=== PATIENT | male | born 1960 | race Caucasian/White ===

== ENCOUNTER 2016-11-14 18:02 | Emergency (ER) | payer OTHER ==
[~2016-11-14] VITALS: Ht 167.6 cm; Wt 82.5 kg
[~2016-11-14 18:02] MED LIST: ASPCH81X PO; ATV/1 PO; CALCTAB7 PO; ESOM20CA PO; MULT-513 PO; VITACAP37 PO; VITATAB19 PO
[2016-11-14 18:10] VITALS: TEMP 36.7; Ht 167.6 cm; Wt 82.5 kg
[2016-11-14] MEDS ORDERED: ESOM20CA PO (18:34)
[2016-11-14] MEDS ORDERED: CHOL2000 PO (18:39)
[2016-11-14] MEDS ORDERED: ATOR10TA88 PO (18:39)
[2016-11-14] MEDS ORDERED: ASPI81TA28 PO (18:39)
[2016-11-14] MEDS ORDERED: OMEG10007 PO (18:39)
--- NOTE | 2016-11-14 18:53 | EMERGENCY ROOM VISIT NOTE ---
History Report prepared by Rigo: Ian Simms Under the Supervision of: Dr. Papito Lauren M.D. First contact with patient: 18:33 Chief Complaint: EYE ASSESSMENT Stated Complaint: FLOATING DARK SPOT IN L EYE, POSS DETACHED RETINA History of Present Illness The patient is a 56 year old male who presents to the Emergency Room with complaints of constant blurred vision to his right eye beginning a few days ago. The patient states that there is a black spot in his right eye that starts in the middle and floats to the right side when he closes his eye. He reports that he can not focus well, and it is sensitive to light. The patient complains of a headache. He denies nausea, vomiting, weakness, rashes, and neck pain. The patient notes that two weeks ago he fell and hit the back of his head. He states that his ears rang, but he did not loss consciousness. Source of History: patient Onset: few days ago Position: eye (right) Quality: other (blurred) Timing: constant Modifying Factors (Worsening): other (light) Associated Symptoms: + headache, No LOC, No neck pain, No nausea, No vomiting, No weakness, No rash Review of Systems See HPI for pertinent positives & negatives. A total of 10 systems reviewed and were otherwise negative. Past Medical & Surgical Medical Problems: (1) CHEST PAIN NOS (2) Chronic low back pain (3) ESOPHAGEAL REFLUX (4) FAMILY HISTORY OF OTHER CARDIOVASCULAR DISEASES (5) HYPERTENSION NOS (6) PURE HYPERCHOLESTEROLEM Family History Diabetes mellitus Heart disease Hypertension Social History Smoking Status: Current Some Day Smoker Alcohol Use: none Marital Status: Housing Status: lives with family Occupation Status: employed Current/Historical Medications Scheduled Aspirin (Aspirin Ec), 81 MG PO DAILY Atorvastatin (Lipitor), 10 MG PO DAILY Cholecalciferol (Vitamin D3), 2,000 INTER.UNIT PO DAILY Esomeprazole Magnesium (Nexium), 20 MG PO DAILY Fish Oil ([place]-3), 1 CAP PO DAILY Multivitamins/Minerals (Mvi With Minerals), 1 TAB PO DAILY Scheduled PRN Lorazepam (Ativan), 1 MG PO DAILY PRN for Anxiety Allergies Coded Allergies: Fentanyl (Verified Allergy, Severe, NEURO CHANGES, 11/14/16) WAS HOSPITILIZED FROM IT Tuberculin (Verified Allergy, Severe, SWELLING/HIVES, 11/14/16) Rosuvastatin (Verified Allergy, Intermediate, Chest and muscle pain, ) Sertraline (Verified Allergy, Intermediate, Psych complications, 11/14/16) Physical Exam Vital Signs Date Time Temp Pulse Resp B/P (MAP) Pulse Ox O2 Delivery O2 Flow Rate FiO2 11/14/16 20:05 86 16 123/74 96 Room Air 11/14/16 18:10 36.7 109 18 124/93 95 Room Air Right Eye Acuity: 20/70 Left Eye Acuity: 20/20 Physical Exam GENERAL: Patient is well and anxious appearing and in mild distress. HEENT: No acute trauma, normocephalic atraumatic, mucous membranes dry, no nasal congestion. EYE: Right pupil is larger than left - chronic, both reactive to light. Pain to palpation of the right eye. Refer to slip lamp procedure. Visual acuity: right eye 20/70, left eye 20/20. Pressure of both left (20, 19, 21, 21) and right eye (21, 21, 19, 20) averaged 20.3. NECK: No stridor, no adenopathy, no meningismus, trachea is midline. LUNGS: No dyspnea. Clear to auscultation and equal bilaterally. No wheeze, no rhonchi. HEART: Regular rate and rhythm. No murmurs, rubs, gallops appreciated. EXTREMITIES: Normal motion all extremities, no cyanosis, no edema. NEUROLOGIC: Alert and oriented, no acute motor or sensory deficits, no focal weakness, cranial nerves grossly intact. SKIN: No rash, no jaundice, no diaphoresis. Medical Decision & Procedures ER Provider Diagnostic Interpretation: CT results as stated below per interpretation by me and the radiologist: CT OF THE HEAD WITHOUT CONTRAST CLINICAL HISTORY: Posterior head injury, visual changes. COMPARISON STUDY: Head CT August 15, 2014. CT DOSE: 537.48 mGy.cm TECHNIQUE: Helical axial images of the head were obtained without IV contrast. Automated exposure control was utilized for the study. FINDINGS: No acute intracranial hemorrhage, midline shift or mass effect is present. Ventricular system is normal. Basilar cisterns are patent. There are no extra-axial collections. Calzada-white differentiation is maintained. There are no findings to suggest acute dural sinus thrombosis or acute territorial infarct. There is no calvarial fracture. Visualized portions of the sinuses and the mastoid air cells are clear. IMPRESSION: 1. No acute intracranial findings. 2. No calvarial fracture. Electronically signed by: Luis Fernando Aguila M.D. 11/14/2016 7:01 PM Dictated Date/Time: 11/14/2016 6:58 PM Medications Administered Medications (Trade) Dose Ordered Sig/Roberto Route Start Time Stop Time Status Last Admin Dose Admin Oxycodone HCl (Roxicodone Immediate Rel Tab) 5 mg NOW STAT PO 11/14/16 19:23 11/14/16 19:24 DC 11/14/16 19:33 5 MG Oxycodone HCl (Roxicodone Immediate Rel 5MG Home Pack) 1 homepack UD ONCE PO 11/14/16 20:15 11/14/16 20:16 DC 11/14/16 20:15 1 HOMEPACK Procedure Slit Lamp Examination Indication: visual disturbance The right eye was prepped with topical proparacaine. Slit lamp examination was performed in the standard fashion. Cornea appeared normal. Anterior chamber cloudy. Scleral injection not present. without discharge present. Fluorescein examination performed and revealed no up-take. No foreign bodies noted. Negative Chun sign. The patient tolerated the procedure well without complication. ED Course 1836: The patient was evaluated in room B11B. A complete history and physical exam was performed. 1906: Ordered Oxycodone HCl 5 mg PO, Proparacaine HCl 2 drops OP 1939: I discussed the patient's case with Dr. Phelps, Ophthalmology. He will evaluate the patient tomorrow as an outpatient. 2009: Reevaluated the patient. He is feeling much better and will se Dr. Phelps , Ophthalmology, tomorrow. Discussed results and discharge instructions: he verbalized understanding and agreement. The patient is ready for discharge. 2014: Ordered Oxycodone HCl 1 homepack PO Medical Decision 56 yr old male arrives for worsening right eye vision over last few days. Acutely worsening since yesterday with dark spot over center vision and radiation laterally. Associated with ocular headache. Hit head 2 weeks ago posterior thus went ahead with CT head which was negative. Visual acuity is acutely lower in right eye. Pressures are good. Slit lamp with mildly cloudy anterior chamber without corneal issue on fluorescein. Concern retinal/ vitreous detachment, optic neuritis. Discussed with Optho who will see him first thing in clinic in am. NPO after midnight. Oxy IR for pain. Reviewed symptoms requiring RTED. Stable and breathing comfortably. No neuro deficits. Consults Time Called: 1926 Consulting Physician: Dr. Phelps, Ophthalmology Returned Call: 1939 I discussed the patient's case with Dr. Phelps, Ophthalmology. He will evaluate the patient tomorrow as an outpatient. Impression Primary Impression: Low vision of right eye with normal vision in contralateral eye Additional Impression: Acute right eye pain Scribe Attestation The scribe's documentation has been prepared under my direction and personally reviewed by me in its entirety. I confirm that the note above accurately reflects all work, treatment, procedures, and medical decision making performed by me. Departure Information Dispostion Home / Self-Care Referrals Olga Medrano M.D. (PCP) Flex Phelps D.O. Patient Instructions My [facility] Additional Instructions Follow up with Dr Phelps tomorrow morning at his [facility] Office at 8:30am They should be expecting you. If worsening or other concerns, return to ED immediately for further evaluation. You have received a narcotic pain medication. These medications may cause drowsiness and should not be used with other sedative medications. Do not drive , drink alcohol, perform dangerous activities, nor make important decisions after taking these medications. fine hairer use or inappropriate use may lead to addiction. Problem Qualifiers
--- NOTE | 2016-11-14 19:02 | DIAGNOSTIC IMAGING REPORT ---
CT OF THE HEAD WITHOUT CONTRAST CLINICAL HISTORY: Posterior head injury, visual changes. COMPARISON STUDY: Head CT August 15, 2014. CT DOSE: 537.48 mGy.cm TECHNIQUE: Helical axial images of the head were obtained without IV contrast. Automated exposure control was utilized for the study. FINDINGS: No acute intracranial hemorrhage, midline shift or mass effect is present. Ventricular system is normal. Basilar cisterns are patent. There are no extra-axial collections. Calzada-white differentiation is maintained. There are no findings to suggest acute dural sinus thrombosis or acute territorial infarct. There is no calvarial fracture. Visualized portions of the sinuses and the mastoid air cells are clear. IMPRESSION: 1. No acute intracranial findings. 2. No calvarial fracture. Electronically signed by: Luis Fernando Aguila M.D. 11/14/2016 7:01 PM Dictated Date/Time: 11/14/2016 6:58 PM
[2016-11-14] MEDS ORDERED: PROPARACAINE HCL 0.5% OP SOLN 15 ML BTL OP STA (19:07)
[2016-11-14] MEDS ORDERED: OXYCODONE HCL IR 5 MG TAB (IMMEDIATE RELEASE) PO STA (19:23)
[2016-11-14 20:05] VITALS: BP 123/74; PULSE 86; O2SAT 96
[2016-11-14] MEDS ORDERED: OXYCODONE IR HOME PACK PO ONE (20:15)
[2017-01-28] MEDS ORDERED: PRED10TA PO (17:08)
[2017-01-28] MEDS ORDERED: ARTIOIN OPR (17:08)
[2017-01-28] MEDS ORDERED: LPR25 PO (17:08)
== END 2016-11-14 20:28 | disposition home or self-care (01) ==
LOC: C.EDB 18:03
DX: H54.51 Low vision, right eye, normal vision left eye (principal); H57.11 Ocular pain, right eye; I10 Essential (primary) hypertension; K21.9 Gastro-esophageal reflux disease without esophagitis; E78.00 Pure hypercholesterolemia, unspecified; G89.29 Other chronic pain; F17.200 Nicotine dependence, unspecified, uncomplicated; Z79.82 Long term (current) use of aspirin; Z79.899 Other long term (current) drug therapy; Z88.8 Allergy status to other drugs, medicaments and biological substances; Z83.3 Family history of diabetes mellitus; Z82.49 Family history of ischemic heart disease and other diseases of the circulatory system

== ENCOUNTER 2016-11-15 03:54 | Emergency (ER) | payer OTHER ==
[~2016-11-15] VITALS: Ht 170.2 cm; Wt 83.2 kg
[~2016-11-15 03:54] MED LIST changes: -ASPCH81X PO; +ASPI81TA28 PO; +ATOR10TA88 PO; -CALCTAB7 PO; +CHOL2000 PO; +OMEG10007 PO; -VITACAP37 PO; -VITATAB19 PO
[2016-11-15 03:58] VITALS: TEMP 36.3; Ht 170.2 cm; Wt 83.2 kg
[2016-11-15] MEDS ORDERED: ALUMINUM/MAGNESIUM SUSP 30 ML UDC PO STA (04:13)
[2016-11-15] MEDS ORDERED: LIDOCAINE HCL 2% VISC SOLN 20 ML UDC PO STA (04:13)
[2016-11-15] MEDS ORDERED: ALUMINUM/MAGNESIUM SUSP 30 ML UDC ONE (04:14)
[2016-11-15] MEDS ORDERED: LIDOCAINE HCL 2% VISC SOLN 20 ML UDC ONE (04:15)
[2016-11-15 04:19] LABS: BASO % 0.2 %; BASO ABS # 0.01 K/uL (0-0.2); COMPLETE YES; EOS % 1.8 %; HEMATOCRIT 44.3 % (42-52); IG% 0.5 %; LYMPH % 37.9 %; LYMPH ABS # 2.47 K/uL (1.2-3.4); MEAN CELL VOLUME 92.1 fL (80-100); MEAN CORPUSCULAR HEMOGLOBIN 31.6 pg (25-34); MEAN CORPUSCULAR HGB CONC 34.3 g/dl (32-36); MEAN PLATELET VOLUME 9.2 fL (7.4-10.4); MONO % 8.6 %; PLATELET COUNT 154 K/uL (130-400); RED BLOOD COUNT 4.81 M/uL (4.7-6.1); WHITE BLOOD COUNT 6.51 K/uL (4.8-10.8)
[2016-11-15] MEDS ORDERED: LORAZEPAM 2 MG/ML 1 ML VIAL IV STA (04:19)
[2016-11-15 04:38] LABS: ALT/SGPT 41 U/L (12-78); AST/SGOT 19 U/L (15-37); BLOOD UREA NITROGEN 17 mg/dl (7-18); BUN/CREATININE RATIO 13.8 (10-20); CALCIUM 8.8 mg/dl (8.5-10.1); CARBON DIOXIDE 28 mmol/L (21-32); CHLORIDE 103 mmol/L (98-107); GLUCOSE 127 mg/dl (70-99); POTASSIUM 3.7 mmol/L (3.5-5.1); SODIUM 141 mmol/L (136-145)
[2016-11-15 04:43] LABS: ALKALINE PHOSPHATASE 54 U/L (45-117)
[2016-11-15] MEDS ORDERED: OXYCODONE HCL IR 5 MG TAB (IMMEDIATE RELEASE) PO STA (06:05)
--- NOTE | 2016-11-15 06:28 | EMERGENCY ROOM VISIT NOTE ---
History First contact with patient: 04:04 Chief Complaint: CHEST PAIN Stated Complaint: SEVERE CHEST PAIN,STOMACH PAIN,DRY MOUTH Nursing Triage Summary: pt reports mid chest pain that woke him from sleep at 0030 with nausea. hx heart cath with blockage in the past and HTN. pt took zantac, gas x and baking soda water at home with no relief. History of Present Illness The patient is a 56 year old male who presents to the Emergency Room with complaints of midsternal chest pain that woke him out of his out of sleep at 12: 30 AM described as discomfort, 5 out of 10. Nothing makes it better or worse. He had a cardiac cath 2 and half years ago that showed 50% blockage. Nothing more recent. Patient does occasionally smoke has high blood pressure and cholesterol with a family history of heart disease. Patient was seen here yesterday for visual complaints and has appointment this morning at 8:30 with ophthalmology for further workup. This is unchanged. Patient tried an antacid with no relief of symptoms. Patient denies dyspnea, abdominal pain, back pain, leg pain or swelling, recent travel, history of blood clots. Review of Systems See HPI for pertinent positives & negatives. A total of 10 systems reviewed and were otherwise negative. Past Medical/Surgical History Medical Problems: (1) CHEST PAIN NOS (2) Chronic low back pain (3) ESOPHAGEAL REFLUX (4) FAMILY HISTORY OF OTHER CARDIOVASCULAR DISEASES (5) HYPERTENSION NOS (6) PURE HYPERCHOLESTEROLEM Family History Diabetes mellitus Heart disease Hypertension Social History Smoking Status: Current Some Day Smoker Alcohol Use: none Marital Status: Housing Status: lives with family Occupation Status: employed Current/Historical Medications Scheduled Aspirin (Aspirin Ec), 81 MG PO DAILY Atorvastatin (Lipitor), 10 MG PO DAILY Cholecalciferol (Vitamin D3), 2,000 INTER.UNIT PO DAILY Esomeprazole Magnesium (Nexium), 20 MG PO DAILY Fish Oil ([place]-3), 1 CAP PO DAILY Multivitamins/Minerals (Mvi With Minerals), 1 TAB PO DAILY Scheduled PRN Lorazepam (Ativan), 1 MG PO DAILY PRN for Anxiety Allergies Coded Allergies: Fentanyl (Verified Allergy, Severe, NEURO CHANGES, 11/15/16) WAS HOSPITILIZED FROM IT Tuberculin (Verified Allergy, Severe, SWELLING/HIVES, 11/15/16) Rosuvastatin (Verified Allergy, Intermediate, Chest and muscle pain, ) Sertraline (Verified Allergy, Intermediate, Psych complications, 11/15/16) Physical Exam Vital Signs Date Time Temp Pulse Resp B/P (MAP) Pulse Ox O2 Delivery O2 Flow Rate FiO2 11/15/16 06:11 75 18 127/78 93 Room Air 11/15/16 04:16 Room Air 11/15/16 04:16 Room Air 11/15/16 04:12 86 11/15/16 04:01 99 Room Air 11/15/16 03:58 36.3 82 20 156/108 99 Room Air Physical Exam VITALS: Vitals are noted on the nurse's note and reviewed by myself. Vital signs hypertensive GENERAL: Pleasant male, in no acute distress, nondiaphoretic, well-developed well-nourished. SKIN: The skin was without rashes, erythema, edema, or bruising. There is no tenting of the skin. Capillary reflex less than 2 seconds. HEAD: Normocephalic atraumatic. EARS: External auditory canals clear, tympanic membranes pearly lovelace without erythema or effusion bilaterally. EYES: Pupils equal round and reactive to light and accommodation. Conjunctivae without injection, sclerae without icterus. Extraocular movements intact. NOSE: Patent, turbinates without inflammation or discharge. MOUTH: Mucous membranes moist. Pharynx without erythema or exudate. Uvula midline. Airway patent. Tongue does not deviate. NECK: Supple without nuchal rigidity. No lymphadenopathy. No thyromegaly. Cervical spine is nontender. No JVD. HEART: Regular rate and rhythm without murmurs gallops or rubs. Chest nontender to palpation LUNGS: Clear to auscultation bilaterally without wheezes, rales or rhonchi. No dullness to percussion. No retractions or accessory muscle use. ABDOMEN: Positive bowel sounds x 4. Normal tympanic percussion. Soft, nontender, without masses or organomegaly. El sign negative. No guarding or rebound tenderness. MUSCULOSKELETAL: No muscle atrophy, erythema, or edema noted. NEURO: Patient was alert and oriented to person place and time. Normal sensation to light and sharp touch. No focal neurological deficits. Medical Decision & Procedures Laboratory Results 11/15/16 04:10 Red Blood Count 4.81, Mean Corpuscular Volume 92.1, Mean Corpuscular Hemoglobin 31.6, Mean Corpuscular Hemoglobin Concent 34.3, Mean Platelet Volume 9.2, Neutrophils (%) (Auto) 51.0, Lymphocytes (%) (Auto) 37.9, Monocytes (%) (Auto) 8.6, Eosinophils (%) (Auto) 1.8, Basophils (%) (Auto) 0.2, Neutrophils # (Auto) 3.32, Lymphocytes # (Auto) 2.47, Monocytes # (Auto) 0.56, Eosinophils # (Auto) 0.12, Basophils # (Auto) 0.01 11/15/16 04:10 Test 11/15/16 04:10 11/15/16 06:12 White Blood Count 6.51 K/uL (4.8-10.8) Red Blood Count 4.81 M/uL (4.7-6.1) Hemoglobin 15.2 g/dL (14.0-18.0) Hematocrit 44.3 % (42-52) Mean Corpuscular Volume 92.1 fL (80-100) Mean Corpuscular Hemoglobin 31.6 pg (25-34) Mean Corpuscular Hemoglobin Concent 34.3 g/dl (32-36) Platelet Count 154 K/uL (130-400) Mean Platelet Volume 9.2 fL (7.4-10.4) Neutrophils (%) (Auto) 51.0 % Lymphocytes (%) (Auto) 37.9 % Monocytes (%) (Auto) 8.6 % Eosinophils (%) (Auto) 1.8 % Basophils (%) (Auto) 0.2 % Neutrophils # (Auto) 3.32 K/uL (1.4-6.5) Lymphocytes # (Auto) 2.47 K/uL (1.2-3.4) Monocytes # (Auto) 0.56 K/uL (0.11-0.59) Eosinophils # (Auto) 0.12 K/uL (0-0.5) Basophils # (Auto) 0.01 K/uL (0-0.2) RDW Standard Deviation 41.5 fL (36.4-46.3) RDW Coefficient of Variation 12.3 % (11.5-14.5) Immature Granulocyte % (Auto) 0.5 % Immature Granulocyte # (Auto) 0.03 K/uL (0.00-0.02) D-Dimer 190 ug/L FEU (0-500) Anion Gap 10.0 mmol/L (3-11) Est Creatinine Clear Calc Drug Dose 70.1 ml/min Estimated GFR () 77.3 Estimated GFR (Non- 66.7 BUN/Creatinine Ratio 13.8 (10-20) Calcium Level 8.8 mg/dl (8.5-10.1) Total Bilirubin 0.7 mg/dl (0.2-1) Direct Bilirubin 0.1 mg/dl (0-0.2) Aspartate Amino Transf (AST/SGOT) 19 U/L (15-37) Alanine Aminotransferase (ALT/SGPT) 41 U/L (12-78) Alkaline Phosphatase 54 U/L (45-117) Troponin I < 0.015 ng/ml (0-0.045) Total Protein 7.4 gm/dl (6.4-8.2) Albumin 3.7 gm/dl (3.4-5.0) Lipase 140 U/L (73-393) Bedside Troponin I < 0.030 ng/ml (0-0.045) Medications Administered Medications (Trade) Dose Ordered Sig/Roberto Route Start Time Stop Time Status Last Admin Dose Admin Al Hydroxide/Mg Hydroxide (Maalox Susp) 30 ml STK-MED ONCE .ROUTE 11/15/16 04:14 11/15/16 04:15 DC 11/15/16 04:18 30 ML Lidocaine HCl (Viscous Lidocaine 2% Soln) 20 ml STK-MED ONCE .ROUTE 11/15/16 04:15 11/15/16 04:16 DC 11/15/16 04:17 10 ML Lorazepam (Ativan Inj) 1 mg NOW STAT IV 11/15/16 04:19 11/15/16 04:21 DC 11/15/16 04:24 1 MG Oxycodone HCl (Roxicodone Immediate Rel Tab) 5 mg NOW STAT PO 11/15/16 06:05 11/15/16 06:06 DC 11/15/16 06:15 5 MG ED Course Prior records/ancillary studies reviewed. Triage Nursing notes reviewed. Additional history obtained from family. The patient's history was concerning for chest pain. Differential diagnosis: Etiologies such as cardiac ischemia, aortic dissection, pulmonary embolism, pneumonia, pneumothorax, musculoskeletal, infections, pericarditis, myocarditis , esophageal rupture, gastrointestinal, as well as others were entertained. Physical examination: As above. ER treatment provided: GI cocktail, Ativan On reassessment the patient felt better. Diagnostic interpretation by me: The electrocardiogram was negative for pathologic change. Normal sinus, normal intervals, T wave inversions in lead 3, normal axis, rate of 86. Impression normal sinus rhythm interpreted by myself. Repeat EKG is unchanged The labs revealed d-dimer Negative troponin 2 2.5 hours apart Imaging studies: Chest x-ray with no acute consolidation, pneumothorax or free air per my interpretation Exam and history seem consistent with chest pain with risk factors for heart disease. Patient was offered admission and Ativan he refused. He understands the risks involved such as having a heart attack. He states he'll follow up today with his family care doctor for further workup for cardiac workup. He states he will go to his appointment at 8:30 with the seismic survey assistant for his eye issue that he was seen here yesterday for. This is unchanged per patient. He states is not gotten worse or any better. Patient to troponins that were negative that were 2 hours apart. Patient had 2 normal EKGs that were greater than 2 hours apart. Negative d-dimer. His risk factors of heart disease for high blood pressure, cholesterol, family history and he smokes. No recent stress test or echo or cardiac cath. He was asked several times to stay and adamantly denied. He was advised to return to the ER immediately for chest pain , difficulty breathing, worsening signs or symptoms or as needed. He stated he did feel better after the GI cocktail and Ativan. By the evaluation outlined above emergent etiologies such as aortic dissection, pulmonary embolism, pneumonia, pneumothorax, infections, pericarditis, myocarditis, gastrointestinal, as well as others were deemed relatively unlikely. The pt informed about the findings as listed above. All questions were answered and pleased with the treatment. Return instructions were outlined and the patient was discharged in stable condition. Referral: The patient was referred back to primary care physician for follow-up in today and go to your appointment as scheduled with ophthalmology this morning from yesterday's visit for a recheck of the current condition. Case reviewed with my attending. Medical Decision as above Impression Primary Impression: Substernal precordial chest pain Departure Information Dispostion Home / Self-Care Condition FAIR Referrals Olga Medrano M.D. (PCP) Patient Instructions My [facility] Additional Instructions Go to Dr. Ayala's office at 8:30 this morning for your eye problems. You have multiple risk factors for heart disease. I strongly recommend that you see your family care doctor today or tomorrow for further workup for this for outpatient stress test and/or echo. Recommend no strenuous activity until cleared by your family care doctor. Recommend that you quit smoking. Return to ER sooner for further cardiac workup, chest pain, difficulty breathing , worsening signs or symptoms or as needed.
[2016-11-15 06:37] VITALS: BP 130/87; PULSE 83; O2SAT 97
--- NOTE | 2016-11-15 06:40 | DIAGNOSTIC IMAGING REPORT ---
CHEST ONE VIEW PORTABLE HISTORY:56 yearsMaleCHEST PAIN COMPARISON: 04/26/2016 TECHNIQUE: Portable upright AP view of the chest FINDINGS: Cardiac mediastinal and hilar silhouettes are within normal limits. No pneumothorax, pleural effusion, focal airspace consolidation or overt pulmonary edema. There is a healed remote mid left ventricular fracture. Degenerative changes involve the AC joints bilaterally. IMPRESSION: 1. No acute cardiopulmonary process. 2. Remote healed mid left clavicular fracture. The above report was generated using voice recognition software. It may contain grammatical, syntax or spelling errors. Electronically signed by: Philip Ernst M.D. 11/15/2016 6:39 AM Dictated Date/Time: 11/15/2016 6:37 AM
[2017-01-28] MEDS ORDERED: PRED10TA PO (17:08)
[2017-01-28] MEDS ORDERED: LPR25 PO (17:08)
[2017-01-28] MEDS ORDERED: ARTIOIN OPR (17:08)
== END 2016-11-15 06:38 | disposition home or self-care (01) ==
LOC: C.EDB 03:56
DX: R07.2 Precordial pain (principal); F17.210 Nicotine dependence, cigarettes, uncomplicated; M54.5 Low back pain; G89.29 Other chronic pain; K21.9 Gastro-esophageal reflux disease without esophagitis; Z82.49 Family history of ischemic heart disease and other diseases of the circulatory system; I10 Essential (primary) hypertension; E78.00 Pure hypercholesterolemia, unspecified; Z83.3 Family history of diabetes mellitus; Z79.82 Long term (current) use of aspirin; Z79.899 Other long term (current) drug therapy

== ENCOUNTER 2017-01-27 14:14 | Observation (INO) | payer OTHER ==
[~2017-01-27] VITALS: Ht 170.2 cm; Wt 81.1 kg
--- NOTE | 2017-01-27 14:33 | EMERGENCY ROOM VISIT NOTE ---
History Report prepared by Isabelaibalex: Yuko Sequeira Under the Supervision of: Mell MccartneyO. First contact with patient: 14:23 Chief Complaint: STROKE SYMPTOMS Stated Complaint: NUMB R SIDE [id number] EYE-R SIDE OF FACE-SO History of Present Illness The patient is a 56 year old male who presents to the Emergency Room with complaints of possible stroke symptoms that started yesterday. He complains of numbness in the right side of his face and pain in his right eye. He reports yesterday, he started to experience numbness in the right side of his tongue as he was eating and food started to fall out of his mouth. He denies any weakness in his arms or legs. He does have some neck pain and a headache. He also notes he has felt "run down" for the past 1 month. The patient admits to a history of hypertension, anxiety and panic attacks. He has no prior history of CVA's or TIA 's. He denies any recent known tick bites. He does admit to intermittent joint pain and spending a lot of time outdoors. 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 Source of History: patient Onset: yesterday Position: head (right side of face) Timing: other (persistent) Associated Symptoms: + headache, + neck pain, + numbness (right side of face ), No weakness (in the arms or legs) Review of Systems See HPI for pertinent positives & negatives. A total of 10 systems reviewed and were otherwise negative. Past Medical & Surgical Medical Problems: (1) Yanes's palsy (2) CHEST PAIN NOS (3) Chronic low back pain (4) ESOPHAGEAL REFLUX (5) FAMILY HISTORY OF OTHER CARDIOVASCULAR DISEASES (6) HYPERTENSION NOS (7) Mouth droop due to facial weakness (8) PURE HYPERCHOLESTEROLEM (9) Severe anxiety Family History Diabetes mellitus Heart disease Hypertension Social History Smoking Status: Former Smoker Alcohol Use: none Drug Use: none Marital Status: Housing Status: lives with family Occupation Status: employed Current/Historical Medications Scheduled Aspirin (Aspirin Ec), 81 MG PO DAILY Cholecalciferol (Vitamin D3), 2,000 INTER.UNIT PO DAILY Esomeprazole Magnesium (Nexium), 20 MG PO DAILY Fish Oil ([place]-3), 1 CAP PO DAILY Multivitamins/Minerals (Mvi With Minerals), 1 TAB PO DAILY Scheduled PRN Lorazepam (Ativan), 1 MG PO DAILY PRN for Anxiety Allergies Coded Allergies: Fentanyl (Verified Allergy, Severe, NEURO CHANGES, 11/15/16) WAS HOSPITILIZED FROM IT Tuberculin (Verified Allergy, Severe, SWELLING/HIVES, 11/15/16) Rosuvastatin (Verified Allergy, Intermediate, Chest and muscle pain, ) Sertraline (Verified Allergy, Intermediate, Psych complications, 11/15/16) Physical Exam Vital Signs Date Time Temp Pulse Resp B/P (MAP) Pulse Ox O2 Delivery O2 Flow Rate FiO2 01/27/17 17:50 76 13 140/87 96 Room Air 01/27/17 17:40 96 Room Air 01/27/17 16:58 69 18 130/89 96 Room Air 01/27/17 15:29 73 16 131/89 96 Room Air 01/27/17 15:12 75 01/27/17 14:41 97 Room Air 01/27/17 14:41 97 Room Air 01/27/17 14:20 37.0 83 18 153/90 98 Room Air Physical Exam GENERAL: Patient is awake, alert, in no acute distress, patient is resting comfortably and showing no signs of anxiety EYES: The conjunctivae are clear. The pupils are round and reactive. EARS, NOSE, MOUTH AND THROAT: The nose is without any evidence of any deformity. Mucous membranes are moist tongue is midline NECK: The neck is nontender and supple. RESPIRATORY: Normal respiratory effort is noted there is no evidence of wheezing rhonchi or rales CARDIOVASCULAR: Regular rate and rhythm noted there no murmurs rubs or gallops normal S1 normal S2 GASTROINTESTINAL: The abdomen is soft. Bowel sounds are present in all quadrants. Abdomen is nontender MUSCULOSKELETAL/EXTREMITIES: There is no evidence of gross deformity full range of motion is noted in the hips and shoulders SKIN: There is no obvious evidence of any rash. There are no petechiae, pallor or cyanosis noted. NEUROLOGIC: Slight facial asymmetry involving right corner of mouth, patient is able to raise eyebrows and wrinkle the forehead symmetrically. Medical Decision & Procedures ER Provider Diagnostic Interpretation: Radiology results as stated below per my review and radiologist interpretation: NECK CTA HISTORY: Headache. Right-sided facial numbness. TECHNIQUE: Multiaxial CT images of the neck were performed following the intravenous administration of contrast to evaluate the major cervical vessels. Maximum intensity projection images were also obtained. All measurements were calculated based on NASCET criteria. A dose lowering technique was utilized adhering to the principles of ALARA. COMPARISON STUDY: None. FINDINGS: Moderate calcified plaque within the right carotid bifurcation and mild calcified plaque within the left carotid bifurcation. Bilateral common carotid arteries are widely patent. There is approximately 30% stenosis at the right carotid bulb. The remaining right internal carotid artery is widely patent. The left internal carotid artery is hypoplastic and is approximately 50% smaller in caliber and comparison to the normal right side. However, there are no areas of occlusion identified. Bilateral cervical vertebral arteries are widely patent. Opacified internal jugular veins are patent. Subcutaneous cyst within the posterior aspect of the neck. IMPRESSION: 1. Diffusely hypoplastic left internal carotid artery which is approximately 50% smaller in caliber in comparison to the normal right side. 2. Approximately 30% stenosis at the right carotid bulb due to the atherosclerotic plaque. 3. The visualized cervical vertebral arteries are patent. Electronically signed by: Pop Mora M.D. 01/27/2017 5:06 PM HEAD CTA HISTORY: CROOKS, RT SIDE FACIAL WEAKNESS, HWO CONTRAST ALREADY DONE TECHNIQUE: Multiaxial CT images of the head were performed after the intravenous administration of contrast to evaluate the major cerebral vessels. Maximum intensity projection images were also obtained. A dose lowering technique was utilized adhering to the principles of ALARA. COMPARISON: None. FINDINGS: There is no mass, hematoma, midline shift, or acute infarct. Moderate calcified plaque within the right carotid siphon resulting in multifocal areas of mild stenosis. Hypoplastic distal right vertebral artery. Mild focal stenosis within the distal left vertebral artery. The basilar artery is patent. No significant stenosis within the bilateral proof technician helper are MCAs. No aneurysm identified. The visualized left internal carotid artery is diffusely small in caliber. Focal area of high-grade stenosis within the petrous segment of the left internal carotid artery on image 20. The left carotid siphon is diffusely small in caliber but patent. No severe stenosis within the bilateral MCAs or ACAs. The left A1 segment is hypoplastic. IMPRESSION: 1. The visualized left internal carotid artery is diffusely small in caliber/narrowed with a focal area of high-grade stenosis at the petrous segment. 2. Multifocal mild stenosis within the right carotid siphon. 3. Focal area of mild stenosis within the left distal vertebral artery. 4. No areas of vascular occlusion or aneurysms identified. Electronically signed by: Pop Mora M.D. 01/27/2017 5:02 PM CHEST ONE VIEW PORTABLE HISTORY: EVALUATE ALTERED MENTAL STATUS/WEAKNESS COMPARISON: Chest 11/15/2016. FINDINGS: The lungs are clear. Cardiac silhouette is normal in size. No pleural effusions. No pneumothorax. Old, healed left clavicle fracture. IMPRESSION: No acute process. Electronically signed by: Pop Mora M.D. 01/27/2017 2:[address] CT DOSE: 537.48 mGy.cm HISTORY: EVALUATE ALTERED MENTAL STATUS/WEAKNESS TECHNIQUE: Multiaxial CT images of the head were performed without the use of intravenous contrast. Automated exposure control was utilized for this study. A dose lowering technique was utilized adhering to the principles of ALARA. Comparison: Head CT 11/14/2016. Findings: The paranasal sinuses and mastoid air cells are clear. The calvarium and skull base are intact. The ventricles and sulci are within normal limits. There is no mass, hematoma, midline shift, or acute infarct. Impression: No acute intracranial abnormality. Electronically signed by: Pop Mora M.D. 01/27/2017 3:16 PM Laboratory Results Test 01/27/17 14:29 01/27/17 14:30 Bedside Glucose 137 mg/dl (70-99) Erythrocyte Sedimentation Rate 19 mm/hr (0-14) Prothrombin Time 10.1 SECONDS (9.0-12.0) Prothromb Time International Ratio 0.9 (0.9-1.1) Activated Partial Thromboplast Time 25.3 SECONDS (21.0-31.0) Partial Thromboplastin Ratio 1.0 Magnesium Level 2.2 mg/dl (1.8-2.4) Total Bilirubin 0.4 mg/dl (0.2-1) Direct Bilirubin < 0.1 mg/dl (0-0.2) Aspartate Amino Transf (AST/SGOT) 15 U/L (15-37) Alanine Aminotransferase (ALT/SGPT) 37 U/L (12-78) Alkaline Phosphatase 54 U/L (45-117) Total Creatine Kinase 80 U/L (39-308) Creatine Kinase MB < 0.5 ng/ml (0.5-3.6) Creatine Kinase MB Ratio (0-3.0) Troponin I < 0.015 ng/ml (0-0.045) C-Reactive Protein 0.80 mg/dl (0-0.29) Total Protein 7.6 gm/dl (6.4-8.2) Albumin 3.6 gm/dl (3.4-5.0) Thyroid Stimulating Hormone (TSH) 1.100 uIu/ml (0.300-4.500) Lyme Disease IgG Antibody NEG (NEG) Lyme Disease IgM Antibody NEG (NEG) Hepatitis C Antibody Screen NEG (NEG) Laboratory results per my review. Medications Administered Medications (Trade) Dose Ordered Sig/Roberto Route Start Time Stop Time Status Last Admin Dose Admin Acetaminophen (Tylenol Tab) 1,000 mg NOW STAT PO 01/27/17 15:33 01/27/17 15:34 DC 01/27/17 15:36 1,000 MG Morphine Sulfate (MoRPHine SULFATE INJ) 4 mg Q15M PRN IV 01/27/17 16:00 01/27/17 19:03 DC 01/27/17 16:58 4 MG Ondansetron HCl (Zofran Inj) 4 mg NOW STAT IV 01/27/17 15:52 01/27/17 15:53 DC 01/27/17 16:13 4 MG Aspirin (Aspirin Chew) 324 mg NOW STAT PO 01/27/17 17:28 01/27/17 17:29 DC 01/27/17 17:52 324 MG Acetaminophen 100 ml @ 400 mls/hr Q8H PRN IV 01/27/17 18:45 02/26/17 18:44 01/27/17 20:47 400 MLS/HR ED Course 1424: The patient was evaluated in room B9. A complete history and physical examination were performed. 1533: Acetaminophen 1000 mg PO. 1550: I reevaluated the patient. He still has a headache. 1552: Zofran 4 mg IV. 1600: Morphine Sulfate 4 mg IV. 1727: I discussed the patients case with Dr. Perkins, [facility] Hospitalist. The patient will be further evaluated. 1728: Aspirin 324 mg PO. 1735: I reevaluated the patient. He is resting comfortably. I discussed my recommendation he remain in the hospital for further evaluation and management and he verbalized complete understanding and agreement. Medical Decision Prior records/ancillary studies reviewed and summarized above. Nursing notes reviewed. The patient's history was concerning for weakness. Differential diagnosis: Etiologies such as metabolic, infection, hypo/hyperglycemia, electrolyte abnormalities, cardiac sources, intracerebral event, toxicologic, neurologic, as well as others were entertained. The patient is a 56-year-old male who presented to the emergency department for an evaluation of a facial droop. The facial droop began recently but he was not inside the window for a stroke alert given that he describes symptoms which began a day or 2 ago. On physical exam patient had a mild right facial droop and his forehead strength remained. The patient had no other focal neurologic deficit. I discussed the patient's laboratory radiographic studies with him which included angiography of the head and neck. This revealed significant carotid stenosis on the left which could be responsible for the patient's right- sided symptoms. For this reason I discussed his case with the on-call [facility] hospitalist group. They've agreed to evaluate the patient in emergency department for further management and disposition. Medication Reconcilliation Current Medication List: was personally reviewed by me Blood Pressure Screening Patient's blood pressure: Normal blood pressure Blood pressure disposition: Did not require urgent referral Consults Time Called: 1725 Consulting Physician: Felicitas Mcmahon Returned Call: 1727 I discussed the patients case with Felicitas Mcmahon. The patient will be further evaluated. Impression Primary Impression: Facial droop Additional Impressions: Internal carotid artery stenosis CVA (cerebral vascular accident) Scribe Attestation The scribe's documentation has been prepared under my direction and personally reviewed by me in its entirety. I confirm that the note above accurately reflects all work, treatment, procedures, and medical decision making performed by me. Departure Information Dispostion Being Evaluated By Hospitalist Referrals Olga Medrano M.D. (PCP) Patient Instructions My [facility] Problem Qualifiers Additional Impressions: Internal carotid artery stenosis Laterality: left Qualified Codes: I65.22 - Occlusion and stenosis of left carotid artery CVA (cerebral vascular accident) CVA mechanism: unspecified Qualified Codes: I63.9 - Cerebral infarction, unspecified
[2017-01-27 14:42] LABS: BASO % 0.2 %; BASO ABS # 0.01 K/uL (0-0.2); COMPLETE YES; EOS % 3.2 %; HEMATOCRIT 42.3 % (42-52); IG% 0.3 %; LYMPH % 30.4 %; LYMPH ABS # 1.92 K/uL (1.2-3.4); MEAN CELL VOLUME 94.2 fL (80-100); MEAN CORPUSCULAR HEMOGLOBIN 33.6 pg (25-34); MEAN CORPUSCULAR HGB CONC 35.7 g/dl (32-36); MEAN PLATELET VOLUME 9.7 fL (7.4-10.4); MONO % 11.9 %; PLATELET COUNT 151 K/uL (130-400); RED BLOOD COUNT 4.49 M/uL (4.7-6.1); WHITE BLOOD COUNT 6.31 K/uL (4.8-10.8)
--- NOTE | 2017-01-27 14:51 | DIAGNOSTIC IMAGING REPORT ---
CHEST ONE VIEW PORTABLE HISTORY: EVALUATE ALTERED MENTAL STATUS/WEAKNESS COMPARISON: Chest 11/15/2016. FINDINGS: The lungs are clear. Cardiac silhouette is normal in size. No pleural effusions. No pneumothorax. Old, healed left clavicle fracture. IMPRESSION: No acute process. Electronically signed by: Pop Mora M.D. 01/27/2017 2:50 PM Dictated Date/Time: 01/27/2017 2:49 PM
[2017-01-27 14:58] LABS: ALT/SGPT 37 U/L (12-78); BLOOD UREA NITROGEN 15 mg/dl (7-18); BUN/CREATININE RATIO 11.4 (10-20); CALCIUM 8.8 mg/dl (8.5-10.1); CARBON DIOXIDE 23 mmol/L (21-32); CHLORIDE 107 mmol/L (98-107); GLUCOSE 146 mg/dl (70-99); MAGNESIUM 2.2 mg/dl (1.8-2.4); POTASSIUM 4.4 mmol/L (3.5-5.1); SODIUM 140 mmol/L (136-145)
[2017-01-27 14:59] LABS: INR 0.9 (0.9-1.1); PROTHROMBIN TIME (PATIENT) 10.1 SECONDS (9.0-12.0)
[2017-01-27 15:09] LABS: ALKALINE PHOSPHATASE 54 U/L (45-117); AST/SGOT 15 U/L (15-37)
--- NOTE | 2017-01-27 15:17 | DIAGNOSTIC IMAGING REPORT ---
HEAD CT NONCONTRAST CT DOSE: 537.48 mGy.cm HISTORY: EVALUATE ALTERED MENTAL STATUS/WEAKNESS TECHNIQUE: Multiaxial CT images of the head were performed without the use of intravenous contrast. Automated exposure control was utilized for this study. A dose lowering technique was utilized adhering to the principles of ALARA. Comparison: Head CT 11/14/2016. Findings: The paranasal sinuses and mastoid air cells are clear. The calvarium and skull base are intact. The ventricles and sulci are within normal limits. There is no mass, hematoma, midline shift, or acute infarct. Impression: No acute intracranial abnormality. Electronically signed by: Pop Mora M.D. 01/27/2017 3:16 PM Dictated Date/Time: 01/27/2017 3:12 PM
[2017-01-27] MEDS ORDERED: ACETAMINOPHEN 500 MG TAB PO STA (15:33)
[2017-01-27 15:45] LABS: LYME DISEASE AB IGG NEG (NEG); LYME DISEASE AB IGM NEG (NEG)
[2017-01-27] MEDS ORDERED: ONDANSETRON INJ 2 MG/ML 2 ML VIAL IV STA (15:52)
[2017-01-27] MEDS ORDERED: OPTIRAY 320 IV PRN (16:00)
[2017-01-27] MEDS: MoRPHine SULFATE 4 MG/ML 1 ML CARP\\VIAL IV PRN ×2 (16:13→16:58)
--- NOTE | 2017-01-27 17:03 | DIAGNOSTIC IMAGING REPORT ---
HEAD CTA HISTORY: CROOKS, RT SIDE FACIAL WEAKNESS, HWO CONTRAST ALREADY DONE TECHNIQUE: Multiaxial CT images of the head were performed after the intravenous administration of contrast to evaluate the major cerebral vessels. Maximum intensity projection images were also obtained. A dose lowering technique was utilized adhering to the principles of ALARA. COMPARISON: None. FINDINGS: There is no mass, hematoma, midline shift, or acute infarct. Moderate calcified plaque within the right carotid siphon resulting in multifocal areas of mild stenosis. Hypoplastic distal right vertebral artery. Mild focal stenosis within the distal left vertebral artery. The basilar artery is patent. No significant stenosis within the bilateral environmental officer are MCAs. No aneurysm identified. The visualized left internal carotid artery is diffusely small in caliber. Focal area of high-grade stenosis within the petrous segment of the left internal carotid artery on image 20. The left carotid siphon is diffusely small in caliber but patent. No severe stenosis within the bilateral MCAs or ACAs. The left A1 segment is hypoplastic. IMPRESSION: 1. The visualized left internal carotid artery is diffusely small in caliber/narrowed with a focal area of high-grade stenosis at the petrous segment. 2. Multifocal mild stenosis within the right carotid siphon. 3. Focal area of mild stenosis within the left distal vertebral artery. 4. No areas of vascular occlusion or aneurysms identified. Electronically signed by: Pop Mora M.D. 01/27/2017 5:02 PM Dictated Date/Time: 01/27/2017 4:57 PM
--- NOTE | 2017-01-27 17:07 | DIAGNOSTIC IMAGING REPORT ---
NECK CTA HISTORY: Headache. Right-sided facial numbness. TECHNIQUE: Multiaxial CT images of the neck were performed following the intravenous administration of contrast to evaluate the major cervical vessels. Maximum intensity projection images were also obtained. All measurements were calculated based on NASCET criteria. A dose lowering technique was utilized adhering to the principles of ALARA. COMPARISON STUDY: None. FINDINGS: Moderate calcified plaque within the right carotid bifurcation and mild calcified plaque within the left carotid bifurcation. Bilateral common carotid arteries are widely patent. There is approximately 30% stenosis at the right carotid bulb. The remaining right internal carotid artery is widely patent. The left internal carotid artery is hypoplastic and is approximately 50% smaller in caliber and comparison to the normal right side. However, there are no areas of occlusion identified. Bilateral cervical vertebral arteries are widely patent. Opacified internal jugular veins are patent. Subcutaneous cyst within the posterior aspect of the neck. IMPRESSION: 1. Diffusely hypoplastic left internal carotid artery which is approximately 50% smaller in caliber in comparison to the normal right side. 2. Approximately 30% stenosis at the right carotid bulb due to the atherosclerotic plaque. 3. The visualized cervical vertebral arteries are patent. Electronically signed by: Pop Mora M.D. 01/27/2017 5:06 PM Dictated Date/Time: 01/27/2017 5:02 PM
[2017-01-27] MEDS ORDERED: ASPIRIN 81 MG CHEW PO STA (17:28)
[2017-01-27 17:40] VITALS: O2SAT 96; Ht 170.2 cm; Wt 81.1 kg
[2017-01-27] MEDS ORDERED: ACETAMINOPHEN IV 100 ML IV PRN (18:45)
[2017-01-27 19:04] VITALS: BP 132/84; PULSE 69; TEMP 36.9; O2SAT 96
[2017-01-27] MEDS ORDERED: MoRPHine SULFATE 2 MG/ML CARP IV PRN (20:00)
[2017-01-27] MEDS ORDERED: PHARMACIST DISCHARGE MED REC CONSULT PRN (20:00)
[2017-01-27] MEDS ORDERED: BUTALBITAL/ACETAMIN/CAFFEINE TAB PO PRN (20:00)
[2017-01-27] MEDS ORDERED: LORAZEPAM 1 MG TAB PO PRN (20:00)
[2017-01-27] MEDS ORDERED: ONDANSETRON INJ 2 MG/ML 2 ML VIAL IV PRN (20:00)
[2017-01-27] MEDS ORDERED: POLYETHYLENE (MIRALAX) 17 GM PACK PO PRN (20:00)
[2017-01-27 20:08] VITALS: O2SAT 96
[2017-01-27] MEDS ORDERED: IV FLUIDS COMPLETED PRN (20:15)
[2017-01-27] MEDS ORDERED: BUTALBITAL/ACETAMIN/CAFFEINE TAB PO ONE (20:45)
--- NOTE | 2017-01-27 21:19 | History and Physical ---
History & Physical Date & Time of Service: Jan 27, 2017 at 20:01 Chief Complaint: Mouth Droop Due To Facial Weakness Primary Care Physician: Olga Medrano M.D. 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 He describes a metallic taste and some numbness around his gums yesterday and thought he had just brushed his teeth too hard. However, when he woke up today, it was still there and when he went to eat soup some of the liquid spilled out of his mouth. He states he feels like he got a novocaine shot from the dentist's office. The forehead is not involved and he can close his R eye. He denies any h/o stroke, is a nonsmoker but latest lipid panel reveals elevated LDL at 195 and TC of 268. He has an intolerance to statins. He denies any cold sores or ear pain but does report some nasal stuffiness that is present x 5 days. He doesn' t know what caused his BP in the past, but was treated with a steroid taper with resolution of the palsy within about one week. CTA in the ER this evening revealed a focal area of high-grade stenosis at the petrous segment of the LICA , multifocal mild stenosis within the right carotid siphon, focal area of mild stenosis within the left distal vertebral artery, no areas of vascular occlusion or aneurysms identified. He has a prior MRI on file which shows some occlusive change in the LICA in the past and evidence of chronic small vessel disease. ROS reveal a severe frontal headache that has been constant all day today. He had some relief with morphine but this wore off. Tylenol resolved it later. He also admits that his balance has been off when hebends forward to crab picker something x 2 days, but denies any issues with his gait. He admits to some nausea without vomiting and has had no diarrhea. Denies swallowing issues , slurred speech, denies difficulty with word finding, difficulty moving arms or legs or other symptoms. Past Medical/Surgical History Medical Problems: (1) Yanes's palsy Status: Chronic (2) Chronic low back pain Status: Chronic (3) ESOPHAGEAL REFLUX Status: Chronic (4) FAMILY HISTORY OF OTHER CARDIOVASCULAR DISEASES Status: Chronic (5) HYPERTENSION NOS Status: Chronic (6) PURE HYPERCHOLESTEROLEM Status: Chronic (7) Severe anxiety Status: Chronic Family History Diabetes mellitus Heart disease Hypertension Social History Smoking Status: Current Some Day Smoker Smokeless Tobacco Use: No Alcohol Use: socially Drug Use: none Marital Status: Housing status: lives with significant other Occupational Status: employed Multi-Drug Resistant Organisms History of MDRO: No Allergies Coded Allergies: Fentanyl (Verified Allergy, Severe, NEURO CHANGES, 11/15/16) WAS HOSPITILIZED FROM IT Tuberculin (Verified Allergy, Severe, SWELLING/HIVES, 11/15/16) Rosuvastatin (Verified Allergy, Intermediate, Chest and muscle pain, ) Sertraline (Verified Allergy, Intermediate, Psych complications, 11/15/16) Home Medications Scheduled Aspirin (Aspirin Ec), 81 MG PO DAILY Cholecalciferol (Vitamin D3), 2,000 INTER.UNIT PO DAILY Esomeprazole Magnesium (Nexium), 20 MG PO DAILY Fish Oil ([place]-3), 1 CAP PO DAILY Multivitamins/Minerals (Mvi With Minerals), 1 TAB PO DAILY Scheduled PRN Lorazepam (Ativan), 1 MG PO DAILY PRN for Anxiety Review of Systems At least ten systems were reviewed and negative except as indicated in HPI. Physical Exam Vital Signs Date Time Temp Pulse Resp B/P (MAP) Pulse Ox O2 Delivery O2 Flow Rate FiO2 01/27/17 19:04 36.9 69 17 132/84 (100) 96 Room Air 01/27/17 17:50 76 13 140/87 96 Room Air 01/27/17 17:40 96 Room Air 01/27/17 16:58 69 18 130/89 96 Room Air 01/27/17 15:29 73 16 131/89 96 Room Air 01/27/17 15:12 75 01/27/17 14:41 97 Room Air 01/27/17 14:41 97 Room Air 01/27/17 14:20 37.0 83 18 153/90 98 Room Air General Appearance: WD/WN, no apparent distress Head: normocephalic, atraumatic Eyes: normal inspection, EOMI, sclerae normal, + pertinent finding (R pupil is slightly larger than L-both reactive to light) ENT: normal ENT inspection, hearing grossly normal, TMs normal, pharynx normal Neck: supple, no adenopathy, trachea midline Respiratory/Chest: lungs clear, normal breath sounds, no respiratory distress, no accessory muscle use Cardiovascular: regular rate, rhythm, no edema, no gallop, no murmur Abdomen/GI: normal bowel sounds, non tender, soft Back: normal inspection Extremities/Musculoskelatal: normal inspection Neurologic/Psych: no motor/sensory deficits, alert, normal mood/affect, normal reflexes, oriented x 3, + pertinent finding (7th nerve palsy on R face, ?5th nerve involvement with numbness, no reported sensation deficit to touch. Romberg-neg, finger to nose-neg, gait normal ) Skin: normal color Diagnostics Laboratory Results 01/27/17 14:30 Red Blood Count 4.49, Mean Corpuscular Volume 94.2, Mean Corpuscular Hemoglobin 33.6, Mean Corpuscular Hemoglobin Concent 35.7, Mean Platelet Volume 9.7, Neutrophils (%) (Auto) 54.0, Lymphocytes (%) (Auto) 30.4, Monocytes (%) (Auto) 11.9, Eosinophils (%) (Auto) 3.2, Basophils (%) (Auto) 0.2, Neutrophils # (Auto ) 3.41, Lymphocytes # (Auto) 1.92, Monocytes # (Auto) 0.75, Eosinophils # (Auto ) 0.20, Basophils # (Auto) 0.01 01/27/17 14:30 Test 01/27/17 14:29 01/27/17 14:30 Bedside Glucose 137 mg/dl (70-99) White Blood Count 6.31 K/uL (4.8-10.8) Red Blood Count 4.49 M/uL (4.7-6.1) Hemoglobin 15.1 g/dL (14.0-18.0) Hematocrit 42.3 % (42-52) Mean Corpuscular Volume 94.2 fL (80-100) Mean Corpuscular Hemoglobin 33.6 pg (25-34) Mean Corpuscular Hemoglobin Concent 35.7 g/dl (32-36) Platelet Count 151 K/uL (130-400) Mean Platelet Volume 9.7 fL (7.4-10.4) Neutrophils (%) (Auto) 54.0 % Lymphocytes (%) (Auto) 30.4 % Monocytes (%) (Auto) 11.9 % Eosinophils (%) (Auto) 3.2 % Basophils (%) (Auto) 0.2 % Neutrophils # (Auto) 3.41 K/uL (1.4-6.5) Lymphocytes # (Auto) 1.92 K/uL (1.2-3.4) Monocytes # (Auto) 0.75 K/uL (0.11-0.59) Eosinophils # (Auto) 0.20 K/uL (0-0.5) Basophils # (Auto) 0.01 K/uL (0-0.2) RDW Standard Deviation 42.7 fL (36.4-46.3) RDW Coefficient of Variation 12.4 % (11.5-14.5) Immature Granulocyte % (Auto) 0.3 % Immature Granulocyte # (Auto) 0.02 K/uL (0.00-0.02) Erythrocyte Sedimentation Rate 19 mm/hr (0-14) Prothrombin Time 10.1 SECONDS (9.0-12.0) Prothromb Time International Ratio 0.9 (0.9-1.1) Activated Partial Thromboplast Time 25.3 SECONDS (21.0-31.0) Partial Thromboplastin Ratio 1.0 Anion Gap 10.0 mmol/L (3-11) Est Creatinine Clear Calc Drug Dose 64.9 ml/min Estimated GFR () 70.2 Estimated GFR (Non- 60.6 BUN/Creatinine Ratio 11.4 (10-20) Calcium Level 8.8 mg/dl (8.5-10.1) Magnesium Level 2.2 mg/dl (1.8-2.4) Total Bilirubin 0.4 mg/dl (0.2-1) Direct Bilirubin < 0.1 mg/dl (0-0.2) Aspartate Amino Transf (AST/SGOT) 15 U/L (15-37) Alanine Aminotransferase (ALT/SGPT) 37 U/L (12-78) Alkaline Phosphatase 54 U/L (45-117) Total Creatine Kinase 80 U/L (39-308) Creatine Kinase MB < 0.5 ng/ml (0.5-3.6) Creatine Kinase MB Ratio (0-3.0) Troponin I < 0.015 ng/ml (0-0.045) C-Reactive Protein 0.80 mg/dl (0-0.29) Total Protein 7.6 gm/dl (6.4-8.2) Albumin 3.6 gm/dl (3.4-5.0) Thyroid Stimulating Hormone (TSH) 1.100 uIu/ml (0.300-4.500) Lyme Disease IgG Antibody NEG (NEG) Lyme Disease IgM Antibody NEG (NEG) Hepatitis C Antibody Screen NEG (NEG) Results Past 24 Hours Test 01/27/17 14:29 01/27/17 14:30 Range/Units Bedside Glucose 137 70-99 mg/dl White Blood Count 6.31 4.8-10.8 K/uL Red Blood Count 4.49 4.7-6.1 M/uL Hemoglobin 15.1 14.0-18.0 g/dL Hematocrit 42.3 42-52 % Mean Corpuscular Volume 94.2 80-100 fL Mean Corpuscular Hemoglobin 33.6 25-34 pg Mean Corpuscular Hemoglobin Concent 35.7 32-36 g/dl Platelet Count 151 130-400 K/uL Mean Platelet Volume 9.7 7.4-10.4 fL Neutrophils (%) (Auto) 54.0 % Lymphocytes (%) (Auto) 30.4 % Monocytes (%) (Auto) 11.9 % Eosinophils (%) (Auto) 3.2 % Basophils (%) (Auto) 0.2 % Neutrophils # (Auto) 3.41 1.4-6.5 K/uL Lymphocytes # (Auto) 1.92 1.2-3.4 K/uL Monocytes # (Auto) 0.75 0.11-0.59 K/uL Eosinophils # (Auto) 0.20 0-0.5 K/uL Basophils # (Auto) 0.01 0-0.2 K/uL RDW Standard Deviation 42.7 36.4-46.3 fL RDW Coefficient of Variation 12.4 11.5-14.5 % Immature Granulocyte % (Auto) 0.3 % Immature Granulocyte # (Auto) 0.02 0.00-0.02 K/uL Erythrocyte Sedimentation Rate 19 0-14 mm/hr Prothrombin Time 10.1 9.0-12.0 SECONDS Prothromb Time International Ratio 0.9 0.9-1.1 Activated Partial Thromboplast Time 25.3 21.0-31.0 SECONDS Partial Thromboplastin Ratio 1.0 Sodium Level 140 136-145 mmol/L Potassium Level 4.4 3.5-5.1 mmol/L Chloride Level 107 98-107 mmol/L Carbon Dioxide Level 23 21-32 mmol/L Anion Gap 10.0 3-11 mmol/L Blood Urea Nitrogen 15 7-18 mg/dl Creatinine 1.30 0.60-1.40 mg/dl Est Creatinine Clear Calc Drug Dose 64.9 ml/min Estimated GFR () 70.2 Estimated GFR (Non- 60.6 BUN/Creatinine Ratio 11.4 10-20 Random Glucose 146 70-99 mg/dl Calcium Level 8.8 8.5-10.1 mg/dl Magnesium Level 2.2 1.8-2.4 mg/dl Total Bilirubin 0.4 0.2-1 mg/dl Direct Bilirubin < 0.1 0-0.2 mg/dl Aspartate Amino Transf (AST/SGOT) 15 15-37 U/L Alanine Aminotransferase (ALT/SGPT) 37 12-78 U/L Alkaline Phosphatase 54 45-117 U/L Total Creatine Kinase 80 39-308 U/L Creatine Kinase MB < 0.5 0.5-3.6 ng/ml Creatine Kinase MB Ratio 0-3.0 Troponin I < 0.015 0-0.045 ng/ml C-Reactive Protein 0.80 0-0.29 mg/dl Total Protein 7.6 6.4-8.2 gm/dl Albumin 3.6 3.4-5.0 gm/dl Thyroid Stimulating Hormone (TSH) 1.100 0.300-4.500 uIu/ml Lyme Disease IgG Antibody NEG NEG Lyme Disease IgM Antibody NEG NEG Hepatitis C Antibody Screen NEG NEG Diagnostic Radiology HEAD CTA HISTORY: CROOKS, RT SIDE FACIAL WEAKNESS, HWO CONTRAST ALREADY DONE TECHNIQUE: Multiaxial CT images of the head were performed after the intravenous administration of contrast to evaluate the major cerebral vessels. Maximum intensity projection images were also obtained. A dose lowering technique was utilized adhering to the principles of ALARA. COMPARISON: None. FINDINGS: There is no mass, hematoma, midline shift, or acute infarct. Moderate calcified plaque within the right carotid siphon resulting in multifocal areas of mild stenosis. Hypoplastic distal right vertebral artery. Mild focal stenosis within the distal left vertebral artery. The basilar artery is patent. No significant stenosis within the bilateral dietetics director are MCAs. No aneurysm identified. The visualized left internal carotid artery is diffusely small in caliber. Focal area of high-grade stenosis within the petrous segment of the left internal carotid artery on image 20. The left carotid siphon is diffusely small in caliber but patent. No severe stenosis within the bilateral MCAs or ACAs. The left A1 segment is hypoplastic. IMPRESSION: 1. The visualized left internal carotid artery is diffusely small in caliber/narrowed with a focal area of high-grade stenosis at the petrous segment. 2. Multifocal mild stenosis within the right carotid siphon. 3. Focal area of mild stenosis within the left distal vertebral artery. 4. No areas of vascular occlusion or aneurysms identified. --------- CHEST ONE VIEW PORTABLE HISTORY: EVALUATE ALTERED MENTAL STATUS/WEAKNESS COMPARISON: Chest 11/15/2016. FINDINGS: The lungs are clear. Cardiac silhouette is normal in size. No pleural effusions. No pneumothorax. Old, healed left clavicle fracture. IMPRESSION: No acute process. -------- HEAD CT NONCONTRAST CT DOSE: 537.48 mGy.cm HISTORY: EVALUATE ALTERED MENTAL STATUS/WEAKNESS TECHNIQUE: Multiaxial CT images of the head were performed without the use of intravenous contrast. Automated exposure control was utilized for this study. A dose lowering technique was utilized adhering to the principles of ALARA. Comparison: Head CT 11/14/2016. Findings: The paranasal sinuses and mastoid air cells are clear. The calvarium and skull base are intact. The ventricles and sulci are within normal limits. There is no mass, hematoma, midline shift, or acute infarct. Impression: No acute intracranial abnormality. Normal EKG Impression Assessment and Plan 56 yo M with new onset R facial droop and facial numbness 1. Seventh nerve palsy with decreased sensation-clinical picture is consistent with Yanes's Palsy which he had on the contralateral side two years prior. Uncertain of cause but he does have some nasal congestion present. TM were clear and no evidence of Mariely Pino. Lyme negative. Differential includes stroke and ASA was given. CTA of the head revealed some stenosis of the LICA which was a possible finding on prior MRI a couple years ago. Uncertain if MRI is warranted in this situation, and patient cannot have additional MRI contrast for at least 24 hours. Defer to Neuro, but will start him on prednisone in am. 2. Anxiety-Ativan PRN 3. GERD-Nexium DVT proph: Lovenox 40 Full Code Dispo-likely to home in am, but needs Neuro eval first. Samia Perkins DO [facility] Level of Care Telemetry Advanced Directives Existing Living Will: No Existing Power of Mule Operator: No Resuscitation Status FULL RESUSCITATION VTE Prophylaxis VTE Risk Assessment Done? Y/N: Yes Risk Level: Moderate Given or contraindicated: Enoxaparin (Lovenox)SQ
[2017-01-27 23:49] VITALS: BP 127/91; PULSE 71; TEMP 36.5; O2SAT 97
[2017-01-28] VITALS (8 sets, daily range): BP systolic 95–148; BP diastolic 57–107; PULSE 68–94; TEMP 36.5–37.1; O2SAT 93–96
[2017-01-28] MEDS ORDERED: ZOLPIDEM TARTRATE 5 MG TAB PO PRN (00:30)
[2017-01-28 06:19] LABS: BASO % 0.2 %; BASO ABS # 0.01 K/uL (0-0.2); COMPLETE YES; EOS % 3.2 %; IG% 0.4 %; LYMPH % 38.7 %; LYMPH ABS # 2.21 K/uL (1.2-3.4); MEAN CELL VOLUME 94.7 fL (80-100); MEAN CORPUSCULAR HEMOGLOBIN 31.7 pg (25-34); MEAN CORPUSCULAR HGB CONC 33.5 g/dl (32-36); MEAN PLATELET VOLUME 9.7 fL (7.4-10.4); MONO % 11.4 %; NEUT % 46.1 %; PLATELET COUNT 150 K/uL (130-400); RED BLOOD COUNT 4.54 M/uL (4.7-6.1); WHITE BLOOD COUNT 5.71 K/uL (4.8-10.8)
[2017-01-28 06:55] LABS: BUN/CREATININE RATIO 12.2 (10-20); CALCIUM 8.6 mg/dl (8.5-10.1); CREATININE 1.2 mg/dl (0.60-1.40); POTASSIUM 4.1 mmol/L (3.5-5.1)
[2017-01-28 06:58] LABS: CHOLESTEROL/HDL RATIO 8.6
[2017-01-28] MEDS ORDERED: PERFLUTREN LIPID MICROSPHERE (DEFINITY) IV ONE (07:26)
[2017-01-28] MEDS ORDERED: CEROVITE ADV FORMULA TAB PO SCH (09:00)
[2017-01-28] MEDS ORDERED: OMEGA-3 (PURIFIED FISH OIL) 1 GM CAP PO SCH (09:00)
[2017-01-28] MEDS ORDERED: ASPIRIN 81 MG ECTAB PO SCH (09:00)
[2017-01-28] MEDS ORDERED: CHOLECALCIFEROL 1000 INTER.UNIT TAB PO SCH (09:00)
[2017-01-28] MEDS ORDERED: PANTOprazole SOD 40 MG TAB PO SCH (09:00)
[2017-01-28] MEDS ORDERED: LORAZEPAM 1 MG TAB PO PRN (10:30)
[2017-01-28] MEDS ORDERED: LORAZEPAM 1 MG TAB ONE (10:49)
--- NOTE | 2017-01-28 12:51 | ECHOCARDIOGRAM REPORT ---
*NOTICE TO RECEIVING [employer]ENCY This information is strictly Confidential and protected under [place] law. [place] law prohibits you from making any further disclosure of this information unless further disclosure is expressly permitted by the written consent of the person to whom it pertains or is authorized by law. A general authorization for the release of medical or other information is not sufficient for this purpose. Hospital accepts no responsibility if the information is made available to any other person, INCLUDING THE PATIENT. Interpretation Summary * Name: KAREN SOLORZANO Study Date: 01/28/2017 06:57 AM BP: 95/57 mmHg * Patient Location: C.2E\S\E209\S\1 HR: 68 * : 1960 (M/d/yyyy) Gender: Male Height: 67 in * Age: 56 yrs Ethnicity: CA Weight: 184 lb * Ordering Physician: Samia Perkins * Referring Physician: Self, Referred * Performed By: Zunilda Forde RDCS * * Reason For Study: Stroke * BSA: 2.0 m2 * The study was technically adequate. * -- Conclusions -- * Ejection Fraction = 60-65%. * The left ventricular wall motion is normal. * Pulse wave TDI of the anterior and posterior mitral annulas demonstrates normal LV relaxation * No significant valvular disease. * Injection of contrast documented no interatrial shunt. Procedure Details * A complete two-dimensional transthoracic echocardiogram was performed (2D, M-mode, Doppler and color flow Doppler). * A saline contrast injection was performed to assess for cardiac shunting. * The injection was performed through an intravenous line in the right arm. * The attending nurse who injected the saline contrast was Melissa Douglas RN. * A total of 20 cc of agitated saline was given. * A contrast injection of Definity was performed to improve assessment of LV function. * Contrast was injected into an intravenous site in the right arm. * One vial of Definity ultrasound contrast was diluted in normal saline to a total volume of 10 ml. A total of '2' ml of solution was administered during imaging. * Lot # [id number] of Definity utilized for procedure. * Expiration date feb 21. * The attending nurse who injected the contrast agent was Melissa Misael, RN. Left Ventricle * The left ventricle is normal in size. * There is normal left ventricular wall thickness. * Ejection Fraction = 60-65%. * Left ventricular systolic function is normal. * The left ventricular wall motion is normal. Right Ventricle * The right ventricle is normal size. * The right ventricular systolic function is normal as assessed by tricuspid annular plane systolic excursion (TAPSE) (normal >1.5 cm). Atria * The left atrial size is normal. * Right atrial size is normal. * Injection of contrast documented no interatrial shunt. Mitral Valve * The mitral valve is normal. * There is no mitral valve stenosis. * Significant mitral regurgitation is absent. Tricuspid Valve * The tricuspid valve is normal. * There is no tricuspid stenosis. * Significant tricuspid regurgitation is absent. Aortic Valve * The aortic valve is trileaflet. * Aortic stenosis is absent. * There is no significant aortic regurgitation. Pulmonic Valve * The pulmonary valve is not well seen, but the Doppler examination is normal without significant regurgitation or stenosis. Great Vessels * The aortic root and proximal ascending aorta are normal sized. Pericardium/Pleural * There is no pericardial effusion. Great Vessels * Normal inferior vena cava diameter and respiratory variation suggests normal central venous pressure. Left Ventricular Diastolic Function * Pulse wave TDI of the anterior and posterior mitral annulas demonstrates normal LV relaxation MMode 2D Measurements and Calculations IVSd 0.88 cm LVIDd 3.7 cm LVIDs 2.3 cm LVPWd 1.1 cm IVS/LVPW 0.79 FS 38.0 % EDV(Teich) 57.4 ml ESV(Teich) 17.8 ml EF(Teich) 69.0 % EDV(cubed) 49.8 ml ESV(cubed) 11.9 ml EF(cubed) 76.1 % LV mass(C)d 112.2 grams LV mass(C)dI 57.5 grams/m\S\2 CO(Teich) 2.5 l/min CI(Teich) 1.3 l/min/m\S\2 SV(Teich) 39.6 ml SI(Teich) 20.3 ml/m\S\2 CO(cubed) 2.4 l/min CI(cubed) 1.2 l/min/m\S\2 SV(cubed) 37.9 ml SI(cubed) 19.4 ml/m\S\2 Ao root diam 3.5 cm Ao root area 9.9 cm\S\2 ACS 2.1 cm LA dimension 3.3 cm asc Aorta Diam 3.2 cm LA/Ao 0.93 LVOT diam 1.9 cm LVOT area 2.8 cm\S\2 LVAd ap4 29.4 cm\S\2 LVLd ap4 7.5 cm EDV(MOD-sp4) 95.1 ml LVAs ap4 13.9 cm\S\2 LVLs ap4 5.6 cm ESV(MOD-sp4) 28.4 ml EF(MOD-sp4) 70.1 % LVAd ap2 29.5 cm\S\2 LVLd ap2 7.9 cm EDV(MOD-sp2) 90.6 ml LVAs ap2 14.6 cm\S\2 LVLs ap2 5.7 cm ESV(MOD-sp2) 30.3 ml EF(MOD-sp2) 66.6 % CO(MOD-sp4) 4.2 l/min CI(MOD-sp4) 2.2 l/min/m\S\2 SV(MOD-sp4) 66.7 ml SI(MOD-sp4) 34.2 ml/m\S\2 CO(MOD-sp2) 3.8 l/min CI(MOD-sp2) 1.9 l/min/m\S\2 SV(MOD-sp2) 60.3 ml SI(MOD-sp2) 30.9 ml/m\S\2 Doppler Measurements and Calculations MV E max lowell 79.1 cm/sec MV A max lowell 64.5 cm/sec MV E/A 1.2 MV dec time 0.18 sec Ao V2 max 99.3 cm/sec Ao max PG 3.9 mmHg Ao max PG (full) 1.6 mmHg NANCY(V,A) 2.2 cm\S\2 NANCY(V,D) 2.2 cm\S\2 LV V1 max PG 2.4 mmHg LV V1 max 77.1 cm/sec PA V2 max 61.3 cm/sec PA max PG 1.5 mmHg PA acc slope 430.0 cm/sec\S\2 PA acc time 0.12 sec PI max lowell 128.0 cm/sec PI max PG 6.6 mmHg PI dec slope 129.7 cm/sec\S\2 PI P1/2t 289.0 msec TR max lowell 192.4 cm/sec PA pr(Accel) 26.7 mmHg
[2017-01-28] MEDS ORDERED: METOPROLOL TARTRATE 25 MG TAB PO ONE (14:54)
[2017-01-28] MEDS ORDERED: MoRPHine SULFATE 4 MG/ML 1 ML CARP\\VIAL ONE (15:12)
[2017-01-28] MEDS ORDERED: MoRPHine SULFATE 4 MG/ML 1 ML CARP\\VIAL IV PRN (15:15)
--- NOTE | 2017-01-28 15:47 | DIAGNOSTIC IMAGING REPORT ---
BRAIN WITHOUT CONTRAST HISTORY: Mental status change r/o CVA TECHNIQUE: Multiplanar multisequence MRI of the brain was performed without the use of contrast. COMPARISON STUDY: 02/03/2014 FINDINGS: Diffusion-weighted images are negative for an acute ischemic process. Mild chronic small vessel change of the cerebral hemispheres bilaterally unchanged from the prior study. Ventricular system is midline. Chronically occluded or severely narrowed left internal carotid artery which has been described previously. IMPRESSION: No acute intracranial abnormality. Mild chronic changes as noted The above report was generated using voice recognition software. It may contain grammatical, syntax or spelling errors. Electronically signed by: Chinmay Maurer M.D. 01/28/2017 3:46 PM Dictated Date/Time: 01/28/2017 3:43 PM
--- NOTE | 2017-01-28 16:47 | CONSULTATION REPORT ---
DATE OF CONSULTATION: 01/28/[address] Noguera. Eli is 56 years old, is a patient of Dr. Jeff Dai and is a former patient of Olga Medrano M.D. of the [place] system. He is yet to pick another [place] provider. He was admitted to the hospital last night because of a history of 24 hours of right facial drooping, a metallic numb like sensation in the interior of his mouth with loss of taste, and pain in the retroauricular region and upper neck. He was found to have facial weakness but because of his complaints of numbness, the possibility of a stroke was entertained. 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 Because of the exposure to CT dye however, an MRI now is being delayed until about 5:00, at which point an MRI of the brain with and without contrast is apparently going to be done. He had evidence for some occlusive changes in his left internal carotid arteries in the past, has also some chronic small vessel disease and these are other factors that precipitated the admission for evaluation of possible stroke. 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 He did not have a headache of any significance at that time, was treated with steroids and apparently improved significantly within a few weeks. Today, he feels that the deficits on the right are more significant than with his prior contralateral bells palsy as he then did not have hyperacusis and loss of taste. He has had trouble manipulating food in the right side of his mouth. When asked about the numbness and tingling, he states that it actually is more of a weak sensation lenard to what one feels like after having Novocain and facial movements are impaired. Other medical problems include chronic low back pain, esophageal reflux, hypertension and hypercholesterolemia. FAMILY HISTORY: Positive for diabetes, heart disease, hypertension in his father ____ bilateral facial palsies over time. SOCIAL HISTORY: Reveals him to be a smoker. He does not use illicit drugs. He drinks alcohol sparingly. He is and is employed. He has no history of drug resistant organisms. ALLERGIES: HE HAS ALLERGIES TO FENTANYL, TUBERCULIN, ROSUVASTATIN AND SERTRALINE. MEDICATIONS AT HOME: Include aspirin, cholecalciferol, Nexium, fish oil, multivitamins. REVIEW OF SYSTEMS: Reveals no recent illnesses. He has been cleaning out a shed in the backyard, has had some spiders and other insects but he has not had any bites. No tick exposure, no skin rash, no joint pain. He has had no issues referable to head, eyes, ears, nose and throat other than the current problem. There are no cardiovascular, pulmonary, gastrointestinal, genitourinary, or musculoskeletal issues. PHYSICAL EXAMINATION: VITAL SIGNS: His blood pressure was 132/84, pulse was 69, respirations were 17. He was afebrile. GENERAL: He was a well-nourished, well-developed male who appeared his stated age. He did not appear to be in any apparent distress. HEENT: There were no cranial deformities. He had the right-sided facial weakness. NECK: Supple. No carotid bruits were heard. HEART: Had a regular rhythm. No murmurs were appreciated. LUNGS: Clear. ABDOMEN: Soft and nontender, there was no organomegaly. EXTREMITIES: Free of edema and had good pulses. NEUROLOGIC: Today neurologically he is awake, alert, oriented in 3 spheres. There is no dysarthria of speech. Eye movements are normal. Pupils are equal, round and reactive to light. Visual pride are full. Facial sensation is normal. Auditory function is normal, although there is some increased appreciation of the tuning fork volume on the right compared to the left. Air conduction is greater than bone conduction bilaterally. He has a clear lower motor neuron facial paresis involving the orbicularis anastasiia, the platysma, to a lesser degree the orbicularis oculi and the frontalis. There is minimal if any left-sided synkinesis reflective of the prior Yanes palsy. Tongue protrudes in the midline. I did not test taste. There is no drift or pronation sign, tremor, tics, choreiform activity. Reflexes are 1+. Toes are downgoing. No Inna signs are seen. Strength testing is normal. Sensation is intact to all modalities including vibration, light touch and temperature. IMAGING STUDIES: Were reviewed. LABORATORY STUDIES: Were reviewed. Lyme titer is negative. Basic hemoglobin, hematocrit, electrolytes, etc. are unremarkable. The head CTA ____ show a diffusely small left internal carotid with a focal area of high grade stenosis at the petrous segment. There is multifocal mild stenosis in the right carotid siphon. There are no areas of vascular occlusion or aneurysm. As noted above, MRI of the brain is pending with and without contrast. At this point clinically, this is a Yanes palsy. I agree with the plan to treat him with only oral prednisone. This worked the last time, I think it will this time. I do not think we need to add Valtrex as I do not see any skin lesions in the auditory canal that would suggest a Romney Pnio syndrome. His Lyme titer is negative, making me not want to empirically treat him with doxycycline. 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 It is not uncommon for individuals with peripheral 7th nerve palsy to talk about numbness and on occasion they do have at least in theory, some concurrent evidence for trigeminal nerve involvement but in this case, I suspect this is a pure peripheral seventh. My suggestion to be therefore to make sure the MRI does not show an incidental stroke in addition to the Yanes palsy and, if no new vascular event is present, then he could be discharged to follow up with his primary care physician and neurology can take a look at him in several weeks' time, probably ideally about a month, which would allow enough time for this [place] palsy to either begin to improve or remain static. He is going to need some Lacri-Lube and possibly should see an residential living assistant just to be sure his eye closure remains stable enough and that he does not get a corneal ulcer. JUNIE
--- NOTE | 2017-01-28 17:02 | Progress Note ---
Medicine Progress Note Date & Time of Visit: Jan 28, 2017 at 16:55. Subjective patient seen resting in bed, comfortable states his right facial numbness is about the same also, right buccal mucosa and tongue feels "different", (+) metallic taste no other focal neuro symptoms denies other symptoms states he is ready and would like to be discharged today Objective Last 8 Hrs Date Time Temp Pulse Resp B/P (MAP) Pulse Ox O2 Delivery O2 Flow Rate FiO2 01/28/17 16:23 94 Room Air 01/28/17 15:45 36.8 94 22 148/107 (121) 94 Room Air 01/28/17 12:00 94 Room Air 01/28/17 11:08 37.0 79 18 131/83 (99) 94 Room Air Physical Exam: General- oriented x 3, not in distress, speaks in sentences with no effort Head- atraumatic Eyes- PERRL, EOMI, anicteric ENT- oropharynx clear Neck- supple, no JVD, no adenopathy, no thyromegaly Lungs- clear breath sounds bilaterally Heart- normal rate, regular rhythm; no murmurs Abdomen- normal bowel sounds, soft, nontender Extremities- no pretibial edema, no calf tenderness; peripheral pulses intact Neuro- alert, oriented x 3; PERRL, EOMI; (+) mild right facial droop; no dysarthria; motor 5/5 bilaterally; sensation 100% bilaterally Skin- warm & dry Laboratory Results: Last 24 Hours Test 01/28/17 06:06 White Blood Count 5.71 K/uL Red Blood Count 4.54 M/uL Hemoglobin 14.4 g/dL Hematocrit 43.0 % Mean Corpuscular Volume 94.7 fL Mean Corpuscular Hemoglobin 31.7 pg Mean Corpuscular Hemoglobin Concent 33.5 g/dl Platelet Count 150 K/uL Mean Platelet Volume 9.7 fL Neutrophils (%) (Auto) 46.1 % Lymphocytes (%) (Auto) 38.7 % Monocytes (%) (Auto) 11.4 % Eosinophils (%) (Auto) 3.2 % Basophils (%) (Auto) 0.2 % Neutrophils # (Auto) 2.64 K/uL Lymphocytes # (Auto) 2.21 K/uL Monocytes # (Auto) 0.65 K/uL Eosinophils # (Auto) 0.18 K/uL Basophils # (Auto) 0.01 K/uL RDW Standard Deviation 42.8 fL RDW Coefficient of Variation 12.6 % Immature Granulocyte % (Auto) 0.4 % Immature Granulocyte # (Auto) 0.02 K/uL Sodium Level 138 mmol/L Potassium Level 4.1 mmol/L Chloride Level 105 mmol/L Carbon Dioxide Level 27 mmol/L Anion Gap 6.0 mmol/L Blood Urea Nitrogen 15 mg/dl Creatinine 1.20 mg/dl Est Creatinine Clear Calc Drug Dose 69.3 ml/min Estimated GFR () 77.3 Estimated GFR (Non- 66.7 BUN/Creatinine Ratio 12.2 Random Glucose 98 mg/dl Calcium Level 8.6 mg/dl Triglycerides Level 298 mg/dl Cholesterol Level 283 mg/dl HDL Cholesterol 33 mg/dl LDL Cholesterol, Calculated 190 mg/dl VLDL Cholesterol, Calculated 60 mg/dl Cholesterol/HDL Ratio 8.6 Assessment & Plan RIGHT SIDED FACIAL DROOP AND NUMBNESS, 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 Diffusely hypoplastic left internal carotid artery which is approximately 50% smaller in caliber in comparison to the normal right side. 2. Approximately 30% stenosis at the right carotid bulb due to the atherosclerotic plaque. 3. The visualized cervical vertebral arteries are patent. Echo: * -- Conclusions -- * Ejection Fraction = 60-65%. * The left ventricular wall motion is normal. * Pulse wave TDI of the anterior and posterior mitral annulas demonstrates normal LV relaxation * No significant valvular disease. * Injection of contrast documented no interatrial shunt. - evaluated by Dr. Lopez, symptoms felt to be from Bright's palsy - recommendations: Prednisone taper to start at 60mg po daily Lacrilube daily, referral to [facility] continue ASA 81mg po daily ff up with PCP in 1 week ff up with Dr. Lopez in 2 weeks yearly surveillance of L ICA and R Carotid bulb stenosis and plaque ANXIETY - stable GERD - on PPI d/c home ff up with PCP in 1 week ff up with Dr. Lopez in 2 weeks Refer to Ophthalmology Current Inpatient Medications: Current Inpatient Medications Medications (Trade) Dose Ordered Sig/Roberto Route Start Time Stop Time Status Last Admin Dose Admin Ioversol (Optiray 320) 100 ml UD PRN IV 01/27/17 16:00 01/31/17 15:59 Acetaminophen 100 ml @ 400 mls/hr Q8H PRN IV 01/27/17 18:45 02/26/17 18:44 01/27/17 20:47 400 MLS/HR Acetaminophen/ Butalbital/ Caffeine (Fioricet Tab) 1 tab Q4H PRN PO 01/27/17 20:00 02/26/17 19:59 Aspirin (Ecotrin Tab) 81 mg QAM PO 01/28/17 09:00 02/27/17 08:59 01/28/17 07:37 81 MG Miscellaneous Information (Pharmacist Discharge Med Rec Consult) 1 ea UD PRN N/A 01/27/17 20:00 02/26/17 19:59 Ondansetron HCl (Zofran Inj) 4 mg Q6H PRN IV 01/27/17 20:00 02/26/17 19:59 Morphine Sulfate (MoRPHine SULFATE INJ) 2 mg Q30M PRN IV 01/27/17 20:00 02/10/17 19:59 Polyethylene (Miralax Powder Packet) 17 gm DAILY PRN PO 01/27/17 20:00 02/26/17 19:59 Fish Oil ([place]-3 (Purified Fish Oil) Cap) 1 gm DAILY PO 01/28/17 09:00 02/27/17 08:59 01/28/17 07:37 1 GM Multivitamins/ Minerals (Multivitamin W/ Minerals Tab) 1 tab DAILY PO 01/28/17 09:00 02/27/17 08:59 01/28/17 07:37 1 TAB Cholecalciferol (Vitamin D Tab) 2,000 inter.unit QAM PO 01/28/17 09:00 02/27/17 08:59 01/28/17 07:38 2,000 INTER.UNIT Pantoprazole Sodium (Protonix Tab) 40 mg QAM PO 01/28/17 09:00 02/27/17 08:59 01/28/17 07:38 40 MG Miscellaneous (Iv Fluids Completed) 1 ea PRN PRN N/A 01/27/17 20:15 01/27/18 20:14 Prednisone (PredniSONE TAB) 60 mg QAM PO 01/28/17 09:00 02/27/17 08:59 01/28/17 07:37 60 MG Zolpidem Tartrate (Ambien Tab) 5 mg HS PRN PO 01/28/17 00:30 02/27/17 00:29 Lorazepam (Ativan Tab) 1 mg BID PRN PO 01/28/17 10:30 02/26/17 19:59 Metoprolol Tartrate (Lopressor Tab) 12.5 mg BID PO 01/28/17 21:00 02/27/17 20:59
[2017-01-28] MEDS ORDERED: LPR25 PO (17:08)
[2017-01-28] MEDS ORDERED: PRED10TA PO (17:08)
[2017-01-28] MEDS ORDERED: ARTIOIN OPR (17:08)
--- NOTE | 2017-01-28 17:12 | Discharge Instructions ---
Discharge Instructions Date of Service Jan 28, 2017. Admission Reason for Admission: Mouth Droop Due To Facial Weakness Discharge Discharge Diagnosis / Problem: BRIGHT'S PALSY Discharge Goals Goal(s): Diagnostic testing, Therapeutic intervention Activity Recommendations Activity Limitations: resume your previous activity Driving or Machine Use: RESUME AFTER FOLLOW UP WITH PRIMARY CARE PHYSICIAN . Instructions / Follow-Up Instructions / Follow-Up PLEASE REVIEW YOUR NEW MEDICATION LIST AND FOLLOW INSTRUCTIONS CAREFULLY. CALL PRIMARY CARE PHYSICIAN OR RETURN TO ER IMMEDIATELY IF WITH WORSENING OF SYMPTOMS, CHANGES WITH VISION, INCREASED DRYNESS OF THE EYE. FOLLOW UP WITH PRIMARY CARE PHYSICIAN IN 3-5 DAYS (CLINIC WILL CALL YOU FOR THE APPOINTMENT). Current Hospital Diet Patient's current hospital diet: Regular Diet, AHA Diet (Heart Healthy) Discharge Diet Recommended Diet: AHA Diet (Heart Healthy), Low Fat Diet Procedures Procedures Performed: BRAIN MRI, CT SCAN OF THE HEAD, CT ANGIOGRAM OF THE HEAD, 2 D ECHOCARDIOGRAM Pending Studies Studies pending at discharge: no Laboratory Results Hemoglobin A1c Test 01/28/17 06:06 Range/Units Lipid Panel Test 01/28/17 06:06 Range/Units Triglycerides Level 298 H 0-150 mg/dl Cholesterol Level 283 H 0-200 mg/dl HDL Cholesterol 33 mg/dl Cholesterol/HDL Ratio 8.6 LDL Cholesterol, Calculated 190 mg/dl Medical Emergencies . Who to Call and When: Medical Emergencies: If at any time you feel your situation is an emergency, please call 911 immediately. . Non-Emergent Contact Non-Emergency issues call your: Primary Care Provider Call Non-Emergent contact if: you have a fever, you have any medication questions . . "Provider Documentation" section prepared by Damon Noguera. . VTE Core Measure Inpt VTE Proph given/why not?: Enoxaparin (Lovenox)SQ
--- NOTE | 2017-01-28 17:21 | Discharge Summary ---
Discharge Summary Date of Service Jan 28, 2017. 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 Procedures: BRAIN WITHOUT CONTRAST HISTORY: Mental status change r/o CVA TECHNIQUE: Multiplanar multisequence MRI of the brain was performed without the use of contrast. COMPARISON STUDY: 02/03/2014 FINDINGS: Diffusion-weighted images are negative for an acute ischemic process. Mild chronic small vessel change of the cerebral hemispheres bilaterally unchanged from the prior study. Ventricular system is midline. Chronically occluded or severely narrowed left internal carotid artery which has been described previously. IMPRESSION: No acute intracranial abnormality. Mild chronic changes as noted HEAD CTA HISTORY: CROKOS, RT SIDE FACIAL WEAKNESS, HWO CONTRAST ALREADY DONE TECHNIQUE: Multiaxial CT images of the head were performed after the intravenous administration of contrast to evaluate the major cerebral vessels. Maximum intensity projection images were also obtained. A dose lowering technique was utilized adhering to the principles of ALARA. COMPARISON: None. FINDINGS: There is no mass, hematoma, midline shift, or acute infarct. Moderate calcified plaque within the right carotid siphon resulting in multifocal areas of mild stenosis. Hypoplastic distal right vertebral artery. Mild focal stenosis within the distal left vertebral artery. The basilar artery is patent. No significant stenosis within the bilateral steel pourer helper are MCAs. No aneurysm identified. The visualized left internal carotid artery is diffusely small in caliber. Focal area of high-grade stenosis within the petrous segment of the left internal carotid artery on image 20. The left carotid siphon is diffusely small in caliber but patent. No severe stenosis within the bilateral MCAs or ACAs. The left A1 segment is hypoplastic. IMPRESSION: 1. The visualized left internal carotid artery is diffusely small in caliber/narrowed with a focal area of high-grade stenosis at the petrous segment. 2. Multifocal mild stenosis within the right carotid siphon. 3. Focal area of mild stenosis within the left distal vertebral artery. 4. No areas of vascular occlusion or aneurysms identified. NECK CTA HISTORY: Headache. Right-sided facial numbness. TECHNIQUE: Multiaxial CT images of the neck were performed following the intravenous administration of contrast to evaluate the major cervical vessels. Maximum intensity projection images were also obtained. All measurements were calculated based on NASCET criteria. A dose lowering technique was utilized adhering to the principles of ALARA. COMPARISON STUDY: None. FINDINGS: Moderate calcified plaque within the right carotid bifurcation and mild calcified plaque within the left carotid bifurcation. Bilateral common carotid arteries are widely patent. There is approximately 30% stenosis at the right carotid bulb. The remaining right internal carotid artery is widely patent. The left internal carotid artery is hypoplastic and is approximately 50% smaller in caliber and comparison to the normal right side. However, there are no areas of occlusion identified. Bilateral cervical vertebral arteries are widely patent. Opacified internal jugular veins are patent. Subcutaneous cyst within the posterior aspect of the neck. IMPRESSION: 1. Diffusely hypoplastic left internal carotid artery which is approximately 50% smaller in caliber in comparison to the normal right side. 2. Approximately 30% stenosis at the right carotid bulb due to the atherosclerotic plaque. 3. The visualized cervical vertebral arteries are patent. 2D ECHO: * -- Conclusions -- * Ejection Fraction = 60-65%. * The left ventricular wall motion is normal. * Pulse wave TDI of the anterior and posterior mitral annulas demonstrates normal LV relaxation * No significant valvular disease. * Injection of contrast documented no interatrial shunt. Consultations: Neurologist Dr. Lopez Pending Studies/Follow-Up: Please refer to hospital course below. Medication Reconciliation New Medications: Artificial Tears Oph Oint (Lacri-Lube Sop Oph Oint) Oint 0.25-0.5 INCH OPR QID for 14 Days, #1 TUBE 2 Refills TO THE AFFECTED EYE UP TO QID PRN Prednisone Tab (Prednisone) 10 Mg Tab 10 MG PO UD, #27 TAB take 6 tabs po daily x 2 days, then take 4 tabs po daily x 2 days, then take 2 tabs po daily x 2 days, then take 1 tab po daily x 2 days, then take 1/2 tab po daily x 2 days, then STOP Metoprolol Tartrate (Lopressor) 25 Mg Tab 12.5 MG PO BID for 30 Days, #30 TAB Continued Medications: Aspirin (Aspirin Ec) 81 Mg Tab 81 MG PO DAILY Cholecalciferol (Vitamin D3) 2,000 Unit Cap 2000 INTER.UNIT PO DAILY, CAP Esomeprazole Magnesium (Nexium) 20 Mg Cap 20 MG PO DAILY Fish Oil ([place]-3) 1 Ea Cap 1 CAP PO DAILY, CAP Lorazepam (Ativan) 1 Mg Tab 1 MG PO DAILY PRN for Anxiety, TAB Multivitamins/Minerals (Mvi With Minerals) Tab 1 TAB PO DAILY, TAB Admission Information HPI (per Admitting provider): 56 yo M with 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 He describes a metallic taste and some numbness around his gums yesterday and thought he had just brushed his teeth too hard. However, when he woke up today, it was still there and when he went to eat soup some of the liquid spilled out of his mouth. He states he feels like he got a novocaine shot from the dentist's office. The forehead is not involved and he can close his R eye. He denies any h/o stroke, is a nonsmoker but latest lipid panel reveals elevated LDL at 195 and TC of 268. He has an intolerance to statins. He denies any cold sores or ear pain but does report some nasal stuffiness that is present x 5 days. He doesn' t know what caused his BP in the past, but was treated with a steroid taper with resolution of the palsy within about one week. CTA in the ER this evening revealed a focal area of high-grade stenosis at the petrous segment of the LICA , multifocal mild stenosis within the right carotid siphon, focal area of mild stenosis within the left distal vertebral artery, no areas of vascular occlusion or aneurysms identified. He has a prior MRI on file which shows some occlusive change in the LICA in the past and evidence of chronic small vessel disease. ROS reveal a severe frontal headache that has been constant all day today. He had some relief with morphine but this wore off. Tylenol resolved it later. He also admits that his balance has been off when hebends forward to case picker something x 2 days, but denies any issues with his gait. He admits to some nausea without vomiting and has had no diarrhea. Denies swallowing issues , slurred speech, denies difficulty with word finding, difficulty moving arms or legs or other symptoms. Physical Exam (per Admitting): General Appearance: WD/WN, no apparent distress Head: normocephalic, atraumatic Eyes: normal inspection, EOMI, sclerae normal, + pertinent finding (R pupil is slightly larger than L-both reactive to light) ENT: normal ENT inspection, hearing grossly normal, TMs normal, pharynx normal Neck: supple, no adenopathy, trachea midline Respiratory/Chest: lungs clear, normal breath sounds, no respiratory distress, no accessory muscle use Cardiovascular: regular rate, rhythm, no edema, no gallop, no murmur Abdomen/GI: normal bowel sounds, non tender, soft Back: normal inspection Extremities/Musculoskelatal: normal inspection Neurologic/Psych: no motor/sensory deficits, alert, normal mood/affect, normal reflexes, oriented x 3, + pertinent finding (7th nerve palsy on R face, ? 5th nerve involvement with numbness, no reported sensation deficit to touch. 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 Diffusely hypoplastic left internal carotid artery which is approximately 50% smaller in caliber in comparison to the normal right side. 2. Approximately 30% stenosis at the right carotid bulb due to the atherosclerotic plaque. 3. The visualized cervical vertebral arteries are patent. Echo: * -- Conclusions -- * Ejection Fraction = 60-65%. * The left ventricular wall motion is normal. * Pulse wave TDI of the anterior and posterior mitral annulas demonstrates normal LV relaxation * No significant valvular disease. * Injection of contrast documented no interatrial shunt. - evaluated by Dr. Lopez, symptoms felt to be from Yanes's palsy - recommendations: Prednisone taper to start at 60mg po daily Lacrilube daily, referral to Integration Consultant continue ASA 81mg po daily ff up with PCP in 1 week ff up with Dr. Lopez in 2 weeks yearly surveillance of L ICA and R Carotid bulb stenosis and plaque DYSLIPIDEMIA - TG 298 CHOL 283 LDL 190 HDL 33 - on fish oil - monitor as outpatient ANXIETY - stable GERD - on PPI d/c home ff up with PCP in 1 week ff up with Dr. Lopez in 2 weeks Refer to Ophthalmology Total time spent on discharge = 35 minutes This includes examination of the patient, discharge planning, medication reconciliation, and communication with other providers. Discharge Instructions Discharge Instructions Date of Service Jan 28, 2017. Admission Reason for Admission: Mouth Droop Due To Facial Weakness Discharge Discharge Diagnosis / Problem: YANES'S PALSY Discharge Goals Goal(s): Diagnostic testing, Therapeutic intervention Activity Recommendations Activity Limitations: resume your previous activity Driving or Machine Use: RESUME AFTER FOLLOW UP WITH PRIMARY CARE PHYSICIAN . Instructions / Follow-Up Instructions / Follow-Up PLEASE REVIEW YOUR NEW MEDICATION LIST AND FOLLOW INSTRUCTIONS CAREFULLY. CALL PRIMARY CARE PHYSICIAN OR RETURN TO ER IMMEDIATELY IF WITH WORSENING OF SYMPTOMS, CHANGES WITH VISION, INCREASED DRYNESS OF THE EYE. FOLLOW UP WITH PRIMARY CARE PHYSICIAN IN 3-5 DAYS (CLINIC WILL CALL YOU FOR THE APPOINTMENT). Current Hospital Diet Patient's current hospital diet: Regular Diet, AHA Diet (Heart Healthy) Discharge Diet Recommended Diet: AHA Diet (Heart Healthy), Low Fat Diet Procedures Procedures Performed: BRAIN MRI, CT SCAN OF THE HEAD, CT ANGIOGRAM OF THE HEAD, 2 D ECHOCARDIOGRAM Pending Studies Studies pending at discharge: no Laboratory Results Hemoglobin A1c Test 01/28/17 06:06 Range/Units Lipid Panel Test 01/28/17 06:06 Range/Units Triglycerides Level 298 H 0-150 mg/dl Cholesterol Level 283 H 0-200 mg/dl HDL Cholesterol 33 mg/dl Cholesterol/HDL Ratio 8.6 LDL Cholesterol, Calculated 190 mg/dl Medical Emergencies . Who to Call and When: Medical Emergencies: If at any time you feel your situation is an emergency, please call 911 immediately. . Non-Emergent Contact Non-Emergency issues call your: Primary Care Provider Call Non-Emergent contact if: you have a fever, you have any medication questions . . "Provider Documentation" section prepared by Damon Noguera. . VTE Core Measure Inpt VTE Proph given/why not?: Enoxaparin (Lovenox)SQ
[2017-01-28] MEDS ORDERED: METOPROLOL TARTRATE 25 MG TAB PO SCH (21:00)
[2017-01-29 07:06] LABS: ESTIMATED AVERAGE GLUCOSE 120 mg/dl; HA1C FLAG Normal (Normal)
== END 2017-01-28 18:13 | disposition home or self-care (01) ==
LOC: C.EDB 14:16 → ENRESERV 17:40 → C.2E 18:45
PROVIDERS: ADMIT Hospitalist; ATTEND Internal Medicine
DX: R29.810 Facial weakness (principal); R20.0 Anesthesia of skin; I65.23 Occlusion and stenosis of bilateral carotid arteries; I10 Essential (primary) hypertension; E78.5 Hyperlipidemia, unspecified; K21.9 Gastro-esophageal reflux disease without esophagitis; G89.29 Other chronic pain; M54.5 Low back pain; F41.9 Anxiety disorder, unspecified; Z82.49 Family history of ischemic heart disease and other diseases of the circulatory system; Z83.3 Family history of diabetes mellitus; Z87.891 Personal history of nicotine dependence; Z79.82 Long term (current) use of aspirin; Z79.899 Other long term (current) drug therapy

== ENCOUNTER 2017-02-09 16:20 | Emergency (ER) | payer OTHER ==
[~2017-02-09] VITALS: Ht 170.2 cm; Wt 83.6 kg
[~2017-02-09 16:20] MED LIST changes: +ARTIOIN OPR; -ATOR10TA88 PO; +LPR25 PO; +PRED10TA PO
[2017-02-09 16:21] VITALS: TEMP 36.9; Ht 170.2 cm; Wt 83.6 kg
[2017-02-09] MEDS ORDERED: GABA1CAP4 PO (16:43)
[2017-02-09] MEDS ORDERED: PRED20TA PO (16:55)
[2017-02-09 17:00] VITALS: BP 130/89; PULSE 68; O2SAT 96
--- NOTE | 2017-02-09 18:37 | EMERGENCY ROOM VISIT NOTE ---
History Report prepared by Rigo: Poonam Romo Under the Supervision of: Dr. Wilber Ferrari M.D. First contact with patient: 16:26 Chief Complaint: BELLS PALSY SYMPTOMS Stated Complaint: BELLS PALSY,SEVERE RT EAR PAIN History of Present Illness The patient is a 56 year old male who presents to the Emergency Room with complaints of persistent Yanes's palsy symptoms starting 2 weeks ago. The patient was seen in the ED 2 weeks ago for the same symptoms. He had a course of Valtrex and steroids which he has finished. He was negative for Lyme disease. He also had no symptoms consistent with Lyme disease such as fever, body aches, rash or tick bite. He came back to the ED because his symptoms have not improved. He had been having pain in the right side of his face, right ear, and down his right neck. The pain worsened yesterday. He describes the ear pain as the feeling of a pencil being pushed into his ear. He had difficulty sleeping because of the pain. He denies any difficulty walking except when he gets up or turns around too fast. He denies any numbness or weakness to his extremities, vomiting, body aches, rash, or fever. He had some diarrhea while he was on Valtrex. The diarrhea stopped after he finished the Valtrex. She has an appointment with neurology in 3 days. He is on gabapentin 300 mg 3 times a day. Source of History: patient Onset: 2 weeks ago Position: other (global) Quality: other (Yanes's palsy symptoms) Timing: other (persistent) Associated Symptoms: + neck pain, + diarrhea (resolved), No fevers, No vomiting, No weakness, No numbness, No rash Note: Pt reports right facial droop, right facial pain, right ear pain. Pt denies body aches. Review of Systems See HPI for pertinent positives & negatives. A total of 10 systems reviewed and were otherwise negative. Past Medical & Surgical Medical Problems: (1) Yanes's palsy (2) CHEST PAIN NOS (3) Chronic low back pain (4) ESOPHAGEAL REFLUX (5) FAMILY HISTORY OF OTHER CARDIOVASCULAR DISEASES (6) HYPERTENSION NOS (7) Mouth droop due to facial weakness (8) PURE HYPERCHOLESTEROLEM (9) Severe anxiety Family History Diabetes mellitus Heart disease Hypertension Social History Smoking Status: Current Every Day Smoker Alcohol Use: none Drug Use: none Marital Status: Housing Status: lives with family Occupation Status: employed Current/Historical Medications Scheduled Artificial Tears Oph Oint (Lacri-Lube Sop Oph Oint), 0.25-0.5 INCH OPR QID Aspirin (Aspirin Ec), 81 MG PO DAILY Cholecalciferol (Vitamin D3), 2,000 INTER.UNIT PO DAILY Esomeprazole Magnesium (Nexium), 20 MG PO DAILY Fish Oil ([place]-3), 1 CAP PO DAILY Gabapentin (Gabapentin), 300 MG PO TID Metoprolol Tartrate (Lopressor), 12.5 MG PO BID Multivitamins/Minerals (Mvi With Minerals), 1 TAB PO DAILY Prednisone (Prednisone), 3 TAB PO DAILY Scheduled PRN Lorazepam (Ativan), 1 MG PO DAILY PRN for Anxiety Allergies Coded Allergies: Fentanyl (Verified Allergy, Severe, NEURO CHANGES, 02/09/17) WAS HOSPITILIZED FROM IT Tuberculin (Verified Allergy, Severe, SWELLING/HIVES, 02/09/17) Rosuvastatin (Verified Allergy, Intermediate, Chest and muscle pain, ) Sertraline (Verified Allergy, Intermediate, Psych complications, 02/09/17) Statins (Unverified Adverse Reaction, Severe, BODY ACHES, 02/09/17) Physical Exam Vital Signs Date Time Temp Pulse Resp B/P (MAP) Pulse Ox O2 Delivery O2 Flow Rate FiO2 02/09/17 17:00 68 20 130/89 96 Room Air 02/09/17 16:21 36.9 80 20 143/99 97 Room Air Physical Exam Constitutional: Vital signs reviewed. Eyes: Pupils are equal round reactive to light. Conjunctiva are noninjected. ENT: Pharynx is clear without erythema or exudate. Mucous membranes are moist. Neck supple without meningeal signs. Right TM is clear. No signs of infection in the external auditory canal. Respiratory: Clear to auscultation bilaterally. Breath sounds are equal bilaterally. Cardiovascular: Regular rate and rhythm. No rubs or gallops. GI: Soft, nondistended and nontender. Bowel sounds are present. Musculoskeletal: No peripheral edema. No lower extremity tenderness. Integumentary: No cyanosis. Neurological: The patient is awake and alert. Cranial nerves II-XII are intact , except for right facial droop including the forehead. Motor is 5 out of 5 all extremities. Sensation is intact to light touch all extremities. Normal speech. No pronator drift. No limb ataxia. Psychiatric: Normal affect. Medical Decision & Procedures ED Course 1628: The patient was evaluated in room B2. A complete history and physical exam was performed. 1643: I discussed the patient's case with Dr. Lopez, [facility] neurology. He recommends increasing the gabapentin over the weekend to 600 TID. He is OK with a short course of narcotics if necessary. He also would like the patient to be started on 60 mg prednisone daily. 1649: I reevaluated the patient. I discussed the plan with him. He does not want to increase the gabapentin because it makes him sleepy, especially with his lorazepam. He will just do 600 in the evenings. He verbalized agreement of the plan. He was discharged home. Medical Decision This is a 56-year-old male who presents with Yanes's palsy and facial pain. Differential diagnosis includes neuralgia, migraine, otitis media, otitis externa. I did perform a limited focused review of portions of the patient's old chart on the electronic medical record. The patient was admitted January 27 for right facial droop and numbness. He had a brain MRI which was normal. He had some stenotic lesions to the left ventral carotid on CTA. He was seen by Dr. Lopez who felt the symptoms were from Yanes's palsy and placed the patient on prednisone. I did evaluate the patient as noted above. The patient is presenting with persistent Yanes's palsy with weakness to the right side of his face as well as pain to the right side of his face for 2 weeks. He is here today because he has worsening pain to his face and ear. On examination he has no signs of otitis media or externa. His symptoms seem most likely consistent with a neuralgia. I did not feel any additional imaging was indicated given that his symptoms are stable and persistent. I did speak to Dr. Lopez of neurology who recommended increasing his Neurontin up to 600 3 times a day and providing him with prednisone. He does have follow up in approximately 3 days. I did discuss the plan with the patient. He did not wish to increase his Neurontin too much because it ends to make him sleepy. He is on lorazepam already. He will therefore take 300 twice a day and then 600 at night. He was not given any narcotics because of concern of interaction with Neurontin and lorazepam and over drowsiness. He was discharged with a prescription for prednisone. [place] Drug Monitoring Program Search Results: patient reviewed within database Drug Monitoring Findings: The patient receives lorazepam regularly and received tramadol in November. Medication Reconcilliation Current Medication List: was personally reviewed by me Blood Pressure Screening Patient's blood pressure: Elevated blood pressure Blood pressure disposition: Referred to PCP Consults Time Called: 1637 Consulting Physician: Felicitas Singh neurology Returned Call: 1644 I discussed the patient's case with him. He recommends increasing the gabapentin over the weekend to 600 TID. He is OK with a short course of narcotics if necessary. He also would like the patient to be started on 60 mg prednisone daily. Impression Primary Impression: Facial pain Additional Impression: Yanes's palsy Scribe Attestation The scribe's documentation has been prepared under my direct and personally reviewed by me in its entirety. I confirm that the note above accurately reflects all work, treatment, procedures, and medical decision making performed by me. Departure Information Dispostion Home / Self-Care Prescriptions Prednisone (Prednisone) 20 Mg Tab 3 TAB PO DAILY, #12 TAB FOR 4 DAYS Prov: Wilber Ferrari M.D. 02/09/17 Referrals Olga Medrano M.D. (PCP) Forms HOME CARE DOCUMENTATION FORM, IMPORTANT VISIT INFORMATION Patient Instructions My [facility] Additional Instructions You have been examined and treated today on an emergency basis only. This is not a substitute for, or an effort to provide, complete comprehensive medical care. It is impossible to recognize and treat all injuries or illnesses in a single emergency department visit. It is therefore important that you follow up closely with your neurologist per your appointment in 3 days. Return for worsening symptoms or if you develop fever, numbness or weakness on one side of your body, difficulties with your speech or walking, or any other concerning symptoms. Problem Qualifiers
== END 2017-02-09 17:12 | disposition home or self-care (01) ==
LOC: C.EDB 16:20
DX: R51 Headache (principal); G51.0 Bell's palsy; K21.9 Gastro-esophageal reflux disease without esophagitis; I10 Essential (primary) hypertension; E78.00 Pure hypercholesterolemia, unspecified; Z83.3 Family history of diabetes mellitus; Z82.49 Family history of ischemic heart disease and other diseases of the circulatory system; F17.200 Nicotine dependence, unspecified, uncomplicated; Z79.82 Long term (current) use of aspirin

== ENCOUNTER 2017-05-19 20:56 | Emergency (ER) | payer OTHER ==
[~2017-05-19] VITALS: Ht 170.2 cm; Wt 85.0 kg
[~2017-05-19 20:56] MED LIST changes: +GABA1CAP4 PO; -PRED10TA PO; +PRED20TA PO
[2017-05-19 21:02] VITALS: TEMP 36.4; Ht 170.2 cm; Wt 85.0 kg
[2017-05-19 21:09] VITALS: O2SAT 98
[2017-05-19] MEDS ORDERED: ALUMINUM/MAGNESIUM SUSP 30 ML UDC PO STA (21:41)
[2017-05-19] MEDS ORDERED: ASPIRIN 81 MG CHEW PO STA (21:41)
--- NOTE | 2017-05-19 21:45 | EMERGENCY ROOM VISIT NOTE ---
History Report prepared by Rigo: Yuko Sequeira Under the Supervision of: Dr. Raghav Martinez D.O. First contact with patient: 21:34 Chief Complaint: CHEST PAIN Stated Complaint: CHEST PAIN,ABD PAIN Nursing Triage Summary: Pt c/o mid chest pain since 1529 this afternoon when pt was snowblowing his driveway. pt reports the pain did not let up, has intensified. rates 9/10. hx of cath, high cholesterol History of Present Illness The patient is a 56 year old male who presents to the Emergency Room with complaints of persistent chest pain since 1529 this afternoon. He reports when he first woke up this morning, he experienced a "sharp pain across my chest". Within an hour, the pain "eased up" and after 2 hours, it resolved. This afternoon around 1529, the patient ran a snowblower over his driveway and when he was done, the pain had returned. He rates his discomfort as a 9/10 in severity. An antacid has provided no relief. He admits to a history of hyperlipidemia, heart blockage and underwent a cardiac catheterization in 2012. He believes he underwent a stress test within the past 2 years. Source of History: patient Onset: 1529 today Position: chest Symptom Intensity: 9/10 Timing: other (persistent) Modifying Factors (Relieving): other (antacid) Review of Systems See HPI for pertinent positives & negatives. A total of 10 systems reviewed and were otherwise negative. Past Medical & Surgical Medical Problems: (1) Yanes's palsy (2) CHEST PAIN NOS (3) Chronic low back pain (4) ESOPHAGEAL REFLUX (5) FAMILY HISTORY OF OTHER CARDIOVASCULAR DISEASES (6) HYPERTENSION NOS (7) Mouth droop due to facial weakness (8) PURE HYPERCHOLESTEROLEM (9) Severe anxiety Family History Diabetes mellitus Heart disease Hypertension Social History Smoking Status: Former Smoker Alcohol Use: none Drug Use: none Marital Status: Housing Status: lives with family Occupation Status: employed Current/Historical Medications Scheduled Artificial Tears Oph Oint (Lacri-Lube Sop Oph Oint), 0.25-0.5 INCH OPR QID Aspirin (Aspirin Ec), 81 MG PO DAILY Cholecalciferol (Vitamin D3), 2,000 INTER.UNIT PO DAILY Colestipol Hcl (Colestipol Hcl), 1 GM PO DAILY Cyclosporine (Ophth) (Restasis), 1 DROP OP BID Esomeprazole Magnesium (Nexium), 20 MG PO WEEKLY Fish Oil ([place]-3), 2 CAP PO BID Gabapentin (Gabapentin), 300 MG PO TID Metoprolol Tartrate (Lopressor) (Lopressor), 12.5 MG PO BID Multivitamins/Minerals (Mvi With Minerals), 1 TAB PO DAILY Rosuvastatin Calcium (Crestor), 5 MG PO WK Scheduled PRN Lorazepam (Ativan), 1 MG PO DAILY PRN for Anxiety Allergies Coded Allergies: Fentanyl (Verified Allergy, Severe, NEURO CHANGES, 02/09/17) WAS HOSPITILIZED FROM IT Tuberculin (Verified Allergy, Severe, SWELLING/HIVES, 02/09/17) Rosuvastatin (Verified Allergy, Intermediate, Chest and muscle pain, ) Sertraline (Verified Allergy, Intermediate, Psych complications, 02/09/17) Statins (Unverified Adverse Reaction, Severe, BODY ACHES, 02/09/17) Physical Exam Vital Signs Date Time Temp Pulse Resp B/P (MAP) Pulse Ox O2 Delivery O2 Flow Rate FiO2 05/19/17 23:24 89 18 118/77 95 Room Air 05/19/17 23:02 98 18 131/73 95 Room Air 05/19/17 22:30 107 20 105/70 92 Room Air 05/19/17 22:17 97 18 116/78 94 Room Air 05/19/17 22:02 94 20 132/87 94 Room Air 05/19/17 21:47 94 16 152/95 96 Room Air 05/19/17 21:19 91 05/19/17 21:09 97 Room Air 05/19/17 21:09 98 Room Air 05/19/17 21:02 36.4 92 18 165/99 99 Room Air Physical Exam GENERAL: Patient is awake, alert, and very uncomfortable appearing. Patient appears to be very anxious. EYES: The conjunctivae are clear. The pupils are round and reactive. EARS, NOSE, MOUTH AND THROAT: The nose is without any evidence of any deformity. Mucous membranes are moist tongue is midline NECK: The neck is nontender and supple. RESPIRATORY: Normal respiratory effort is noted there is no evidence of wheezing rhonchi or rales CARDIOVASCULAR: Regular rate and rhythm noted there no murmurs rubs or gallops normal S1 normal S2 GASTROINTESTINAL: The abdomen is soft. Bowel sounds are present in all quadrants. Abdomen is nontender PELVIS: The Pelvis is stable. No tenderness to palpation is noted. BACK: No midline tenderness or or step-off noted range of motion in flexion extension as well as rotation no signs of muscle spasm noted MUSCULOSKELETAL/EXTREMITIES: There is no evidence of gross deformity full range of motion is noted in the hips and shoulders SKIN: There is no obvious evidence of any rash. There are no petechiae, pallor or cyanosis noted. NEUROLOGIC: Patient is awake alert and oriented x3 Medical Decision & Procedures ER Provider Diagnostic Interpretation: Radiology results as stated below per my review and radiologist interpretation: CHEST ONE VIEW PORTABLE CLINICAL HISTORY: ABDOMINAL PAIN/GI pain COMPARISON STUDY: 01/27/2017 FINDINGS: The bones soft tissues and hemidiaphragms are normal. The cardiomediastinal silhouette is normal. The lungs are clear. The pulmonary vasculature is normal. IMPRESSION: Negative chest. The above report was generated using voice recognition software. It may contain grammatical, syntax or spelling errors. Electronically signed by: Chinmay Maurer M.D. 05/19/2017 10:22 PM Laboratory Results 05/19/17 21:23 Red Blood Count 4.64, Mean Corpuscular Volume 95.5, Mean Corpuscular Hemoglobin 34.9, Mean Corpuscular Hemoglobin Concent 36.6, Mean Platelet Volume 10.2, Neutrophils (%) (Auto) 68.7, Lymphocytes (%) (Auto) 19.8, Monocytes (%) (Auto) 10.0, Eosinophils (%) (Auto) 1.1, Basophils (%) (Auto) 0.2, Neutrophils # (Auto ) 5.59, Lymphocytes # (Auto) 1.61, Monocytes # (Auto) 0.81, Eosinophils # (Auto ) 0.09, Basophils # (Auto) 0.02 05/19/17 22:41 Test 05/19/17 21:23 05/19/17 22:15 05/19/17 22:41 White Blood Count 8.14 K/uL (4.8-10.8) Red Blood Count 4.64 M/uL (4.7-6.1) Hemoglobin 16.2 g/dL (14.0-18.0) Hematocrit 44.3 % (42-52) Mean Corpuscular Volume 95.5 fL (80-100) Mean Corpuscular Hemoglobin 34.9 pg (25-34) Mean Corpuscular Hemoglobin Concent 36.6 g/dl (32-36) Platelet Count 153 K/uL (130-400) Mean Platelet Volume 10.2 fL (7.4-10.4) Neutrophils (%) (Auto) 68.7 % Lymphocytes (%) (Auto) 19.8 % Monocytes (%) (Auto) 10.0 % Eosinophils (%) (Auto) 1.1 % Basophils (%) (Auto) 0.2 % Neutrophils # (Auto) 5.59 K/uL (1.4-6.5) Lymphocytes # (Auto) 1.61 K/uL (1.2-3.4) Monocytes # (Auto) 0.81 K/uL (0.11-0.59) Eosinophils # (Auto) 0.09 K/uL (0-0.5) Basophils # (Auto) 0.02 K/uL (0-0.2) RDW Standard Deviation 42.6 fL (36.4-46.3) RDW Coefficient of Variation 12.3 % (11.5-14.5) Immature Granulocyte % (Auto) 0.2 % Immature Granulocyte # (Auto) 0.02 K/uL (0.00-0.02) Urine Color YELLOW Urine Appearance CLOUDY (CLEAR) Urine pH 8.0 (4.5-7.5) Urine Specific [place] 1.013 (1.000-1.030) Urine Protein NEG (NEG) Urine Glucose (UA) NEG (NEG) Urine Ketones 1+ (NEG) Urine Occult Blood NEG (NEG) Urine Nitrite NEG (NEG) Urine Bilirubin NEG (NEG) Urine Urobilinogen NEG (NEG) Urine Leukocyte Esterase NEG (NEG) Urine WBC (Auto) 0 /hpf (0-5) Urine RBC (Auto) 0-4 /hpf (0-4) Urine Hyaline Casts (Auto) 1-5 /lpf (0-5) Urine Epithelial Cells (Auto) 0-5 /lpf (0-5) Urine Bacteria (Auto) NEG (NEG) Prothrombin Time 10.2 SECONDS (9.0-12.0) Prothromb Time International Ratio 1.0 (0.9-1.1) Activated Partial Thromboplast Time 24.5 SECONDS (21.0-31.0) Partial Thromboplastin Ratio 0.9 Anion Gap 9.0 mmol/L (3-11) Est Creatinine Clear Calc Drug Dose 73.8 ml/min Estimated GFR () 81.4 Estimated GFR (Non- 70.3 BUN/Creatinine Ratio 17.2 (10-20) Calcium Level 8.8 mg/dl (8.5-10.1) Total Bilirubin 0.4 mg/dl (0.2-1) Direct Bilirubin 0.1 mg/dl (0-0.2) Aspartate Amino Transf (AST/SGOT) 18 U/L (15-37) Alanine Aminotransferase (ALT/SGPT) 42 U/L (12-78) Alkaline Phosphatase 43 U/L (45-117) Total Creatine Kinase 96 U/L (39-308) Creatine Kinase MB < 0.5 ng/ml (0.5-3.6) Creatine Kinase MB Ratio (0-3.0) Troponin I < 0.015 ng/ml (0-0.045) Total Protein 7.2 gm/dl (6.4-8.2) Albumin 3.6 gm/dl (3.4-5.0) Lipase 169 U/L (73-393) Laboratory results per my review. Medications Administered Medications (Trade) Dose Ordered Sig/Roberto Route Start Time Stop Time Status Last Admin Dose Admin Al Hydroxide/Mg Hydroxide (Maalox Susp) 30 ml NOW STAT PO 05/19/17 21:41 05/19/17 21:42 DC 05/19/17 21:46 30 ML Aspirin (Aspirin Chew) 324 mg NOW STAT PO 05/19/17 21:41 05/19/17 21:42 DC 05/19/17 21:46 324 MG Nitroglycerin (Nitrostat Tab) 0.4 mg Q5M PRN SL 05/19/17 21:45 05/19/17 23:51 DC 05/19/17 22:20 0.4 MG ECG Indication: chest pain Rate (beats per minute): 94 Rhythm: normal sinus Findings: T-wave inversion (Inferior), no ectopy Change: no significant change (No change from 11/15/16) Change: 2nd EKG on 05/19/2017: Normal sinus rhythm, rate of 93, no ectopy, no acute ST segments, no change form earlier tracing. ED Course 2136: The patient was evaluated in room C2B. A complete history and physical examination were performed. 2140: Aspirin 324 mg PO, Maalox Suspension 30 ml PO. 2144: Nitroglycerin 0.4 mg SL. 2249: The patient is pain free after Aspirin and Nitroglycerin. 0: I reevaluated the patient. I discussed my recommendation he remain in the hospital for further evaluation and management, but he declined. I discussed his discharge instructions and he verbalized complete understanding and agreement. Medical Decision Prior records/ancillary studies reviewed. Triage Nursing notes reviewed. The patient's history was concerning for chest pain. Differential diagnosis: Etiologies such as cardiac ischemia, aortic dissection, pulmonary embolism, pneumonia, pneumothorax, musculoskeletal, infections, pericarditis, myocarditis , esophageal rupture, gastrointestinal, as well as others were entertained. The patient is a 56-year-old male who presented to the emergency department for an evaluation of chest pain. The patient describes a discomfort which was located in the epigastric region. He has a history of coronary artery disease but states that this is different than his usual discomfort. The patient had an EKG which did not show any significant change from previous. The patient's cardiac biomarkers were negative despite having ongoing pain since earlier in the evening. I discussed the patient's laboratory and radiographic studies with him. I also discussed the limitations of the emergency department workup for chest pain with him. Given the patient's history I recommended that he be evaluated by the hospitalist for further inpatient management. He was treated with aspirin Maalox and nitroglycerin. On subsequent reevaluation he was pain- free. The patient did not wish to stay for inpatient management. Even though I recommended against this he still wished to be discharged home. He was encouraged to rest and avoid any strings activity. I also encouraged him to continue all medications as prescribed including his nitroglycerin. He was also encouraged to return to the emergency apartment immediately if symptoms change worsen or the need arises. Otherwise I recommended that he follow-up with his primary care physician and his primary account services manager as soon as possible. Medication Reconcilliation Current Medication List: was personally reviewed by me Blood Pressure Screening Patient's blood pressure: Normal blood pressure Blood pressure disposition: Did not require urgent referral Impression Primary Impression: Chest pain Additional Impression: Acute angina Scribe Attestation The scribe's documentation has been prepared under my direction and personally reviewed by me in its entirety. I confirm that the note above accurately reflects all work, treatment, procedures, and medical decision making performed by me. Departure Information Dispostion Home / Self-Care Referrals Jeff Dai M.D.([facility]) (PCP) Patient Instructions Angina, My [facility] Additional Instructions Call your family to schedule a follow-up appointment. Rest and avoid any strenuous activity. Return to the emergency department immediately if symptoms change worsen or the need arises. Continue all medications as prescribed. Problem Qualifiers Primary Impression: Chest pain Chest pain type: unspecified Qualified Codes: R07.9 - Chest pain, unspecified
[2017-05-19] MEDS: NITROGLYCERIN 0.4 MG SL PER TAB CHARGE SL PRN ×3 (21:46→22:20)
[2017-05-19 21:57] LABS: BASO % 0.2 %; BASO ABS # 0.02 K/uL (0-0.2); EOS % 1.1 %; EOS ABS # 0.09 K/uL (0-0.5); HEMATOCRIT 44.3 % (42-52); HEMOGLOBIN 16.2 g/dL (14.0-18.0); IG# 0.02 K/uL (0.00-0.02); LYMPH % 19.8 %; LYMPH ABS # 1.61 K/uL (1.2-3.4); MEAN CELL VOLUME 95.5 fL (80-100); MEAN CORPUSCULAR HEMOGLOBIN 34.9 pg (25-34); MEAN CORPUSCULAR HGB CONC 36.6 g/dl (32-36); MEAN PLATELET VOLUME 10.2 fL (7.4-10.4); MONO ABS # 0.81 K/uL (0.11-0.59); NEUT % 68.7 %; NEUT ABS # 5.59 K/uL (1.4-6.5); PLATELET COUNT 153 K/uL (130-400); RED CELL DISTRIBUTION WIDTH CV 12.3 % (11.5-14.5); RED CELL DISTRIBUTION WIDTH SD 42.6 fL (36.4-46.3); WHITE BLOOD COUNT 8.14 K/uL (4.8-10.8)
[2017-05-19] MEDS ORDERED: METO25TA56 PO (22:06)
[2017-05-19] MEDS ORDERED: CRS/10 PO (22:08)
[2017-05-19] MEDS ORDERED: COLE1TAB5 PO (22:16)
[2017-05-19] MEDS ORDERED: CYCL0.052 OP (22:18)
--- NOTE | 2017-05-19 22:24 | DIAGNOSTIC IMAGING REPORT ---
CHEST ONE VIEW PORTABLE CLINICAL HISTORY: ABDOMINAL PAIN/GI pain COMPARISON STUDY: 01/27/2017 FINDINGS: The bones soft tissues and hemidiaphragms are normal. The cardiomediastinal silhouette is normal. The lungs are clear. The pulmonary vasculature is normal. IMPRESSION: Negative chest. The above report was generated using voice recognition software. It may contain grammatical, syntax or spelling errors. Electronically signed by: Chinmay Maurer M.D. 05/19/2017 10:22 PM Dictated Date/Time: 05/19/2017 10:22 PM
[2017-05-19 23:03] LABS: PTT PATIENT 24.5 SECONDS (21.0-31.0)
[2017-05-19 23:08] LABS: ALBUMIN 3.6 gm/dl (3.4-5.0); ALT/SGPT 42 U/L (12-78); BLOOD UREA NITROGEN 20 mg/dl (7-18); CALCIUM 8.8 mg/dl (8.5-10.1); CARBON DIOXIDE 25 mmol/L (21-32); CREATININE 1.15 mg/dl (0.60-1.40); GLUCOSE 123 mg/dl (70-99); LIPASE 169 U/L (73-393); POTASSIUM 3.5 mmol/L (3.5-5.1); SODIUM 138 mmol/L (136-145)
[2017-05-19 23:14] LABS: ALKALINE PHOSPHATASE 43 U/L (45-117); AST/SGOT 18 U/L (15-37); CKMB < 0.5 ng/ml (0.5-3.6); TOTAL PROTEIN 7.2 gm/dl (6.4-8.2)
[2017-05-19 23:24] VITALS: BP 118/77; PULSE 89; O2SAT 95
== END 2017-05-19 23:35 | disposition home or self-care (01) ==
LOC: C.EDB 20:57 → C.EDC 23:35
DX: I20.9 Angina pectoris, unspecified (principal); R07.9 Chest pain, unspecified; R10.13 Epigastric pain; Z87.891 Personal history of nicotine dependence; Z79.899 Other long term (current) drug therapy

== ENCOUNTER 2017-12-07 10:49 | Inpatient (IN) | payer OTHER ==
[~2017-12-07] VITALS: Ht 170.2 cm; Wt 79.7 kg
[~2017-12-07 10:49] MED LIST changes: +COLE1TAB5 PO; +CRS/10 PO; +CYCL0.052 OP; +GABA-1219 PO; -GABA1CAP4 PO; -LPR25 PO; +METO25TA56 PO; -PRED20TA PO
[2017-12-07] MEDS ORDERED: SODIUM CHLORIDE 0.9% 1000ML 1,000 ML IV SCH (11:05)
--- NOTE | 2017-12-07 11:18 | DIAGNOSTIC IMAGING REPORT ---
CT HEAD WITHOUT CONTRAST (CT) CLINICAL HISTORY: Change in neurological status. Suspected acute stroke. COMPARISON STUDY: 01/27/2017 TECHNIQUE: Axial CT of the brain is performed from the vertex to the skull base. IV contrast was not administered for this examination. A dose lowering technique was utilized adhering to the principles of ALARA. CT DOSE: 751.85 mGycm FINDINGS: No intra or extra-axial mass lesions are visualized. There is no CT evidence of acute cortical infarction. There is no evidence of midline shift. There is no acute hemorrhage. No calvarial fractures are visualized. There is no evidence of pathologic ventricular dilatation. There is no evidence of acute sinusitis IMPRESSION: No acute intracranial findings. Electronically signed by: Celestino David M.D. 12/07/2017 11:16 AM Dictated Date/Time: 12/07/2017 11:15 AM
[2017-12-07 11:23] LABS: BASO % 0.4 %; BASO ABS # 0.02 K/uL (0-0.2); EOS % 2.7 %; EOS ABS # 0.15 K/uL (0-0.5); HEMOGLOBIN 16.4 g/dL (14.0-18.0); IG# 0.01 K/uL (0.00-0.02); LYMPH % 38.6 %; LYMPH ABS # 2.14 K/uL (1.2-3.4); MEAN CELL VOLUME 95.4 fL (80-100); MEAN CORPUSCULAR HGB CONC 35.7 g/dl (32-36); MEAN PLATELET VOLUME 9.9 fL (7.4-10.4); MONO % 11.9 %; MONO ABS # 0.66 K/uL (0.11-0.59); NEUT % 46.2 %; NEUT ABS # 2.57 K/uL (1.4-6.5); PLATELET COUNT 145 K/uL (130-400); RED CELL DISTRIBUTION WIDTH CV 12.6 % (11.5-14.5); RED CELL DISTRIBUTION WIDTH SD 43.4 fL (36.4-46.3); WHITE BLOOD COUNT 5.55 K/uL (4.8-10.8)
[2017-12-07 11:27] LABS: ISTAT CREATININE 1.1 mg/dl (0.6-1.3); ISTAT IONIZED CALCIUM 1.14 mmol/l (1.12-1.32); ISTAT POTASSIUM 3.9 mEq/L (3.3-5.0)
[2017-12-07 11:33] LABS: PTT PATIENT 24.7 SECONDS (21.0-31.0)
[2017-12-07] MEDS ORDERED: METOPROLOL TARTRATE 25 MG TAB PO STA (11:35)
--- NOTE | 2017-12-07 11:36 | DIAGNOSTIC IMAGING REPORT ---
CHEST ONE VIEW PORTABLE HISTORY: 57 years-old Male Stroke acute strokelike symptoms COMPARISON: Chest radiograph 05/19/2017 TECHNIQUE: Portable AP view of the chest FINDINGS: Cardiomediastinal and hilar silhouettes are within normal limits. Mild right hemidiaphragmatic elevation. No pneumothorax, pleural effusion, focal airspace consolidation or overt pulmonary edema. Bones of the chest appear grossly intact. IMPRESSION: No acute process. The above report was generated using voice recognition software. It may contain grammatical, syntax or spelling errors. Electronically signed by: Philip Ernst M.D. 12/07/2017 11:34 AM Dictated Date/Time: 12/07/2017 11:33 AM
[2017-12-07] MEDS ORDERED: EVOL1INJ SC (11:41)
[2017-12-07 11:44] LABS: BLOOD UREA NITROGEN 12 mg/dl (7-18); CALCIUM 8.9 mg/dl (8.5-10.1); CARBON DIOXIDE 28 mmol/L (21-32); CKMB < 1.0 ng/ml (0.5-3.6); CREATININE 1.21 mg/dl (0.60-1.40); GLUCOSE 127 mg/dl (70-99); POTASSIUM 3.8 mmol/L (3.5-5.1); SODIUM 137 mmol/L (136-145)
[2017-12-07] MEDS ORDERED: DICL1GEL12 TOP (12:16)
[2017-12-07] MEDS ORDERED: CARV12.5 PO (12:16)
[2017-12-07] MEDS ORDERED: IBUP-1050 PO (12:18)
[2017-12-07 12:25] VITALS: O2SAT 98; Ht 170.2 cm; Wt 79.7 kg
[2017-12-07 12:53] VITALS: O2SAT 98
[2017-12-07] MEDS ORDERED: ONDANSETRON INJ 2 MG/ML 2 ML VIAL IV PRN (13:30)
[2017-12-07] MEDS ORDERED: ACETAMINOPHEN 325 MG TAB PO PRN (13:30)
[2017-12-07] MEDS ORDERED: OPTIRAY 320 IV PRN (13:45)
[2017-12-07] MEDS ORDERED: MoRPHine SULFATE 4 MG/ML 1 ML CARP\\VIAL IV SCH (13:45)
[2017-12-07] MEDS ORDERED: PHARMACIST DISCHARGE MED REC CONSULT PRN (13:45)
[2017-12-07 13:54] VITALS: BP 133/89; PULSE 68; TEMP 36.7; O2SAT 97
[2017-12-07] MEDS ORDERED: MoRPHine SULFATE 10 MG/ML CARP/VIAL IV SCH (13:59)
[2017-12-07] MEDS: ENOXAPARIN 40 MG/0.4 ML SYR SC SCH (14:11)
[2017-12-07] MEDS ORDERED: TRAZ50TA35 PO (14:12)
[2017-12-07] MEDS ORDERED: METO50TA17 PO (14:12)
[2017-12-07 14:47] LABS: HEMOGLOBIN A1C 5.8 % (4.5-5.6)
--- NOTE | 2017-12-07 14:57 | Neurology Consultation ---
Neurology Consultation Date of Consultation: Dec 07, 2017. Attending Physician: Ryland Costa MD Primary Care Physician: Lore Mcfarlane D.O. 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 He was having right leg weakness which began after getting out of bed this am. He was attributing it to his spinal stenosis but when he sat down at his computer his vision started getting squiggly lines. He told his and thought she should take him to the ED. On the way in he started having right arm weakness. By the time they arrived at the ED all the symptoms had resolved. He then started having a headache. He had Yanes's palsy and reports residual right-sided facial numbness last year he had it on the left several years ago. There is a strong family history of cardiac disease and DM. He has never had a heart attack but had a heart cath because he has had CP numerous times with anxiety attacks. He is a mild smoker about a pack per week, EtOH several beers nightly per week no other drugs. denies current CP, SOB, abdominal pain, slurred speech, one sided numbness tingling weakness, vision changes, swallow issues, confusion, + headache. Past Medical/Surgical History Medical Problems: (1) Acute angina Status: Acute (2) Acute right eye pain Status: Acute (3) Chest pain Status: Acute (4) Coronary artery disease Status: Acute (5) CVA (cerebral vascular accident) Status: Acute (6) Facial droop Status: Acute (7) Hyperlipidemia Status: Acute (8) Internal carotid artery stenosis Status: Acute (9) Low vision of right eye with normal vision in contralateral eye Status: Acute (10) Substernal precordial chest pain Status: Acute Social History Smoking Status: Current some day smoker Smokeless Tobacco Use: No Alcohol Use: occasionally Drug Use: none Marital Status: Housing Status: lives with family Occupation Status: employed, retired Allergies Coded Allergies: Fentanyl (Verified Allergy, Severe, NEURO CHANGES, 12/07/17) WAS HOSPITILIZED FROM IT Tuberculin (Verified Allergy, Severe, SWELLING/HIVES, 12/07/17) Rosuvastatin (Verified Allergy, Intermediate, Chest and muscle pain, ) Sertraline (Verified Allergy, Intermediate, Psych complications, 12/07/17) Statins (Unverified Adverse Reaction, Severe, BODY ACHES, 12/07/17) Current Inpatient Medications Current Inpatient Medications Medications (Trade) Dose Ordered Sig/Roberto Route Start Time Stop Time Status Last Admin Dose Admin Enoxaparin Sodium (Lovenox Inj) 40 mg Q24H SC 12/07/17 14:00 01/06/18 13:59 12/07/17 14:11 40 MG Acetaminophen (Tylenol Tab) 650 mg Q4H PRN PO 12/07/17 13:30 01/06/18 13:29 Ondansetron HCl (Zofran Inj) 4 mg Q6H PRN IV 12/07/17 13:30 01/06/18 13:29 Miscellaneous Information (Pharmacist Discharge Med Rec Consult) 1 ea UD PRN N/A 12/07/17 13:45 01/06/18 13:44 Ioversol (Optiray 320) 125 ml UD PRN IV 12/07/17 13:45 12/11/17 13:44 Morphine Sulfate (MoRPHine SULFATE INJ) 5 mg TODAY@1345 IV 12/07/17 13:59 12/07/17 18:00 12/07/17 14:11 5 MG Aspirin (Ecotrin Tab) 81 mg DAILY PO 12/08/17 09:00 01/07/18 08:59 Fish Oil ([place]-3 (Purified Fish Oil) Cap) 3 gm DAILY PO 12/08/17 09:00 01/07/18 08:59 Gabapentin (Neurontin Cap) 300 mg TID PO 12/07/17 21:00 01/06/18 20:59 Lorazepam (Ativan Tab) 1 mg BID PO 12/07/17 21:00 01/06/18 20:59 Multivitamins/ Minerals (Multivitamin W/ Minerals Tab) 1 tab DAILY PO 12/08/17 09:00 01/07/18 08:59 Cholecalciferol (Vitamin D Tab) 2,000 inter.unit DAILY PO 12/08/17 09:00 01/07/18 08:59 Physical Exam Vital Signs (Past 24 Hrs): Date Time Temp Pulse Resp B/P (MAP) Pulse Ox O2 Delivery O2 Flow Rate FiO2 12/07/17 13:54 36.7 68 18 133/89 (104) 97 Room Air 12/07/17 12:53 76 16 136/98 98 Room Air 12/07/17 12:25 98 Room Air 12/07/17 12:14 77 16 146/98 94 Room Air 12/07/17 12:05 79 12/07/17 11:35 82 16 145/104 98 Room Air 12/07/17 11:30 98 Room Air 12/07/17 11:22 80 16 170/107 95 Room Air 12/07/17 10:51 36.7 95 17 182/112 98 Room Air Physical Exam: Constitutional: appearance nourished, healthy and normal Ears, Nose, Mouth and Throat: mucous membranes moist, no injection and skin normal, eyes normal Cardiovascular: normal S-1 and S-2 and regular rate and rhythm Respiratory: clear to auscultation (CTA) and no rales, rhonchi or wheeze Musculoskeletal: no peripheral edema and good distal pulses Skin: no stigmata of neurocutaneous disease noted and normal and intact Eyes: extraocular muscles intact (EOMI) and pupils equal, round and reactive to light (PERRL), bilateral eye lid droop right >left, right sided flattening nasolabial fold NEUROLOGIC EXAMINATION: Mental status: Alert and interactive Oriented to full date and location Oriented to person Speech slight slurring of speech (chronic from Randall palsy) Cranial Nerves right eye brow less lift, smile slightly asymmetric Reflexes: Deep tendon reflexes were symmetrical and graded 2/5. Plantar responses were flexor. Sensory: vibration, cool touch Coordination: finger to nose and heel to benitez no bipass or dysmetric, + romberg with eye closed Gait/Stance: Posture normal. stands without assistance Motor: Negative for pronator drift of out stretched arms with eyes closed. Strength: biceps triceps hand web site admin intrinsic, deltoids 5/5 bilaterally hip flex, patellar/ plantar flex ext bilaterally 5/5 Laboratory Results Past 24 Hours: 12/07/17 11:00 Red Blood Count 4.82, Mean Corpuscular Volume 95.4, Mean Corpuscular Hemoglobin 34.0, Mean Corpuscular Hemoglobin Concent 35.7, Mean Platelet Volume 9.9, Neutrophils (%) (Auto) 46.2, Lymphocytes (%) (Auto) 38.6, Monocytes (%) (Auto) 11.9, Eosinophils (%) (Auto) 2.7, Basophils (%) (Auto) 0.4, Neutrophils # (Auto ) 2.57, Lymphocytes # (Auto) 2.14, Monocytes # (Auto) 0.66, Eosinophils # (Auto ) 0.15, Basophils # (Auto) 0.02 12/07/17 11:00 Test 12/07/17 11:00 12/07/17 11:12 12/07/17 11:17 White Blood Count 5.55 K/uL (4.8-10.8) Red Blood Count 4.82 M/uL (4.7-6.1) Hemoglobin 16.4 g/dL (14.0-18.0) Hematocrit 46.0 % (42-52) Mean Corpuscular Volume 95.4 fL (80-100) Mean Corpuscular Hemoglobin 34.0 pg (25-34) Mean Corpuscular Hemoglobin Concent 35.7 g/dl (32-36) Platelet Count 145 K/uL (130-400) Mean Platelet Volume 9.9 fL (7.4-10.4) Neutrophils (%) (Auto) 46.2 % Lymphocytes (%) (Auto) 38.6 % Monocytes (%) (Auto) 11.9 % Eosinophils (%) (Auto) 2.7 % Basophils (%) (Auto) 0.4 % Neutrophils # (Auto) 2.57 K/uL (1.4-6.5) Lymphocytes # (Auto) 2.14 K/uL (1.2-3.4) Monocytes # (Auto) 0.66 K/uL (0.11-0.59) Eosinophils # (Auto) 0.15 K/uL (0-0.5) Basophils # (Auto) 0.02 K/uL (0-0.2) RDW Standard Deviation 43.4 fL (36.4-46.3) RDW Coefficient of Variation 12.6 % (11.5-14.5) Immature Granulocyte % (Auto) 0.2 % Immature Granulocyte # (Auto) 0.01 K/uL (0.00-0.02) Prothrombin Time 10.0 SECONDS (9.0-12.0) Prothromb Time International Ratio 1.0 (0.9-1.1) Activated Partial Thromboplast Time 24.7 SECONDS (21.0-31.0) Partial Thromboplastin Ratio 1.0 Est Creatinine Clear Calc Drug Dose 68.0 ml/min Estimated GFR () 76.0 Estimated GFR (Non- 65.6 BUN/Creatinine Ratio 10.2 (10-20) Calcium Level 8.9 mg/dl (8.5-10.1) Magnesium Level 2.3 mg/dl (1.8-2.4) Total Creatine Kinase 137 U/L (39-308) Creatine Kinase MB < 1.0 ng/ml (0.5-3.6) Creatine Kinase MB Ratio (0-3.0) Troponin I < 0.015 ng/ml (0-0.045) Bedside Glucose 128 mg/dl (70-99) Bedside Hemoglobin 15.0 g/dl (14.0-18.0) Bedside Hematocrit 44 % (42-52) Bedside Sodium 140 mEq/L (135-144) Bedside Potassium 3.9 mEq/L (3.3-5.0) Bedside Chloride 99 mEq/L (101-112) Bedside Total CO2 27 mEq/l (24-31) Anion Gap 20.0 mmol/L (16-25) Bedside Blood Urea Nitrogen 13 mg/dl (7-18) Bedside Creatinine 1.1 mg/dl (0.6-1.3) Bedside Glucose (other) 126 mg/dl (70-99) Bedside Ionized Calcium (Dean) 1.14 mmol/l (1.12-1.32) Imaging CT head- No acute intracranial findings. Impression 57 year old male with history of Randall palsy R/L, presented with right side weakness, and change in vision Plan 1. Aspirin 81 mg daily added plavix 75 mg 2. liberal blood pressure 3. once past 48 hours optimize DL, HTN, LDL<[address] head no acute findings 5. MRI with and without -evaluate for stroke or malformation 6. CTA head and neck pending 7. TTE- pending read 8. PT/OT speech for any discharge needs 9. further recommendations to follow I have seen and discussed above patient with Dr Dede Garcia, neurology hx reviewed. Hx of remote common migraine as a child, no subsequent [place] or prior visual phen. This am RLE gave out, bl bright vis phenomenon, R arm weak, sx lasted 20 min, 1 1/2 hour after onset of sx moderate frontal headache. Sx have resolved MRI brain nml. EXam decreased LT R face and R leg. Imp TIA v complicated migraine. P dual antiplt tx, risk mod, vascular imaging tele, echo. KENNETH Garcia MD
--- NOTE | 2017-12-07 15:06 | History and Physical ---
History & Physical Date & Time of Service: Dec 07, 2017 ~ 1300 Chief Complaint: Strokelike symptoms Primary Care Physician: Lore Mcfarlane D.O. History of Present Illness 49-year-old male who presents the ED with concerns of strokelike symptoms. Patient reports he woke up this morning feeling in his usual state of health. He reports he made some coffee in the kitchen and went back to his bedroom when he had sudden onset of right leg weakness and numbness. He was unable to bear weight and stand on his leg. He then laid down in bed. He reports symptoms resolve after about 1 minute. He then went to his computer whenever he noticed that his vision was not focusing. He describes squiggly lines throughout his vision. The visual problems lasted for about 1 minute as well. He took 6 baby aspirin at home. He called his PCP who advised ER for further evaluation. On his way to the ER, patient reports some mild right arm weakness which has resolved as well. Patient reports an associated frontal headache that is located in the middle of his forehead. 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 He denies slurred speech and difficulty swallowing. He had some associated lightheadedness but denies any syncopal event. He reports he felt anxious. No chest pain or shortness of breath. He had some mild nausea but denies any vomiting, abdominal pain, diarrhea. No other recent illnesses, fevers, chills. In the ED , head CT is negative for acute findings. BP on presentation was 182/112. Patient was given metoprolol tartrate 12.5 mg and blood pressure has since improved. Past Medical/Surgical History Medical Problems: (1) Yanes's palsy Status: Chronic (2) CAD (coronary artery disease) Permanent Comment: Cardiac cath 2013-50% mid circumflex, 99% ostial OM1 and OM2 , 70% RCA Status: Chronic (3) Dyslipidemia Status: Chronic (4) GERD (gastroesophageal reflux disease) Status: Chronic (5) Hypertension Status: Chronic (6) Spinal stenosis Status: Chronic Family History Diabetes mellitus FATHER FH: CAD (coronary artery disease) FATHER ([place] at age 55) Social History Smoking Status: Current Some Day Smoker Alcohol Use: none Immunizations History of Influenza Vaccine: Yes Influenza Vaccine Date: May 22, 2011 History of Tetanus Vaccine?: Yes Tetanus Immunization Date: Jan 05, 2009 Allergies Coded Allergies: Fentanyl (Verified Allergy, Severe, NEURO CHANGES, 12/07/17) WAS HOSPITILIZED FROM IT Tuberculin (Verified Allergy, Severe, SWELLING/HIVES, 12/07/17) Rosuvastatin (Verified Allergy, Intermediate, Chest and muscle pain, ) Sertraline (Verified Allergy, Intermediate, Psych complications, 12/07/17) Statins (Unverified Adverse Reaction, Severe, BODY ACHES, 12/07/17) Home Medications Scheduled Aspirin (Aspirin Ec), 81 MG PO DAILY Cholecalciferol (Vitamin D3), 2,000 INTER.UNIT PO DAILY Cyclosporine (Ophth) (Restasis), 1 DROP OP BID Esomeprazole Magnesium (Nexium), 20 MG PO 2-3x/week Evolocumab (Repatha Sureclick), 1 DOSE SC [id number] Fish Oil ([place]-3), 3 CAP PO DAILY Gabapentin (Gabapentin), 300 MG PO TID Lorazepam (Ativan), 1 MG PO AMPM Metoprolol Tartrate (Metoprolol Tartrate), 12.5 MG PO DAILY Multivitamins/Minerals (Mvi With Minerals), 1 TAB PO DAILY Scheduled PRN Ibuprofen (Advil), 400 MG PO BID PRN for Pain Trazodone Hcl (Trazodone), 50 MG PO HS PRN for Insomnia Review of Systems ROS per HPI, all other systems reviewed and negative Physical Exam Vital Signs Date Time Temp Pulse Resp B/P (MAP) Pulse Ox O2 Delivery O2 Flow Rate FiO2 12/07/17 13:54 36.7 68 18 133/89 (104) 97 Room Air 12/07/17 12:53 76 16 136/98 98 Room Air 12/07/17 12:25 98 Room Air 12/07/17 12:14 77 16 146/98 94 Room Air 12/07/17 12:05 79 12/07/17 11:35 82 16 145/104 98 Room Air 12/07/17 11:30 98 Room Air 12/07/17 11:22 80 16 170/107 95 Room Air 12/07/17 10:51 36.7 95 17 182/112 98 Room Air General Appearance: WD/WN, no apparent distress Head: normocephalic, atraumatic Eyes: normal inspection, PERRL, EOMI, sclerae normal ENT: hearing grossly normal, + pertinent finding (Mucous membranes moist) Neck: supple, no JVD, trachea midline Respiratory/Chest: lungs clear, normal breath sounds, no respiratory distress Cardiovascular: regular rate, rhythm, no edema, no murmur, normal peripheral pulses Abdomen/GI: normal bowel sounds, non tender, soft, no organomegaly Extremities/Musculoskelatal: normal inspection, no calf tenderness, normal capillary refill Neurologic/Psych: alert, normal mood/affect, oriented x 3, + pertinent finding (Chronic right facial numbness from prior diagnosis of Yanes's palsy otherwise no motor or sensory deficits noted) Skin: normal color, warm/dry Diagnostics Laboratory Results Results Past 24 Hours Test 12/07/17 11:00 12/07/17 11:12 12/07/17 11:17 Range/Units White Blood Count 5.55 4.8-10.8 K/uL Red Blood Count 4.82 4.7-6.1 M/uL Hemoglobin 16.4 14.0-18.0 g/dL Hematocrit 46.0 42-52 % Mean Corpuscular Volume 95.4 80-100 fL Mean Corpuscular Hemoglobin 34.0 25-34 pg Mean Corpuscular Hemoglobin Concent 35.7 32-36 g/dl Platelet Count 145 130-400 K/uL Mean Platelet Volume 9.9 7.4-10.4 fL Neutrophils (%) (Auto) 46.2 % Lymphocytes (%) (Auto) 38.6 % Monocytes (%) (Auto) 11.9 % Eosinophils (%) (Auto) 2.7 % Basophils (%) (Auto) 0.4 % Neutrophils # (Auto) 2.57 1.4-6.5 K/uL Lymphocytes # (Auto) 2.14 1.2-3.4 K/uL Monocytes # (Auto) 0.66 0.11-0.59 K/uL Eosinophils # (Auto) 0.15 0-0.5 K/uL Basophils # (Auto) 0.02 0-0.2 K/uL RDW Standard Deviation 43.4 36.4-46.3 fL RDW Coefficient of Variation 12.6 11.5-14.5 % Immature Granulocyte % (Auto) 0.2 % Immature Granulocyte # (Auto) 0.01 0.00-0.02 K/uL Prothrombin Time 10.0 9.0-12.0 SECONDS Prothromb Time International Ratio 1.0 0.9-1.1 Activated Partial Thromboplast Time 24.7 21.0-31.0 SECONDS Partial Thromboplastin Ratio 1.0 Sodium Level 137 136-145 mmol/L Potassium Level 3.8 3.5-5.1 mmol/L Chloride Level 103 98-107 mmol/L Carbon Dioxide Level 28 21-32 mmol/L Anion Gap 6.0 20.0 16-25 mmol/L Blood Urea Nitrogen 12 7-18 mg/dl Creatinine 1.21 0.60-1.40 mg/dl Est Creatinine Clear Calc Drug Dose 68.0 ml/min Estimated GFR () 76.0 Estimated GFR (Non- 65.6 BUN/Creatinine Ratio 10.2 10-20 Random Glucose 127 70-99 mg/dl Calcium Level 8.9 8.5-10.1 mg/dl Magnesium Level 2.3 1.8-2.4 mg/dl Total Creatine Kinase 137 39-308 U/L Creatine Kinase MB < 1.0 0.5-3.6 ng/ml Creatine Kinase MB Ratio 0-3.0 Troponin I < 0.015 0-0.045 ng/ml Bedside Glucose 128 70-99 mg/dl Bedside Hemoglobin 15.0 14.0-18.0 g/dl Bedside Hematocrit 44 42-52 % Bedside Sodium 140 135-144 mEq/L Bedside Potassium 3.9 3.3-5.0 mEq/L Bedside Chloride 99 101-112 mEq/L Bedside Total CO2 27 24-31 mEq/l Bedside Blood Urea Nitrogen 13 7-18 mg/dl Bedside Creatinine 1.1 0.6-1.3 mg/dl Bedside Glucose (other) 126 70-99 mg/dl Bedside Ionized Calcium (Dean) 1.14 1.12-1.32 mmol/l Diagnostic Radiology HEAD CT IMPRESSION: No acute intracranial findings. CXR IMPRESSION: No acute process Impression Assessment and Plan RIGHT-SIDED WEAKNESS,R/O TIA VS CVA -Admit to telemetry -Patient presenting from home with reports of right leg and right arm weakness and visual changes as described in HPI -Patient took 6 baby aspirin at home, will continue with 81 mg daily for now -Patient was diagnosed with Yanes's palsy in 01/2017-CTA at that time showed a very small caliber left carotid artery with a high-grade stenosis in the petrous segment -Obtain brain MRI, CTA head and neck, echocardiogram -Patient is intolerant to all statins, currently receiving Repatha injections every 2 weeks -Allow for permissive hypertension -Other differentials considered -complex migraine, hypertensive urgency -Neurology consult, case discussed with Dede Lawson PA-C HYPERTENSION -Was hypertensive on arrival at 182/112 -question if this attributed to patient' s symptoms -Received home dose metoprolol 12.5 mg orally in the ED with improvement in BP -Patient does not take his metoprolol routinely at home -While ruling out acute CVA, allow for permissive hypertension CAD -Stable, no reports chest pain -Continue aspirin; beta-richard on hold as above DVT PROPHYLAXIS -SQ Lovenox DISPOSITION -In my clinical judgment this beneficiary meets acute admission criteria, established by [facility], that includes being hospitalized through two midnights. Agree with above H and P. Briefly 57M with hx of HTN, CAD, [place] plasy presents with right sided weakness that happened around 10am today and lasted for about a minute.Then later he noticed some blurry vision and tinglings in right hand when he decided to come to ER. By the time he came to ER all his symptoms resolved. He has chronic right face some numbness from his bells palsy. Denies any chest pain or sob or cough or fevers. He has hx of anxiety and requests for morphine before MRI. Initial imaging in ER was ok. 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
--- NOTE | 2017-12-07 15:25 | EMERGENCY ROOM VISIT NOTE ---
History Report prepared by Rigo: Bradley Villasenor Under the Supervision of: Dr. Wilber Ferrari M.D. First contact with patient: 10:56 Chief Complaint: NEURO SYMPTOMS Stated Complaint: R LEG AND ARM WEAKNESS, BLURRED VISION, History of Present Illness The patient is a 57 year old male who presents to the Emergency Room with complaints of resolved right-sided arm and leg weakness beginning one hour ago at 10:00 AM. The patient denies any symptoms prior to that time or when waking up. He notes at the time that he had "squiggly lines" in his vision and had trouble focusing on a screen, but denies blurred or double vision. He states that he was swallowing and speaking normally. Family denies confusion or falling. The patient states that he is currently not experiencing his symptoms , but notes that he feels mildly dizzy. He also states that he currently feels mildly nauseous and has been experiencing diarrhea for the past few days. He denies chest pain, shortness of breath, or abdominal pain. The patient reports that last year he had Yanes's palsy and reports residual right-sided facial numbness, and states that there was no stroke. He denies being on blood thinners other than aspirin. Source of History: patient, family Onset: one hour ago at 10:00 AM Position: arm (right), leg (right) Quality: other (numbess and weakness) Timing: resolved Associated Symptoms: + nausea, + diarrhea, No chest pain, No SOB, No abdominal pain Review of Systems See HPI for pertinent positives & negatives. A total of 10 systems reviewed and were otherwise negative. Past Medical & Surgical Medical Problems: (1) Yanes's palsy (2) CAD (coronary artery disease) (3) Dyslipidemia (4) GERD (gastroesophageal reflux disease) (5) Hypertension (6) Spinal stenosis Family History Diabetes mellitus Heart disease Hypertension Social History Smoking Status: Current Some Day Smoker Alcohol Use: none Drug Use: none Marital Status: Housing Status: lives with family Occupation Status: employed Current/Historical Medications Scheduled Aspirin (Aspirin Ec), 81 MG PO DAILY Cholecalciferol (Vitamin D3), 2,000 INTER.UNIT PO DAILY Cyclosporine (Ophth) (Restasis), 1 DROP OP BID Esomeprazole Magnesium (Nexium), 20 MG PO 2-3x/week Evolocumab (Repatha Sureclick), 1 DOSE SC [id number] Fish Oil ([place]-3), 3 CAP PO DAILY Gabapentin (Gabapentin), 300 MG PO TID Lorazepam (Ativan), 1 MG PO AMPM Metoprolol Tartrate (Metoprolol Tartrate), 12.5 MG PO DAILY Multivitamins/Minerals (Mvi With Minerals), 1 TAB PO DAILY Scheduled PRN Ibuprofen (Advil), 400 MG PO BID PRN for Pain Trazodone Hcl (Trazodone), 50 MG PO HS PRN for Insomnia Allergies Coded Allergies: Fentanyl (Verified Allergy, Severe, NEURO CHANGES, 12/07/17) WAS HOSPITILIZED FROM IT Tuberculin (Verified Allergy, Severe, SWELLING/HIVES, 12/07/17) Rosuvastatin (Verified Allergy, Intermediate, Chest and muscle pain, ) Sertraline (Verified Allergy, Intermediate, Psych complications, 12/07/17) Statins (Unverified Adverse Reaction, Severe, BODY ACHES, 12/07/17) Physical Exam Vital Signs Date Time Temp Pulse Resp B/P (MAP) Pulse Ox O2 Delivery O2 Flow Rate FiO2 12/07/17 12:14 77 16 146/98 94 Room Air 12/07/17 12:05 79 12/07/17 11:35 82 16 145/104 98 Room Air 12/07/17 11:30 98 Room Air 12/07/17 11:22 80 16 170/107 95 Room Air 12/07/17 10:51 36.7 95 17 182/112 98 Room Air Physical Exam Constitutional: Vital signs reviewed. Eyes: Pupils are equal round reactive to light. Conjunctiva are noninjected. ENT: Pharynx is clear without erythema or exudate. Mucous membranes are moist. Neck supple without meningeal signs. Respiratory: Clear to auscultation bilaterally. Breath sounds are equal bilaterally. Cardiovascular: Regular rate and rhythm. No rubs or gallops. GI: Soft, nondistended and nontender. Bowel sounds are present. Musculoskeletal: No peripheral edema. No lower extremity tenderness. Integumentary: No cyanosis. Neurological: The patient is awake and alert. Cranial nerves II-XII are intact , except for numbness to the right side of the face. Motor is 5 out of 5 all extremities. Sensation is intact to light touch all extremities. Normal speech. No pronator drift. Psychiatric: Very anxious. Medical Decision & Procedures ER Provider Diagnostic Interpretation: Radiology results as stated below per my review and the radiologist's interpretation: CHEST ONE VIEW PORTABLE HISTORY: 57 years-old Male Stroke acute strokelike symptoms COMPARISON: Chest radiograph 05/19/2017 TECHNIQUE: Portable AP view of the chest FINDINGS: Cardiomediastinal and hilar silhouettes are within normal limits. Mild right hemidiaphragmatic elevation. No pneumothorax, pleural effusion, focal airspace consolidation or overt pulmonary edema. Bones of the chest appear grossly intact. IMPRESSION: No acute process. The above report was generated using voice recognition software. It may contain grammatical, syntax or spelling errors. Electronically signed by: Philip Ernst M.D. 12/07/2017 11:34 AM Dictated Date/Time: 12/07/2017 11:[address] HEAD WITHOUT CONTRAST (CT) CLINICAL HISTORY: Change in neurological status. Suspected acute stroke. COMPARISON STUDY: 01/27/2017 TECHNIQUE: Axial CT of the brain is performed from the vertex to the skull base. IV contrast was not administered for this examination. A dose lowering technique was utilized adhering to the principles of ALARA. CT DOSE: 751.85 mGycm FINDINGS: No intra or extra-axial mass lesions are visualized. There is no CT evidence of acute cortical infarction. There is no evidence of midline shift. There is no acute hemorrhage. No calvarial fractures are visualized. There is no evidence of pathologic ventricular dilatation. There is no evidence of acute sinusitis IMPRESSION: No acute intracranial findings. Electronically signed by: Celestino David M.D. 12/07/2017 11:16 AM Dictated Date/Time: 12/07/2017 11:15 AM Laboratory Results 12/07/17 11:00 Red Blood Count 4.82, Mean Corpuscular Volume 95.4, Mean Corpuscular Hemoglobin 34.0, Mean Corpuscular Hemoglobin Concent 35.7, Mean Platelet Volume 9.9, Neutrophils (%) (Auto) 46.2, Lymphocytes (%) (Auto) 38.6, Monocytes (%) (Auto) 11.9, Eosinophils (%) (Auto) 2.7, Basophils (%) (Auto) 0.4, Neutrophils # (Auto ) 2.57, Lymphocytes # (Auto) 2.14, Monocytes # (Auto) 0.66, Eosinophils # (Auto ) 0.15, Basophils # (Auto) 0.02 12/07/17 11:00 Test 12/07/17 11:00 12/07/17 11:12 12/07/17 11:17 White Blood Count 5.55 K/uL (4.8-10.8) Red Blood Count 4.82 M/uL (4.7-6.1) Hemoglobin 16.4 g/dL (14.0-18.0) Hematocrit 46.0 % (42-52) Mean Corpuscular Volume 95.4 fL (80-100) Mean Corpuscular Hemoglobin 34.0 pg (25-34) Mean Corpuscular Hemoglobin Concent 35.7 g/dl (32-36) Platelet Count 145 K/uL (130-400) Mean Platelet Volume 9.9 fL (7.4-10.4) Neutrophils (%) (Auto) 46.2 % Lymphocytes (%) (Auto) 38.6 % Monocytes (%) (Auto) 11.9 % Eosinophils (%) (Auto) 2.7 % Basophils (%) (Auto) 0.4 % Neutrophils # (Auto) 2.57 K/uL (1.4-6.5) Lymphocytes # (Auto) 2.14 K/uL (1.2-3.4) Monocytes # (Auto) 0.66 K/uL (0.11-0.59) Eosinophils # (Auto) 0.15 K/uL (0-0.5) Basophils # (Auto) 0.02 K/uL (0-0.2) RDW Standard Deviation 43.4 fL (36.4-46.3) RDW Coefficient of Variation 12.6 % (11.5-14.5) Immature Granulocyte % (Auto) 0.2 % Immature Granulocyte # (Auto) 0.01 K/uL (0.00-0.02) Prothrombin Time 10.0 SECONDS (9.0-12.0) Prothromb Time International Ratio 1.0 (0.9-1.1) Activated Partial Thromboplast Time 24.7 SECONDS (21.0-31.0) Partial Thromboplastin Ratio 1.0 Est Creatinine Clear Calc Drug Dose 68.0 ml/min Estimated GFR () 76.0 Estimated GFR (Non- 65.6 BUN/Creatinine Ratio 10.2 (10-20) Estimated Average Glucose 120 mg/dl Hemoglobin A1c 5.8 % (4.5-5.6) Calcium Level 8.9 mg/dl (8.5-10.1) Magnesium Level 2.3 mg/dl (1.8-2.4) Total Creatine Kinase 137 U/L (39-308) Creatine Kinase MB < 1.0 ng/ml (0.5-3.6) Creatine Kinase MB Ratio (0-3.0) Troponin I < 0.015 ng/ml (0-0.045) Bedside Glucose 128 mg/dl (70-99) Bedside Hemoglobin 15.0 g/dl (14.0-18.0) Bedside Hematocrit 44 % (42-52) Bedside Sodium 140 mEq/L (135-144) Bedside Potassium 3.9 mEq/L (3.3-5.0) Bedside Chloride 99 mEq/L (101-112) Bedside Total CO2 27 mEq/l (24-31) Anion Gap 20.0 mmol/L (16-25) Bedside Blood Urea Nitrogen 13 mg/dl (7-18) Bedside Creatinine 1.1 mg/dl (0.6-1.3) Bedside Glucose (other) 126 mg/dl (70-99) Bedside Ionized Calcium (Dean) 1.14 mmol/l (1.12-1.32) Laboratory results as reviewed by me. Medications Administered Medications (Trade) Dose Ordered Sig/Roberto Route Start Time Stop Time Status Last Admin Dose Admin Metoprolol Tartrate (Lopressor Tab) 12.5 mg ONE STAT PO 12/07/17 11:35 12/07/17 11:36 DC 12/07/17 11:54 12.5 MG ECG Per My Interpretation Indication: other (stroke symptoms) Rate (beats per minute): 86 Rhythm: normal sinus Findings: other (No ST elevation or PVCs) ED Course 1058: The patient was evaluated in room C3. A complete history and physical exam was performed. 1105: Ordered Sodium Chloride 1000 ml @ 50 mls/hr IV 1128: I rechecked the patient, who has no current symptoms other than Yanes's palsy. I spoke with Dr. Derick Mortensen. He agrees with the plan for admission and MRI. 1134: I discussed the plan with the patient. He states that he needs general anesthesia for his MRI. He also notes that he did not take his blood pressure medication this morning. 1135: Ordered Lopressor 12.5 mg PO 1200: I spoke with GOOD Patricio. She will reevaluate the patient for hospitalization. Medical Decision This is a 57-year-old male who presents with right-sided weakness and numbness. Differential diagnosis includes TIA, CVA, intracranial mass, intracranial hemorrhage, metabolic derangement. I did perform a limited focused review of portions of the patient's old chart on the electronic medical record. The patient was admitted to the hospital January of last year for right facial droop and numbness. MRI of the brain was negative. The left carotid artery showed significant stenosis. I did evaluate the patient as noted above. The patient is presenting with right -sided weakness and numbness. He has known stenosis of the left carotid artery. A stroke alert was called. He is not an IV TPA candidate given the near complete resolution of his symptoms. He does have right facial numbness which is chronic for him since his Yanes's palsy. IV access was established. The patient was placed on a continuous cafeteria monitor. I did order and personally review the patient's 12-lead EKG and chest x-ray as described above. I did order and review the patient's blood work as noted in the electronic medical record. I did order a CT of the head. I did review the images myself as well as the radiology report as described above. There is no evidence of acute CVA on CT scanning. I did reassess the patient several times. He continues to be asymptomatic. He will be hospitalized for further evaluation and MRI. I did discuss the case with the hospitalist and pillowcase cleaner. Medication Reconcilliation Current Medication List: was personally reviewed by me Blood Pressure Screening Patient's blood pressure: Elevated blood pressure Blood pressure disposition: Referred to PCP Consults Time Called: 1150 Consulting Physician: GOOD Patricio Returned Call: 1200 I spoke with GOOD Patricio. She will reevaluate the patient for hospitalization. Impression Primary Impression: Right sided numbness Additional Impression: Right sided weakness Scribe Attestation The scribe's documentation has been prepared under my direct and personally reviewed by me in its entirety. I confirm that the note above accurately reflects all work, treatment, procedures, and medical decision making performed by me. Departure Information Dispostion Being Evaluated By Hospitalist Referrals Jeff Dai M.D.(STEVEN) (PCP) Patient Instructions My [facility] Problem Qualifiers
[2017-12-07] MEDS ORDERED: MoRPHine SULFATE 2 MG/ML CARP IV SCH (15:45)
--- NOTE | 2017-12-07 16:05 | DIAGNOSTIC IMAGING REPORT ---
BRAIN COMBO CLINICAL HISTORY: Stroke COMPARISON STUDY: 01/28/2017 TECHNIQUE: Utilizing a 1.5 Evelia magnet and dedicated coil, multiplanar, multiecho imaging of the brain was performed pre and postcontrast administration. IV administration of 8 mL of Gadavist contrast was uneventful. FINDINGS: Normal study. No evidence for an acute ischemic event. Signal characteristics are unremarkable. IMPRESSION: Normal study. The above report was generated using voice recognition software. It may contain grammatical, syntax or spelling errors. Electronically signed by: Chinmay Maurer M.D. 12/07/2017 4:04 PM Dictated Date/Time: 12/07/2017 4:00 PM
--- NOTE | 2017-12-07 17:18 | DIAGNOSTIC IMAGING REPORT ---
HEAD ANGIO WITH CONTRAST CLINICAL HISTORY: Mental status change TECHNIQUE: Transaxial acquisition with multi axial reformatted images COMPARISON STUDY: 01/27/2017 FINDINGS: 1. 70% stenosis distal left vertebral vessel. The vertebral basilar system otherwise is unremarkable. High-grade stenosis left internal carotid artery at the cavernous sinus. This study progressive compared to the prior study. Mild stenosis right carotid siphon. IMPRESSION: 1. 70% stenosis distal left vertebral vessel. 2. High-grade stenosis left internal carotid artery at the carotid siphon/cavernous sinus. 3. Moderate stenosis right carotid siphon. The above report was generated using voice recognition software. It may contain grammatical, syntax or spelling errors. Electronically signed by: Chinmay Maurer M.D. 12/07/2017 5:16 PM Dictated Date/Time: 12/07/2017 5:08 PM
--- NOTE | 2017-12-07 17:24 | DIAGNOSTIC IMAGING REPORT ---
NECK ANGIO WITH CONTRAST HISTORY: Mental status change stroke TECHNIQUE: Multiaxial CT images of the neck were performed following the intravenous administration of contrast to evaluate the major cervical vessels. Maximum intensity projection images were also obtained. All measurements were calculated based on NASCET criteria. A dose lowering technique was utilized adhering to the principles of ALARA. COMPARISON STUDY: 01/27/2017 FINDINGS: The aortic arch and proximal great vessels are widely patent. Hypoplastic change with a small caliber of the left internal carotid artery. Superimposed significant stenosis at the cavernous sinus on the left. Mild plaque formation right carotid bifurcation with no major stenotic process. The vertebral basilar system shows a focal stenotic process distal left vertebral vessel. IMPRESSION: 1. 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 2. Mild plaque formation right carotid bifurcation with no major stenosis. 3. Focal moderate stenosis distal left vertebral vessel. The above report was generated using voice recognition software. It may contain grammatical, syntax or spelling errors. Electronically signed by: Chinmay Maurer M.D. 12/07/2017 5:23 PM Dictated Date/Time: 12/07/2017 5:19 PM
[2017-12-07 20:00] VITALS: BP 133/83; PULSE 65; TEMP 36.9; O2SAT 96
[2017-12-07] MEDS: LORAZEPAM 1 MG TAB PO SCH (21:08)
[2017-12-07] MEDS: GABAPENTIN 300 MG CAP PO SCH (21:08)
[2017-12-07 23:33] VITALS: BP 105/69; PULSE 66; TEMP 36.8; O2SAT 97
[2017-12-08 03:01] VITALS: BP 121/78; PULSE 67; TEMP 36.5; O2SAT 95
[2017-12-08 06:43] LABS: BASO % 0.2 %; BASO ABS # 0.01 K/uL (0-0.2); EOS % 2.1 %; EOS ABS # 0.13 K/uL (0-0.5); HEMATOCRIT 44.4 % (42-52); HEMOGLOBIN 15.8 g/dL (14.0-18.0); IG# 0.02 K/uL (0.00-0.02); LYMPH % 33.9 %; LYMPH ABS # 2.07 K/uL (1.2-3.4); MEAN CELL VOLUME 95.1 fL (80-100); MEAN CORPUSCULAR HEMOGLOBIN 33.8 pg (25-34); MEAN CORPUSCULAR HGB CONC 35.6 g/dl (32-36); MEAN PLATELET VOLUME 9.8 fL (7.4-10.4); MONO % 12.1 %; MONO ABS # 0.74 K/uL (0.11-0.59); NEUT % 51.4 %; NEUT ABS # 3.13 K/uL (1.4-6.5); PLATELET COUNT 137 K/uL (130-400); RED CELL DISTRIBUTION WIDTH CV 12.7 % (11.5-14.5); RED CELL DISTRIBUTION WIDTH SD 43.5 fL (36.4-46.3)
[2017-12-08 07:19] LABS: CALCIUM 8.7 mg/dl (8.5-10.1); CREATININE 1.16 mg/dl (0.60-1.40); POTASSIUM 4.1 mmol/L (3.5-5.1)
[2017-12-08 07:27] VITALS: BP 159/104; PULSE 68; TEMP 36.6; O2SAT 96
[2017-12-08] MEDS: GABAPENTIN 300 MG CAP PO SCH ×2 (07:53→13:27)
[2017-12-08] MEDS: LORAZEPAM 1 MG TAB PO SCH (07:56)
[2017-12-08] MEDS ORDERED: CHOLECALCIFEROL 1000 INTER.UNIT TAB PO SCH (09:00)
[2017-12-08] MEDS ORDERED: OMEGA-3 (PURIFIED FISH OIL) 1 GM CAP PO SCH (09:00)
[2017-12-08] MEDS ORDERED: CEROVITE ADV FORMULA TAB PO SCH (09:00)
[2017-12-08] MEDS ORDERED: ASPIRIN 81 MG ECTAB PO SCH (09:00)
--- NOTE | 2017-12-08 11:25 | PROGRESS NOTE ---
DATE: 12/08/2017 SUBJECTIVE: I am seeing Mr. Elias in followup of either a transient ischemic attack or a migrainous accompaniment. He has not had any recurrent events. His CTA of the head shows a 70% stenosis of the distal left vert_ and high-grade stenosis of the left internal carotid at the carotid siphon and cavernous sinus. Moderate stenosis at the right cavernous sinus. His echo is not yet on the chart. His monitor strip shows him to be in a sinus rhythm. PHYSICAL EXAMINATION: VITAL SIGNS: 36.6, 68, 18, 159/104, 96%. NEUROLOGIC: The patient is awake and alert. There is normal speech and language. His affect is appropriate. There are normal visual pride, facial sensation, and facial symmetry. There is symmetric strength and normal light touch. [id number] and [id number]-[id number] is normal. IMPRESSION: Given that this patient has modestly high-grade stenosis of the left carotid siphon, this event affecting the left hemisphere is likely a transient ischemic attack. PLAN: Dual antiplatelet therapy, risk factor modification, gradual reduction of normotension. The patient prior to discharge, the official echo should be read. He should see us in 2-3 weeks post-discharge. We will arrange zio monitor. The carotid siphon is not something that is usually interventionally accessible. Provided the patient has no recurrent events, I do not think we need to pursue an appointment with a vascular interventionalist. I discussed this with him at length. If he has any recurrent events, he should return, otherwise see us in our office. JUNIE
[2017-12-08 11:37] VITALS: BP 128/80; PULSE 75; TEMP 36.8; O2SAT 94
[2017-12-08] MEDS ORDERED: IBUPROFEN 200 MG TAB PO STA (12:30)
--- NOTE | 2017-12-08 12:58 | Progress Note ---
Internal Med Progress Note Date of Service: Dec 08, 2017. Provider Documentation: SUBJECTIVE: Seen and examined at bedside Doing well today weakness, numbness, headache resolved reports chronic back pain Denies chest pain, SOB, dizziness No other complaints OBJECTIVE: Vital Signs-as noted below Physical Exam: General Appearance:Moderately built and nourished, no apparent distress Head: normocephalic, Atraumatic Eyes: normal inspection, EOMI, PERRL Neck: supple, Trachea midline Respiratory/Chest: Normal breath sounds, CTA Cardiovascular: S1, S2, No murmur Abdomen/GI:Soft, Non tender, Bowel sounds present Extremities/Musculoskelatal:normal inspection, no edema Neurologic/Psych:AAOX3, grossly no focal neurological deficits Skin: normal color, warm Lab data as noted below. ASSESSMENT & PLAN: TIA DD:Complicated Migraine Symptoms resolved MRI Brain:Normal study. Head CTA: 70% stenosis distal left vertebral vessel. . High-grade stenosis left internal carotid artery at the carotid siphon/cavernous sinus. Moderate stenosis right carotid siphon. 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 Mild plaque formation right carotid bifurcation with no major stenosis. Focal moderate stenosis distal left vertebral vessel. ECHO showed no intraatrial shunt as below Patient is intolerant to all statins, currently receiving Repatha injections every 2 weeks Continue Aspirin, Plavix Appreciate Neurology Input If symptoms reoccur, Patient would require being evaluated by vascular interventionalist HTN: Patient admits to being non compliant with HTN medications Resume Metoprolol as able Allow Permissive HTN in setting of TIA CAD Stable Continue aspirin Resume beta-richard as able DVT Px: SQ Lovenox Disposition: Plan to discharge home PROCEDURES: ECHO: Ejection Fraction = 60-65%. * There is trace mitral regurgitation. * There is mild concentric left ventricular hypertrophy. * Pulse wave TDI of the anterior and posterior mitral annulas demonstrates abnormal LV relaxation * Injection of contrast documented no interatrial shunt. Vital Signs: Date Time Temp Pulse Resp B/P (MAP) Pulse Ox O2 Delivery O2 Flow Rate FiO2 12/08/17 15:35 Room Air 12/08/17 14:55 36.7 81 20 137/91 (106) 94 12/08/17 11:37 36.8 75 18 128/80 (96) 94 12/08/17 08:00 Room Air 12/08/17 07:27 36.6 68 18 159/104 (122) 96 12/08/17 03:01 36.5 67 18 121/78 (92) 95 Room Air 12/08/17 00:00 Room Air 12/07/17 23:33 36.8 66 20 105/69 (81) 97 Room Air 12/07/17 20:00 36.9 65 20 133/83 (100) 96 Room Air Lab Results: Results Past 24 Hours Test 12/08/17 06:33 Range/Units White Blood Count 6.10 4.8-10.8 K/uL Red Blood Count 4.67 4.7-6.1 M/uL Hemoglobin 15.8 14.0-18.0 g/dL Hematocrit 44.4 42-52 % Mean Corpuscular Volume 95.1 80-100 fL Mean Corpuscular Hemoglobin 33.8 25-34 pg Mean Corpuscular Hemoglobin Concent 35.6 32-36 g/dl Platelet Count 137 130-400 K/uL Mean Platelet Volume 9.8 7.4-10.4 fL Neutrophils (%) (Auto) 51.4 % Lymphocytes (%) (Auto) 33.9 % Monocytes (%) (Auto) 12.1 % Eosinophils (%) (Auto) 2.1 % Basophils (%) (Auto) 0.2 % Neutrophils # (Auto) 3.13 1.4-6.5 K/uL Lymphocytes # (Auto) 2.07 1.2-3.4 K/uL Monocytes # (Auto) 0.74 0.11-0.59 K/uL Eosinophils # (Auto) 0.13 0-0.5 K/uL Basophils # (Auto) 0.01 0-0.2 K/uL RDW Standard Deviation 43.5 36.4-46.3 fL RDW Coefficient of Variation 12.7 11.5-14.5 % Immature Granulocyte % (Auto) 0.3 % Immature Granulocyte # (Auto) 0.02 0.00-0.02 K/uL Sodium Level 137 136-145 mmol/L Potassium Level 4.1 3.5-5.1 mmol/L Chloride Level 105 98-107 mmol/L Carbon Dioxide Level 25 21-32 mmol/L Anion Gap 7.0 3-11 mmol/L Blood Urea Nitrogen 16 7-18 mg/dl Creatinine 1.16 0.60-1.40 mg/dl Est Creatinine Clear Calc Drug Dose 70.2 ml/min Estimated GFR () 80.0 Estimated GFR (Non- 69.0 BUN/Creatinine Ratio 13.9 10-20 Random Glucose 96 70-99 mg/dl Calcium Level 8.7 8.5-10.1 mg/dl Triglycerides Level 240 0-150 mg/dl Cholesterol Level 141 0-200 mg/dl HDL Cholesterol 41 mg/dl LDL Cholesterol, Calculated 52 mg/dl VLDL Cholesterol, Calculated 48 mg/dl Cholesterol/HDL Ratio 3.4
[2017-12-08] MEDS ORDERED: CLOPIDOGREL BISULFATE 75 MG TAB PO ONE (13:00)
[2017-12-08] MEDS: ENOXAPARIN 40 MG/0.4 ML SYR SC SCH (13:27)
[2017-12-08 14:55] VITALS: BP 137/91; PULSE 81; TEMP 36.7; O2SAT 94
[2017-12-08] MEDS ORDERED: PLV75 PO (16:01)
--- NOTE | 2017-12-08 16:05 | Discharge Instructions ---
Discharge Instructions Date of Service Dec 08, 2017. Admission Reason for Admission: TIA Discharge Discharge Diagnosis / Problem: TIA Discharge Goals Goal(s): Decrease discomfort, Improve function Activity Recommendations Activity Limitations: resume your previous activity Exercise/Sports Limitations: as tolerated . Instructions / Follow-Up Instructions / Follow-Up Follow up with your PCP on 12/12/17 at 9:45 Am Follow up with your Neurologist in 2-3 weeks as advised Seek immediate medical attention if your symptoms reoccur or worsen Risk Factors for Stroke: You can reduce your chances of stroke by working with your medical provider to adopt a healthy lifestyle. Some specific ways to lower your chance of stroke are: * If you are a smoker, now is the time to stop smoking cigarettes * If you are diabetic, improve the control of your blood sugars * Avoid excessive amounts of alcohol * Control high blood pressure * Lose weight if you are overweight * Be sure to lead an active lifestyle * Eat a healthy diet low in salt, cholesterol and fat You should know about other risk factors for stroke that you are unable to control. These include: * Age 55 years or older * Male gender * Certain racial groups: , or / * Family History of Stroke, Mini stroke or Heart Attack * Sickle Cell Disease Follow Up: It is important for you to keep your follow up appointments with your medical provider. Current Hospital Diet Patient's current hospital diet: AHA Diet (Heart Healthy) Discharge Diet Recommended Diet: AHA Diet (Heart Healthy) Pending Studies Studies pending at discharge: no Laboratory Results Hemoglobin A1c Test 12/07/17 11:00 Range/Units Estimated Average Glucose 120 mg/dl Hemoglobin A1c 5.8 H 4.5-5.6 % Lipid Panel Test 12/08/17 06:33 Range/Units Triglycerides Level 240 H 0-150 mg/dl Cholesterol Level 141 0-200 mg/dl HDL Cholesterol 41 mg/dl Cholesterol/HDL Ratio 3.4 LDL Cholesterol, Calculated 52 mg/dl Medical Emergencies . Who to Call and When: Medical Emergencies: Call 911 immediately if you experience any of the following warning signs and symptoms of Stroke: * Sudden numbness or weakness of the face, arm or leg, especially on one side of the body * Sudden confusion, trouble speaking or understanding * Sudden trouble seeing in one or both eyes * Sudden trouble walking, dizziness, loss of balance or coordination * Sudden severe headache with no cause Do not delay calling 911 if you experience any warning signs or symptoms of a stroke. Delay in seeking medical attention may affect what treatments can be given to you. . Non-Emergent Contact Non-Emergency issues call your: Primary Care Provider, Neurologist Call Non-Emergent contact if: you have a fever, your pain is not controlled, your pain is worsening, your pain is unusual for you, your pain is concerning you, you have any medication questions Seek immediate medical attention if your symptoms reoccur or worsen . . "Provider Documentation" section prepared by Ryland Costa. . Stroke Core Measures Reason no t-PA for Stroke: Treatment not indicated Reason no antithrom by day 2: Treatment provided - N/A Reason no antithrom at D/C: Treatment provided - N/A Reason no statin at D/C: Drug intolerance Reason no anticoag w/a fib: Drug intolerance
--- NOTE | 2017-12-08 16:11 | ECHOCARDIOGRAM REPORT ---
*NOTICE TO RECEIVING [employer] This information is strictly Confidential and protected under [place] law. [place] law prohibits you from making any further disclosure of this information unless further disclosure is expressly permitted by the written consent of the person to whom it pertains or is authorized by law. A general authorization for the release of medical or other information is not sufficient for this purpose. Hospital accepts no responsibility if the information is made available to any other person, INCLUDING THE PATIENT. Interpretation Summary * Name: KAREN SOLORZANO Study Date: 12/08/2017 06:48 AM BP: 159/104 mmHg * Patient Location: [facility]\S\[id number]\S\1 HR: 66 * : 1960 (M/d/yyyy) Gender: Male Height: 67 in * Age: 57 yrs Ethnicity: [place] Weight: 179 lb * Ordering Physician: Mary Selby * Referring Physician: Jeff Dai) * Performed By: Myriam Zambrano RDCS * * Reason For Study: CVA * BSA: 1.9 m2 * The study was technically adequate. * Compared to prior study, changes are noted. * -- Conclusions -- * Ejection Fraction = 60-65%. * There is trace mitral regurgitation. * There is mild concentric left ventricular hypertrophy. * Pulse wave TDI of the anterior and posterior mitral annulas demonstrates abnormal LV relaxation * Injection of contrast documented no interatrial shunt. Procedure Details * A saline contrast injection was performed to assess for cardiac shunting. * The injection was performed through an intravenous line in the left arm. * The attending nurse who injected the saline contrast was AYAH MORENO. * A total of 20 cc of agitated saline was given. * A complete two-dimensional transthoracic echocardiogram was performed (2D, M-mode, Doppler and color flow Doppler). Left Ventricle * The left ventricle is normal in size. * There is mild concentric left ventricular hypertrophy. * Ejection Fraction = 60-65%. * Left ventricular systolic function is normal. * The left ventricular wall motion is normal. Right Ventricle * The right ventricle is normal size. * The right ventricular systolic function is normal as assessed by tricuspid annular plane systolic excursion (TAPSE) (normal >1.5 cm). Atria * The left atrial size is normal. * Right atrial size is normal. * Injection of contrast documented no interatrial shunt. Mitral Valve * The mitral valve is normal. * There is no mitral valve stenosis. * There is trace mitral regurgitation. Tricuspid Valve * The tricuspid valve is normal. * There is no tricuspid stenosis. * Significant tricuspid regurgitation is absent. Aortic Valve * The aortic valve is trileaflet. * Aortic stenosis is absent. * There is no significant aortic regurgitation. Pulmonic Valve * The pulmonary valve is not well seen, but the Doppler examination is normal without significant regurgitation or stenosis. Great Vessels * The aortic root and proximal ascending aorta are normal sized. Pericardium/Pleural * There is no pericardial effusion. Great Vessels * Normal inferior vena cava diameter and respiratory variation suggests normal central venous pressure. Left Ventricular Diastolic Function * Pulse wave TDI of the anterior and posterior mitral annulas demonstrates abnormal LV relaxation MMode 2D Measurements and Calculations IVSd 1.3 cm IVSs 1.9 cm LVIDd 4.0 cm LVIDs 2.3 cm LVPWd 1.3 cm LVPWs 1.7 cm IVS/LVPW 0.95 FS 41.7 % EDV(Teich) 68.2 ml ESV(Teich) 18.3 ml EF(Teich) 73.2 % EDV(cubed) 61.9 ml ESV(cubed) 12.3 ml EF(cubed) 80.2 % % IVS thick 53.6 % % LVPW thick 32.3 % LV mass(C)d 181.2 grams LV mass(C)dI 94.0 grams/m\S\2 LV mass(C)s 168.9 grams LV mass(C)sI 87.6 grams/m\S\2 SV(Teich) 49.9 ml SI(Teich) 25.9 ml/m\S\2 SV(cubed) 49.6 ml SI(cubed) 25.7 ml/m\S\2 LA dimension 3.9 cm LVAd ap4 24.9 cm\S\2 LVLd ap4 8.8 cm EDV(MOD-sp4) 58.5 ml EDV(sp4-el) 59.4 ml LVAs ap4 14.3 cm\S\2 LVLs ap4 7.9 cm ESV(MOD-sp4) 22.8 ml ESV(sp4-el) 21.9 ml EF(MOD-sp4) 61.0 % EF(sp4-el) 63.2 % LVAd ap2 22.2 cm\S\2 LVLd ap2 8.7 cm EDV(MOD-sp2) 47.7 ml EDV(sp2-el) 48.2 ml LVAs ap2 12.8 cm\S\2 LVLs ap2 7.6 cm ESV(MOD-sp2) 17.6 ml ESV(sp2-el) 18.2 ml EF(MOD-sp2) 63.1 % EF(sp2-el) 62.3 % LVLd %diff -1.66 % EDV(MOD-bp) 53.1 ml LVLs %diff -3.69 % ESV(MOD-bp) 19.9 ml EF(MOD-bp) 62.6 % SV(MOD-sp4) 35.7 ml SI(MOD-sp4) 18.5 ml/m\S\2 SV(MOD-sp2) 30.1 ml SI(MOD-sp2) 15.6 ml/m\S\2 SV(MOD-bp) 33.3 ml SI(MOD-bp) 17.2 ml/m\S\2 SV(sp4-el) 37.5 ml SI(sp4-el) 19.4 ml/m\S\2 SV(sp2-el) 30.1 ml SI(sp2-el) 15.6 ml/m\S\2 Doppler Measurements and Calculations MV E max lowell 68.3 cm/sec MV A max lwoell 58.2 cm/sec MV E/A 1.2 MV dec time 0.30 sec Ao V2 max 81.5 cm/sec Ao max PG 2.7 mmHg Ao max PG (full) -0.18 mmHg LV V1 max PG 2.8 mmHg LV V1 max 84.2 cm/sec
--- NOTE | 2017-12-08 16:38 | Discharge Summary ---
Discharge Summary Date of Service Dec 08, 2017. Discharge Summary Admission Date: Dec 07, 2017 at 12:17 Discharge Date: Dec 08, 2017 Discharge Disposition: Home Principal Diagnosis: TIA Procedures: ECHO: Ejection Fraction = 60-65%. * There is trace mitral regurgitation. * There is mild concentric left ventricular hypertrophy. * Pulse wave TDI of the anterior and posterior mitral annulas demonstrates abnormal LV relaxation * Injection of contrast documented no interatrial shunt. MRI Brain: Normal study. Head CTA: 70% stenosis distal left vertebral vessel. . High-grade stenosis left internal carotid artery at the carotid siphon/cavernous sinus. Moderate stenosis right carotid siphon. 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 Mild plaque formation right carotid bifurcation with no major stenosis. Focal moderate stenosis distal left vertebral vessel. Consultations: Neurology Pending Studies/Follow-Up: Follow up with your PCP on 12/12/17 at 9:45 Am Follow up with your Neurologist in 2-3 weeks as advised Seek immediate medical attention if your symptoms reoccur or worsen Medication Reconciliation New Medications: Clopidogrel Bisulfate (Clopidogrel) 75 Mg Tab 75 MG PO QAM for 30 Days, #30 TAB 1 Refill Continued Medications: Aspirin (Aspirin Ec) 81 Mg Tab 81 MG PO DAILY Cholecalciferol (Vitamin D3) 2,000 Unit Cap 2000 INTER.UNIT PO DAILY, CAP Cyclosporine (Ophth) (Restasis) 0.05 % Emu 1 DROP OP BID, BTL Esomeprazole Magnesium (Nexium) 20 Mg Cap 20 MG PO 2-3x/week Evolocumab (Repatha Surekrupaick) 140 Mg/Ml Inj 1 DOSE SC [id number] Fish Oil ([place]-3) 1 Ea Cap 3 CAP PO DAILY, CAP Gabapentin (Gabapentin) 300 Mg Cap 300 MG PO TID Ibuprofen (Advil) 200 Mg Tab 400 MG PO BID PRN for Pain Lorazepam (Ativan) 1 Mg Tab 1 MG PO AMPM Metoprolol Tartrate (Metoprolol Tartrate) 50 Mg Tab 12.5 MG PO DAILY patient does not take routinely Multivitamins/Minerals (Mvi With Minerals) Tab 1 TAB PO DAILY, TAB Trazodone Hcl (Trazodone) 50 Mg Tab 50 MG PO HS PRN for Insomnia, TAB Admission Information HPI (per Admitting provider): 49-year-old male who presents the ED with concerns of strokelike symptoms. Patient reports he woke up this morning feeling in his usual state of health. He reports he made some coffee in the kitchen and went back to his bedroom when he had sudden onset of right leg weakness and numbness. He was unable to bear weight and stand on his leg. He then laid down in bed. He reports symptoms resolve after about 1 minute. He then went to his computer whenever he noticed that his vision was not focusing. He describes squiggly lines throughout his vision. The visual problems lasted for about 1 minute as well. He took 6 baby aspirin at home. He called his PCP who advised ER for further evaluation. On his way to the ER, patient reports some mild right arm weakness which has resolved as well. Patient reports an associated frontal headache that is located in the middle of his forehead. 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 He denies slurred speech and difficulty swallowing. He had some associated lightheadedness but denies any syncopal event. He reports he felt anxious. No chest pain or shortness of breath. He had some mild nausea but denies any vomiting, abdominal pain, diarrhea. No other recent illnesses, fevers, chills. In the ED , head CT is negative for acute findings. BP on presentation was 182/112. Patient was given metoprolol tartrate 12.5 mg and blood pressure has since improved. Physical Exam (per Admitting): General Appearance: WD/WN, no apparent distress Head: normocephalic, atraumatic Eyes: normal inspection, PERRL, EOMI, sclerae normal ENT: hearing grossly normal, + pertinent finding (Mucous membranes moist) Neck: supple, no JVD, trachea midline Respiratory/Chest: lungs clear, normal breath sounds, no respiratory distress Cardiovascular: regular rate, rhythm, no edema, no murmur, normal peripheral pulses Abdomen/GI: normal bowel sounds, non tender, soft, no organomegaly Extremities/Musculoskelatal: normal inspection, no calf tenderness, normal capillary refill Neurologic/Psych: alert, normal mood/affect, oriented x 3, + pertinent finding (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 Head CTA: 70% stenosis distal left vertebral vessel. . High-grade stenosis left internal carotid artery at the carotid siphon/cavernous sinus. Moderate stenosis right carotid siphon. 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 Mild plaque formation right carotid bifurcation with no major stenosis. Focal moderate stenosis distal left vertebral vessel. ECHO showed no intraatrial shunt as below Patient is intolerant to all statins, currently receiving Repatha injections every 2 weeks Continue Aspirin, Plavix Appreciate Neurology Input If symptoms reoccur, Patient would require being evaluated by vascular interventionalist HTN: Patient admits to being non compliant with HTN medications Resume Metoprolol as able Allow Permissive HTN in setting of TIA CAD Stable Continue aspirin Resume beta-richard as able DVT Px: SQ Lovenox Disposition: Plan to discharge home PROCEDURES: ECHO: Ejection Fraction = 60-65%. * There is trace mitral regurgitation. * There is mild concentric left ventricular hypertrophy. * Pulse wave TDI of the anterior and posterior mitral annulas demonstrates abnormal LV relaxation * Injection of contrast documented no interatrial shunt. Total time spent on discharge = 34 minutes This includes examination of the patient, discharge planning, medication reconciliation, and communication with other providers. Discharge Instructions Discharge Instructions Date of Service Dec 08, 2017. Admission Reason for Admission: TIA Discharge Discharge Diagnosis / Problem: TIA Discharge Goals Goal(s): Decrease discomfort, Improve function Activity Recommendations Activity Limitations: resume your previous activity Exercise/Sports Limitations: as tolerated . Instructions / Follow-Up Instructions / Follow-Up Follow up with your PCP on 12/12/17 at 9:45 Am Follow up with your Neurologist in 2-3 weeks as advised Seek immediate medical attention if your symptoms reoccur or worsen Risk Factors for Stroke: You can reduce your chances of stroke by working with your medical provider to adopt a healthy lifestyle. Some specific ways to lower your chance of stroke are: * If you are a smoker, now is the time to stop smoking cigarettes * If you are diabetic, improve the control of your blood sugars * Avoid excessive amounts of alcohol * Control high blood pressure * Lose weight if you are overweight * Be sure to lead an active lifestyle * Eat a healthy diet low in salt, cholesterol and fat You should know about other risk factors for stroke that you are unable to control. These include: * Age 55 years or older * Male gender * Certain racial groups: , or / * Family History of Stroke, Mini stroke or Heart Attack * Sickle Cell Disease Follow Up: It is important for you to keep your follow up appointments with your medical provider. Current Hospital Diet Patient's current hospital diet: AHA Diet (Heart Healthy) Discharge Diet Recommended Diet: AHA Diet (Heart Healthy) Pending Studies Studies pending at discharge: no Laboratory Results Hemoglobin A1c Test 12/07/17 11:00 Range/Units Estimated Average Glucose 120 mg/dl Hemoglobin A1c 5.8 H 4.5-5.6 % Lipid Panel Test 12/08/17 06:33 Range/Units Triglycerides Level 240 H 0-150 mg/dl Cholesterol Level 141 0-200 mg/dl HDL Cholesterol 41 mg/dl Cholesterol/HDL Ratio 3.4 LDL Cholesterol, Calculated 52 mg/dl Medical Emergencies . Who to Call and When: Medical Emergencies: Call 911 immediately if you experience any of the following warning signs and symptoms of Stroke: * Sudden numbness or weakness of the face, arm or leg, especially on one side of the body * Sudden confusion, trouble speaking or understanding * Sudden trouble seeing in one or both eyes * Sudden trouble walking, dizziness, loss of balance or coordination * Sudden severe headache with no cause Do not delay calling 911 if you experience any warning signs or symptoms of a stroke. Delay in seeking medical attention may affect what treatments can be given to you. . Non-Emergent Contact Non-Emergency issues call your: Primary Care Provider, Neurologist Call Non-Emergent contact if: you have a fever, your pain is not controlled, your pain is worsening, your pain is unusual for you, your pain is concerning you, you have any medication questions Seek immediate medical attention if your symptoms reoccur or worsen . . "Provider Documentation" section prepared by Ryland Costa. . Stroke Core Measures Reason no t-PA for Stroke: Treatment not indicated Reason no antithrom by day 2: Treatment provided - N/A Reason no antithrom at D/C: Treatment provided - N/A Reason no statin at D/C: Drug intolerance Reason no anticoag w/a fib: Drug intolerance
[2017-12-08 17:01] VITALS: BP 137/91; PULSE 81; TEMP 36.7; O2SAT 94
[2017-12-09] MEDS ORDERED: CLOPIDOGREL BISULFATE 75 MG TAB PO SCH (09:00)
--- NOTE | 2017-12-13 13:28 | EDITING REQUIRED CODING QUERY ---
CODING QUERY To promote full compliance with coding requirements relating to patient care, provider participation is requested in all cases of chief radiology uncertainty. Please assist us with the question(s) below: Coding Question(s): There is documentation in the record of TIA and documentation of Carotid Artery Stenosis. Neurology documents, "Given that this patient has modestly high-grade stenosis of the left carotid siphon, this event affecting the left hemisphere is likely a transient ischemic attack.". Please clarify below, in your clinical opinion. (x ) TIA was likely due to the Carotid Artery Stenosis ( ) TIA was not likely due to the Carotid Artery Stenosis Physician's Response(s): Thank you Jelly Mcmahon Principal Diagnosis: "_that condition established after study, to be chiefly responsible for occasioning the admission of the patient to the hospital for care." Co-Existing Principal Diagnosis: "_when two or more diagnoses equally meet the criteria for principal diagnosis as determined by the circumstances of admission, diagnostic work up, and/or therapy provided, and the Alphabetic Index, Tabular List, or another coding guideline does not provide sequencing direction, any one of the diagnoses may be sequenced first." "When the physician has documented what appears to be a current diagnosis in the body of the record, but has not included the diagnosis in the final diagnostic statement, the physician should be asked whether the diagnosis should be added." (Source Coding [facility] 2 QTR90. p3-4)
== END 2017-12-08 17:23 | disposition home or self-care (01) | DRG 68 ==
LOC: C.EDB 10:50 → C.MED 12:17 → ENRESERV 13:07 → C.MED 13:58
PROVIDERS: ADMIT Internal Medicine; ATTEND Internal Medicine
DX: I65.23 Occlusion and stenosis of bilateral carotid arteries (principal); G81.91 Hemiplegia, unspecified affecting right dominant side; G43.909 Migraine, unspecified, not intractable, without status migrainosus; R29.701 NIHSS score 1; I25.10 Atherosclerotic heart disease of native coronary artery without angina pectoris; I11.9 Hypertensive heart disease without heart failure; E78.5 Hyperlipidemia, unspecified; K21.9 Gastro-esophageal reflux disease without esophagitis; M48.00 Spinal stenosis, site unspecified; F17.200 Nicotine dependence, unspecified, uncomplicated; Z51.81 Encounter for therapeutic drug level monitoring; Z79.899 Other long term (current) drug therapy; Z79.82 Long term (current) use of aspirin; Z91.14 Patient's other noncompliance with medication regimen; Z86.69 Personal history of other diseases of the nervous system and sense organs; Z88.8 Allergy status to other drugs, medicaments and biological substances; Z88.5 Allergy status to narcotic agent; Z82.49 Family history of ischemic heart disease and other diseases of the circulatory system; Z83.3 Family history of diabetes mellitus

== ENCOUNTER 2019-05-04 06:43 | Observation (INO) ==
[2019-05-04] MEDS ORDERED: MoRPHine SULFATE 4 MG/ML 1 ML CARP\\VIAL IV STA ×2 (07:04→09:23)
[2019-05-04] MEDS ORDERED: ACETAMINOPHEN 500 MG TAB PO STA (07:04)
[2019-05-04] MEDS ORDERED: ONDANSETRON INJ 2 MG/ML 2 ML VIAL IV STA (07:04)
[2019-05-04 07:26] LABS: Appearance Urine Cloudy (Clear); Bacteria Urine Automated Negative (Negative); Bilirubin Urine Negative (Negative); Blood Urine Negative (Negative); Cast Urine Automated 0 /lpf (0-5); Color Urine Yellow; Epithelial Cell Urine Auto 0-5 /lpf (0-5); Glucose Urine UA Negative (Negative); Ketones Urine Negative (Negative); Leukocyte Esterase Urine Negative (Negative); Nitrite Urine Negative (Negative); Protein Urine Negative (Negative); RBC Urine Automated 0-4 /hpf (0-4); Specific Gravity Urine 1.024 (1.000-1.030); Urobilinogen Urine Negative (Negative); WBC Urine Automated 0 /hpf (0-5); pH Urine 8.5 (4.5-7.5)
[2019-05-04] MEDS: SODIUM CHLORIDE 0.9% 1000ML 1,000 ML IV SCH ×4 (07:34→23:13)
[2019-05-04 07:45] LABS: Eosinophils # (auto) 0.06 K/uL (0-0.5); Eosinophils % (auto) 0.9 %; Hemoglobin 15.2 g/dL (14.0-18.0); Immature Granulocytes # (auto) 0.02 K/uL (0.00-0.02); Immature Granulocytes % (auto) 0.3 %; Lymphocytes # (auto) 0.82 K/uL (1.2-3.4); Lymphocytes % (auto) 12.7 %; Mean Corpuscular Hgb Conc 35.3 g/dL (32-36); Mean Corpuscular Volume 96.2 fL (80-100); Monocytes % (auto) 10.9 %; Neutrophils # (auto) 4.84 K/uL (1.4-6.5); Neutrophils % (auto) 75.2 %; Platelet Count 124 K/uL (130-400); RDW Coefficient of Variation 12.7 % (11.5-14.5); RDW Standard Deviation 43.9 fL (36.4-46.3); Red Blood Count 4.47 M/uL (4.7-6.1); White Blood Count 6.44 K/uL (4.8-10.8)
[2019-05-04 07:56] LABS: Alanine Aminotransferase 34 U/L (12-78); Albumin Level 3.4 gm/dl (3.4-5.0); Aspartate Aminotransferase 20 U/L (15-37); BUN Creatinine Ratio 15.7 (10-20); Blood Urea Nitrogen 20 mg/dl (7-18); Calcium 8.3 mg/dl (8.5-10.1); Carbon Dioxide 25 mmol/L (21-32); Chloride 105 mmol/L (98-107); Est GFR (African American) 71.2; Est GFR (Non-African American) 61.4; Glucose 129 mg/dl (70-99); Lipase 134 U/L (73-393); Potassium 3.9 mmol/L (3.5-5.1); Sodium 138 mmol/L (136-145)
--- NOTE | 2019-05-04 08:00 | XRay Report ---
XR chest 1V portable HISTORY: 58 years-old Male fever acute fever COMPARISON: Chest radiograph 10/22/2018 TECHNIQUE: Portable AP view the chest FINDINGS: Cardiomediastinal and hilar silhouettes are within normal limits. There is no pneumothorax, pleural e ffusion, focal airspace consolidation or overt pulmonary edema. Mild right hemidiaphragmatic elevatio n. Healed remote left clavicular fracture. Degenerative changes of the shoulders and spine. IMPRESSION: No acute process. ACT 112: Negative or not required by law. The above report was generated using voice recognition software. It may contain grammatical, syntax o r spelling errors. Electronically signed by: Philip Ernst M.D. 05/04/2019 7:58 AM
[2019-05-04 08:01] LABS: Albumin Globulin Ratio 0.9 (0.9-2); Alkaline Phosphatase 49 U/L (45-117); Bilirubin,Total 0.6 mg/dl (0.2-1); Globulin 3.8 gm/dl (2.5-4.0); Total Protein 7.2 gm/dl (6.4-8.2); Troponin I < 0.015 ng/ml (0-0.045)
[2019-05-04] MEDS ORDERED: IOVERSOL 100ml IV PRN (08:31)
--- NOTE | 2019-05-04 08:55 | CT Scan Report ---
ABDOMEN AND PELVIS CT WITH IV CONTRAST CT DOSE: 587.66 mGy.cm HISTORY: Acute left lower quadrant abdominal pain llq abd pain TECHNIQUE: Multiaxial CT images of the abdomen and pelvis were performed following the IV administrat ion of 94 cc of Optiray 320, A dose lowering technique was utilized adhering to the principles of AL SHAHEED. COMPARISON STUDY: CT abdomen and pelvis 09/04/2018 FINDINGS: Minimal dependent subsegmental bibasilar atelectasis. There is no pneumatosis or pneumoperitoneum. Im aged inferior cardiac chambers are unremarkable. Spleen is mildly enlarged, 13.0 cm. Pancreas, and ad renal glands are unremarkable. Suggestion of hepatic steatosis. No evidence of cirrhosis. Increased a ttenuation within the region of the gallbladder neck may reflect gallbladder sludge or cholelithiasis . No CT evidence of acute cholecystitis or biliary ductal dilation. Patency of the hepatic and portal veins. Kidneys and ureters are unremarkable. Moderate circumferential thickening of the urinary bladder wall with mild perivesicular stranding. Mild prostamegaly. Mixed plaque of the abdominal aorta without an eurysm. No adenopathy. Mild nonspecific distal esophageal wall thickening. No small bowel obstruction . There are a few scattered small bowel air-fluid levels noted within the lower abdomen. Moderate fec al retention. Mild colonic diverticulosis without acute diverticulitis. Fluid-filled cecum. Noninflam ed appendix. No ascites or mesenteric inflammation. Degenerative changes of the spine, pelvis and hip s. 1.3 cm anterolisthesis L5 on S1 with remote bilateral L5 pars defects. IMPRESSION: 1. No bowel obstruction or bowel wall thickening. 2. Normal appendix. 3. Moderate fecal retention. 4. Multiple air and fluid-filled nondilated loops of large bowel, likely physiologic. A mild enteriti s or ileus could appear similarly. 5. Prostamegaly with urinary bladder wall thickening and partial distention. Correlate with urinalysi s. 6. Additional findings as above. ACT 112: Negative or not required by law. The above report was generated using voice recognition software. It may contain grammatical, syntax o r spelling errors. Electronically signed by: Philip Ernst M.D. 05/04/2019 8:54 AM
[2019-05-04] MEDS ORDERED: PIPERACILL/TAZOBAC CONSULT ACTIVE PRN (09:05)
[2019-05-04] MEDS ORDERED: PIPERACILLIN/TAZOBACTAM 4.5 GM/120 ML BAG IV ONE (09:05)
[2019-05-04 12:14] LABS: Influenza A virus by PCR Neg for Influ A (Neg); Influenza B virus by PCR Neg for Influ B (Neg)
[2019-05-04] MEDS ORDERED: ACETAMINOPHEN 325 MG TAB PO PRN (12:16)
[2019-05-04] MEDS ORDERED: ONDANSETRON INJ 2 MG/ML 2 ML VIAL IV PRN (12:16)
[2019-05-04] MEDS ORDERED: BACLOFEN 10 MG TAB PO PRN (12:16)
--- NOTE | 2019-05-04 12:26 | XRay Report ---
XR ankle RT min 3V routine HISTORY: 58 years-old Male pain, fall acute right ankle pain status post fall COMPARISON: None available TECHNIQUE: 3 views of the right ankle FINDINGS: Mild osteoarthritis of the ankle. Moderate spurring of the calcaneus. No acute fracture, dislocation or avascular necrosis. Trace joint effusion is suggested with mild medial soft tissue prominence. IMPRESSION: No acute fracture or dislocation. ACT 112: Negative or not required by law. The above report was generated using voice recognition software. It may contain grammatical, syntax o r spelling errors. Electronically signed by: Philip Ernst M.D. 05/04/2019 12:25 PM
[2019-05-04] MEDS ORDERED: MoRPHine SULFATE 2 MG/ML CARP IV PRN (13:20)
--- NOTE | 2019-05-04 13:35 | Emergency Department Note ---
Entered by Ellie Antonio acting as a scribe for Sixto Valerio DO History of Present Illness General Chief complaint: Abdominal Pain Stated complaint: CHILLS,ABD PAIN,DIZZY Source: patient History of Present Illness Onset (ago): hour(s) (last night) Location: chest Radiation: other (chest) Severity: similar to prior episodes Pain Consistency: + other (worsening) Maximum Pain Intensity: 9 Associated symptoms: + fever/chills (positive chills; negative fever) and + other (positive diarrhea; negative urinary symptoms); no nausea/vomiting The patient is a 58 year old male who presents to the Emergency Room with complaints of worsening left lower quadrant abdominal pain that began last night. The patient states that during this time he has had chills. He reports that his pain began radiating up as a pressure in his chest at approximately 0400 this morning, 3 hours prior to arrival. The patient states that he has recently been constipated and straining to have a bowel movement, but states that he had an episode of diarrhea at around 0400 this morning. The patient denies urinary symptoms, nausea, and vomiting. He states that his symptoms feel similar to a prior episode of diverticulitis. The patient states that he is on Plavix. Home Medications Home Medications Medication Instructions Recorded Confirmed Type aspirin [Aspir-Low] 81 mg PO QPM 03/17/18 05/04/19 History clopidogrel [Plavix] 75 mg PO QPM 03/17/18 05/04/19 History evolocumab [Repatha SureClick] 1 dose SUBCUT UD 03/17/18 05/04/19 History gabapentin [Neurontin] 600 mg PO BID 03/17/18 05/04/19 History multivitamin 1 tab PO QPM 03/17/18 05/04/19 History omega 5-ewz-bjn-fish oil [Fish Oil] 1 tab PO BID 03/17/18 05/04/19 History ranitidine HCl 150 mg PO BID 03/17/18 05/04/19 History carvedilol 6.25 mg PO BID 10/22/18 05/04/19 History diclofenac sodium 1 % TOPICAL TID 10/22/18 05/04/19 History baclofen 10 mg PO TID PRN 05/04/19 05/04/19 History cholecalciferol (vitamin D3) 2,000 unit PO BID 05/04/19 05/04/19 History [Vitamin D3] lorazepam 1 mg PO BID 05/04/19 05/04/19 History omeprazole 40 mg PO BID 05/04/19 05/04/19 History tizanidine 4 mg PO BID PRN 05/04/19 05/04/19 History Allergies Allergy/AdvReac Type Severity Reaction Status Date / Time fentanyl Allergy Severe NEURO Verified 05/04/19 07:19 CHANGES tuberculin, purified protein Allergy Severe SWELLING/HI Verified 05/04/19 07:19 deriva VES rosuvastatin Allergy Intermediate Chest and Verified 05/04/19 07:19 muscle pain sertraline Allergy Intermediate Psych Verified 05/04/19 07:19 complications Sjjpsgs-Vmw-Lut Reductase AdvReac Severe BODY ACHES Unverified 05/04/19 07:19 Inhibitor Past Med/Surg History Medical History Yanes's palsy (Chronic) Bolus impaction of digestive tract (Acute) CAD (coronary artery disease) (Chronic) "Cardiac cath 2013-50% mid circumflex, 99% ostial OM1 and OM2, 70% RCA" Dyslipidemia (Chronic) GERD (gastroesophageal reflux disease) (Chronic) Hypertension (Chronic) Spinal stenosis (Chronic) Surgical History No pertinent past surgical history Family History Other Cancer Diabetes Heart disease Hypertension Social History Preferred Language: Latvian Demand Generation Manager Required: No Beliefs That Will Affect Care: None marital status: Current Living Situation: Spouse current occupational status: retired Other Information That Helps Us Care for You: No Feels Safe at Home: Yes Safety Concerns: Feels Safe At This Time Smoking Status: Never smoker Do You Dip or Chew Tobacco: No ; Second Hand Exposure: No ; Tobacco Cessation Education Requested by Patient: No Hx Alcohol Use: Yes Alcohol type: beer Hx Substance Use: No Review of Systems See HPI for pertinent positives & negatives. and A total of 10 systems reviewed and were otherwise negative Physical Exam Vital Signs Vital Signs - 24 hr 05/04/19 06:52 05/04/19 07:15 05/04/19 07:38 Temperature 38 C H Temperature Source Oral Oral Pulse Rate 18 L 91 H Pulse Rate from SpO2 Sensor Respiratory Rate 18 16 Respiratory Effort / Characteristics Non-Labored Spontaneous Respiratory Depth Normal Blood Pressure 133/89 151/98 H Blood Pressure Mean 103 113 Blood Pressure Position Sitting Pulse Oximetry 96 Oxygen Delivery Method Room Air Sepsis Recent Fever Within 48 Hours Yes Sepsis New/Unexplained Change in Mental Status No Sepsis Action Taken by Nursing No Action Required 05/04/19 07:44 05/04/19 08:00 05/04/19 08:01 Temperature Temperature Source Pulse Rate 91 H 92 H 93 H Pulse Rate from SpO2 Sensor Respiratory Rate 17 17 Respiratory Effort / Characteristics Respiratory Depth Blood Pressure 123/81 Blood Pressure Mean 93 Blood Pressure Position Pulse Oximetry Oxygen Delivery Method Sepsis Recent Fever Within 48 Hours Sepsis New/Unexplained Change in Mental Status Sepsis Action Taken by Nursing 05/04/19 08:39 05/04/19 09:00 05/04/19 09:01 Temperature Temperature Source Pulse Rate 88 87 86 Pulse Rate from SpO2 Sensor 88 87 86 Respiratory Rate 15 16 14 Respiratory Effort / Characteristics Respiratory Depth Blood Pressure 117/78 Blood Pressure Mean 94 Blood Pressure Position Pulse Oximetry 94 93 93 Oxygen Delivery Method Sepsis Recent Fever Within 48 Hours Sepsis New/Unexplained Change in Mental Status Sepsis Action Taken by Nursing GENERAL: Sitting up in bed, holding left lower quadrant, in moderate distress. EYE EXAM: normal conjunctiva OROPHARYNX: no exudate, no erythema, lips, buccal mucosa, and tongue normal and mucous membranes are moist NECK: supple, no nuchal rigidity, no adenopathy, non-tender LUNGS: Clear to auscultation. Normal chest wall mechanics HEART: no murmurs, S1 normal and S2 normal ABDOMEN: Tenderness to palpation of the left lower quadrant, abdomen soft, normo-active bowel sounds, no masses, no rebound or guarding. BACK: Back is symmetrical on inspection and there is no deformity, no midline tenderness, no CVA tenderness. SKIN: no rashes and no bruising UPPER EXTREMITIES: upper extremities are grossly normal. LOWER EXTREMITIES: No pitting edema. NEURO EXAM: Normal sensorium, cranial nerves II-XII grossly intact, normal speech, no gross weakness of arms, no gross weakness of legs. Course Course ED COURSE: Vital signs were reviewed and showed febrile. The patients medical record was reviewed The above diagnostic studies were performed and reviewed. ED treatments and interventions as stated above. 0700: The patient was evaluated in room B2. A complete history and physical examination was performed. 0908: Upon reevaluation, the patient is resting comfortably. I discussed my findings with the patient and he understands and agrees with the treatment plan. Based on the patients age, coexisting illnesses, exam and lab findings the decision to treat as an inpatient was made. The patient remained stable while under my care. 0912: The patient will be evaluated for further management. I discussed the case with Mary FUNK who accepts the patient for further evaluation under Dr. Pulido Hospitalist service. Administered Medications Sodium Chloride (Nss 1000ml) 1,000 mls @ 100 mls/hr IV .Q10H HERLINDA Stop: 06/03/19 12:15 Last Admin: 05/04/19 12:38 Dose: 100 mls/hr Documented by: [id number] Morphine Sulfate (Morphine Sulfate) 2 mg IV Q4 PRN PRN Reason: Pain Stop: 05/18/19 13:19 Last Admin: 05/04/19 13:32 Dose: 2 mg Documented by: [id number] Discontinued Medications Acetaminophen (Tylenol) 1,000 mg PO NOW STA Stop: 05/04/19 07:05 Last Admin: 05/04/19 07:34 Dose: 1,000 mg Documented by: [id number] Sodium Chloride (Nss 1000ml) 1,000 mls @ 999 mls/hr IV .Q1H1M HERLINDA Stop: 05/04/19 09:00 Last Infusion: 05/04/19 11:00 Dose: 0 mls/hr Documented by: [id number] Admin: 05/04/19 09:27 Dose: 999 mls/hr Documented by: [id number] Infusion: 05/04/19 08:45 Dose: 0 mls/hr Documented by: [id number] Admin: 05/04/19 07:34 Dose: 999 mls/hr Documented by: [id number] Piperacillin Sod/Tazobactam Sod (Zosyn) 4.5 gm in 120 mls @ 240 mls/hr IV NOW ONE Stop: 05/04/19 09:34 Last Infusion: 05/04/19 10:00 Dose: 0 mls/hr Documented by: [id number] Admin: 05/04/19 09:28 Dose: 240 mls/hr Documented by: [id number] Ioversol (Optiray 320 100ml) 94 ml IV ONCE PRN PRN Reason: Interaction Checking Stop: 05/08/19 08:30 Last Admin: 05/04/19 08:31 Dose: 94 ml Documented by: [id number] Morphine Sulfate (Morphine Sulfate) 4 mg IV NOW STA Stop: 05/04/19 07:05 Last Admin: 05/04/19 07:35 Dose: 4 mg Documented by: [id number] Morphine Sulfate (Morphine Sulfate) 4 mg IV NOW STA Stop: 05/04/19 09:24 Last Admin: 05/04/19 09:27 Dose: 4 mg Documented by: [id number] Ondansetron HCl (Zofran) 4 mg IV NOW STA Stop: 05/04/19 07:05 Last Admin: 05/04/19 07:34 Dose: 4 mg Documented by: [id number] Medical Decision Making Differential Diagnosis Differential diagnoses includes but is not limited to gastritis, peptic ulcer disease, GERD, gallbladder disease, pancreatitis, small bowel obstruction, acute coronary syndrome, pericarditis, ischemic bowel, irritable bowel disease, irritable bowel syndrome, appendicitis, diverticulitis, malignancy, hernia, urinary tract infection, torsion, perforation, trauma, infectious. Medical Records Attestation: I reviewed the patient's medical records. Home Medications Current Medication List: was personally reviewed by me Laboratory Data Attestation: I reviewed the patient's lab results. Result diagrams: 05/04/19 07:30 05/04/19 07:30 Lab Results 05/04/19 05/04/19 05/04/19 Range/Units 07:10 07:30 07:30 WBC 6.44 (4.8-10.8) K/uL RBC 4.47 L (4.7-6.1) M/uL Hgb 15.2 (14.0-18.0) g/dL Hct 43.0 (42-52) % MCV 96.2 (80-100) fL MCH 34.0 (25-34) pg MCHC 35.3 (32-36) g/dL RDW Std Deviation 43.9 (36.4-46.3) fL RDW Coeff of Nessa 12.7 (11.5-14.5) % Plt Count 124 L (130-400) K/uL MPV 10.0 (7.4-10.4) fL Immature Gran % (Auto) 0.3 % Neut % (Auto) 75.2 % Lymph % (Auto) 12.7 % [place] % (Auto) 10.9 % Eos % (Auto) 0.9 % Baso % (Auto) 0.0 % Immature Gran # (Auto) 0.02 (0.00-0.02) K/uL Neut # (Auto) 4.84 (1.4-6.5) K/uL Lymph # (Auto) 0.82 L (1.2-3.4) K/uL [place] # (Auto) 0.70 H (0.11-0.59) K/uL Eos # (Auto) 0.06 (0-0.5) K/uL Baso # (Auto) 0.00 (0-0.2) K/uL Sodium 138 (136-145) mmol/L Potassium 3.9 (3.5-5.1) mmol/L Chloride 105 (98-107) mmol/L Carbon Dioxide 25 (21-32) mmol/L Anion Gap 8.0 (3-11) BUN 20 H (7-18) mg/dl Creatinine 1.27 (0.6-1.4) mg/dl Est Cr Clr Drug Dosing 64.0 ml/min Est GFR ( Amer) 71.2 Est GFR (Non-Af Amer) 61.4 BUN/Creatinine Ratio 15.7 (10-20) Glucose 129 H (70-99) mg/dl Lactate (0.4-2.0) mmol/L Calcium 8.3 L (8.5-10.1) mg/dl Total Bilirubin 0.6 (0.2-1) mg/dl AST 20 (15-37) U/L ALT 34 (12-78) U/L Alkaline Phosphatase 49 (45-117) U/L Troponin I < 0.015 (0-0.045) ng/ml Total Protein 7.2 (6.4-8.2) gm/dl Albumin 3.4 (3.4-5.0) gm/dl Globulin 3.8 (2.5-4.0) gm/dl Albumin/Globulin Ratio 0.9 (0.9-2) Lipase 134 (73-393) U/L Urine Color Yellow Urine Appearance Cloudy A (Clear) Urine pH 8.5 H (4.5-7.5) Ur Specific [place] 1.024 (1.000-1.030) Urine Protein Negative (Negative) Urine Glucose (UA) Negative (Negative) Urine Ketones Negative (Negative) Urine Blood Negative (Negative) Urine Nitrite Negative (Negative) Urine Bilirubin Negative (Negative) Urine Urobilinogen Negative (Negative) Ur Leukocyte Esterase Negative (Negative) Urine WBC (Auto) 0 (0-5) /hpf Urine RBC (Auto) 0-4 (0-4) /hpf U Hyaline Cast (Auto) 0 (0-5) /lpf U Epithel Cells (Auto) 0-5 (0-5) /lpf Urine Bacteria (Auto) Negative (Negative) Influenza Type A Ag (Neg) Influenza Type A (PCR) (Neg) Influenza Type B Ag (Neg) Influenza Type B (PCR) (Neg) 05/04/19 05/04/19 05/04/19 Range/Units 07:30 09:30 09:30 WBC (4.8-10.8) K/uL RBC (4.7-6.1) M/uL Hgb (14.0-18.0) g/dL Hct (42-52) % MCV (80-100) fL MCH (25-34) pg MCHC (32-36) g/dL RDW Std Deviation (36.4-46.3) fL RDW Coeff of Nessa (11.5-14.5) % Plt Count (130-400) K/uL MPV (7.4-10.4) fL Immature Gran % (Auto) % Neut % (Auto) % Lymph % (Auto) % [place] % (Auto) % Eos % (Auto) % Baso % (Auto) % Immature Gran # (Auto) (0.00-0.02) K/uL Neut # (Auto) (1.4-6.5) K/uL Lymph # (Auto) (1.2-3.4) K/uL [place] # (Auto) (0.11-0.59) K/uL Eos # (Auto) (0-0.5) K/uL Baso # (Auto) (0-0.2) K/uL Sodium (136-145) mmol/L Potassium (3.5-5.1) mmol/L Chloride (98-107) mmol/L Carbon Dioxide (21-32) mmol/L Anion Gap (3-11) BUN (7-18) mg/dl Creatinine (0.6-1.4) mg/dl Est Cr Clr Drug Dosing ml/min Est GFR ( Amer) Est GFR (Non-Af Amer) BUN/Creatinine Ratio (10-20) Glucose (70-99) mg/dl Lactate 2.3 H* (0.4-2.0) mmol/L Calcium (8.5-10.1) mg/dl Total Bilirubin (0.2-1) mg/dl AST (15-37) U/L ALT (12-78) U/L Alkaline Phosphatase (45-117) U/L Troponin I (0-0.045) ng/ml Total Protein (6.4-8.2) gm/dl Albumin (3.4-5.0) gm/dl Globulin (2.5-4.0) gm/dl Albumin/Globulin Ratio (0.9-2) Lipase (73-393) U/L Urine Color Urine Appearance (Clear) Urine pH (4.5-7.5) Ur Specific [place] (1.000-1.030) Urine Protein (Negative) Urine Glucose (UA) (Negative) Urine Ketones (Negative) Urine Blood (Negative) Urine Nitrite (Negative) Urine Bilirubin (Negative) Urine Urobilinogen (Negative) Ur Leukocyte Esterase (Negative) Urine WBC (Auto) (0-5) /hpf Urine RBC (Auto) (0-4) /hpf U Hyaline Cast (Auto) (0-5) /lpf U Epithel Cells (Auto) (0-5) /lpf Urine Bacteria (Auto) (Negative) Influenza Type A Ag Neg for Influ A (Neg) Influenza Type A (PCR) Neg for Influ A (Neg) Influenza Type B Ag Neg for Influ B (Neg) Influenza Type B (PCR) Neg for Influ B (Neg) 05/04/19 Range/Units 09:40 WBC (4.8-10.8) K/uL RBC (4.7-6.1) M/uL Hgb (14.0-18.0) g/dL Hct (42-52) % MCV (80-100) fL MCH (25-34) pg MCHC (32-36) g/dL RDW Std Deviation (36.4-46.3) fL RDW Coeff of Nessa (11.5-14.5) % Plt Count (130-400) K/uL MPV (7.4-10.4) fL Immature Gran % (Auto) % Neut % (Auto) % Lymph % (Auto) % [place] % (Auto) % Eos % (Auto) % Baso % (Auto) % Immature Gran # (Auto) (0.00-0.02) K/uL Neut # (Auto) (1.4-6.5) K/uL Lymph # (Auto) (1.2-3.4) K/uL [place] # (Auto) (0.11-0.59) K/uL Eos # (Auto) (0-0.5) K/uL Baso # (Auto) (0-0.2) K/uL Sodium (136-145) mmol/L Potassium (3.5-5.1) mmol/L Chloride (98-107) mmol/L Carbon Dioxide (21-32) mmol/L Anion Gap (3-11) BUN (7-18) mg/dl Creatinine (0.6-1.4) mg/dl Est Cr Clr Drug Dosing ml/min Est GFR ( Amer) Est GFR (Non-Af Amer) BUN/Creatinine Ratio (10-20) Glucose (70-99) mg/dl Lactate 1.6 (0.4-2.0) mmol/L Calcium (8.5-10.1) mg/dl Total Bilirubin (0.2-1) mg/dl AST (15-37) U/L ALT (12-78) U/L Alkaline Phosphatase (45-117) U/L Troponin I (0-0.045) ng/ml Total Protein (6.4-8.2) gm/dl Albumin (3.4-5.0) gm/dl Globulin (2.5-4.0) gm/dl Albumin/Globulin Ratio (0.9-2) Lipase (73-393) U/L Urine Color Urine Appearance (Clear) Urine pH (4.5-7.5) Ur Specific [place] (1.000-1.030) Urine Protein (Negative) Urine Glucose (UA) (Negative) Urine Ketones (Negative) Urine Blood (Negative) Urine Nitrite (Negative) Urine Bilirubin (Negative) Urine Urobilinogen (Negative) Ur Leukocyte Esterase (Negative) Urine WBC (Auto) (0-5) /hpf Urine RBC (Auto) (0-4) /hpf U Hyaline Cast (Auto) (0-5) /lpf U Epithel Cells (Auto) (0-5) /lpf Urine Bacteria (Auto) (Negative) Influenza Type A Ag (Neg) Influenza Type A (PCR) (Neg) Influenza Type B Ag (Neg) Influenza Type B (PCR) (Neg) Imaging Data Radiologist's Impression: Radiology results as stated below per my review and the radiologist's interpretation: XR chest 1V portable HISTORY: 58 years-old Male fever acute fever COMPARISON: Chest radiograph 10/22/2018 TECHNIQUE: Portable AP view the chest FINDINGS: Cardiomediastinal and hilar silhouettes are within normal limits. There is no pneumothorax, pleural effusion, focal airspace consolidation or overt pulmonary edema. Mild right hemidiaphragmatic elevation. Healed remote left clavicular fracture. Degenerative changes of the shoulders and spine. IMPRESSION: No acute process. ACT 112: Negative or not required by law. The above report was generated using voice recognition software. It may contain grammatical, syntax or spelling errors. Electronically signed by: Philip Ernst M.D. 05/04/2019 7:58 AM ABDOMEN AND PELVIS CT WITH IV CONTRAST CT DOSE: 587.66 mGy.cm HISTORY: Acute left lower quadrant abdominal pain llq abd pain TECHNIQUE: Multiaxial CT images of the abdomen and pelvis were performed followi ng the IV administration of 94 cc of Optiray 320, A dose lowering technique was utilized adhering to the principles of ALARA. COMPARISON STUDY: CT abdomen and pelvis 09/04/2018 FINDINGS: Minimal dependent subsegmental bibasilar atelectasis. There is no pneumatosis or pneumoperitoneum. Imaged inferior cardiac chambers are unremarkable. Spleen is mildly enlarged, 13.0 cm. Pancreas, and adrenal glands are unremarkable. Suggestion of hepatic steatosis. No evidence of cirrhosis. Increased attenuation within the region of the gallbladder neck may reflect gallbladder sludge or cholelithiasis. No CT evidence of acute cholecystitis or biliary ductal dilation. Patency of the hepatic and portal veins. Kidneys and ureters are unremarkable. Moderate circumferential thickening of the urinary bladder wall with mild perivesicular stranding. Mild prostamegaly. Mixed plaque of the abdominal aorta without aneurysm. No adenopathy. Mild nonspecific distal esophageal wall thickening. No small bowel obstruction. There are a few scattered small bowel air-fluid levels noted within the lower abdomen. Moderate fecal retention. Mild colonic diverticulosis without acute diverticulitis. Fluid-filled cecum. Noninflamed appendix. No ascites or mesenteric inflammation. Degenerative changes of the spine, pelvis and hips. 1.3 cm anterolisthesis L5 on S1 with remote bilateral L5 pars defects. IMPRESSION: 1. No bowel obstruction or bowel wall thickening. 2. Normal appendix. 3. Moderate fecal retention. 4. Multiple air and fluid-filled nondilated loops of large bowel, likely physiologic. A mild enteritis or ileus could appear similarly. 5. Prostamegaly with urinary bladder wall thickening and partial distention. Correlate with urinalysis. 6. Additional findings as above. ACT 112: Negative or not required by law. The above report was generated using voice recognition software. It may contain grammatical, syntax or spelling errors. Electronically signed by: Philip Ernst M.D. 05/04/2019 8:54 AM ECG Data Attestation: I personally reviewed and interpreted this ECG as follows: Indication: + abdominal pain and + chest pain Rate (beats per minute): 100 Rhythm: + sinus tachycardia ECG Intervals/blocks: + Normal QT-c ECG [place]: + Normal ECG Findings: no PVCs Blood Pressure Blood Pressure Findings: Normal blood pressure MDM Narrative Patient is a 58-year-old male who presents the ER for left lower quadrant abdominal pain which started in the past 24 hours radiating up into the chest. IV was established blood work was obtained. Labs show no significant leukocytosis or anemia. BMP along with LFTs bilirubin troponin and lipase is unremarkable. UA was negative. Influenza was negative. Patient was given IV fluids. Lactic acid was elevated at 2.3. He was febrile. CT abdomen pelvis shows a little bit of an enteritis. Patient was given IV fluids, IV morphine. Patient was given IV Zosyn as well. He was updated bedside. Chest x-ray showed no focal infiltrate. EKG was nondiagnostic. I do favor that the chest pain is radiating from the abdomen. Do not feel consistent with ACS. Due to the elevated lactate, fever and rigors at home discussed with the hospitalist for observation. Impression & Plan Abdominal pain, Enteritis, Lactic acidosis, Fever Discharge Plan Visit Data *Final* Discharge Date/Time: 05/04/19 10:50 Chief Complaint: Abdominal Pain Stated Complaint: CHILLS,ABD PAIN,DIZZY ED Provider: Sixto Valeroi Discharge Problem: Abdominal pain, Enteritis, Lactic acidosis, Fever Patient Disposition: Admitted As Inpatient Discharge Instructions Interventions: ED Discharge Assessment Last Done: 05/04/19 10:50 Discharge Problem: Abdominal pain Qualifiers: Abdominal location: left lower quadrant Qualified Code(s): R10.32 - Left lower quadrant pain Fever Qualifiers: Fever type: unspecified Qualified Code(s): R50.9 - Fever, unspecified The scribe's documentation has been prepared under my direction and personally reviewed by me in its entirety. I confirm that the note above accurately reflects all work, treatment, procedures, and medical decision making performed by me.
[2019-05-04] MEDS: FAMOTIDINE 20 MG TAB PO SCH ×2 (14:24→20:16)
--- NOTE | 2019-05-04 14:42 | History & Physical Report ---
Date of Service May 04, 2019 Assessment & Plan (1) Viral gastroenteritis: (2) Lactic acidosis: -Admit to [facility] -Patient presenting from home with reports of abdominal pain, nausea, diarrhea, chills/rigors -In the ED, CT ABD/pelvis showing a mild enteritis -Had low-grade fever of 38.0; no leukocytosis, vital signs stable -Initial lactic acid 2.3 with repeat being 1.6; likely secondary to mild dehydration from diarrhea -Received IV Zosyn in the ED, no indication to continue antibiotics at this time -Continue supportive care with IVF, pain and nausea control -Clear liquid diet, advancing as tolerated (3) Right ankle injury: -No edema or ecchymosis noted -Right ankle x-ray negative for acute findings (4) CAD (coronary artery disease): -Appears stable, no reports of chest pain -Continue beta-richard, Plavix, aspirin, Repatha injections for cholesterol control (5) GERD (gastroesophageal reflux disease): -Continue PPI and H2 richard (6) DVT prophylaxis: -SCDs, ambulate History of Present Illness Chief Complaint: Abdominal Pain, Nausea, Diarrhea Primary Care Provider: Jeff Dai MD 58-year-old male who presents the ED for evaluation of abdominal pain, nausea, diarrhea. Patient reports his symptoms began last evening. He reports pain is located in left lower quadrant. He describes the pain is sharp and severe. He reports associated nausea however no vomiting. This morning, he had a few episodes of diarrhea. He denies bright red bleeding per rectum or dark tarry stools. Throughout the night, he reports chills and rigors however he did not take his temperature at home. He denies chest pain or shortness of breath. He had some lightheadedness and dizziness however denies any syncopal event. He denies any urinary symptoms. He reports having a right ankle injury yesterday, however no edema or views bruising. Patient is requesting x-ray. In the ED, patient is found to have low-grade temp of 38.0. He is otherwise hem odynamically stable. Labs show a mild lactic acid doses with lactate 2.3 and repeat being 1.6. Other labs unremarkable. CT ABD/pelvis is showing about enteritis. He was given IVF, IV Zosyn, IV Zofran, IV morphine. Allergies Allergy/AdvReac Type Severity Reaction Status Date / Time fentanyl Allergy Severe NEURO Verified 05/04/19 07:19 CHANGES tuberculin, purified protein Allergy Severe SWELLING/HI Verified 05/04/19 07:19 deriva VES rosuvastatin Allergy Intermediate Chest and Verified 05/04/19 07:19 muscle pain sertraline Allergy Intermediate Psych Verified 05/04/19 07:19 complications Ubaxfwd-Bxy-Spv Reductase AdvReac Severe BODY ACHES Unverified 05/04/19 07:19 Inhibitor Home Medications Home Medications Medication Instructions Recorded Confirmed Type aspirin [Aspir-Low] 81 mg PO QPM 03/17/18 05/04/19 History clopidogrel [Plavix] 75 mg PO QPM 03/17/18 05/04/19 History evolocumab [Repatha SureClick] 1 dose SUBCUT UD 03/17/18 05/04/19 History gabapentin [Neurontin] 600 mg PO BID 03/17/18 05/04/19 History multivitamin 1 tab PO QPM 03/17/18 05/04/19 History omega 3-zue-zgb-fish oil [Fish Oil] 1 tab PO BID 03/17/18 05/04/19 History ranitidine HCl 150 mg PO BID 03/17/18 05/04/19 History carvedilol 6.25 mg PO BID 10/22/18 05/04/19 History diclofenac sodium 1 % TOPICAL TID 10/22/18 05/04/19 History baclofen 10 mg PO TID PRN 05/04/19 05/04/19 History cholecalciferol (vitamin D3) 2,000 unit PO BID 05/04/19 05/04/19 History [Vitamin D3] lorazepam 1 mg PO BID 05/04/19 05/04/19 History omeprazole 40 mg PO BID 05/04/19 05/04/19 History tizanidine 4 mg PO BID PRN 05/04/19 05/04/19 History Past Med/Surg History Medical History Yanes's palsy (Chronic) CAD (coronary artery disease) (Chronic) "Cardiac cath 2013-50% mid circumflex, 99% ostial OM1 and OM2, 70% RCA" Dyslipidemia (Chronic) GERD (gastroesophageal reflux disease) (Chronic) Hypertension (Chronic) Spinal stenosis (Chronic) Surgical History No pertinent past surgical history Family History Father Diabetes Grandfather Diabetes Grandmother Diabetes Brother Heart disease Social History (Updated 05/04/19 @ 14:31 by GOOD Patricio) Preferred Language: Kyrgyz Re Dye Hand Required: No Beliefs That Will Affect Care: None marital status: Current Living Situation: Spouse current occupational status: retired Other Information That Helps Us Care for You: No Feels Safe at Home: Yes Safety Concerns: Feels Safe At This Time Smoking Status: Never smoker Do You Dip or Chew Tobacco: No ; Second Hand Exposure: No ; Tobacco Cessation Education Requested by Patient: No Hx Alcohol Use: Yes Alcohol type: beer Alcohol Intake Frequency: Weekly Alcohol Intake Frequency Comment: 2-3 beers on the weekends Hx Substance Use: No Review of Systems Review of Systems: ROS per HPI, all other systems reviewed and negative Physical Exam Constitutional: WD/WN, vitals as above Eyes: PERRL, conjunctivae normal, anicteric sclerae ENMT: external ear and nose normal, oropharynx normal Respiratory: normal respiratory effort, lungs clear to auscultation Cardiovascular: Rate/Rhythm: regular rate and regular rhythm Vessels: normal peripheral pulses Extremities: no edema Gastrointestinal (Abdomen): Inspection/Auscultation: normal bowel sounds Percussion/Palpation: + abdomen tender (Generalized) and abdomen soft; no hepatosplenomegaly Musculoskeletal: no cyanosis or clubbing, extremities motor strength 5/5 Skin: no rashes, warm and dry Neurologic: PERRL, EOMI, accommodation nl, no face palsy, no dysarthria Results & Data Vital Signs (Past 12 Hours) Vital Signs Temp Pulse Pulse Resp BP BP Pulse Ox 05/04/19 13:00 37.1 C 75 20 119/75 94 05/04/19 12:03 37.1 C 75 18 119/75 94 05/04/19 10:50 37.0 C 74 18 99/46 L 100 05/04/19 09:01 86 14 93 05/04/19 09:00 87 16 117/78 93 05/04/19 08:39 88 15 94 05/04/19 08:01 93 H 17 05/04/19 08:00 92 H 17 123/81 05/04/19 07:44 91 H 05/04/19 07:38 91 H 16 151/98 H 05/04/19 06:52 38 C H 18 L 18 133/89 96 Laboratory Results Short CBC 05/04/19 05/04/19 05/04/19 Range/Units 07:30 07:30 09:40 WBC 6.44 (4.8-10.8) K/uL Hgb 15.2 (14.0-18.0) g/dL Hct 43.0 (42-52) % Plt Count 124 L (130-400) K/uL Lactate 2.3 H* 1.6 (0.4-2.0) mmol/L BMP 05/04/19 07:30 Sodium 138 Potassium 3.9 Chloride 105 Carbon Dioxide 25 BUN 20 H Creatinine 1.27 Glucose 129 H Calcium 8.3 L Cardiac Enzymes 05/04/19 Range/Units 07:30 Troponin I < 0.015 (0-0.045) ng/ml Liver Function 05/04/19 Range/Units 07:30 Total Bilirubin 0.6 (0.2-1) mg/dl AST 20 (15-37) U/L ALT 34 (12-78) U/L Alkaline Phosphatase 49 (45-117) U/L Albumin 3.4 (3.4-5.0) gm/dl Urine 05/04/19 Range/Units 07:10 Urine Color Yellow Urine Appearance Cloudy A (Clear) Urine pH 8.5 H (4.5-7.5) Ur Specific [place] 1.024 (1.000-1.030) Urine Protein Negative (Negative) Urine Glucose (UA) Negative (Negative) Diagnostic Findings RIGHT ANKLE X-RAY IMPRESSION: No acute fracture or dislocation. CXR IMPRESSION: No acute process. CT ABD/PELVIS IMPRESSION: 1. No bowel obstruction or bowel wall thickening. 2. Normal appendix. 3. Moderate fecal retention. 4. Multiple air and fluid-filled nondilated loops of large bowel, likely physiologic. A mild enteritis or ileus could appear similarly. 5. Prostamegaly with urinary bladder wall thickening and partial distention. Correlate with urinalysis. 6. Additional findings as above. Code Status & VTE Plan Code Status Patient is a full code as per my discussion with him. VTE Prophylaxis Plan VTE Prophylaxis will be ordered: Yes Supervising Physician Co-Signing Physician Notes Attending Addendum: Patient seen and examined, care coordinated with Mary FUNK This is a 58-year-old male who came to the ER with 1 day history of abdominal pain nausea diarrhea, CT abdomen pelvis shows no active sign of inflammation infection White count was normal normal renal function, had mild elevation of lactic acid possibly secondary to dehydration, normalized after IV fluid Patient will be observed in medical surgical floor, IV fluids supportive care clear liquid diet for now will be advanced if GI symptom resolves Physical exam: General: No sign of distress HEENT: Sclera nonicteric, pupils bilateral equal reactive to light Lungs: Clear to auscultate no wheeze or rales Heart: Regular S1-S2 no murmur gallop Abdomen: Soft nontender active bowel sound Extremity: No rash or deformity Neuro: No focal neurological deficit Awake and alert and oriented x3 Assessment plan: Abdominal pain/nausea/diarrhea Secondary to viral gastroenteritis, Patient did not had any other episode of diarrhea since admission, has been tolerating clears, Abdomen pain has resolved Continue with IV fluids, advance diet as tolerated in a.m. Lactic acidosis: Secondary to dehydration, normalized with IV fluids Continue normal saline IV fluids overnight, repeat labs in a.m. Disposition: Possible discharge home tomorrow if remains medically stable Please refer to further documentation by Mary FUNK for discussion of other chronic issues Courtney Paredes MD
[2019-05-04] MEDS: GABAPENTIN 300 MG CAP PO SCH (18:22)
[2019-05-04] MEDS ORDERED: LORazepam 1 MG TAB ONE (18:27)
[2019-05-04] MEDS: LORazepam 1 MG TAB PO SCH (18:28)
[2019-05-04] MEDS: CHOLECALCIFEROL 1,000 UNITS TAB PO SCH (20:15)
[2019-05-04] MEDS: PANTOprazole 40 MG TAB PO SCH (20:16)
[2019-05-04] MEDS: OMEGA-3 (PURIFIED FISH OIL) 1 GM CAP PO SCH (20:16)
[2019-05-04] MEDS: carvediloL 6.25 MG TAB PO SCH (20:57)
[2019-05-04] MEDS ORDERED: CLOPIDOGREL BISULFATE 75 MG TAB PO SCH (21:00)
[2019-05-04] MEDS ORDERED: ASPIRIN 81 MG ECTAB PO SCH (21:00)
[2019-05-04] MEDS ORDERED: MULTIVITAMIN TAB PO SCH (21:00)
[2019-05-05] MEDS: LORazepam 1 MG TAB PO SCH (08:47)
[2019-05-05] MEDS: GABAPENTIN 300 MG CAP PO SCH (08:47)
[2019-05-05] MEDS: carvediloL 6.25 MG TAB PO SCH (08:47)
[2019-05-05] MEDS: FAMOTIDINE 20 MG TAB PO SCH (08:48)
[2019-05-05] MEDS: CHOLECALCIFEROL 1,000 UNITS TAB PO SCH (08:48)
[2019-05-05] MEDS: PANTOprazole 40 MG TAB PO SCH (08:48)
[2019-05-05] MEDS: OMEGA-3 (PURIFIED FISH OIL) 1 GM CAP PO SCH (08:48)
--- NOTE | 2019-05-05 14:28 | Discharge Summary ---
Date of Service May 05, 2019 Admission HPI Per Admitting Provider 58-year-old male who presents the ED for evaluation of abdominal pain, nausea, diarrhea. Patient reports his symptoms began last evening. He reports pain is located in left lower quadrant. He describes the pain is sharp and severe. He reports associated nausea however no vomiting. This morning, he had a few episodes of diarrhea. He denies bright red bleeding per rectum or dark tarry stools. Throughout the night, he reports chills and rigors however he did not take his temperature at home. He denies chest pain or shortness of breath. He had some lightheadedness and dizziness however denies any syncopal event. He denies any urinary symptoms. He reports having a right ankle injury yesterday, however no edema or views bruising. Patient is requesting x-ray. In the ED, patient is found to have low-grade temp of 38.0. He is otherwise hemodynamically stable. Labs show a mild lactic acid doses with lactate 2.3 and repeat being 1.6. Other labs unremarkable. CT ABD/pelvis is showing about enteritis. He was given IVF, IV Zosyn, IV Zofran, IV morphine. Principal Diagnosis Viral gastroenteritis Discharge Exam Constitutional WD/WN, vitals as above Eyes PERRL, conjunctivae normal, anicteric sclerae ENMT external ear and nose normal, oropharynx normal Respiratory normal respiratory effort, lungs clear to auscultation Cardiovascular Rate/Rhythm: regular rate and regular rhythm Vessels: normal peripheral pulses Extremities: no edema Gastrointestinal (Abdomen) Inspection/Auscultation: normal bowel sounds Percussion/Palpation: + abdomen tender (Generalized) and abdomen soft; no hepatosplenomegaly Musculoskeletal no cyanosis or clubbing, extremities motor strength 5/5 Skin no rashes, warm and dry Neurologic PERRL, EOMI, accommodation nl, no face palsy, no dysarthria Discharge Data Allergies Allergy/AdvReac Type Severity Reaction Status Date / Time fentanyl Allergy Severe NEURO Verified 05/04/19 07:19 CHANGES tuberculin, purified protein Allergy Severe SWELLING/HI Verified 05/04/19 07:19 deriva VES rosuvastatin Allergy Intermediate Chest and Verified 05/04/19 07:19 muscle pain sertraline Allergy Intermediate Psych Verified 05/04/19 07:19 complications Dwhqceh-Foi-Snn Reductase AdvReac Severe BODY ACHES Unverified 05/04/19 07:19 Inhibitor Consultations 05/04/19 09:14 ED Decision to Admit Stat Ordered Studies 05/04/19 07:04 CT abd pelvis IV con only Stat Hospital Course (1) Viral gastroenteritis: (2) Lactic acidosis: GI symptom has resolved completely diet advanced to solid tolerating well no further episode of nausea or abdominal pain -Patient presented g from home with reports of abdominal pain, nausea, diarrhea, chills/rigors -In the ED, CT ABD/pelvis showing a mild enteritis -Had low-grade fever of 38.0; no leukocytosis, vital signs stable -Initial lactic acid 2.3 with repeat being 1.6; likely secondary to mild dehy dration from diarrhea - Has been afebrile, normal vitals, Stable to be discharged home today (3) Right ankle injury: -No edema or ecchymosis noted -Right ankle x-ray negative for acute findings (4) CAD (coronary artery disease): -Appears stable, no reports of chest pain -Continue beta-richard, Plavix, aspirin, Repatha injections for cholesterol control (5) GERD (gastroesophageal reflux disease): -Continue PPI and H2 richard (6) DVT prophylaxis: -SCDs, ambulate Total Time Total Time Spent Total Time Spent (In Minutes): Approximately 35 minutes Total Time Includes: Discharge Planning and Medication Reconciliation Discharge Plan Discharge Items Patient Disposition: Home - Self-Care Reason For Visit: VIRAL GASTROENTERITIS Discharge Diagnosis: Viral gastroenteritis Activity: Resume your previous activity Non-emergency contact: Primary Care Provider Call non-emergency contact if: you have any medication questions Follow-up/Referrals: Jeff Dai MD [Primary Care Provider] - 05/08/19 12:55 pm Diet: Regular and Low Fiber Diet Comment: Low fiber diet for next 3-4 days Addtl Attending Provider Instructions: Hospital follow-up with family physician scheduled already, Low fiber diet - for the next 3 to 4 days, to prevent recurrence of abdominal pain nausea bloating or diarrhea Pending Studies at Discharge: No Stand-Alone Forms: Call Back Authorization, My [facility] Angel Alerts, Smoking Cessation Medications and DC Order Prescriptions: Continued baclofen 10 mg tablet 10 mg PO TID PRN (Reason: Pain) RF: 0 lorazepam 1 mg tablet 1 mg PO BID RF: 0 cholecalciferol (vitamin D3) [Vitamin D3] 25 mcg (1,000 unit) Tablet 2,000 unit PO BID RF: 0 tizanidine 4 mg tablet 4 mg PO BID PRN (Reason: Muscle Spasm) RF: 0 omeprazole 40 mg capsule,delayed release(DR/EC) 40 mg PO BID RF: 0 multivitamin Tablet 1 tab PO QPM RF: 0 clopidogrel [Plavix] 75 mg tablet 75 mg PO QPM RF: 0 aspirin [Aspir-Low] 81 mg tablet,delayed release (DR/EC) 81 mg PO QPM RF: 0 ranitidine HCl 150 mg tablet 150 mg PO BID RF: 0 gabapentin [Neurontin] 300 mg capsule 600 mg PO BID RF: 0 omega 9-uup-svy-fish oil [Fish Oil] 1,000 mg (120 mg-180 mg) Capsule 1 tab PO BID RF: 0 Repatha SureClick 140 mg/mL pen injector 1 dose subcut UD RF: 0 carvedilol 12.5 mg tablet 6.25 mg PO BID RF: 0 diclofenac sodium 1 % gel 1 % topical TID RF: 0 Discharge Orders: Discharge Order (Routine); Ordered 05/05/19 Ordered By: Courtney Gaspar/Other Patient Handouts: Diet Low Residue, Gastroenteritis Viral Ch Admission Data Admit Date/Time: 05/04/19 10:15 Attending Provider: Courtney Paredes Admit Provider: Courtney Paredes Primary Care Provider: Jeff Dai Other Providers: Courtney Paredes Other Interventions: Discharge Summary Assessment (RN) Last Done: 05/05/19 12:12 DC Date/Time DO NOT enter until pt leaves facility: 05/05/19 13:30
== END 2019-05-05 13:30 | disposition home or self-care (01) ==
LOC: ED 06:43 → 3N 06:43

== ENCOUNTER 2020-10-24 07:18 | Inpatient (IN) ==
[2020-10-24] MEDS ORDERED: SODIUM CHLORIDE 0.9% 1000ML 1,000 ML IV ONE (07:32)
[2020-10-24] MEDS ORDERED: LORazepam 0.5 MG/1 ML VIAL IV STA (07:32)
[2020-10-24] MEDS ORDERED: ASPIRIN CHEW 324 MG PO STA (07:32)
[2020-10-24] MEDS ORDERED: SODIUM CHLORIDE 0.9% 1000ML 1,000 ML IV STA (07:32)
[2020-10-24] MEDS: NITROGLYCERIN SL 0.4 MG/TAB TAB SL PRN ×2 (07:57→08:30)
[2020-10-24 08:06] LABS: Basophils # (auto) 0.01 K/uL (0-0.2); Basophils % (auto) 0.1 %; Eosinophils # (auto) 0.06 K/uL (0-0.5); Eosinophils % (auto) 0.6 %; Hematocrit (blood only) 45.2 % (42-52); Hemoglobin 15.6 g/dL (14.0-18.0); Immature Granulocytes # (auto) 0.02 K/uL (0.00-0.02); Immature Granulocytes % (auto) 0.2 %; Lymphocytes # (auto) 2.25 K/uL (1.2-3.4); Lymphocytes % (auto) 23.2 %; Mean Corpuscular Hemoglobin 33.9 pg (25-34); Mean Corpuscular Hgb Conc 34.5 g/dL (32-36); Mean Corpuscular Volume 98.3 fL (80-100); Mean Platelet Volume 9.4 fL (7.4-10.4); Monocytes # (auto) 0.68 K/uL (0.11-0.59); Neutrophils # (auto) 6.66 K/uL (1.4-6.5); Neutrophils % (auto) 68.9 %; Platelet Count 150 K/uL (130-400); RDW Coefficient of Variation 13.4 % (11.5-14.5); RDW Standard Deviation 47.8 fL (36.4-46.3); White Blood Count 9.68 K/uL (4.8-10.8)
[2020-10-24 08:37] LABS: Appearance Urine Clear (Clear); Bilirubin Urine Negative (Negative); Blood Urine Negative (Negative); Color Urine Dark Yellow; Glucose Urine UA Negative (Negative); Ketones Urine Negative (Negative); Leukocyte Esterase Urine Negative (Negative); Nitrite Urine Negative (Negative); Protein Urine Negative (Negative); Specific Gravity Urine 1.025 (1.000-1.030); Urobilinogen Urine Negative (Negative)
[2020-10-24] MEDS ORDERED: MoRPHine SULFATE 4 MG/ML 1 ML CARP\\VIAL IV STA ×2 (08:39→09:38)
[2020-10-24 08:46] LABS: Alanine Aminotransferase 28 U/L (12-78); Albumin Globulin Ratio 0.9 (0.9-2); Albumin Level 3.6 gm/dl (3.4-5.0); Alkaline Phosphatase 43 U/L (45-117); BUN Creatinine Ratio 15.7 (10-20); Bilirubin,Total 0.6 mg/dl (0.2-1); Blood Urea Nitrogen 19 mg/dl (7-18); Calcium 9.1 mg/dl (8.5-10.1); Carbon Dioxide 29 mmol/L (21-32); Chloride 106 mmol/L (98-107); Creatinine Clr Calc Pharmacy 60.8 ml/min; Est GFR (African American) 76.7 ml/min; Est GFR (Non-African American) 66.2 ml/min; Glucose 99 mg/dl (70-99); Lipase 153 U/L (73-393); Phosphorus 3.7 mg/dl (2.5-4.9); Sodium 139 mmol/L (136-145); Total Protein 7.6 gm/dl (6.4-8.2); Troponin I < 0.015 ng/ml (0-0.045)
--- NOTE | 2020-10-24 08:47 | Emergency Department Note ---
History of Present Illness General Chief complaint: Chest Pain Stated complaint: CHEST PAIN, SHAKING Time Seen by Provider: 10/24/20 07:24 History of Present Illness Maximum Pain Intensity: 9 60-year-old male who presents to the emergency department with complaint of left-sided chest pain that started around 6 AM this morning. The patient reports that he was just awakening when he developed the pain. The patient reports that he also feels cold, has had mild shortness of breath and shaking. He attributes the shaking to having his oxycodone prescription changed from a smaller to bigger pill. He reports that his first medicine was a 5 mg pill, and then was switched to a 5/325 pill that is not helping with the pain. The patient is currently taking oxycodone for shingles of the right face. He reports a sharp stabbing pain from his middle ear into the neck. Patient is also had some mild lower abdominal discomfort as well. He denies any chest pain radiating into the back. He denies nausea, vomiting, diaphoresis or chills. He denies any urinary symptoms or diarrhea. The patient rates his discomfort a 9 out of 10. The patient has had prior history of coronary artery disease with MD. He also has suffered a stroke with resulting left hemiparesis. Patient also recently had a right carotid endarterectomy without complication. Home Medications Medication Instructions Recorded Confirmed Type aspirin 81 mg PO HS 10/14/19 10/24/20 History omega-3 fatty acids 1,000 mg 1,000 mg PO BID 08/27/20 10/24/20 History capsule gabapentin 300 mg capsule 600 mg PO BID cap 09/21/20 10/24/20 History docusate sodium 100 mg capsule 100 mg PO BID cap 10/07/20 10/24/20 History mirtazapine 45 mg tablet 45 mg PO HS tab 10/07/20 10/24/20 History nitroglycerin 0.4 mg sublingual 0.4 mg SUBLINGUAL UD PRN 10/07/20 10/24/20 History tablet polyethylene glycol 3350 17 17 g PO QAM 10/07/20 10/24/20 History gram/dose oral powder vitamin B complex 1 tab PO QAM 10/07/20 10/24/20 History oxycodone 5 mg PO Q6H PRN #15 tab 10/09/20 10/24/20 Rx oxycodone-acetaminophen 5 mg-325 1 tab PO Q6H PRN #20 tab 10/13/20 10/24/20 Rx mg tablet carvedilol [Coreg] 6.25 mg PO BID 10/24/20 10/24/20 History naloxone [Narcan] 1 spray INTRANASAL UD 10/24/20 10/24/20 History Allergies Allergy/AdvReac Type Severity Reaction Status Date / Time fentanyl Allergy Severe NEURO Verified 10/24/20 08:29 CHANGES tuberculin, purified protein Allergy Severe SWELLING/HI Verified 10/24/20 08:29 deriva VES rosuvastatin Allergy Intermediate Chest and Verified 10/24/20 08:29 muscle pain sertraline Allergy Intermediate Psych Verified 10/24/20 08:29 complications Tnhhyba-Yen-Yfk Reductase AdvReac Severe BODY ACHES Verified 10/24/20 08:29 Inhibitor Past Med/Surg History Medical History Yanes's palsy CAD (coronary artery disease) "Cardiac cath 2013-50% mid circumflex, 99% ostial OM1 and OM2, 70% RCA" Depression as late effect of cerebrovascular accident (CVA) Dyslipidemia ESA (generalized anxiety disorder) GERD (gastroesophageal reflux disease) Hypertension Rotator cuff dysfunction Spinal stenosis Stroke with left hemiparesis HEMORRHAGIC; 10/2019; [place] [facility] [place] s/p craniotomy Wrist drop Surgical History History of right-sided carotid endarterectomy (~02/2020) [facility] [place] post cr[place]ctomy (~10/[place]) Family History Father Diabetes Myocardial infarction Grandfather , paternal GF Diabetes Grandmother , Paternal GM Diabetes Uncle Myocardial infarction Mother Hypertension Hiatal hernia Denies family history of Ovarian cancer Prostate cancer Breast cancer Lung cancer Colorectal cancer Stroke Social History Smoking Status: Former smoker Tobacco Type: Cigarettes Age Started Using Tobacco: 18; Age Quit Using Tobacco: 58; Cigarettes Per Day: 1-2/day many years; Second Hand Exposure: No; Hx Alcohol Use: Yes Alcohol type: beer Alcohol Intake Frequency: Monthly or Less Hx Substance Use: No Preferred Language: Thai Communication Ability: Effective Visual Impairment: Limited Hearing Ability: Use of Hearing Aid 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 Required: No Beliefs That Will Affect Care: None marital status: Current Living Situation: Spouse current occupational status: retired 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 How many Children do You have: 2 Other Information That Helps Us Care for You: No other: [place] [facility] Feels Safe at Home: Yes Safety Concerns: Feels Safe At This Time Childhood Exposure to Second-Hand Smoke: No caffeine: Yes (very seldom ) Dental Care, Regularly: Yes Physical Activity Frequency: Daily Physical Activity Frequency Comment: walks daily Seatbelt Use: always Sunscreen Use: Yes Assistive Devices: Cane Review of Systems 10 system review was performed and was negative except for pertinent positives and negatives as indicated in history of present illness Physical Exam Vital Signs Vital Signs - 24 hr 10/24/20 07:22 10/24/20 07:27 10/24/20 07:30 Temperature 38.3 C H Temperature Source Oral Pulse Rate 120 H 118 H 121 H Pulse Rate from SpO2 Sensor 119 H 121 H Respiratory Rate 27 H 15 23 Blood Pressure 134/100 134/100 Blood Pressure Mean 111 111 Pulse Oximetry 98 98 98 Oxygen Delivery Method Room Air Sepsis Recent Fever Within 48 Hours Yes Sepsis New/Unexplained Change in Mental Status No Sepsis Action Taken by Nursing Physician Notified 10/24/20 08:00 10/24/20 08:08 10/24/20 08:30 Temperature Temperature Source Pulse Rate 115 H 115 H 121 H Pulse Rate from SpO2 Sensor 118 H 116 H 122 H Respiratory Rate 18 18 20 Blood Pressure 114/75 Blood Pressure Mean 88 Pulse Oximetry 95 94 96 Oxygen Delivery Method Room Air Sepsis Recent Fever Within 48 Hours Sepsis New/Unexplained Change in Mental Status Sepsis Action Taken by Nursing 10/24/20 08:57 10/24/20 09:00 10/24/20 09:01 Temperature Temperature Source Pulse Rate 117 H 116 H 118 H Pulse Rate from SpO2 Sensor 116 H 116 H 118 H Respiratory Rate 18 20 17 Blood Pressure 116/79 132/83 Blood Pressure Mean 91 99 Pulse Oximetry 95 94 94 Oxygen Delivery Method Sepsis Recent Fever Within 48 Hours Sepsis New/Unexplained Change in Mental Status Sepsis Action Taken by Nursing 10/24/20 09:04 10/24/20 09:30 10/24/20 09:31 Temperature Temperature Source Pulse Rate 115 H 109 H 109 H Pulse Rate from SpO2 Sensor 110 H Respiratory Rate 20 22 18 Blood Pressure 132/83 105/73 105/73 Blood Pressure Mean 99 83 83 Pulse Oximetry 93 92 94 Oxygen Delivery Method Room Air Room Air Sepsis Recent Fever Within 48 Hours Sepsis New/Unexplained Change in Mental Status Sepsis Action Taken by Nursing 10/24/20 10:00 10/24/20 10:01 10/24/20 10:26 Temperature Temperature Source Pulse Rate 112 H 112 H 108 H Pulse Rate from SpO2 Sensor 112 H 112 H 108 H Respiratory Rate 19 19 14 Blood Pressure 112/72 102/63 Blood Pressure Mean 85 76 Pulse Oximetry 92 92 90 Oxygen Delivery Method Sepsis Recent Fever Within 48 Hours Sepsis New/Unexplained Change in Mental Status Sepsis Action Taken by Nursing 10/24/20 10:27 10/24/20 10:30 10/24/20 10:31 Temperature Temperature Source Pulse Rate 109 H 109 H 110 H Pulse Rate from SpO2 Sensor 128 H 110 H Respiratory Rate 20 16 16 Blood Pressure 102/63 91/61 L Blood Pressure Mean 76 71 Pulse Oximetry 94 90 92 Oxygen Delivery Method Room Air Sepsis Recent Fever Within 48 Hours Sepsis New/Unexplained Change in Mental Status Sepsis Action Taken by Nursing 10/24/20 11:00 10/24/20 11:01 10/24/20 11:30 Temperature Temperature Source Pulse Rate 105 H 105 H 101 H Pulse Rate from SpO2 Sensor 105 H 105 H 101 H Respiratory Rate 16 15 16 Blood Pressure 106/69 109/73 Blood Pressure Mean 81 85 Pulse Oximetry 90 90 91 Oxygen Delivery Method Sepsis Recent Fever Within 48 Hours Sepsis New/Unexplained Change in Mental Status Sepsis Action Taken by Nursing CONSTITUTIONAL: Healthy and well nourished. Alert and oriented X 3. Patient appears in moderate discomfort, and with tremors. HEENT: Normocephalic, atraumatic. Pupils equal, round and reactive. Ears and nares are clear. No scleral icterus or conjunctival injection. Examination of the right ear does not show any middle ear effusion, cerumen impaction or external auditory canal erythema. Patient does have well-healed scabbing in the front of his ear, consistent with herpes zoster. NECK: Full active range of motion without discomfort. No JVD or carotid bruits appreciated. No nuchal rigidity. LYMPHATICS: No cervical chain adenopathy. RESPIRATORY: Clear to auscultation bilaterally with no wheezing, crackles, rhonchi or stridor. CARDIOVASCULAR: Regular rate and rhythm with no murmurs, rubs or gallops. GASTROINTESTINAL: Bowel sounds present in all quadrants. Abdomen is soft and nontender to palpation. MUSCULOSKELETAL: Patient has a left hemiparesis. Patient has no other focal tenderness to palpation through the upper back. INTEGUMENTARY: No rash or other significant dermatologic conditions noted. HEMATOLOGIC: No ecchymosis or petechiae. PSYCHIATRIC: Positive affect. NEUROLOGIC: Cranial nerves II-XII grossly intact. No focal neurologic deficits noted. Course Course Patient history and physical exam were performed. Nurses notes were reviewed. Vital signs were reviewed, showing a fever of 38.3 C, and mild tachycardia of 116 bpm. The patient is otherwise normotensive. O2 saturation is 94% on room air. IV access was established, and labs were drawn, including blood cultures x2. The patient was administered approximately 2.5 L of normal saline while in the emergency department. An ECG was performed and was normal. The patient was placed on bus monitor while in the emergency department. The patient was also administered aspirin 324 mg chew. The patient was administered nitroglycerin sublingual per protocol, and did not have any significant relief of pain, reporting a minimal decrease in pain from a 9 to an 8 out of 10. After having no decrease in his pain, the patient was administered IV morphine. The patient was administered some IV Ativan for his tremors with improvement. A portable chest x-ray shows a questionable small focal density within the right midlung section. No pneumothorax or significant cardiac prominence was noted. Review of labs showed a normal white count. CMP was also grossly normal. I nitial lactate level was elevated at 2.9. Subsequent reflex lactate level was rechecked at approximately 2 hours, and was normal. Procalcitonin was also normal. ECG and troponin was rechecked at 3 hours and was normal. Urinalysis and COVID-19 PCR test were normal. D-dimer level was elevated, prompting chest CT angiography, showing no evidence for pulmonary emboli. A right upper lobe groundglass opacity consistent with pneumonia was also noted. Findings were discussed with Dr. Castillo, ED attending physician, who also evaluated the patient. Dr. Castillo has recommended hospitalist consultation, as well as IV Rocephin. This was ordered and administered. It is noted that the patient did have O2 saturation around 90%, as well as hypotension of 91/61, possibly secondary to IV analgesics. It is noted that the patient had to be administered 2 doses of IV morphine and a dose of IV Dilaudid for pain control. Consultation was then placed with Dr. Royal, [facility] hospitalist. Please see his dictation for further treatment and final disposition. Administered Medications Gabapentin (Gabapentin 300 Mg Cap) 300 mg PO QAM HERLINDA Stop: 11/23/20 15:59 Last Admin: 10/24/20 16:13 Dose: 300 mg Documented by: [id number] Potassium Chloride/Sodium Chloride (Normal Saline W/20 Meq Kcl) 20 meq in 1,000 mls @ 100 mls/hr IV .Q10H HERLINDA Stop: 10/25/20 09:34 Last Admin: 10/24/20 16:06 Dose: 100 mls/hr Documented by: [id number] Ceftriaxone Sodium 1,000 mg/ (Dextrose) 50 mls @ 100 mls/hr IV Q24H HERLINDA; Protocol Stop: 10/31/20 15:16 Last Admin: 10/24/20 16:07 Dose: 100 mls/hr Documented by: [id number] Lidocaine HCl (Lidocaine 2% Jelly 5 Ml Tube) 5 ml EXT Q6H HERLINDA Stop: 11/23/20 15:59 Last Admin: 10/24/20 15:55 Dose: 5 ml Documented by: [id number] Oxycodone HCl (Oxycodone Hcl Ir 5 Mg Tab (Immediate Release)) 7.5 mg PO Q4H PRN PRN Reason: pain Stop: 11/07/20 15:16 Last Admin: 10/24/20 15:54 Dose: 7.5 mg Documented by: [id number] Discontinued Medications Aspirin (Aspirin Chew 324 Mg) 324 mg PO NOW STA Stop: 10/24/20 07:33 Last Admin: 10/24/20 07:57 Dose: 324 mg Documented by: [id number] Hydromorphone HCl (Hydromorphone Inj 0.5 Mg/0.5 Ml Syr) 0.5 mg IV NOW STA Stop: 10/24/20 10:01 Last Admin: 10/24/20 10:05 Dose: 0.5 mg Documented by: [id number] Sodium Chloride (Nss 1000ml) 1,000 mls @ 999 mls/hr IV .Q1H1M STA Stop: 10/24/20 08:32 Last Infusion: 10/24/20 09:00 Dose: 0 mls/hr Documented by: [id number] Admin: 10/24/20 07:47 Dose: 999 mls/hr Documented by: [id number] Sodium Chloride (Nss 1000ml) 1,000 mls @ 999 mls/hr IV .Q1H1M ONE Stop: 10/24/20 08:32 Last Infusion: 10/24/20 10:07 Dose: 0 mls/hr Documented by: [id number] Admin: 10/24/20 07:50 Dose: 999 mls/hr Documented by: [id number] Lorazepam (Ativan) 0.5 mg in 1 mls @ 1 mls/min IV NOW STA Stop: 10/24/20 07:33 Last Admin: 10/24/20 07:56 Dose: 1 mls/min Documented by: [id number] Piperacillin Sod/Tazobactam Sod (Zosyn) 4.5 gm in 120 mls @ 240 mls/hr IV NOW ONE Stop: 10/24/20 12:49 Last Infusion: 10/24/20 13:10 Dose: 0 mls/hr Documented by: [id number] Admin: 10/24/20 12:37 Dose: 240 mls/hr Documented by: [id number] Sodium Chloride (Nss) 500 mls @ 125 mls/hr IV .Q4H HERLINDA Stop: 11/23/20 12:44 Last Admin: 10/24/20 12:37 Dose: 125 mls/hr Documented by: [id number] Ioversol (Optiray 320 125ml) 118 ml IV ONCE ONE Stop: 10/24/20 10:03 Last Admin: 10/24/20 10:02 Dose: 118 ml Documented by: [id number] Ketorolac Tromethamine (Ketorolac Tromethamine 15 Mg/Ml Vial) 15 mg IV NOW ONE Stop: 10/24/20 13:03 Last Admin: 10/24/20 13:19 Dose: 15 mg Documented by: [id number] Morphine Sulfate (Morphine Sulfate 4 Mg/Ml 1 Ml Carp\\Vial) 4 mg IV NOW STA Stop: 10/24/20 08:40 Last Admin: 10/24/20 09:01 Dose: 4 mg Documented by: [id number] Morphine Sulfate (Morphine Sulfate 4 Mg/Ml 1 Ml Carp\\Vial) 4 mg IV NOW STA Stop: 10/24/20 09:39 Last Admin: 10/24/20 09:42 Dose: 4 mg Documented by: [id number] Nitroglycerin (Nitroglycerin Sl 0.4 Mg/Tab Tab) 0.4 mg SL UD PRN PRN Reason: Chest Pain Stop: 11/23/20 07:31 Last Admin: 10/24/20 08:30 Dose: 0.4 mg Documented by: [id number] Admin: 10/24/20 07:57 Dose: 0.4 mg Documented by: [id number] Pantoprazole Sodium (Pantoprazole 40 Mg Tab) 40 mg PO NOW STA Stop: 10/24/20 13:36 Last Admin: 10/24/20 14:00 Dose: 40 mg Documented by: [id number] Medical Decision Making Medical Records Attestation: I reviewed the patient's medical records. Home Medications Current Medication List: was personally reviewed by me Laboratory Data Attestation: I reviewed the patient's lab results. Result diagrams: 10/24/20 07:48 10/24/20 08:35 Lab Results 10/24/20 10/24/20 10/24/20 Range/Units 07:47 07:47 07:48 WBC 9.68 (4.8-10.8) K/uL RBC 4.60 L (4.7-6.1) M/uL Hgb 15.6 (14.0-18.0) g/dL Hct 45.2 (42-52) % MCV 98.3 (80-100) fL MCH 33.9 (25-34) pg MCHC 34.5 (32-36) g/dL RDW Std Deviation 47.8 H (36.4-46.3) fL RDW Coeff of Nessa 13.4 (11.5-14.5) % Plt Count 150 (130-400) K/uL MPV 9.4 (7.4-10.4) fL Immature Gran % (Auto) 0.2 % Neut % (Auto) 68.9 % Lymph % (Auto) 23.2 % [place] % (Auto) 7.0 % Eos % (Auto) 0.6 % Baso % (Auto) 0.1 % Neut # (Auto) 6.66 H (1.4-6.5) K/uL Lymph # (Auto) 2.25 (1.2-3.4) K/uL [place] # (Auto) 0.68 H (0.11-0.59) K/uL Eos # (Auto) 0.06 (0-0.5) K/uL Baso # (Auto) 0.01 (0-0.2) K/uL Immature Gran # (Auto) 0.02 (0.00-0.02) K/uL ESR (0-20) mm/hr APTT PTT Ratio D-Dimer Sodium (136-145) mmol/L Potassium (3.5-5.1) mmol/L Chloride (98-107) mmol/L Carbon Dioxide (21-32) mmol/L Anion Gap (3-11) BUN (7-18) mg/dl Creatinine (0.6-1.4) mg/dl Est Cr Clr Drug Dosing ml/min Est GFR ( Amer) ml/min Est GFR (Non-Af Amer) ml/min BUN/Creatinine Ratio (10-20) Glucose (70-99) mg/dl Lactate (0.4-2.0) mmol/L Calcium (8.5-10.1) mg/dl Phosphorus (2.5-4.9) mg/dl Magnesium (1.8-2.4) mg/dl Total Bilirubin (0.2-1) mg/dl AST (15-37) U/L ALT (12-78) U/L Alkaline Phosphatase (45-117) U/L Troponin I (0-0.045) ng/ml C-Reactive Protein (0-0.29) mg/dl Total Protein (6.4-8.2) gm/dl Albumin (3.4-5.0) gm/dl Globulin (2.5-4.0) gm/dl Albumin/Globulin Ratio (0.9-2) Lipase (73-393) U/L Procalcitonin (0-0.5) ng/ml Urine Color Urine Appearance (Clear) Urine pH (4.5-7.5) Ur Specific [place] (1.000-1.030) Urine Protein (Negative) Urine Glucose (UA) (Negative) Urine Ketones (Negative) Urine Blood (Negative) Urine Nitrite (Negative) Urine Bilirubin (Negative) Urine Urobilinogen (Negative) Ur Leukocyte Esterase (Negative) COVID-19 Eval Order Covid19 at [facility] SARS-CoV-2 (PCR) NEGATIVE (Negative) 10/24/20 10/24/20 10/24/20 Range/Units 07:48 07:48 07:48 WBC (4.8-10.8) K/uL RBC (4.7-6.1) M/uL Hgb (14.0-18.0) g/dL Hct (42-52) % MCV (80-100) fL MCH (25-34) pg MCHC (32-36) g/dL RDW Std Deviation (36.4-46.3) fL RDW Coeff of Nessa (11.5-14.5) % Plt Count (130-400) K/uL MPV (7.4-10.4) fL Immature Gran % (Auto) % Neut % (Auto) % Lymph % (Auto) % [place] % (Auto) % Eos % (Auto) % Baso % (Auto) % Neut # (Auto) (1.4-6.5) K/uL Lymph # (Auto) (1.2-3.4) K/uL [place] # (Auto) (0.11-0.59) K/uL Eos # (Auto) (0-0.5) K/uL Baso # (Auto) (0-0.2) K/uL Immature Gran # (Auto) (0.00-0.02) K/uL ESR 10 (0-20) mm/hr APTT Cancelled PTT Ratio Cancelled D-Dimer Cancelled Sodium 139 (136-145) mmol/L Potassium (3.5-5.1) mmol/L Chloride 106 (98-107) mmol/L Carbon Dioxide 29 (21-32) mmol/L Anion Gap 4.0 (3-11) BUN 19 H (7-18) mg/dl Creatinine 1.18 (0.6-1.4) mg/dl Est Cr Clr Drug Dosing 60.8 ml/min Est GFR ( Amer) 76.7 ml/min Est GFR (Non-Af Amer) 66.2 ml/min BUN/Creatinine Ratio 15.7 (10-20) Glucose 99 (70-99) mg/dl Lactate (0.4-2.0) mmol/L Calcium 9.1 (8.5-10.1) mg/dl Phosphorus 3.7 (2.5-4.9) mg/dl Magnesium (1.8-2.4) mg/dl Total Bilirubin 0.6 (0.2-1) mg/dl AST (15-37) U/L ALT 28 (12-78) U/L Alkaline Phosphatase 43 L (45-117) U/L Troponin I < 0.015 (0-0.045) ng/ml C-Reactive Protein (0-0.29) mg/dl Total Protein 7.6 (6.4-8.2) gm/dl Albumin 3.6 (3.4-5.0) gm/dl Globulin 4.0 (2.5-4.0) gm/dl Albumin/Globulin Ratio 0.9 (0.9-2) Lipase 153 (73-393) U/L Procalcitonin (0-0.5) ng/ml Urine Color Urine Appearance (Clear) Urine pH (4.5-7.5) Ur Specific [place] (1.000-1.030) Urine Protein (Negative) Urine Glucose (UA) (Negative) Urine Ketones (Negative) Urine Blood (Negative) Urine Nitrite (Negative) Urine Bilirubin (Negative) Urine Urobilinogen (Negative) Ur Leukocyte Esterase (Negative) COVID-19 Eval Order SARS-CoV-2 (PCR) (Negative) 10/24/20 10/24/20 10/24/20 Range/Units 08:25 08:35 08:35 WBC (4.8-10.8) K/uL RBC (4.7-6.1) M/uL Hgb (14.0-18.0) g/dL Hct (42-52) % MCV (80-100) fL MCH (25-34) pg MCHC (32-36) g/dL RDW Std Deviation (36.4-46.3) fL RDW Coeff of Nessa (11.5-14.5) % Plt Count (130-400) K/uL MPV (7.4-10.4) fL Immature Gran % (Auto) % Neut % (Auto) % Lymph % (Auto) % [place] % (Auto) % Eos % (Auto) % Baso % (Auto) % Neut # (Auto) (1.4-6.5) K/uL Lymph # (Auto) (1.2-3.4) K/uL [place] # (Auto) (0.11-0.59) K/uL Eos # (Auto) (0-0.5) K/uL Baso # (Auto) (0-0.2) K/uL Immature Gran # (Auto) (0.00-0.02) K/uL ESR (0-20) mm/hr APTT PTT Ratio D-Dimer Sodium (136-145) mmol/L Potassium 3.9 (3.5-5.1) mmol/L Chloride (98-107) mmol/L Carbon Dioxide (21-32) mmol/L Anion Gap (3-11) BUN (7-18) mg/dl Creatinine (0.6-1.4) mg/dl Est Cr Clr Drug Dosing ml/min Est GFR ( Amer) ml/min Est GFR (Non-Af Amer) ml/min BUN/Creatinine Ratio (10-20) Glucose (70-99) mg/dl Lactate (0.4-2.0) mmol/L Calcium (8.5-10.1) mg/dl Phosphorus (2.5-4.9) mg/dl Magnesium 2.1 (1.8-2.4) mg/dl Total Bilirubin (0.2-1) mg/dl AST 17 (15-37) U/L ALT (12-78) U/L Alkaline Phosphatase (45-117) U/L Troponin I (0-0.045) ng/ml C-Reactive Protein (0-0.29) mg/dl Total Protein (6.4-8.2) gm/dl Albumin (3.4-5.0) gm/dl Globulin (2.5-4.0) gm/dl Albumin/Globulin Ratio (0.9-2) Lipase (73-393) U/L Procalcitonin < 0.05 (0-0.5) ng/ml Urine Color Dark Yellow Urine Appearance Clear (Clear) Urine pH 6.0 (4.5-7.5) Ur Specific [place] 1.025 (1.000-1.030) Urine Protein Negative (Negative) Urine Glucose (UA) Negative (Negative) Urine Ketones Negative (Negative) Urine Blood Negative (Negative) Urine Nitrite Negative (Negative) Urine Bilirubin Negative (Negative) Urine Urobilinogen Negative (Negative) Ur Leukocyte Esterase Negative (Negative) COVID-19 Eval Order SARS-CoV-2 (PCR) (Negative) 06/20/21 06/20/21 06/20/21 Range/Units 08:35 08:35 08:56 WBC (4.8-10.8) K/uL RBC (4.7-6.1) M/uL Hgb (14.0-18.0) g/dL Hct (42-52) % MCV (80-100) fL MCH (25-34) pg MCHC (32-36) g/dL RDW Std Deviation (36.4-46.3) fL RDW Coeff of Nessa (11.5-14.5) % Plt Count (130-400) K/uL MPV (7.4-10.4) fL Immature Gran % (Auto) % Neut % (Auto) % Lymph % (Auto) % [place] % (Auto) % Eos % (Auto) % Baso % (Auto) % Neut # (Auto) (1.4-6.5) K/uL Lymph # (Auto) (1.2-3.4) K/uL [place] # (Auto) (0.11-0.59) K/uL Eos # (Auto) (0-0.5) K/uL Baso # (Auto) (0-0.2) K/uL Immature Gran # (Auto) (0.00-0.02) K/uL ESR (0-20) mm/hr APTT 22.1 PTT Ratio 0.8 D-Dimer 610 H* Sodium (136-145) mmol/L Potassium (3.5-5.1) mmol/L Chloride (98-107) mmol/L Carbon Dioxide (21-32) mmol/L Anion Gap (3-11) BUN (7-18) mg/dl Creatinine (0.6-1.4) mg/dl Est Cr Clr Drug Dosing ml/min Est GFR ( Amer) ml/min Est GFR (Non-Af Amer) ml/min BUN/Creatinine Ratio (10-20) Glucose (70-99) mg/dl Lactate 2.9 H* (0.4-2.0) mmol/L Calcium (8.5-10.1) mg/dl Phosphorus (2.5-4.9) mg/dl Magnesium (1.8-2.4) mg/dl Total Bilirubin (0.2-1) mg/dl AST (15-37) U/L ALT (12-78) U/L Alkaline Phosphatase (45-117) U/L Troponin I (0-0.045) ng/ml C-Reactive Protein < 0.29 (0-0.29) mg/dl Total Protein (6.4-8.2) gm/dl Albumin (3.4-5.0) gm/dl Globulin (2.5-4.0) gm/dl Albumin/Globulin Ratio (0.9-2) Lipase (73-393) U/L Procalcitonin (0-0.5) ng/ml Urine Color Urine Appearance (Clear) Urine pH (4.5-7.5) Ur Specific [place] (1.000-1.030) Urine Protein (Negative) Urine Glucose (UA) (Negative) Urine Ketones (Negative) Urine Blood (Negative) Urine Nitrite (Negative) Urine Bilirubin (Negative) Urine Urobilinogen (Negative) Ur Leukocyte Esterase (Negative) COVID-19 Eval Order SARS-CoV-2 (PCR) (Negative) 10/24/20 10/24/20 Range/Units 10:33 10:42 WBC (4.8-10.8) K/uL RBC (4.7-6.1) M/uL Hgb (14.0-18.0) g/dL Hct (42-52) % MCV (80-100) fL MCH (25-34) pg MCHC (32-36) g/dL RDW Std Deviation (36.4-46.3) fL RDW Coeff of Nessa (11.5-14.5) % Plt Count (130-400) K/uL MPV (7.4-10.4) fL Immature Gran % (Auto) % Neut % (Auto) % Lymph % (Auto) % [place] % (Auto) % Eos % (Auto) % Baso % (Auto) % Neut # (Auto) (1.4-6.5) K/uL Lymph # (Auto) (1.2-3.4) K/uL [place] # (Auto) (0.11-0.59) K/uL Eos # (Auto) (0-0.5) K/uL Baso # (Auto) (0-0.2) K/uL Immature Gran # (Auto) (0.00-0.02) K/uL ESR (0-20) mm/hr APTT PTT Ratio D-Dimer Sodium (136-145) mmol/L Potassium (3.5-5.1) mmol/L Chloride (98-107) mmol/L Carbon Dioxide (21-32) mmol/L Anion Gap (3-11) BUN (7-18) mg/dl Creatinine (0.6-1.4) mg/dl Est Cr Clr Drug Dosing ml/min Est GFR ( Amer) ml/min Est GFR (Non-Af Amer) ml/min BUN/Creatinine Ratio (10-20) Glucose (70-99) mg/dl Lactate 1.5 (0.4-2.0) mmol/L Calcium (8.5-10.1) mg/dl Phosphorus (2.5-4.9) mg/dl Magnesium (1.8-2.4) mg/dl Total Bilirubin (0.2-1) mg/dl AST (15-37) U/L ALT (12-78) U/L Alkaline Phosphatase (45-117) U/L Troponin I < 0.015 (0-0.045) ng/ml C-Reactive Protein (0-0.29) mg/dl Total Protein (6.4-8.2) gm/dl Albumin (3.4-5.0) gm/dl Globulin (2.5-4.0) gm/dl Albumin/Globulin Ratio (0.9-2) Lipase (73-393) U/L Procalcitonin (0-0.5) ng/ml Urine Color Urine Appearance (Clear) Urine pH (4.5-7.5) Ur Specific [place] (1.000-1.030) Urine Protein (Negative) Urine Glucose (UA) (Negative) Urine Ketones (Negative) Urine Blood (Negative) Urine Nitrite (Negative) Urine Bilirubin (Negative) Urine Urobilinogen (Negative) Ur Leukocyte Esterase (Negative) COVID-19 Eval Order SARS-CoV-2 (PCR) (Negative) Imaging Data Attestation: I personally reviewed and interpreted this imaging study as follows: My Impression: My interpretation of reportable chest x-ray does not show evidence for pneumothorax or cardiac prominence. There is a questionable small focal density within the right midlung zone. Chest CT angiography shows patchy groundglass airspace opacities within the right upper lobe, likely representing a pneumonia. No pulmonary emboli were noted. Radiologist reports were also reviewed. Radiologist's Impression: Chest X-Ray 10/24/20 07:32 XR chest 1V portable HISTORY: Atypical chest pain. COMPARISON: 10/14/2019. FINDINGS: No pneumothorax. No pleural effusions. There are low lung volumes. The heart is normal in size. Question small focal density within the right midlung zone. The left lung is clear. Old, healed fractures within the left first and second ribs as well as the left clavicle. IMPRESSION: Questionable small focal density within the right midlung zone. This could represent a developing pneumonitis. This will be better appreciated on the same day chest CT. ACT 112: Negative or not required by law. Electronically signed by: Pop Mora M.D. 10/24/2020 9:55 AM Chest CTA 10/24/20 09:38 CHEST CTA for PULMONARY ARTERIES CT DOSE: 339.61 mGy.cm HISTORY: Atypical chest pain. TECHNIQUE: Multiaxial CT images of the chest were performed following the intravenous administration of contrast to evaluate the pulmonary arteries. Maximal intensity projection images were also obtained. A dose lowering technique was utilized adhering to the principles of ALARA. COMPARISON STUDY: Chest CTA 09/04/2018. FINDINGS: Limited views of the upper abdomen demonstrate a normal liver and spleen. The heart is normal in size. No pleural or pericardial effusions. No mediastinal or hilar lymphadenopathy. No fractures within the visualized osseous structures. Normal thyroid gland. Mild circumferential thickening of the esophagus which is likely chronic. No evidence for an aortic dissection. No significant change in the nodular thickening along the right major fissure at the posterior right upper lobe. This measures up to 12 mm in size and appears to connect to both a pulmonary artery and vein. There is incomplete filling of the pulmonary arterial branch, unchanged which is suggestive of scarring. Therefore, this is likely chronic and represents a pulmonary arterial venous malformation. No additional filling defects within the pulmonary arteries to suggest a pulmonary embolus. No pneumothorax. Interval development of patchy g roundglass airspace opacities within the right upper lobe. Additional groundglass densities within the lower lobes persist poorly favor mild dependent change. The central airways are patent. IMPRESSION: 1. There are patchy groundglass airspace opacities within the right upper lobe. This likely represents a pneumonia and could be due to a viral process. 2. Redemonstration of the 1.2 cm right upper lobe pulmonary AVM. 3. No evidence for acute pulmonary embolus. 4. Mild esophageal wall thickening. ACT 112: Negative or not required by law. Electronically signed by: Pop Mora M.D. 10/24/2020 10:48 AM ECG Data Attestation: I personally reviewed and interpreted this ECG as follows: Indication: + chest pain, + SOB/dyspnea and + other (Fever) Rate (beats per minute): 115 Rhythm: + sinus tachycardia ECG Intervals/blocks: + Normal QRS ECG [place]: + Normal ECG ST segments: + Normal ST segments Comparison ECG Date: from (01/12/2020) Change: no significant change Additional Comments: Repeat ECG at 3 hours continue to show a sinus tachycardia of 107 bpm with no other acute changes. Blood Pressure Blood Pressure Findings: Normal blood pressure MDM Narrative Cardiac monitoring: An order was placed for continuous cardiac monitoring. The monitor shows a rate of 115 bpm with a sinus tachycardic rhythm. classroom monitor history was reviewed throughout the evaluation, and no dysrhythmias were noted. Patient presents to the emergency department with primary complaint of left chest pain. It is also noted that the patient was febrile upon presentation. With further work-up in the emergency department, CT angiography of the chest did show evidence for a groundglass opacity right upper lobe pneumonia, possible viral etiology. It is noted that the patient's O2 saturation at its lowest was 90% on room air. He also had an episode of hypotension, possibly secondary to IV analgesics administered for his chest pain. Cardiac work-up today is not suggestive of myocardial infarction. CT angiography of the chest did not show evidence for pneumothorax, pericarditis or pulmonary emboli. There is concern for sepsis given his presentation today. The patient was administered IV Rocephin at the suggestion of Dr. Castillo. Impression & Plan Sepsis, Coronary artery disease, Stroke with left hemiparesis, Pneumonia, Postherpetic neuralgia, Atypical chest pain Discharge Plan Visit Data Chief Complaint: Chest Pain Stated Complaint: CHEST PAIN, SHAKING ED Provider: Holly Castillo ED Midlevel Provider: Grant Allen Discharge Problem: Sepsis, Coronary artery disease, Stroke with left hemiparesis, Pneumonia, Postherpetic neuralgia, Atypical chest pain Patient Disposition: Admitted As Inpatient Discharge Instructions Interventions: ED Discharge Assessment Last Done: 10/24/20 14:56
[2020-10-24 09:19] LABS: Potassium 3.9 mmol/L (3.5-5.1)
[2020-10-24 09:22] LABS: Partial Thromboplastin Ratio 0.8; Partial Thromboplastin Time 22.1 Seconds (21.0-31.0)
[2020-10-24 09:24] LABS: Magnesium 2.1 mg/dl (1.8-2.4)
[2020-10-24 09:26] LABS: D Dimer 610 ug/L FEU (0-500)
--- NOTE | 2020-10-24 09:57 | XRay Report ---
XR chest 1V portable HISTORY: Atypical chest pain. COMPARISON: 10/14/2019. FINDINGS: No pneumothorax. No pleural effusions. There are low lung volumes. The heart is normal in s ize. Question small focal density within the right midlung zone. The left lung is clear. Old, healed fractures within the left first and second ribs as well as the left clavicle. IMPRESSION: Questionable small focal density within the right midlung zone. This could represent a developing pne umonitis. This will be better appreciated on the same day chest CT. ACT 112: Negative or not required by law. Electronically signed by: Pop Mora M.D. 10/24/2020 9:55 AM
[2020-10-24] MEDS ORDERED: HYDROmorphone INJ 0.5 MG/0.5 ML SYR IV STA (10:00)
[2020-10-24] MEDS ORDERED: OPTIRAY 320 125ml IV ONE (10:02)
--- NOTE | 2020-10-24 10:49 | CT Scan Report ---
CHEST CTA for PULMONARY ARTERIES CT DOSE: 339.61 mGy.cm HISTORY: Atypical chest pain. TECHNIQUE: Multiaxial CT images of the chest were performed following the intravenous administration of contrast to evaluate the pulmonary arteries. Maximal intensity projection images were also obtaine d. A dose lowering technique was utilized adhering to the principles of ALARA. COMPARISON STUDY: Chest CTA 09/04/2018. FINDINGS: Limited views of the upper abdomen demonstrate a normal liver and spleen. The heart is norm al in size. No pleural or pericardial effusions. No mediastinal or hilar lymphadenopathy. No fracture s within the visualized osseous structures. Normal thyroid gland. Mild circumferential thickening of the esophagus which is likely chronic. No evidence for an aortic dissection. No significant change in the nodular thickening along the right major fissure at the posterior right upper lobe. This measure s up to 12 mm in size and appears to connect to both a pulmonary artery and vein. There is incomplete filling of the pulmonary arterial branch, unchanged which is suggestive of scarring. Therefore, this is likely chronic and represents a pulmonary arterial venous malformation. No additional filling def ects within the pulmonary arteries to suggest a pulmonary embolus. No pneumothorax. Interval developm ent of patchy groundglass airspace opacities within the right upper lobe. Additional groundglass dens ities within the lower lobes persist poorly favor mild dependent change. The central airways are reyes nt. IMPRESSION: 1. There are patchy groundglass airspace opacities within the right upper lobe. This likely represent s a pneumonia and could be due to a viral process. 2. Redemonstration of the 1.2 cm right upper lobe pulmonary AVM. 3. No evidence for acute pulmonary embolus. 4. Mild esophageal wall thickening. ACT 112: Negative or not required by law. Electronically signed by: Pop Mora M.D. 10/24/2020 10:48 AM
[2020-10-24] MEDS ORDERED: PIPERACILLIN/TAZOBACTAM 4.5 GM/120 ML BAG IV ONE (12:20)
[2020-10-24] MEDS ORDERED: PIPERACILL/TAZOBAC CONSULT ACTIVE PRN (12:20)
--- NOTE | 2020-10-24 12:36 | History & Physical Report ---
Date of Service October 24, 2020 Assessment & Plan (1) Sepsis: 2nd to pneumonia, RUL. With associated lactic acidosis s/p IV fluids with improvement/resolution. Follow blood cultures. See below. Continue IV fluids. (2) Pneumonia: RUL. Groundglass opacity. COVID negative, but has not been vaccinated. He has a negative procalcitonin making a viral etiology most likely. In light of presentation will keep him in airborne isolation and plan to retest tomorrow. Consider [employer] panel which includes COVID testing. If bacterial will continue rocephin/doxy for now. He has severe GERD - can't rule out aspiration as the cause. Given the location would recommend another CT in 2-3 months to ensure resolution. (3) Chest pain: Despite a known h/o CAD thus far his troponins are negative and his EKG is w/o ischemic changes. He did not have resolution of his pain with nitrates or narcotics. He did have resolution with toradol 15mg IV x 1. Pericarditis? If not cardiac -- GI? On CT today he has distal esophageal inflammation which would suggest GERD at minimum. Place on PPI bid. Cont serial troponins. Echo. check sed rate/crp. (4) Post herpetic neuralgia: Right ear/lateral neck c/w cervical plexus dermatome. All lesions are scabbed; initial outbreak was 3-4 weeks ago. Continues with severe pain. He is on gabapentin but only taking 600mg at bedtime. Will add 300mg qam. Also try lidocaine jelly 4 times a day in thin amounts of helix of ear and the lateral neck. Could consider addition of cymbalta to his gabapentin if neuropathic pain is refractory. Hold on this for now since we are just starting the higher dose of gabapentin. (5) CAD (coronary artery disease): known h/o CAD. 01/2014 heart cath performed by Dr Cardona - [facility] - 1. 50% mid circumflex 2. 99% osteal OM1 and OM2 stenosis - vessels too small for intervention at that time 3. 70% apical right coronary artery stenosis plan for echo tomorrow. serial troponins. continue aspirin. continue coreg - reduce dose to 3.125mg BID due to low normal BPs in the face of his sepsis. he is statin intolerant. see above in "chest pain." (6) Hypertension: lower coreg dose due to low normal BPs in face of his sepsis. hold if necessary. (7) Stroke with left hemiparesis: Right sided MCA territory stroke with hemorrhagic conversion? Other etiology? He was life flighted to [facility] on 10/14/2019 for this event per an ER note from that date. I cannot find a d/c summary from [place] in his chart and thus details are uncertain about what happened during that hospitalization. On 10/15/19, however, he underwent right-sided craniotomy for his condition. He now has dense left arm weakness with more mild weakness in the left leg. He uses a brace for wrist drop of the left wrist. Continues on asa for secondary stroke prevention. 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 (9) ESA (generalized anxiety disorder): Previously took ativan per the PDMP but it appears he is no longer taking such. Records from [employer] from earlier this year state he had been taking lexapro in a tiny dose but this has been stopped. (10) Dyslipidemia: Statin intolerant. (11) GERD (gastroesophageal reflux disease): Lower esophageal inflammation noted on CT chest today. His presenting chest pain could be partially from GERD. He reports frequent GERD symptoms, sometimes daily. He does not take prescription PPI. Will start PPI bid in the event his presenting chest pain was GERD-related. (12) DVT prophylaxis: heparin 5000 BID updated at bedside History of Present Illness Chief Complaint: chills, chest pain Primary Care Provider: Lebron Melendez, 60yo male - h/o CAD based on heart cath in 2013 and recent shingles of the right neck and right ear - presents with left sided chest pain that began about 0600 this am. Pain has been constant since then. Pain is 9/10 on pain scale. Pain was sharp initially, now dull in character. Located over left costal margin and some minimal radiation to sternal region. No jaw or left arm pain. Some pleuritic nature to it. When he awoke this am he had shaking chills with the pain as well. Rolling to right side makes pain better. ?worse with laying flat. Minimal cough at home. No dyspnea today. Mild burping/belching at home today. [place] fine yesterday with good appetite. The patient and his live down in [place], [place] during the winter and he had a nuclear stress test in July 2020 - negative. Upon return to [place] he went and saw Dr Orosco with [facility] - cath not recommended. No other chest pain spells since returning from [place]. He reports issues with heartburn on fairly regular basis. Without medications he has daily symptoms. No COVID vaccine. Has not had COVID illness at any point in the past to his knowledge. Late September he developed shingles. Had severe right ear pain and continues to have such. He c/o right ear pain during my bedside visit. No sick contacts. No travel in the last few weeks. Allergies Allergy/AdvReac Type Severity Reaction Status Date / Time fentanyl Allergy Severe NEURO Verified 10/24/20 08:29 CHANGES tuberculin, purified protein Allergy Severe SWELLING/HI Verified 10/24/20 08:29 deriva VES rosuvastatin Allergy Intermediate Chest and Verified 10/24/20 08:29 muscle pain sertraline Allergy Intermediate Psych Verified 10/24/20 08:29 complications Zrhxtbk-Byc-Xoq Reductase AdvReac Severe BODY ACHES Verified 10/24/20 08:29 Inhibitor Home Medications Medication Instructions Recorded Confirmed Type aspirin 81 mg PO HS 10/14/19 10/24/20 History omega-3 fatty acids 1,000 mg 1,000 mg PO BID 08/27/20 10/24/20 History capsule gabapentin 300 mg capsule 600 mg PO BID cap 09/21/20 10/24/20 History docusate sodium 100 mg capsule 100 mg PO BID cap 10/07/20 10/24/20 History mirtazapine 45 mg tablet 45 mg PO HS tab 10/07/20 10/24/20 History nitroglycerin 0.4 mg sublingual 0.4 mg SUBLINGUAL UD PRN 10/07/20 10/24/20 History tablet polyethylene glycol 3350 17 17 g PO QAM 10/07/20 10/24/20 History gram/dose oral powder vitamin B complex 1 tab PO QAM 10/07/20 10/24/20 History oxycodone 5 mg PO Q6H PRN #15 tab 10/09/20 10/24/20 Rx oxycodone-acetaminophen 5 mg-325 1 tab PO Q6H PRN #20 tab 10/13/20 10/24/20 Rx mg tablet carvedilol [Coreg] 6.25 mg PO BID 10/24/20 10/24/20 History naloxone [Narcan] 1 spray INTRANASAL UD 10/24/20 10/24/20 History Past Med/Surg History Medical History Yanes's palsy CAD (coronary artery disease) "Cardiac cath 2014-50% mid circumflex, 99% ostial OM1 and OM2, 70% RCA" Depression as late effect of cerebrovascular accident (CVA) Dyslipidemia ESA (generalized anxiety disorder) GERD (gastroesophageal reflux disease) Hypertension Rotator cuff dysfunction Spinal stenosis Stroke with left hemiparesis HEMORRHAGIC; 10/2019; [place] [facility] [place]; s/p craniotomy Wrist drop Surgical History History of right-sided carotid endarterectomy (~02/2020) [facility] Status post craniectomy (~10/2019) Family History Father Diabetes Myocardial infarction Grandfather , paternal GF Diabetes Grandmother , Paternal GM Diabetes Uncle Myocardial infarction Mother Hypertension Hiatal hernia Denies family history of Ovarian cancer Prostate cancer Breast cancer Lung cancer Colorectal cancer Stroke Social History Smoking Status: Former smoker Tobacco Type: Cigarettes Age Started Using Tobacco: 18; Age Quit Using Tobacco: 58; Cigarettes Per Day: 1-2/day many years; Second Hand Exposure: No; Hx Alcohol Use: Yes Alcohol type: beer Alcohol Intake Frequency: Monthly or Less Hx Substance Use: No Preferred Language: Zambian Communication Ability: Effective Visual Impairment: Limited Hearing Ability: Use of Hearing Aid Wildlife Science Professor Required: No Beliefs That Will Affect Care: None marital status: Current Living Situation: Spouse current occupational status: retired 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 How many Children do You have: 2 Other Information That Helps Us Care for You: No other: receiving VA care Feels Safe at Home: Yes Safety Concerns: Feels Safe At This Time Childhood Exposure to Second-Hand Smoke: No caffeine: Yes (very seldom ) Dental Care, Regularly: Yes Physical Activity Frequency: Daily Physical Activity Frequency Comment: walks daily Seatbelt Use: always Sunscreen Use: Yes Assistive Devices: Brace/Splint/Immobilizer and Cane Review of Systems Constitutional: + fever, + chills, + fatigue and + anorexia; no body aches and no weight loss Eyes: no discharge and no worsening vision Ear, Nose, Mouth, Throat: no nasal congestion and no sore throat no loss of taste/smell Respiratory: + cough, + dyspnea on exertion (during the walk yesterday ) and + pain on inspiration; no dyspnea Cardiovascular: as per Subjective / HPI and + chest pain; no edema Gastrointestinal: + nausea (this am; laying down made this worse ); no abdominal pain, no vomiting, no constipation, no diarrhea/loose stools and no blood in stools Genitourinary: no dysuria Musculoskeletal: + joint pain (fingers - chronic ) Integumentary: + rash (shingles - face/right ear ) Neurologic: + localized weakness (left arm/leg from prior cva); no headache(s) Psychiatric: + depression Endocrine: no diabetes Hematologic / Lymphatic: no easy bleeding and no easy bruising Physical Exam Constitutional: + thin and + frail appearing; no acute distress and no altered mental status Eyes: PERRL ENMT: Ears: + external ear abnormality (crusted shingles lesions on helix of RIGHT ear; right TM & canal both wnl); no TM abnormality Nose: no external nose abnormality Mouth: no oral mucosal abnormality and oral mucous membranes not dry Neck: trachea midline, no thyromegaly crusted/scabbed shingles lesions right base of neck Respiratory: normal respiratory effort, lungs clear to auscultation no respiratory distress Auscultation: + rales (scant RUL - anterior ); no wheezes Cardiovascular: Rate/Rhythm: regular rate and regular rhythm Heart Sounds: normal S1 and normal S2; no murmur and no cardiac rub Vessels: posterior tibial pulses present and dorsalis pedis pulses present; no JVD Extremities: no edema Chest (Breasts): Additional Comments: no reproducible chest wall pain to palpation Gastrointestinal (Abdomen): normal bowel sounds, soft, nontender, no hepatosplenomegaly Musculoskeletal: left distal arm/wrist in splint; no fingernail clubbing Skin: right ear/right neck scabbed lesions as above; no generalized rash Neurologic: left arm strength 2/5; left leg strength 3-4/5; RUE/RLE 5/5 strength; complete left facial bells palsy Psychiatric: Orientation: alert and oriented x 3 Lymphatic: no cervical lymphadenopathy Results & Data Results & Data ([facility]) Vital Signs (Past 12 Hours) Vital Signs Temp Pulse Resp BP Pulse Ox 10/24/20 11:30 101 H 16 109/73 91 10/24/20 11:01 105 H 15 90 10/24/20 11:00 105 H 16 106/69 90 10/24/20 10:31 110 H 16 92 10/24/20 10:30 109 H 16 91/61 L 90 10/24/20 10:27 109 H 20 102/63 94 10/24/20 10:26 108 H 14 102/63 90 10/24/20 10:01 112 H 19 92 10/24/20 10:00 112 H 19 112/72 92 10/24/20 09:31 109 H 18 105/73 94 10/24/20 09:30 109 H 22 105/73 92 10/24/20 09:04 115 H 20 132/83 93 10/24/20 09:01 118 H 17 94 10/24/20 09:00 116 H 20 132/83 94 10/24/20 08:57 117 H 18 116/79 95 10/24/20 08:30 121 H 20 96 10/24/20 08:08 115 H 18 114/75 94 10/24/20 08:00 115 H 18 95 10/24/20 07:30 121 H 23 98 10/24/20 07:27 118 H 15 134/100 98 10/24/20 07:22 38.3 C H 120 H 27 H 134/100 98 Laboratory Results Microbiology 10/24/20 08:56 Blood Aerobic Blood Culture - Pending 10/24/20 08:56 Blood Anaerobic Blood Culture - Pending 10/24/20 08:35 Blood Aerobic Blood Culture - Pending 10/24/20 08:35 Blood Anaerobic Blood Culture - Pending Labs 10/24/20 10/24/20 10/24/20 07:47 07:47 07:48 WBC 9.68 RBC 4.60 L Hgb 15.6 Hct 45.2 MCV 98.3 MCH 33.9 MCHC 34.5 RDW Std Deviation 47.8 H RDW Coeff of Nessa 13.4 Plt Count 150 MPV 9.4 Immature Gran % (Auto) 0.2 Neut % (Auto) 68.9 Lymph % (Auto) 23.2 [place] % (Auto) 7.0 Eos % (Auto) 0.6 Baso % (Auto) 0.1 Neut # (Auto) 6.66 H Lymph # (Auto) 2.25 [place] # (Auto) 0.68 H Eos # (Auto) 0.06 Baso # (Auto) 0.01 Immature Gran # (Auto) 0.02 ESR APTT PTT Ratio D-Dimer Sodium Potassium Chloride Carbon Dioxide Anion Gap BUN Creatinine Est Cr Clr Drug Dosing Est GFR ( Amer) Est GFR (Non-Af Amer) BUN/Creatinine Ratio Glucose Lactate Calcium Phosphorus Magnesium Total Bilirubin AST ALT Alkaline Phosphatase Troponin I C-Reactive Protein Total Protein Albumin Globulin Albumin/Globulin Ratio Lipase Procalcitonin Urine Color Urine Appearance Urine pH Ur Specific [place] Urine Protein Urine Glucose (UA) Urine Ketones Urine Blood Urine Nitrite Urine Bilirubin Urine Urobilinogen Ur Leukocyte Esterase COVID-19 Eval [address] Covid[address] [facility] SARS-CoV-2 (PCR) NEGATIVE 10/24/20 10/24/20 10/24/20 07:48 07:48 07:48 WBC RBC Hgb Hct MCV MCH MCHC RDW Std Deviation RDW Coeff of Nessa Plt Count MPV Immature Gran % (Auto) Neut % (Auto) Lymph % (Auto) [place] % (Auto) Eos % (Auto) Baso % (Auto) Neut # (Auto) Lymph # (Auto) [place] # (Auto) Eos # (Auto) Baso # (Auto) Immature Gran # (Auto) ESR 10 APTT Cancelled PTT Ratio Cancelled D-Dimer Cancelled Sodium 139 Potassium Chloride 106 Carbon Dioxide 29 Anion Gap 4.0 BUN 19 H Creatinine 1.18 Est Cr Clr Drug Dosing 60.8 Est GFR ( Amer) 76.7 Est GFR (Non-Af Amer) 66.2 BUN/Creatinine Ratio 15.7 Glucose 99 Lactate Calcium 9.1 Phosphorus 3.7 Magnesium Total Bilirubin 0.6 AST ALT 28 Alkaline Phosphatase 43 L Troponin I < 0.015 C-Reactive Protein Total Protein 7.6 Albumin 3.6 Globulin 4.0 Albumin/Globulin Ratio 0.9 Lipase 153 Procalcitonin Urine Color Urine Appearance Urine pH Ur Specific [place] Urine Protein Urine Glucose (UA) Urine Ketones Urine Blood Urine Nitrite Urine Bilirubin Urine Urobilinogen Ur Leukocyte Esterase COVID-19 Eval Order SARS-CoV-2 (PCR) 10/24/20 10/24/20 10/24/20 08:25 08:35 08:35 WBC RBC Hgb Hct MCV MCH MCHC RDW Std Deviation RDW Coeff of Nessa Plt Count MPV Immature Gran % (Auto) Neut % (Auto) Lymph % (Auto) [place] % (Auto) Eos % (Auto) Baso % (Auto) Neut # (Auto) Lymph # (Auto) [place] # (Auto) Eos # (Auto) Baso # (Auto) Immature Gran # (Auto) ESR APTT PTT Ratio D-Dimer Sodium Potassium 3.9 Chloride Carbon Dioxide Anion Gap BUN Creatinine Est Cr Clr Drug Dosing Est GFR ( Amer) Est GFR (Non-Af Amer) BUN/Creatinine Ratio Glucose Lactate Calcium Phosphorus Magnesium 2.1 Total Bilirubin AST 17 ALT Alkaline Phosphatase Troponin I C-Reactive Protein Total Protein Albumin Globulin Albumin/Globulin Ratio Lipase Procalcitonin < 0.05 Urine Color Dark Yellow Urine Appearance Clear Urine pH 6.0 Ur Specific [place] 1.025 Urine Protein Negative Urine Glucose (UA) Negative Urine Ketones Negative Urine Blood Negative Urine Nitrite Negative Urine Bilirubin Negative Urine Urobilinogen Negative Ur Leukocyte Esterase Negative COVID-19 Eval Order SARS-CoV-2 (PCR) 10/24/20 10/24/20 10/24/20 08:35 08:35 08:56 WBC RBC Hgb Hct MCV MCH MCHC RDW Std Deviation RDW Coeff of Nessa Plt Count MPV Immature Gran % (Auto) Neut % (Auto) Lymph % (Auto) [place] % (Auto) Eos % (Auto) Baso % (Auto) Neut # (Auto) Lymph # (Auto) [place] # (Auto) Eos # (Auto) Baso # (Auto) Immature Gran # (Auto) ESR APTT 22.1 PTT Ratio 0.8 D-Dimer 610 H* Sodium Potassium Chloride Carbon Dioxide Anion Gap BUN Creatinine Est Cr Clr Drug Dosing Est GFR ( Amer) Est GFR (Non-Af Amer) BUN/Creatinine Ratio Glucose Lactate 2.9 H* Calcium Phosphorus Magnesium Total Bilirubin AST ALT Alkaline Phosphatase Troponin I C-Reactive Protein < 0.29 Total Protein Albumin Globulin Albumin/Globulin Ratio Lipase Procalcitonin Urine Color Urine Appearance Urine pH Ur Specific [place] Urine Protein Urine Glucose (UA) Urine Ketones Urine Blood Urine Nitrite Urine Bilirubin Urine Urobilinogen Ur Leukocyte Esterase COVID-19 Eval Order SARS-CoV-2 (PCR) 10/24/20 10/24/20 10:33 10:42 WBC RBC Hgb Hct MCV MCH MCHC RDW Std Deviation RDW Coeff of Nessa Plt Count MPV Immature Gran % (Auto) Neut % (Auto) Lymph % (Auto) [place] % (Auto) Eos % (Auto) Baso % (Auto) Neut # (Auto) Lymph # (Auto) [place] # (Auto) Eos # (Auto) Baso # (Auto) Immature Gran # (Auto) ESR APTT PTT Ratio D-Dimer Sodium Potassium Chloride Carbon Dioxide Anion Gap BUN Creatinine Est Cr Clr Drug Dosing Est GFR ( Amer) Est GFR (Non-Af Amer) BUN/Creatinine Ratio Glucose Lactate 1.5 Calcium Phosphorus Magnesium Total Bilirubin AST ALT Alkaline Phosphatase Troponin I < 0.015 C-Reactive Protein Total Protein Albumin Globulin Albumin/Globulin Ratio Lipase Procalcitonin Urine Color Urine Appearance Urine pH Ur Specific [place] Urine Protein Urine Glucose (UA) Urine Ketones Urine Blood Urine Nitrite Urine Bilirubin Urine Urobilinogen Ur Leukocyte Esterase COVID-19 Eval Order SARS-CoV-2 (PCR) Medications Administered Chest X-Ray 10/24/20 07:32 XR chest 1V portable HISTORY: Atypical chest pain. COMPARISON: 10/14/2019. FINDINGS: No pneumothorax. No pleural effusions. There are low lung volumes. The heart is normal in size. Question small focal density within the right midlung zone. The left lung is clear. Old, healed fractures within the left first and second ribs as well as the left clavicle. IMPRESSION: Questionable small focal density within the right midlung zone. This could represent a developing pneumonitis. This will be better appreciated on the same day chest CT. ACT 112: Negative or not required by law. Electronically signed by: Pop Mora M.D. 10/24/2020 9:55 AM Chest CTA 10/24/20 09:38 CHEST CTA for PULMONARY ARTERIES CT DOSE: 339.61 mGy.cm HISTORY: Atypical chest pain. TECHNIQUE: Multiaxial CT images of the chest were performed following the intravenous administration of contrast to evaluate the pulmonary arteries. Maximal intensity projection images were also obtained. A dose lowering technique was utilized adhering to the principles of ALARA. COMPARISON STUDY: Chest CTA 09/04/2018. FINDINGS: Limited views of the upper abdomen demonstrate a normal liver and spleen. The heart is normal in size. No pleural or pericardial effusions. No mediastinal or hilar lymphadenopathy. No fractures within the visualized osseous structures. Normal thyroid gland. Mild circumferential thickening of the esophagus which is likely chronic. No evidence for an aortic dissection. No significant change in the nodular thickening along the right major fissure at the posterior right upper lobe. This measures up to 12 mm in size and appears to connect to both a pulmonary artery and vein. There is incomplete filling of the pulmonary arterial branch, unchanged which is suggestive of scarring. Therefore, this is likely chronic and represents a pulmonary arterial venous malformation. No additional filling defects within the pulmonary arteries to suggest a pulmonary embolus. No pneumothorax. Interval development of patchy groundglass airspace opacities within the right upper lobe. Additional groundglass densities within the lower lobes persist poorly favor mild dependent change. The central airways are patent. IMPRESSION: 1. There are patchy groundglass airspace opacities within the right upper lobe. This likely represents a pneumonia and could be due to a viral process. 2. Redemonstration of the 1.2 cm right upper lobe pulmonary AVM. 3. No evidence for acute pulmonary embolus. 4. Mild esophageal wall thickening. ACT 112: Negative or not required by law. Electronically signed by: Pop Mora M.D. 10/24/2020 10:48 AM EKG x 3 -- NSR, no ST changes; no changes from EKG #1 to #2 to #3 Code Status & VTE Plan Code Status full VTE Prophylaxis Plan VTE Prophylaxis will be ordered: Yes PG Care Time/CCT Total # of Minutes Spent Total Time Spent with Patient: Total time spent is greater than 50% in coordination of care (as documented) at patient's floor/unit and/or counseling patient: Coding Level of Care Code 54801 Initial Inpt Care Lvl 3 Diagnoses Sepsis A41.9 Sepsis type: sepsis due to unspecified organism Sepsis acute organ dysfunction status: without acute organ dysfunction Pneumonia J18.9 Chest pain R07.9 Post herpetic neuralgia B02.29 CAD (coronary artery disease) I25.10 Hypertension I10 Stroke with left hemiparesis Depression as late effect of cerebrovascular accident (CVA) I69.398; F06.31 ESA (generalized anxiety disorder) F41.1 Dyslipidemia E78.5 GERD (gastroesophageal reflux disease) K21.9 DVT prophylaxis Z29.9 (1) Sepsis Sepsis type: sepsis due to unspecified organism Sepsis acute organ d ysfunction status: without acute organ dysfunction Qualified Code(s): A41.9 - Sepsis, unspecified organism
[2020-10-24] MEDS ORDERED: SODIUM CHLORIDE 0.9% 500 ML IV SCH (12:45)
[2020-10-24] MEDS ORDERED: KETOROLAC TROMETHAMINE 15 MG/ML VIAL IV ONE (13:02)
--- NOTE | 2020-10-24 13:08 | Electrocardiogram Report ---
Test Reason : Blood Pressure : / mmHG Vent. Rate : 115 BPM Atrial Rate : 115 BPM P-R Int : 174 ms QRS Dur : 084 ms QT Int : 316 ms P-R-T Axes : 031 005 039 degrees QTc Int : 437 ms Poor data quality, interpretation may be adversely affected Sinus tachycardia Otherwise normal ECG When compared with ECG of 12-JAN-2020 18:33, No significant change was found Confirmed by Flex Cortes ([id number]) on 10/24/2020 1:07:54 PM Referred By: REFERRED SELF Confirmed By:Madhu Cortes
--- NOTE | 2020-10-24 13:09 | Electrocardiogram Report ---
Test Reason : Blood Pressure : / mmHG Vent. Rate : 107 BPM Atrial Rate : 107 BPM P-R Int : 172 ms QRS Dur : 084 ms QT Int : 330 ms P-R-T Axes : 023 -16 017 degrees QTc Int : 440 ms Sinus tachycardia Otherwise normal ECG When compared with ECG of 24-OCT-2020 07:26, (unconfirmed) No significant change was found Confirmed by Flex Cortes ([id number]) on 10/24/2020 1:09:20 PM Referred By: REFERRED SELF Confirmed By:Madhu Cortes
[2020-10-24] MEDS ORDERED: PANTOprazole 40 MG TAB PO STA (13:35)
[2020-10-24] MEDS ORDERED: ONDANSETRON INJ 2 MG/ML 2 ML VIAL IV PRN (15:17)
[2020-10-24] MEDS ORDERED: NITROGLYCERIN SL 0.4 MG/TAB TAB SL PRN (15:17)
[2020-10-24] MEDS: oxyCODONE HCL IR 5 MG TAB (IMMEDIATE RELEASE) PO PRN ×2 (15:54→23:46)
[2020-10-24] MEDS: LIDOCAINE 2% JELLY 5 ML TUBE EXT SCH ×2 (15:55→20:15)
[2020-10-24] MEDS ORDERED: cefTRIAXone SODIUM 1,000 MG in DEXTROSE 5% 50 ML IV SCH (16:00)
[2020-10-24] MEDS: NSS + 20MEQ KCL 20 MEQ/1,000 ML BAG IV SCH (16:06)
[2020-10-24] MEDS: GABAPENTIN 300 MG CAP PO SCH (16:13)
[2020-10-24] MEDS: DOXYCYCLINE HYCLATE 100 MG in DEXTROSE 5% 100 ML IV SCH (17:08)
[2020-10-24] MEDS: MoRPHine SULFATE 2 MG/ML CARP IV PRN ×3 (17:21→23:45)
--- NOTE | 2020-10-24 17:25 | Electrocardiogram Report ---
Test Reason : Blood Pressure : / mmHG Vent. Rate : 088 BPM Atrial Rate : 088 BPM P-R Int : 170 ms QRS Dur : 088 ms QT Int : 342 ms P-R-T Axes : 022 002 022 degrees QTc Int : 413 ms Normal sinus rhythm Normal ECG When compared with ECG of 24-OCT-2020 10:44, No significant change was found Confirmed by Flex Cortes ([id number]) on 10/24/2020 5:24:32 PM Referred By: REFERRED SELF Confirmed By:Madhu Cortes
[2020-10-24] MEDS: carvediloL 3.125 MG TAB PO SCH (20:13)
[2020-10-24] MEDS: PANTOprazole 40 MG TAB PO SCH (20:13)
[2020-10-24] MEDS: DOCUSATE SODIUM 100 MG CAP PO SCH (20:14)
[2020-10-24] MEDS: HEPARIN SOD 5,000 UNIT/0.5 ML VIAL SQ SCH (20:15)
[2020-10-24] MEDS ORDERED: MIRTAZAPINE SOLTAB 15 MG PO SCH (21:00)
[2020-10-24] MEDS ORDERED: GABAPENTIN 600 MG TAB PO SCH (21:00)
[2020-10-24] MEDS ORDERED: ASPIRIN 81 MG ECTAB PO SCH (21:00)
[2020-10-24] MEDS: KETOROLAC TROMETHAMINE 15 MG/ML VIAL IV PRN (21:19)
[2020-10-25] MEDS: NSS + 20MEQ KCL 20 MEQ/1,000 ML BAG IV SCH (01:31)
[2020-10-25] MEDS: MoRPHine SULFATE 2 MG/ML CARP IV PRN ×3 (02:46→11:03)
[2020-10-25] MEDS: oxyCODONE HCL IR 5 MG TAB (IMMEDIATE RELEASE) PO PRN ×2 (03:57→10:08)
[2020-10-25] MEDS: DOXYCYCLINE HYCLATE 100 MG in DEXTROSE 5% 100 ML IV SCH (03:57)
[2020-10-25] MEDS: LIDOCAINE 2% JELLY 5 ML TUBE EXT SCH ×2 (03:57→10:13)
[2020-10-25] MEDS: KETOROLAC TROMETHAMINE 15 MG/ML VIAL IV PRN (08:14)
[2020-10-25] MEDS: DOCUSATE SODIUM 100 MG CAP PO SCH (08:15)
[2020-10-25] MEDS: carvediloL 3.125 MG TAB PO SCH (08:15)
[2020-10-25] MEDS: HEPARIN SOD 5,000 UNIT/0.5 ML VIAL SQ SCH (08:15)
[2020-10-25] MEDS: PANTOprazole 40 MG TAB PO SCH (08:15)
[2020-10-25] MEDS: GABAPENTIN 300 MG CAP PO SCH (08:15)
[2020-10-25] MEDS ORDERED: POLYETHYLENE (MIRALAX) 17 GM PACK PO SCH (09:00)
[2020-10-25] MEDS ORDERED: VITAMIN B COMPLEX TAB PO SCH (09:00)
--- NOTE | 2020-10-25 12:04 | XCELERA ---
[id number]
--- NOTE | 2020-10-25 13:32 | Discharge Summary ---
Date of Service October 25, 2020 Admission HPI Per Admitting Provider 60yo male - h/o CAD based on heart cath in 2013 and recent shingles of the right neck and right ear - presents with left sided chest pain that began about 0600 this am. Pain has been constant since then. Pain is 9/10 on pain scale. Pain was sharp initially, now dull in character. Located over left costal margin and some minimal radiation to sternal region. No jaw or left arm pain. Some pleuritic nature to it. When he awoke this am he had shaking chills with the pain as well. Rolling to right side makes pain better. ?worse with laying flat. Minimal cough at home. No dyspnea today. Mild burping/belching at home today. [place] fine yesterday with good appetite. The patient and his live down in [place], [place] during the winter and he had a nuclear stress test in July 2020 - negative. Upon return to [place] he went and saw Dr Orosco with [facility] - cath not recommended. No other chest pain spells since returning from [place]. He reports issues with heartburn on fairly regular basis. Without medications he has daily symptoms. No COVID vaccine. Has not had COVID illness at any point in the past to his knowledge. Late September he developed shingles. Had severe right ear pain and continues to have such. He c/o right ear pain during my bedside visit. No sick contacts. No travel in the last few weeks. Principal Diagnosis Viral pneumonia Discharge Exam Constitutional WD/WN, vitals as above Neck trachea midline, no thyromegaly Respiratory normal respiratory effort, lungs clear to auscultation Cardiovascular RRR, no murmur, no edema Gastrointestinal (Abdomen) normal bowel sounds, soft, nontender, no hepatosplenomegaly Musculoskeletal no cyanosis or clubbing, extremities motor strength 5/5 Skin + rash (shingles rash right ear and face) Neurologic patellar DTR's 2+ bilat, sensation intact and PERRL, EOMI, accommodation nl, no face palsy, no dysarthria Psychiatric A+Ox3, euthymic affect Discharge Data Allergies Allergy/AdvReac Type Severity Reaction Status Date / Time fentanyl Allergy Severe NEURO Verified 10/24/20 08:29 CHANGES tuberculin, purified protein Allergy Severe SWELLING/HI Verified 10/24/20 08:29 deriva VES rosuvastatin Allergy Intermediate Chest and Verified 10/24/20 08:29 muscle pain sertraline Allergy Intermediate Psych Verified 10/24/20 08:29 complications Izjrgwi-Ggo-Zgd Reductase AdvReac Severe BODY ACHES Verified 10/24/20 08:29 Inhibitor Consultations 10/24/20 12:33 ED Decision to Admit Stat Ordered Studies 10/24/20 09:38 CT angio chest PE protocol Stat Hospital Course (1) Sepsis: 2nd to pneumonia, RUL. With associated lactic acidosis s/p IV fluids with improvement/resolution. Follow blood cultures - no growth eating and drinking well, no further fluids procalcitonin normal, will change to just doxycycline and complete 5 more days COVID test noted to be negative (2) Pneumonia: RUL. Groundglass opacity. COVID negative He has a negative procalcitonin making a viral etiology most likely. finish 5 days of doxycycline feeling better, breathing well on room air, minimal cough (3) Chest pain: Despite a known h/o CAD thus far his troponins are negative and his EKG is w/o ischemic changes. He did not have resolution of his pain with nitrates or narcotics. He did have resolution with toradol 15mg IV x 1. no further chest pain, feels well, no signs that this is ACS (4) Post herpetic neuralgia: Right ear/lateral neck c/w cervical plexus dermatome. All lesions are scabbed; initial outbreak was 3-4 weeks ago. Continues with severe pain. He is on gabapentin but only taking 600mg at bedtime, will give 300mg AM if he needs it continue lidocaine jelly 4 times a day in thin amounts of helix of ear and the lateral neck. Could consider addition of cymbalta to his gabapentin if neuropathic pain is refractory. Hold on this for now since we are just starting the higher dose of gabapentin. follow up with PCP (5) CAD (coronary artery disease): known h/o CAD. 01/2014 heart cath performed by Dr Cardona - [facility] - 1. 50% mid circumflex 2. 99% osteal OM1 and OM2 stenosis - vessels too small for intervention at that time 3. 70% apical right coronary artery stenosis ECHO: EF 65%, no regional wall motion changes continue aspirin. continue coreg he is statin intolerant. (6) Hypertension: Coreg (7) Stroke with left hemiparesis: Right sided MCA territory stroke with hemorrhagic conversion? Other etiology? He was life flighted to [facility] on 10/14/2019 for this event per an ER note from that date. I cannot find a d/c summary from [facility] in his chart and thus details are uncertain about what happened during that hospitalization. On 10/15/19, however, he underwent right-sided craniotomy for his condition. He now has dense left arm weakness with more mild weakness in the left leg. He uses a brace for wrist drop of the left wrist. Continues on asa for secondary stroke prevention. 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 (9) ESA (generalized anxiety disorder): Previously took ativan per the PDMP but it appears he is no longer taking such. Records from [facility] from earlier this year state he had been taking lexapro in a tiny dose but this has been stopped. (10) Dyslipidemia: Statin intolerant. (11) GERD (gastroesophageal reflux disease): consider PPI Total Time Total Time Spent Total Time Spent (In Minutes): 32 Total Time Includes: Examination of the Patient, Discharge Planning and Medication Reconciliation Discharge Plan Discharge Items Patient Disposition: Home - Self-Care Reason For Visit: RUL PNEUMONIA, SEPSIS, CHEST PAIN Discharge Diagnosis: Right upper lobe pneumonia, atypical vs viral Shingles with post herpetic neuralgia Condition on Discharge: Good Goals: use Lidocaine jelly and gabapentin for pain control complete short course of antibiotics Activity: Resume your previous activity Non-emergency contact: Primary Care Provider Call non-emergency contact if: you have any medication questions and your symptoms worsen Follow-up/Referrals: Lebron Melendez DO [Primary Care Provider] - 11/01/20 11:30 am (one week) Diet: Heart Healthy Addtl Attending Provider Instructions: Medications: - GABAPENTIN: continue with 600mg at night but you can take 300mg in the morning to help with neuralgia - OXYCODONE: can increase the rapid acting to 7.5mg every 4 hours as needed - DOXYCYCLINE: 100mg twice a day for 5 more days, next dose is this evening - LIDOCAINE JELLY: apply to areas of shingles for relief Pneumonia: subtle findings on CT of the chest, COVID test was NEGATIVE not requiring oxygen, no fever now treated with ceftriazone and doxycycline, will continue on doxycycline for 5 more days Shingles: pain control with gabapentin, oxycodone, Lidocaine jelly follow up with Dr. Melendez in one week Pending Studies at Discharge: No Stand-Alone Forms: My [facility], Smoking Cessation Medications and DC Order Prescriptions: New gabapentin 600 mg Tablet 600 mg PO HS 30 Days Qty: 30 RF: 0 gabapentin 300 mg Capsule 300 mg PO QAM 14 Days Qty: 14 RF: 0 oxycodone 5 mg Tablet 7.5 mg PO Q4H PRN (Reason: pain) 10 Days Qty: 30 RF: 0 lidocaine HCl 2 % Jelly 5 ml EXT Q6H 10 Days Qty: 30 RF: 1 Continued oxycodone-acetaminophen [Percocet] 5-325 mg tablet 1 tab PO Q6H PRN (Reason: pain) Qty: 20 RF: 0 mirtazapine 45 mg tablet 45 mg PO HS RF: 0 vitamin B complex Tablet 1 tab PO QAM RF: 0 polyethylene glycol 3350 [Miralax] 17 gram/dose powder 17 g PO QAM RF: 0 docusate sodium [Dulcolax Stool Softener (dss)] 100 mg capsule 100 mg PO BID RF: 0 omega-3 fatty acids [Fish Oil Concentrate] 1,000 mg capsule 1,000 mg PO BID RF: 0 aspirin 81 mg Tablet,Delayed Release (Dr/Ec) 81 mg PO HS RF: 0 nitroglycerin [Nitrostat] 0.4 mg tablet, sublingual 0.4 mg sublingual UD PRN (Reason: Chest Pain) RF: 0 Narcan 4 mg/actuation spray,non-aerosol 1 spray INTRANASAL UD RF: 0 carvedilol [Coreg] 6.25 mg tablet 6.25 mg PO BID RF: 0 Discontinued gabapentin [Neurontin] 300 mg capsule 600 mg PO BID RF: 0 oxycodone 5 mg tablet 5 mg PO Q6H PRN (Reason: pain) Qty: 30 RF: 0 oxycodone 5 mg tablet 5 mg PO Q6H PRN (Reason: pain) Qty: 15 RF: 0 Discharge Orders: Discharge Order (Routine); Ordered 10/25/20 Ordered By: Elian Merino Admission Data Admit Date/Time: 10/24/20 13:35 Attending Provider: Elian Merino Admit Provider: Toby Royal Primary Care Provider: Lebron Melendez Other Providers: Sohail Ross Other Interventions: Discharge Summary Assessment (RN) Last Done: 10/25/20 13:41 Coding Level of Care Code 60370 OBS Care - Discharge Diagnoses Sepsis A41.9 Sepsis acute organ dysfunction status: without acute organ dysfunction Sepsis type: sepsis due to unspecified organism Pneumonia J18.9 Chest pain R07.9 Post herpetic neuralgia B02.29 CAD (coronary artery disease) I25.10 Hypertension I10 Stroke with left hemiparesis Depression as late effect of cerebrovascular accident (CVA) I69.398; F06.31 ESA (generalized anxiety disorder) F41.1 Dyslipidemia E78.5 GERD (gastroesophageal reflux disease) K21.9
== END 2020-10-25 14:02 | disposition home or self-care (01) | DRG 871 ==
LOC: ED 07:18 → 2E 13:35 → SUATTDRO 13:35 → 2E 14:56
DX: Z79.899 Other long term (current) drug therapy; I69.398 Other sequelae of cerebral infarction; I25.10 Atherosclerotic heart disease of native coronary artery without angina pectoris; Z20.822 Contact with and (suspected) exposure to COVID-19; I69.354 Hemiplegia and hemiparesis following cerebral infarction affecting left non-dominant side; Z86.19 Personal history of other infectious and parasitic diseases; Z79.82 Long term (current) use of aspirin; Z98.890 Other specified postprocedural states; Z88.7 Allergy status to serum and vaccine; I10 Essential (primary) hypertension; R07.89 Other chest pain; K21.9 Gastro-esophageal reflux disease without esophagitis; B02.29 Other postherpetic nervous system involvement; Z82.49 Family history of ischemic heart disease and other diseases of the circulatory system; F32.89 Other specified depressive episodes; J18.9 Pneumonia, unspecified organism; Z87.891 Personal history of nicotine dependence; A41.9 Sepsis, unspecified organism; F41.1 Generalized anxiety disorder; E78.5 Hyperlipidemia, unspecified; J12.9 Viral pneumonia, unspecified; Z88.5 Allergy status to narcotic agent; Z88.8 Allergy status to other drugs, medicaments and biological substances

== ENCOUNTER 2020-11-15 20:17 | Observation (INO) ==
[2020-11-15 22:05] LABS: Basophils # (auto) 0.01 K/uL (0-0.2); Basophils % (auto) 0.2 %; Eosinophils # (auto) 0.05 K/uL (0-0.5); Eosinophils % (auto) 0.9 %; Hematocrit (blood only) 44.6 % (42-52); Hemoglobin 15.9 g/dL (14.0-18.0); Immature Granulocytes # (auto) 0.01 K/uL (0.00-0.02); Immature Granulocytes % (auto) 0.2 %; Lymphocytes # (auto) 2.28 K/uL (1.2-3.4); Mean Corpuscular Hemoglobin 34.5 pg (25-34); Mean Corpuscular Hgb Conc 35.7 g/dL (32-36); Mean Corpuscular Volume 96.7 fL (80-100); Mean Platelet Volume 9.2 fL (7.4-10.4); Monocytes # (auto) 0.62 K/uL (0.11-0.59); Monocytes % (auto) 10.9 %; Neutrophils # (auto) 2.73 K/uL (1.4-6.5); Neutrophils % (auto) 47.8 %; Platelet Count 185 K/uL (130-400); RDW Coefficient of Variation 13.5 % (11.5-14.5); RDW Standard Deviation 46.7 fL (36.4-46.3); Red Blood Count 4.61 M/uL (4.7-6.1)
[2020-11-15 22:15] LABS: Partial Thromboplastin Ratio 0.9; Partial Thromboplastin Time 23.1 Seconds (21.0-31.0)
[2020-11-15 22:23] LABS: Alanine Aminotransferase 25 U/L (12-78); Albumin Level 3.7 gm/dl (3.4-5.0); Aspartate Aminotransferase 16 U/L (15-37); BUN Creatinine Ratio 14.9 (10-20); Blood Urea Nitrogen 16 mg/dl (7-18); Calcium 8.9 mg/dl (8.5-10.1); Carbon Dioxide 30 mmol/L (21-32); Chloride 109 mmol/L (98-107); Creatinine Clr Calc Pharmacy 64.7 ml/min; Est GFR (African American) 85.4 ml/min; Est GFR (Non-African American) 73.7 ml/min; Glucose 113 mg/dl (70-99); Lipase 228 U/L (73-393); Potassium 4.1 mmol/L (3.5-5.1); Sodium 142 mmol/L (136-145)
[2020-11-15] MEDS ORDERED: ASPIRIN CHEW 324 MG PO STA (22:25)
[2020-11-15] MEDS ORDERED: MoRPHine SULFATE 4 MG/ML 1 ML CARP\\VIAL IV STA (22:25)
[2020-11-15 22:28] LABS: Albumin Globulin Ratio 0.9 (0.9-2); Alkaline Phosphatase 48 U/L (45-117); Bilirubin,Total 0.4 mg/dl (0.2-1); Globulin 4.2 gm/dl (2.5-4.0); Total Protein 7.9 gm/dl (6.4-8.2); Troponin I < 0.015 ng/ml (0-0.045)
--- NOTE | 2020-11-15 22:36 | Emergency Department Note ---
Impression & Plan Substernal chest pain, History of coronary artery disease, Chronic pain ED Provider Note NAME: KAREN SOLORZANO AGE: 60 SEX: M ARRIVES VIA: Walk-In INFORMANT: Patient, ED PROVIDER(S): Matthias Allen MD CHIEF COMPLAINT: Chest pain PLAN: Disposition: Admit MEDICAL DECISION MAKING: The patient is a pleasant 60-year-old gentleman with a past medical history of CAD, history of CVA on baby aspirin,, history of zoster with postherpetic neur algia, chronic pain on chronic narcotics, recent admission to [facility] for pneumonia/sepsis back to to be viral in etiology though completed 5 days of doxycycline and had negative COVID-19 test who presents to the emergency department accompanied by his for evaluation of substernal chest pain that occurred this afternoon when he was at rest sitting in his chair as well as an episode that he reports occurred last night when he was sleeping that felt more like his acid reflux. Patient reports his pain last night resolved on its own as he went to sleep and was not present in the morning. He reports this afternoon taking a nitroglycerin and significantly improved his pain. At this time he denies any significant presence of the pain. Most of his discomfort is related to postherpetic neuralgia which he has been dealing with. Patient presents today in the setting of being seen in the emergency department 2 days ago for substernal chest pain that was associated shortness of breath and nausea and occurred in the setting [place] but also became worse when he began to eat lunch. Patient's pain did resolve with Pepcid however given his high risk it was recommended that he be admitted however he preferred to not be admitted. A delta troponin was negative and CT of the chest was negative for PE and showed interval resolution of his prior pneumonia. He instructed to return immediately for any recurrence of symptoms. The patient again denies any regular pattern of exertional chest pain. However, he admits that he has not exerted himself very much since being discharged from his recent admission for pneumonia from 10/24-10/25. Denies any fevers, cough, vomiting, diarrhea or urinary symptoms. Patient reports today he is agreeable to being admitted and his at the bedside agrees with this plan. On arrival the patient is in NAD, AFVSS. Chronic left sided weakness at baseline. Exam otherwise unremarkable. EKG without overt acute ischemia. CXR negative for acute cardiopulmonary process per my preliminary review. WBC, H/H, platelets wnl. Chemistry without acidosis. Electrolytes unremarkable. LFTs without significant abnormality. Troponin negative/undetectable. Lipase wnl. Covid-19 pcr negative. Patient was given ASA on arrival, Morphine for his post-herpetic neuralgia, and Ativan for his anxiety. Case was discussed with Dr. Conte [facility] hospitalist, who will evaluate the patient for admission. Triage Nursing notes reviewed and agree them. Prior medical records reviewed Vital Signs: reviewed and remarkable for no significant abnormalities Differential diagnosis: Cardiac ischemia, aortic dissection, pulmonary embolism, pneumothorax, pneumonia, pericarditis, myocarditis, esophageal rupture, GERD, cholecystitis, pancreatitis, musculoskeletal, as well as other pathologies. ER treatment provided: See below. Diagnostics interpreted by me: ECG: Sinus rhythm, 95 bpm, no ectopy, no overt ST elevation or depression, QTC 434, QRS 92. Cardiac Monitoring: An order for continuous cardiac monitoring was placed and demonstrated Sinus rhythm, 95 bpm, no ectopy. Laboratory studies: See below Imaging studies: CXR: No acute cardiopulmonary process per my preliminary review. Consultation(s): Case was discussed with Dr. Conte, [facility] hospitalist, who will evaluate the patient for admission. HPI: The patient is a pleasant 60-year-old gentleman with a past medical history of CAD, history of CVA on baby aspirin,, history of zoster with postherpetic neuralgia, chronic pain on chronic narcotics, recent admission to [facility] for pneumonia/sepsis back to to be viral in etiology though completed 5 days of doxycycline and had negative COVID-19 test who presents to the emergency department accompanied by his for evaluation of substernal chest pain that occurred this afternoon when he was at rest sitting in his chair as well as an episode that he reports occurred last night when he was sleeping that felt more like his acid reflux. Patient reports his pain last night resolved on its own as he went to sleep and was not present in the morning. He reports this afternoon taking a nitroglycerin and significantly improved his pain. At this time he denies any significant presence of the pain. Most of his discomfort is related to postherpetic neuralgia which he has been dealing with. Patient presents today in the setting of being seen in the emergency department 2 days ago for substernal chest pain that was associated shortness of breath and nausea and occurred in the setting [place] but also became worse when he began to eat lunch. Patient's pain did resolve with Pepcid however given his high risk it was recommended that he be admitted however he preferred to not be admitted. A delta troponin was negative and CT of the chest was negative for PE and showed interval resolution of his prior pneumonia. He instructed to return immediately for any recurrence of symptoms. The patient again denies any regular pattern of exertional chest pain. However, he admits that he has not exerted himself very much since being discharged from his recent admission for pneumonia from 10/24-10/25. Denies any fevers, cough, vomiting, diarrhea or urinary symptoms. Patient reports today he is agreeable to being admitted and his at the bedside agrees with this plan. ROS: See above HPI for pertinent positives & negatives. A total of 10 systems reviewed and were otherwise negative. PAST MEDICAL HISTORY:See Below PAST SURGICAL HISTORY:See Below FAMILY HISTORY:See Below SOCIAL HISTORY:See Below HOME MEDICATIONS:See Below ALLERGIES:See Below VITALS:See Below PHYSICAL EXAMINATION: GENERAL: Awake, alert, chronically ill-appearing, in no distress HENT: Normocephalic, atraumatic. Oropharynx unremarkable. EYES: Normal conjunctiva. Sclera non-icteric. NECK: Supple. No nuchal rigidity. FROM. No JVD. RESPIRATORY: Clear to auscultation. CARDIAC: Regular rate, normal rhythm. Extremities warm and well perfused. Pulses equal. ABDOMEN: Soft, non-distended. No tenderness to palpation. No rebound or guarding. No masses. RECTAL: Deferred. MUSCULOSKELETAL: Chest examination reveals no tenderness. The back is symmetrical on inspection without obvious abnormality. There is no CVA ten derness to palpation. No joint edema. LOWER EXTREMITIES: Calves are equal size bilaterally and non-tender. No edema. No discoloration. NEURO: AOx3, Left sided weakness at baseline. SKIN: No rash or jaundice noted. Matthias Allen MD Past Med/Surg History Medical History Atypical chest pain Yanes's palsy CAD (coronary artery disease) "Cardiac cath 2013-50% mid circumflex, 99% ostial OM1 and OM2, 70% RCA" Depression as late effect of cerebrovascular accident (CVA) Dyslipidemia ESA (generalized anxiety disorder) GERD (gastroesophageal reflux disease) Hypertension Rotator cuff dysfunction Sepsis Spinal stenosis Stroke with left hemiparesis HEMORRHAGIC; 10/2019; hospitalized at [facility] for such; s/p craniotomy Wrist drop Surgical History History of right-sided carotid endarterectomy (~02/2020) [facility] Status post craniectomy (~10/2019) Family History Father Diabetes Myocardial infarction Grandfather , paternal GF Diabetes Grandmother , Paternal GM Diabetes Uncle Myocardial infarction Mother Hypertension Hiatal hernia Denies family history of Ovarian cancer Prostate cancer Breast cancer Lung cancer Colorectal cancer Stroke Social History Smoking Status: Never smoker Tobacco Type: Cigarettes Age Started Using Tobacco: 18; Age Quit Using Tobacco: 58; Cigarettes Per Day: 1-2/day many years; Second Hand Exposure: No; Hx Alcohol Use: No Hx Substance Use: No Preferred Language: Macanese Communication Ability: Effective Visual Impairment: Limited Hearing Ability: Use of Hearing Aid Drawing Operator Required: No Beliefs That Will Affect Care: None marital status: Current Living Situation: Spouse current occupational status: retired 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 How many Children do You have: 2 other: receiving [facility] care Feels Safe at Home: Yes Safety Concerns: Feels Safe At This Time Childhood Exposure to Second-Hand Smoke: No caffeine: Yes (very seldom ) Dental Care, Regularly: Yes Physical Activity Frequency: Daily Physical Activity Frequency Comment: walks daily Seatbelt Use: always Sunscreen Use: Yes Assistive Devices: Cane and Glasses Allergies Allergies Allergy/AdvReac Type Severity Reaction Status Date / Time fentanyl Allergy Severe NEURO Verified 11/15/20 22:42 CHANGES tuberculin, purified protein Allergy Severe SWELLING/HI Verified 11/15/20 22:42 deriva VES rosuvastatin Allergy Intermediate Chest and Verified 11/15/20 22:42 muscle pain sertraline Allergy Intermediate Psych Verified 11/15/20 22:42 complications Gnawpac-Dyz-Hgg Reductase AdvReac Severe BODY ACHES Verified 11/15/20 22:42 Inhibitor Home Meds Home Medications Medication Instructions Recorded Confirmed aspirin 81 mg PO HS 10/14/19 11/15/20 omega-3 fatty acids 1,000 mg 1,000 mg PO BID 08/27/20 11/15/20 capsule docusate sodium 100 mg capsule 100 mg PO BID cap 10/07/20 11/15/20 mirtazapine 45 mg tablet 45 mg PO HS tab 10/07/20 11/15/20 nitroglycerin 0.4 mg sublingual 0.4 mg SUBLINGUAL UD PRN 10/07/20 11/15/20 tablet polyethylene glycol 3350 17 17 g PO QAM PRN 10/07/20 11/15/20 gram/dose oral powder vitamin B complex 1 tab PO QAM 10/07/20 11/15/20 carvedilol [Coreg] 3.125 mg PO DAILY 10/24/20 11/15/20 famotidine 10 mg tablet 10 mg PO DAILY 11/01/20 11/15/20 lidocaine HCl 2 % mucosal jelly 5 ml EXT Q6H PRN ml 11/01/20 11/15/20 naloxone 4 mg/actuation nasal spray 1 spray INTRANASAL UD PRN 11/01/20 11/15/20 Previous Rx's Medication Instructions Recorded oxycodone-acetaminophen 5 mg-325 1 tab PO Q6H PRN #20 tab 10/13/20 mg tablet gabapentin 600 mg PO HS 30 Days #30 tab 10/25/20 oxycodone 5 mg tablet 5 mg PO Q6 PRN #30 tab 11/11/20 Results & Data (ED) Vital Signs Vital Signs - 24 hr 11/15/20 20:20 11/15/20 21:48 11/15/20 22:39 Temperature 36.5 C Temperature Source Temporal Artery Scan Pulse Rate 89 83 Pulse Rate [Right Finger] 96 H Pulse Rate from SpO2 Sensor 79 Pulse Rhythm [Right Finger] Regular Respiratory Rate 16 18 21 Respiratory Effort / Characteristics Non-Labored Respiratory Depth Normal Respiratory Pattern Regular Blood Pressure 117/81 Blood Pressure [Right Arm] 139/116 H Blood Pressure Mean 93 Blood Pressure Mean [Right Arm] 123 Pulse Oximetry 95 98 98 Oxygen Delivery Method Room Air Room Air Sepsis Recent Fever Within 48 Hours No Sepsis New/Unexplained Change in Mental Status No Sepsis Action Taken by Nursing No Action Required 11/15/20 22:45 11/15/20 23:00 11/15/20 23:15 Temperature Temperature Source Pulse Rate 81 79 79 Pulse Rate [Right Finger] Pulse Rate from SpO2 Sensor 79 78 80 Pulse Rhythm [Right Finger] Respiratory Rate 9 L 10 L 11 L Respiratory Effort / Characteristics Respiratory Depth Respiratory Pattern Blood Pressure 117/89 136/83 113/83 Blood Pressure [Right Arm] Blood Pressure Mean 98 100 93 Blood Pressure Mean [Right Arm] Pulse Oximetry 98 97 95 Oxygen Delivery Method Sepsis Recent Fever Within 48 Hours Sepsis New/Unexplained Change in Mental Status Sepsis Action Taken by Nursing 11/15/20 23:30 11/15/20 23:45 Temperature Temperature Source Pulse Rate 77 82 Pulse Rate [Right Finger] Pulse Rate from SpO2 Sensor 79 81 Pulse Rhythm [Right Finger] Respiratory Rate 13 16 Respiratory Effort / Characteristics Respiratory Depth Respiratory Pattern Blood Pressure 116/86 112/79 Blood Pressure [Right Arm] Blood Pressure Mean 96 90 Blood Pressure Mean [Right Arm] Pulse Oximetry 95 93 Oxygen Delivery Method Sepsis Recent Fever Within 48 Hours Sepsis New/Unexplained Change in Mental Status Sepsis Action Taken by Nursing Laboratory Data Attestation: I reviewed the patient's lab results. Result diagrams: 11/15/20 21:52 11/15/20 21:52 Lab Results 11/15/20 11/15/20 11/15/20 Range/Units 21:52 21:52 21:52 WBC 5.70 (4.8-10.8) K/uL RBC 4.61 L (4.7-6.1) M/uL Hgb 15.9 (14.0-18.0) g/dL Hct 44.6 (42-52) % MCV 96.7 (80-100) fL MCH 34.5 H (25-34) pg MCHC 35.7 (32-36) g/dL RDW Std Deviation 46.7 H (36.4-46.3) fL RDW Coeff of Nessa 13.5 (11.5-14.5) % Plt Count 185 (130-400) K/uL MPV 9.2 (7.4-10.4) fL Immature Gran % (Auto) 0.2 % Neut % (Auto) 47.8 % Lymph % (Auto) 40.0 % [place] % (Auto) 10.9 % Eos % (Auto) 0.9 % Baso % (Auto) 0.2 % Neut # (Auto) 2.73 (1.4-6.5) K/uL Lymph # (Auto) 2.28 (1.2-3.4) K/uL [place] # (Auto) 0.62 H (0.11-0.59) K/uL Eos # (Auto) 0.05 (0-0.5) K/uL Baso # (Auto) 0.01 (0-0.2) K/uL Immature Gran # (Auto) 0.01 (0.00-0.02) K/uL APTT 23.1 (21.0-31.0) Seconds PTT Ratio 0.9 Sodium 142 (136-145) mmol/L Potassium 4.1 (3.5-5.1) mmol/L Chloride 109 H (98-107) mmol/L Carbon Dioxide 30 (21-32) mmol/L Anion Gap 4.0 (3-11) BUN 16 (7-18) mg/dl Creatinine 1.08 (0.6-1.4) mg/dl Est Cr Clr Drug Dosing 64.7 ml/min Est GFR ( Amer) 85.4 ml/min Est GFR (Non-Af Amer) 73.7 ml/min BUN/Creatinine Ratio 14.9 (10-20) Glucose 113 H (70-99) mg/dl Calcium 8.9 (8.5-10.1) mg/dl Phosphorus 2.9 (2.5-4.9) mg/dl Magnesium 2.4 (1.8-2.4) mg/dl Total Bilirubin 0.4 (0.2-1) mg/dl Direct Bilirubin 0.1 (0-0.2) mg/dl AST 16 (15-37) U/L ALT 25 (12-78) U/L Alkaline Phosphatase 48 (45-117) U/L Troponin I < 0.015 (0-0.045) ng/ml Total Protein 7.9 (6.4-8.2) gm/dl Albumin 3.7 (3.4-5.0) gm/dl Globulin 4.2 H (2.5-4.0) gm/dl Albumin/Globulin Ratio 0.9 (0.9-2) Lipase 228 (73-393) U/L COVID-19 Eval Order SARS-CoV-2 (PCR) (Negative) 11/15/20 11/15/20 Range/Units 22:35 22:35 WBC (4.8-10.8) K/uL RBC (4.7-6.1) M/uL Hgb (14.0-18.0) g/dL Hct (42-52) % MCV (80-100) fL MCH (25-34) pg MCHC (32-36) g/dL RDW Std Deviation (36.4-46.3) fL RDW Coeff of Nessa (11.5-14.5) % Plt Count (130-400) K/uL MPV (7.4-10.4) fL Immature Gran % (Auto) % Neut % (Auto) % Lymph % (Auto) % [place] % (Auto) % Eos % (Auto) % Baso % (Auto) % Neut # (Auto) (1.4-6.5) K/uL Lymph # (Auto) (1.2-3.4) K/uL [place] # (Auto) (0.11-0.59) K/uL Eos # (Auto) (0-0.5) K/uL Baso # (Auto) (0-0.2) K/uL Immature Gran # (Auto) (0.00-0.02) K/uL APTT (21.0-31.0) Seconds PTT Ratio Sodium (136-145) mmol/L Potassium (3.5-5.1) mmol/L Chloride (98-107) mmol/L Carbon Dioxide (21-32) mmol/L Anion Gap (3-11) BUN (7-18) mg/dl Creatinine (0.6-1.4) mg/dl Est Cr Clr Drug Dosing ml/min Est GFR ( Amer) ml/min Est GFR (Non-Af Amer) ml/min BUN/Creatinine Ratio (10-20) Glucose (70-99) mg/dl Calcium (8.5-10.1) mg/dl Phosphorus (2.5-4.9) mg/dl Magnesium (1.8-2.4) mg/dl Total Bilirubin (0.2-1) mg/dl Direct Bilirubin (0-0.2) mg/dl AST (15-37) U/L ALT (12-78) U/L Alkaline Phosphatase (45-117) U/L Troponin I (0-0.045) ng/ml Total Protein (6.4-8.2) gm/dl Albumin (3.4-5.0) gm/dl Globulin (2.5-4.0) gm/dl Albumin/Globulin Ratio (0.9-2) Lipase (73-393) U/L COVID-19 Eval Order Covid19 at [facility] SARS-CoV-2 (PCR) NEGATIVE (Negative) Administered Medications Carvedilol (Carvedilol 3.125 Mg Tab) 3.125 mg PO BID HERLINDA Stop: 12/16/20 01:30 Last Admin: 11/16/20 02:34 Dose: 3.125 mg Documented by: [id number] Famotidine (Famotidine 20 Mg Tab) 20 mg PO BID HERLINDA Stop: 12/16/20 01:30 Last Admin: 11/16/20 02:34 Dose: 20 mg Documented by: [id number] Discontinued Medications Aspirin (Aspirin Chew 324 Mg) 324 mg PO NOW STA Stop: 11/15/20 22:26 Last Admin: 11/15/20 22:32 Dose: 324 mg Documented by: [id number] Lorazepam (Lorazepam 1 Mg Tab) 0.5 mg SL NOW STA Stop: 11/15/20 22:55 Last Admin: 11/15/20 23:00 Dose: 0.5 mg Documented by: [id number] Morphine Sulfate (Morphine Sulfate 4 Mg/Ml 1 Ml Carp\\Vial) 4 mg IV NOW STA Stop: 11/15/20 22:26 Last Admin: 11/15/20 22:30 Dose: 4 mg Documented by: [id number] Morphine Sulfate (Morphine Sulfate 2 Mg/Ml Carp) 2 mg IV NOW STA Stop: 11/16/20 02:02 Last Admin: 11/16/20 02:34 Dose: 2 mg Documented by: [id number] Oxycodone HCl (Oxycodone Hcl Ir 5 Mg Tab (Immediate Release)) Confirm Admini stered Dose 5 mg .ROUTE .STK-MED ONE Stop: 11/16/20 01:45 Last Admin: 11/16/20 01:47 Dose: 5 mg Documented by: [id number] Discharge Plan Visit Data Chief Complaint: Chest Pain Stated Complaint: CHEST PAIN ED Provider: Matthias lAlen Discharge Problem: Substernal chest pain, History of coronary artery disease, Chronic pain Patient Disposition: Admitted As Inpatient Discharge Instructions Interventions: ED Discharge Assessment Last Done: 11/16/20 01:27 Discharge Problem: Chronic pain Qualifiers: Chronic pain type: other chronic pain Qualified Code(s): G89.29 - Other chronic pain
[2020-11-15 22:41] LABS: Bilirubin Direct 0.1 mg/dl (0-0.2); Magnesium 2.4 mg/dl (1.8-2.4); Phosphorus 2.9 mg/dl (2.5-4.9)
[2020-11-15] MEDS ORDERED: LORazepam 1 MG TAB SL STA (22:54)
--- NOTE | 2020-11-16 | History & Physical Report ---
Date of Service November 16, 2020 Assessment & Plan (1) Substernal chest pain: Substernal chest pain/CAD/hypertension- The patient will be placed in observation to telemetry for serial cardiac enzymes, serial EKG's, cardiac rhythm monitoring Last echo was on 10/25/2020 Last admission was from 10/24-10/25/2020 for similar symptoms. Continue aspirin, and carvedilol Present on Admission?: Yes (2) CAD (coronary artery disease): See above Present on Admission?: Yes (3) Depression as late effect of cerebrovascular accident (CVA): Continue gabapentin mirtazapine Present on Admission?: Yes (4) ESA (generalized anxiety disorder): Continue gabapentin/mirtazapine Present on Admission?: Yes (5) Dyslipidemia: Not on any specific treatment check a fasting lipid panel Present on Admission?: Yes (6) GERD (gastroesophageal reflux disease): Increase famotidine from 10 mg daily to 20 mg p.o. twice daily Present on Admission?: Yes (7) Hypertension: See above Present on Admission?: Yes (8) Post herpetic neuralgia: Continue gabapentin Present on Admission?: Yes (9) Stroke with left hemiparesis: Stable examination Present on Admission?: Yes History of Present Illness Chief Complaint: The patient presents to the emergency department with complaint of substernal chest pain that recurred this afternoon while at rest, after his initial episode that he came to the emergency department for on the evening of 11/13/2020. Primary Care Provider: Lebron Melendez DO The patient is a 60-year-old male with past medical history including GERD, CAD, left shoulder pain, stroke with left hemiparesis, pneumonia, postherpetic neuralgia, urinary incontinence, hypertension, depression, generalized anxiety disorder, rotator cuff dysfunction, dyslipidemia and spinal stenosis. He was initially seen in the emergency department on 11/13/2020 for chest pain, with negative work-up at that time, he was advised to be admitted by the ED staff however, he elected to go home. He came back in this evening at the insistence of his with recurrence of pain. Allergies Allergy/AdvReac Type Severity Reaction Status Date / Time fentanyl Allergy Severe NEURO Verified 11/15/20 22:42 CHANGES tuberculin, purified protein Allergy Severe SWELLING/HI Verified 11/15/20 22:42 deriva VES rosuvastatin Allergy Intermediate Chest and Verified 11/15/20 22:42 muscle pain sertraline Allergy Intermediate Psych Verified 11/15/20 22:42 complications Jyhxuxi-Ykq-Iqm Reductase AdvReac Severe BODY ACHES Verified 11/15/20 22:42 Inhibitor Home Medications Medication Instructions Recorded Confirmed Type aspirin 81 mg PO HS 10/14/19 11/15/20 History omega-3 fatty acids 1,000 mg 1,000 mg PO BID 08/27/20 11/15/20 History capsule docusate sodium 100 mg capsule 100 mg PO BID cap 10/07/20 11/15/20 History mirtazapine 45 mg tablet 45 mg PO HS tab 10/07/20 11/15/20 History nitroglycerin 0.4 mg sublingual 0.4 mg SUBLINGUAL UD PRN 10/07/20 11/15/20 History tablet polyethylene glycol 3350 17 17 g PO QAM PRN 10/07/20 11/15/20 History gram/dose oral powder vitamin B complex 1 tab PO QAM 10/07/20 11/15/20 History oxycodone-acetaminophen 5 mg-325 1 tab PO Q6H PRN #20 tab 10/13/20 11/15/20 Rx mg tablet carvedilol [Coreg] 3.125 mg PO DAILY 10/24/20 11/15/20 History gabapentin 600 mg PO HS 30 Days #30 tab 10/25/20 11/15/20 Rx famotidine 10 mg tablet 10 mg PO DAILY 11/01/20 11/15/20 History lidocaine HCl 2 % mucosal jelly 5 ml EXT Q6H PRN ml 11/01/20 11/15/20 History naloxone 4 mg/actuation nasal spray 1 spray INTRANASAL UD PRN 11/01/20 11/15/20 History oxycodone 5 mg tablet 5 mg PO Q6 PRN #30 tab 11/11/20 11/15/20 Rx Past Med/Surg History Medical History Atypical chest pain Yanes's palsy CAD (coronary artery disease) "Cardiac cath 2013-50% mid circumflex, 99% ostial OM1 and OM2, 70% RCA" Depression as late effect of cerebrovascular accident (CVA) Dyslipidemia ESA (generalized anxiety disorder) GERD (gastroesophageal reflux disease) Hypertension Rotator cuff dysfunction Sepsis Spinal stenosis Stroke with left hemiparesis HEMORRHAGIC; 10/2019; hospitalized at [facility] for such; s/p craniotomy Wrist drop Surgical History History of right-sided carotid endarterectomy (~02/2020) [facility] Status post craniectomy (~10/2019) Family History Father Diabetes Myocardial infarction Grandfather , paternal GF Diabetes Grandmother , Paternal GM Diabetes Uncle Myocardial infarction Mother Hypertension Hiatal hernia Denies family history of Ovarian cancer Prostate cancer Breast cancer Lung cancer Colorectal cancer Stroke Social History Smoking Status: Never smoker Tobacco Type: Cigarettes Age Started Using Tobacco: 18; Age Quit Using Tobacco: 58; Cigarettes Per Day: 1-2/day many years; Second Hand Exposure: No; Hx Alcohol Use: No Hx Substance Use: No Preferred Language: Indonesian Communication Ability: Effective Visual Impairment: Limited Hearing Ability: Use of Hearing Aid Public Relations Assistant Required: No Beliefs That Will Affect Care: None marital status: Current Living Situation: Spouse current occupational status: retired 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 How many Children do You have: 2 other: [place] [facility] Feels Safe at Home: Yes Safety Concerns: Feels Safe At This Time Childhood Exposure to Second-Hand Smoke: No caffeine: Yes (very seldom ) Dental Care, Regularly: Yes Physical Activity Frequency: Daily Physical Activity Frequency Comment: walks daily Seatbelt Use: always Sunscreen Use: Yes Assistive Devices: Cane and Glasses Review of Systems Review of Systems: The patient denies palpitations, shortness of breath, dyspnea on exertion, cough, lower extremity swelling, sore throat, fevers, chills, sweats, weight change, fatigue, nausea, vomiting, diarrhea , constipation, abdominal pain, pelvic pain, blood in urine or stool, dysuria, urinary frequency or urgency, lightheadedness, dizziness, headache, memory loss, loss of consciousness, rash, abnormal bruising or bleeding, imbalance, focal or generalized weakness, numbness or tingling in legs, generalized arthralgias or myalgias, back or neck pain, or night sweats. The review of systems is otherwise negative other than for that already noted above, and at least 10 systems have been reviewed. Physical Exam Physical Exam: The patient is awake, alert and oriented 3, well developed and well nourished, normocephalic and atraumatic, lying in bed and in no acute distress. HEENT--PERRL, EOMI, mucous membranes and oropharynx normal Neck--supple. No JVD. No bruits. Thyroid normal, trachea midline, no adenopathy. Heart--normal S1 and S2. No murmurs, rubs or gallops. Lungs--clear bilaterally, no respiratory distress, no accessory muscle use. Abdomen--normal bowel sounds and soft. Nontender. Nondistended. Extremities--no cyanosis or clubbing. No edema. There are good distal pulses b/l. Dermatologic--normal skin turgor, normal color, no abnormal lymph nodes, no rash. Neurologic--cranial nerves II through XII grossly intact. Rheumatologic--normal range of motion on the right Psychiatric--normal affect. Results & Data Results & Data ([facility]) Vital Signs (Past 12 Hours) Vital Signs Temp Pulse Pulse Resp BP Pulse Ox 11/15/20 21:48 96 H 18 139/116 H 98 11/15/20 20:20 97.7 F 89 16 95 Laboratory Results Laboratory Results WBC 5.70 K/uL (4.8-10.8) 11/15/20 21:52 RBC 4.61 M/uL (4.7-6.1) L 11/15/20 21:52 Hgb 15.9 g/dL (14.0-18.0) 11/15/20 21:52 Hct 44.6 % (42-52) 11/15/20 21:52 MCV 96.7 fL (80-100) 11/15/20 21:52 MCH 34.5 pg (25-34) H 11/15/20 21:52 MCHC 35.7 g/dL (32-36) 11/15/20 21:52 RDW Std Deviation 46.7 fL (36.4-46.3) H 11/15/20 21:52 RDW Coeff of Nessa 13.5 % (11.5-14.5) 11/15/20 21:52 Plt Count 185 K/uL (130-400) 11/15/20 21:52 MPV 9.2 fL (7.4-10.4) 11/15/20 21:52 Immature Gran % (Auto) 0.2 % 11/15/20 21:52 Neut % (Auto) 47.8 % 11/15/20 21:52 Lymph % (Auto) 40.0 % 11/15/20 21:52 [place] % (Auto) 10.9 % 11/15/20 21:52 Eos % (Auto) 0.9 % 11/15/20 21:52 Baso % (Auto) 0.2 % 11/15/20 21:52 Neut # (Auto) 2.73 K/uL (1.4-6.5) 11/15/20 21:52 Lymph # (Auto) 2.28 K/uL (1.2-3.4) 11/15/20 21:52 [place] # (Auto) 0.62 K/uL (0.11-0.59) H 11/15/20 21:52 Eos # (Auto) 0.05 K/uL (0-0.5) 11/15/20 21:52 Baso # (Auto) 0.01 K/uL (0-0.2) 11/15/20 21:52 Immature Gran # (Auto) 0.01 K/uL (0.00-0.02) 11/15/20 21:52 APTT 23.1 Seconds (21.0-31.0) 11/15/20 21:52 PTT Ratio 0.9 11/15/20 21:52 Sodium 142 mmol/L (136-145) 11/15/20 21:52 Potassium 4.1 mmol/L (3.5-5.1) 11/15/20 21:52 Chloride 109 mmol/L (98-107) H 11/15/20 21:52 Carbon Dioxide 30 mmol/L (21-32) 11/15/20 21:52 Anion Gap 4.0 (3-11) 11/15/20 21:52 BUN 16 mg/dl (7-18) 11/15/20 21:52 Creatinine 1.08 mg/dl (0.6-1.4) 11/15/20 21:52 Est Cr Clr Drug Dosing 64.7 ml/min 11/15/20 21:52 Est GFR ( Amer) 85.4 ml/min 11/15/20 21:52 Est GFR (Non-Af Amer) 73.7 ml/min 11/15/20 21:52 BUN/Creatinine Ratio 14.9 (10-20) 11/15/20 21:52 Glucose 113 mg/dl (70-99) H 11/15/20 21:52 Calcium 8.9 mg/dl (8.5-10.1) 11/15/20 21:52 Phosphorus 2.9 mg/dl (2.5-4.9) 11/15/20 21:52 Magnesium 2.4 mg/dl (1.8-2.4) 11/15/20 21:52 Total Bilirubin 0.4 mg/dl (0.2-1) 11/15/20 21:52 Direct Bilirubin 0.1 mg/dl (0-0.2) 11/15/20 21:52 AST 16 U/L (15-37) 11/15/20 21:52 ALT 25 U/L (12-78) 11/15/20 21:52 Alkaline Phosphatase 48 U/L (45-117) 11/15/20 21:52 Troponin I < 0.015 ng/ml (0-0.045) 11/15/20 21:52 Total Protein 7.9 gm/dl (6.4-8.2) 11/15/20 21:52 Albumin 3.7 gm/dl (3.4-5.0) 11/15/20 21:52 Globulin 4.2 gm/dl (2.5-4.0) H 11/15/20 21:52 Albumin/Globulin Ratio 0.9 (0.9-2) 11/15/20 21:52 Lipase 228 U/L (73-393) 11/15/20 21:52 COVID-19 Eval Order Covid19 at [facility] 11/15/20 22:35 SARS-CoV-2 (PCR) NEGATIVE (Negative) 11/15/20 22:35 Code Status & VTE Plan Code Status Full code VTE Prophylaxis Plan VTE Prophylaxis will be ordered: Yes PG Care Time/CCT Total # of Minutes Spent Total Time Spent with Patient: Total time spent is greater than 50% in coordination of care (as documented) at patient's floor/unit and/or counseling patient: Coding Level of Care Code INT OBSERVATION CARE 70M LVL 3 Diagnoses Substernal chest pain R07.2 CAD (coronary artery disease) I25.10 Depression as late effect of cerebrovascular accident (CVA) I69.398; F06.31 ESA (generalized anxiety disorder) F41.1 Dyslipidemia E78.5 GERD (gastroesophageal reflux disease) K21.9 Hypertension I10 Post herpetic neuralgia B02.29 Stroke with left hemiparesis
[2020-11-16] MEDS ORDERED: ONDANSETRON INJ 2 MG/ML 2 ML VIAL IV PRN (01:31)
[2020-11-16] MEDS ORDERED: NITROGLYCERIN SL 0.4 MG/TAB TAB SL PRN ×2 (01:31)
[2020-11-16] MEDS ORDERED: POLYETHYLENE (MIRALAX) 17 GM PACK PO PRN (01:31)
[2020-11-16] MEDS ORDERED: ACETAMINOPHEN 325 MG TAB PO PRN (01:31)
[2020-11-16] MEDS ORDERED: NON-FORMULARY MEDICATION (Naloxone [Narcan] 4 mg/actuation spray,non-aerosol) INTNAS PRN (01:31)
[2020-11-16] MEDS ORDERED: LIDOCAINE 2% JELLY 5 ML TUBE EXT PRN (01:31)
[2020-11-16] MEDS ORDERED: oxyCODONE HCL IR 5 MG TAB (IMMEDIATE RELEASE) ONE (01:44)
[2020-11-16] MEDS ORDERED: MoRPHine SULFATE 2 MG/ML CARP IV STA (02:01)
[2020-11-16] MEDS ORDERED: NALOXONE HCL 0.4 MG/1 ML VIAL/CARP IV PRN (02:01)
[2020-11-16] MEDS: FAMOTIDINE 20 MG TAB PO SCH ×2 (02:34→08:19)
[2020-11-16] MEDS: carvediloL 3.125 MG TAB PO SCH ×2 (02:34→08:19)
--- NOTE | 2020-11-16 07:58 | XRay Report ---
XR chest 1V portable HISTORY: Atypical Chest Pain COMPARISON: Chest 11/13/2020. FINDINGS: No pneumothorax. No pleural effusions. The heart is normal in size. No focal lung consolida tions to suggest pneumonia. No evidence for pulmonary edema. There is an old, healed left clavicle fr acture. IMPRESSION: No acute process. ACT 112: Negative or not required by law. Electronically signed by: Pop Mora M.D. 11/16/2020 7:56 AM
[2020-11-16] MEDS: oxyCODONE HCL IR 5 MG TAB (IMMEDIATE RELEASE) PO PRN ×2 (08:18→14:44)
[2020-11-16] MEDS ORDERED: VITAMIN B COMPLEX TAB PO SCH (09:00)
[2020-11-16] MEDS ORDERED: DOCUSATE SODIUM 100 MG CAP PO SCH (09:00)
[2020-11-16] MEDS ORDERED: OMEGA-3 (PURIFIED FISH OIL) 1 GM CAP PO SCH (09:00)
[2020-11-16] MEDS ORDERED: GABAPENTIN 300 MG CAP PO SCH (09:00)
--- NOTE | 2020-11-16 11:25 | Cardiology Consultation ---
Date of Consultation November 16, 2020 Assessment & Plan (1) Substernal chest pain: (2) GERD (gastroesophageal reflux disease): (3) History of coronary artery disease: (4) Stroke with left hemiparesis: (5) Postherpetic neuralgia: I feel the patient's chest pain is atypical and most likely related to reflux. I would be in favor of stopping the Pepcid and restarting his Protonix. I think he can also be given sublingual nitroglycerin to use on a as needed basis for chest pain. The nitroglycerin can help with esophageal spasm and pain as well as for cardiac angina. He has a follow-up appointment with Dr. Orosco this Sunday which he should keep. I do not believe any additional cardiac testing is indicated this admission. History of Present Illness Attending Physician: Toby Royal History of Present Illness This is a 60-year-old male patient who is followed by Dr. Orosco through our clinic. He has a past medical history as outlined below. In addition, last year he had a right hemisphere CVA and has residual paralysis on the left side. He also has a history of major depression and anxiety. He has had multiple hospital admissions now for ongoing chest pain and discomfort. He actually was in [place] in June and was admitted to the hospital there where he underwent an echocardiogram and pharmacologic nuclear stress test both of which according to our records were negative. He was offered a heart catheterization but refused and then return to see Dr. Orosco in July. Since that time, he has had shingles of the right neck and right ear with residual neuropathic pain. He also has a history of reflux and after his stroke last year he was taken off of his PPI in favor of Pepcid because at that time he was taking Plavix post str og. His pain he feels is related to reflux and the Pepcid is not as effective as a PPI. He has reflux which chokes him at night and actually the chest pain that brought him in for this admission started while he was sleeping and was related again to reflux. His cardiac markers are negative and his EKG is essentially within normal limits. PAST MEDICAL HISTORY: 1.Coronary artery disease by cardiac catheterization in 2013, showing 50% mid circumflex disease, 99% ostial OM1 and OM2 stenosis, and 70% RCA stenosis. 2.Carotid atherosclerotic disease. 3.Dyslipidemia with intolerance to all statins, currently on Repatha injections. 4.History of PTSD and anxiety. 5.Hypertension. 6.GERD. 7.History of acute confusional state, status post cardiac catheterization. Allergies Allergy/AdvReac Type Severity Reaction Status Date / Time fentanyl Allergy Severe NEURO Verified 11/15/20 22:42 CHANGES tuberculin, purified protein Allergy Severe SWELLING/HI Verified 11/15/20 22:42 deriva VES rosuvastatin Allergy Intermediate Chest and Verified 11/15/20 22:42 muscle pain sertraline Allergy Intermediate Psych Verified 11/15/20 22:42 complications Mknzuox-Tsc-Awx Reductase AdvReac Severe BODY ACHES Verified 11/15/20 22:42 Inhibitor Home Medications Medication Instructions Recorded Confirmed Type aspirin 81 mg PO HS 10/14/19 11/15/20 History omega-3 fatty acids 1,000 mg 1,000 mg PO BID 08/27/20 11/15/20 History capsule docusate sodium 100 mg capsule 100 mg PO BID cap 10/07/20 11/15/20 History mirtazapine 45 mg tablet 45 mg PO HS tab 10/07/20 11/15/20 History nitroglycerin 0.4 mg sublingual 0.4 mg SUBLINGUAL UD PRN 10/07/20 11/15/20 History tablet polyethylene glycol 3350 17 17 g PO QAM PRN 10/07/20 11/15/20 History gram/dose oral powder vitamin B complex 1 tab PO QAM 10/07/20 11/15/20 History oxycodone-acetaminophen 5 mg-325 1 tab PO Q6H PRN #20 tab 10/13/20 11/15/20 Rx mg tablet carvedilol [Coreg] 3.125 mg PO DAILY 10/24/20 11/15/20 History gabapentin 600 mg PO HS 30 Days #30 tab 10/25/20 11/15/20 Rx famotidine 10 mg tablet 10 mg PO DAILY 11/01/20 11/15/20 History lidocaine HCl 2 % mucosal jelly 5 ml EXT Q6H PRN ml 11/01/20 11/15/20 History naloxone 4 mg/actuation nasal spray 1 spray INTRANASAL UD PRN 11/01/20 11/15/20 History oxycodone 5 mg tablet 5 mg PO Q6 PRN #30 tab 07/08/21 07/12/21 Rx Patient History Medical History Atypical chest pain Yanes's palsy CAD (coronary artery disease) "Cardiac cath 2013-50% mid circumflex, 99% ostial OM1 and OM2, 70% RCA" Depression as late effect of cerebrovascular accident (CVA) Dyslipidemia ESA (generalized anxiety disorder) GERD (gastroesophageal reflux disease) Hypertension Rotator cuff dysfunction Sepsis Spinal stenosis Stroke with left hemiparesis HEMORRHAGIC; 10/2019; hospitalized at [facility] for such; s/p craniotomy Wrist drop Surgical History History of right-sided carotid endarterectomy (~02/2020) [facility] Status post craniectomy (~10/2019) Family History Father Diabetes Myocardial infarction Grandfather , paternal GF Diabetes Grandmother , Paternal GM Diabetes Uncle Myocardial infarction Mother Hypertension Hiatal hernia Denies family history of Ovarian cancer Prostate cancer Breast cancer Lung cancer Colorectal cancer Stroke Social History Smoking Status: Never smoker Tobacco Type: Cigarettes Age Started Using Tobacco: 18; Age Quit Using Tobacco: 58; Cigarettes Per Day: 1-2/day many years; Second Hand Exposure: No; Hx Alcohol Use: No Hx Substance Use: No Preferred Language: Central African Communication Ability: Effective Visual Impairment: Limited Hearing Ability: Use of Hearing Aid Pillowcase Maker Required: No Beliefs That Will Affect Care: None marital status: Current Living Situation: Spouse 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 Physical Exam Physical Exam: General: no acute distress and stated age Head: normocephalic, no masses, lesions, tenderness or abnormalities Eyes: conjunctiva are pink and non-injected, sclera clear Neck: supple, no adenopathy, no bruits, normal jugular venous pulse, no hepatojugular reflux Chest: normal shape and normal respiratory effort Lungs: clear to auscultation and percussion Cardiac Exam: - regular rate & rhythm, no murmurs gallops or rubs - normal S1, normal S2 Pulses: 2(+) throughout Abdomen: abdomen soft, non-tender, no abnormal masses and no hepatosplenomegaly Musculoskeletal: no gait disturbance, no joint inflammation, no deforming arthritis Extremities: no edema and no cyanosis Neuro: grossly normal exam Results & Data ([facility]) Vital Signs (Past 12 Hours) Vital Signs Temp Pulse Pulse Resp BP BP BP 11/16/20 11:17 36.6 C 72 18 103/69 11/16/20 08:17 36.8 C 74 18 114/79 11/16/20 07:52 73 11/16/20 03:00 36.9 C 88 17 125/86 11/16/20 01:24 36.6 C 85 18 120/79 11/16/20 01:00 76 17 105/74 11/16/20 00:45 74 15 105/70 11/16/20 00:30 77 19 113/74 11/16/20 00:15 80 9 L 120/82 11/16/20 00:00 75 10 L 108/77 11/15/20 23:45 82 16 112/79 11/15/20 23:30 77 13 116/86 Pulse Ox 11/16/20 11:17 97 11/16/20 08:17 11/16/20 07:52 11/16/20 03:00 98 11/16/20 01:24 99 11/16/20 01:00 95 11/16/20 00:45 95 11/16/20 00:30 95 11/16/20 00:15 95 11/16/20 00:00 95 11/15/20 23:45 93 11/15/20 23:30 95 Laboratory Results Laboratory Results - last 24 hr 11/15/20 11/15/20 11/15/20 21:52 21:52 21:52 WBC 5.70 RBC 4.61 L Hgb 15.9 Hct 44.6 MCV 96.7 MCH 34.5 H MCHC 35.7 RDW Std Deviation 46.7 H RDW Coeff of Nessa 13.5 Plt Count 185 MPV 9.2 Immature Gran % (Auto) 0.2 Neut % (Auto) 47.8 Lymph % (Auto) 40.0 [place] % (Auto) 10.9 Eos % (Auto) 0.9 Baso % (Auto) 0.2 Neut # (Auto) 2.73 Lymph # (Auto) 2.28 [place] # (Auto) 0.62 H Eos # (Auto) 0.05 Baso # (Auto) 0.01 Immature Gran # (Auto) 0.01 APTT 23.1 PTT Ratio 0.9 Sodium 142 Potassium 4.1 Chloride 109 H Carbon Dioxide 30 Anion Gap 4.0 BUN 16 Creatinine 1.08 Est Cr Clr Drug Dosing 64.7 Est GFR ( Amer) 85.4 Est GFR (Non-Af Amer) 73.7 BUN/Creatinine Ratio 14.9 Glucose 113 H Calcium 8.9 Phosphorus 2.9 Magnesium 2.4 Total Bilirubin 0.4 Direct Bilirubin 0.1 AST 16 ALT 25 Alkaline Phosphatase 48 Troponin I < 0.015 Total Protein 7.9 Albumin 3.7 Globulin 4.2 H Albumin/Globulin Ratio 0.9 Lipase 228 COVID-19 Eval Order SARS-CoV-2 (PCR) 11/15/20 11/15/20 11/16/20 22:35 22:35 10:46 WBC RBC Hgb Hct MCV MCH MCHC RDW Std Deviation RDW Coeff of Nessa Plt Count MPV Immature Gran % (Auto) Neut % (Auto) Lymph % (Auto) [place] % (Auto) Eos % (Auto) Baso % (Auto) Neut # (Auto) Lymph # (Auto) [place] # (Auto) Eos # (Auto) Baso # (Auto) Immature Gran # (Auto) APTT PTT Ratio Sodium Potassium Chloride Carbon Dioxide Anion Gap BUN Creatinine Est Cr Clr Drug Dosing Est GFR ( Amer) Est GFR (Non-Af Amer) BUN/Creatinine Ratio Glucose Calcium Phosphorus Magnesium Total Bilirubin Direct Bilirubin AST ALT Alkaline Phosphatase Troponin I < 0.015 Total Protein Albumin Globulin Albumin/Globulin Ratio Lipase COVID-19 Eval Order Covid19 at [facility] SARS-CoV-2 (PCR) NEGATIVE Medications Administered Current Inpatient Medications Acetaminophen (Acetaminophen 325 Mg Tab) 650 mg PO Q4H PRN PRN Reason: Pain or Fever Stop: 12/16/20 01:30 Aspirin (Aspirin 81 Mg Ectab) 81 mg PO HS [facility] Stop: 12/16/20 20:59 Carvedilol (Carvedilol 3.125 Mg Tab) 3.125 mg PO BID [facility] Stop: 12/16/20 01:30 Last Admin: 11/16/20 08:19 Dose: 3.125 mg Documented by: Docusate Sodium (Docusate Sodium 100 Mg Cap) 100 mg PO BID [facility] Stop: 12/16/20 08:59 Last Admin: 11/16/20 08:19 Dose: 100 mg Documented by: Fish Oil ([place]-3 (Purified Fish Oil) 1 Gm Cap) 1 gm PO BID [facility] Stop: 12/16/20 08:59 Last Admin: 11/16/20 08:19 Dose: 1 gm Documented by: Gabapentin (Gabapentin 600 Mg Tab) 600 mg PO HS [facility] Stop: 12/16/20 20:59 Gabapentin (Gabapentin 300 Mg Cap) 300 mg PO QAM [facility] Stop: 12/16/20 08:59 Last Admin: 11/16/20 08:19 Dose: 300 mg Documented by: Lidocaine HCl (Lidocaine 2% Jelly 5 Ml Tube) 5 ml EXT Q6H PRN PRN Reason: Pain Stop: 12/16/20 01:30 Mirtazapine (Mirtazapine Soltab 15 Mg) 45 mg PO [facility] Stop: 12/16/20 20:59 Naloxone HCl (Naloxone Hcl 0.4 Mg/1 Ml Vial/Carp) 0.1 mg IV Q5M PRN; Protocol PRN Reason: Oversedation/Resp Depression Stop: 11/30/20 02:00 Nitroglycerin (Nitroglycerin Sl 0.4 Mg/Tab Tab) 0.4 mg SL UD PRN PRN Reason: Chest Pain Stop: 12/16/20 01:30 Ondansetron HCl (Ondansetron Inj 2 Mg/Ml 2 Ml Vial) 4 mg IV Q6H PRN PRN Reason: Nausea Stop: 12/16/20 01:30 Oxycodone HCl (Oxycodone Hcl Ir 5 Mg Tab (Immediate Release)) 5 mg PO Q6 PRN PRN Reason: Severe Pain Stop: 11/30/20 01:30 Last Admin: 11/16/20 08:18 Dose: 5 mg Documented by: Pantoprazole Sodium (Pantoprazole 40 Mg Tab) 40 mg PO QAM [facility] Stop: 12/16/20 11:59 Polyethylene Glycol (Polyethylene (Miralax) 17 Gm Pack) 17 gm PO QAM PRN PRN Reason: Constipation Stop: 12/16/20 01:30 Vitamin B Complex (Vitamin B Complex Tab) 1 tab PO QA [facility]LINDA Stop: 12/16/20 08:59 Last Admin: 11/16/20 08:20 Dose: 1 tab Documented by:
[2020-11-16] MEDS ORDERED: PANTOprazole 40 MG TAB PO SCH (12:00)
--- NOTE | 2020-11-16 14:12 | Discharge Summary ---
Date of Service date of admission - November 15, 2020 date of discharge - November 16, 2020 Admission HPI Per Admitting Provider The patient is a 60-year-old male with past medical history including GERD, CAD, prior stroke with resulting left-sided hemiparesis, recent pneumonia in 10/2020, recent shingles with residual postherpetic neuralgia, urinary incontinence, hypertension, depression, generalized anxiety disorder, rotator cuff dysfunction, dyslipidemia and spinal stenosis. He was initially seen in the emergency department on 11/13/2020 for chest pain, with negative work-up at that time, he was advised to be admitted by the ED staff however, he elected to go home. He came back in this evening at the insistence of his with recurrence of chest pain. Principal Diagnosis chest pain, ACS ruled out; GERD suspected Discharge Exam general - NAD, a/o x 3 mouth - MMM heart - RRR, s1 s2, no murmur lungs - CTA b/l abd - soft, NT, ND, BS+, no HSM ext - no edema, pulses 2+ b/l chest - no reproducible chest wall pain neuro - mild left-sided weakness (baseline); speech fluent Discharge Data Allergies Allergy/AdvReac Type Severity Reaction Status Date / Time fentanyl Allergy Severe NEURO Verified 11/15/20 22:42 CHANGES tuberculin, purified protein Allergy Severe SWELLING/HI Verified 11/15/20 22:42 deriva VES rosuvastatin Allergy Intermediate Chest and Verified 11/15/20 22:42 muscle pain sertraline Allergy Intermediate Psych Verified 11/15/20 22:42 complications Slchdlj-Tjr-Jjf Reductase AdvReac Severe BODY ACHES Verified 11/15/20 22:42 Inhibitor MRI inhibitors Allergy Unknown Uncoded 11/17/20 14:14 Consultations [facility] Course (1) Substernal chest pain: The patient had no further chest pain following admission. Telemetry was normal. Last echo was on 10/25/2020 at [facility] showing preserved EF, no regional wall motion abnormalities, and normal valve function. Given how recent the echo was a repeat study was deferred. Last stress test was performed in [place] earlier this spring and was negative for ischemia. Troponins were all negative. He was seen in consult by [facility]. It was felt that his symptoms were likely due to GERD. The patient indeed stated he had been having frequent episodes of burping, belching, and a worsening of symptoms following meals. He had previously taken a PPI and this was stopped in the past due to concern of interaction with his anti-platelet agents. At discharge the following were advised - * pantoprazole 40mg once daily * sucralfate 1gm BID x 1 week * consider outpatient GI referral for possible EGD As a precautionary measure his SL nitroglycerin was refilled. He has a follow-up appointment with [facility] several days post- discharge. Although a GI source for his pain is suspected - if symptoms remain refractory - he potentially may need additional cardiac work-up (ie heart cath). (2) GERD (gastroesophageal reflux disease): Resume pantoprazole 40mg daily Also advised sucralfate 1gm BID x 1 week (3) CAD (coronary artery disease): See above Continue coreg & aspirin (4) Depression as late effect of cerebrovascular accident (CVA): Continue mirtazapine (5) ESA (generalized anxiety disorder): Continue gabapentin/mirtazapine (6) Dyslipidemia: Not on statins due to statin intolerance (myalgias) (7) Hypertension: Controlled during the stay (8) Post herpetic neuralgia: Continue gabapentin as previous He can use OTC salonpas to the posterior auricular region and lower neck region, as desired He will also speak to his PCP about other oral agents for his pain (cymbalta, etc) (9) Stroke with left hemiparesis: Continue aspirin for secondary prevention (10) Pneumonia: 11/13/20 CTA chest showed resolution of his RUL pneumonia that he was admitted for in October 2020. The same study was NEGATIVE for PE. Total Time Total Time Spent Total Time Spent (In Minutes): 40 Discharge Plan Discharge Items Patient Disposition: Home - Self-Care Reason For Visit: CHEST PAIN Discharge Diagnosis: Chest pain - no evidence of heart attack, blood work for the heart was negative. CAT scan of the lungs shows no blood clots and resolution of your recent pneumonia. 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 Your blood work for the heart was negative (no evidence of heart attack). Your CAT scan of the lungs showed NO blood clots and resolution of the pneumonia you had had in October. You were seen by Dr Orosco's partner, Dr Guthrie, who felt that your pain may be due to reflux disease. We are recommending that you restart medication for reflux. Start the following today - * pantoprazole 40mg once daily * sucralfate 1gm twice daily for 1 week then stop You had asked what was causing your recent shortness of breath. Some of the recent breathing issues was likely from the pneumonia. If the breathing continues to be short, and especially if the chest pain spells continue, you may need to have another heart catheterization. Dr Orosco will be seeing you this Sunday in the office to check on how you are doing. For the shingles pain - * continue the gabapentin * purchase [id number] "salonpas" and use as directed; place them directly on the skin of the neck and jaw line as needed for pain relief; if you are using the lidocaine jelly that was given during your October stay please skip the salonpas * talk with Dr Melendez about other medications that you could take for shingles pain (cymbalta, nortriptyline, etc) You may want to request a GI referral to [facility] gastro[facility]ology when you see Dr Orosco on Sunday. We have refilled your nitroglycerin tablets for you to use on an emergency basis. If you have to use the tablets for chest pain please seek medical attention right away. Return to [facility] if - * you have to use nitroglycerin tablets * you have severe shortness of breath * you have uncontrolled chest pain * any other concerns Pending Studies at Discharge: No Stand-Alone Forms: My [facility] Categorical, Smoking Cessation Medications and DC Order Prescriptions: New pantoprazole 40 mg Tablet,Delayed Release (Dr/Ec) 40 mg PO QAM Qty: 30 RF: 2 oxycodone 5 mg tablet 5 mg PO Q8H PRN (Reason: pain) Qty: 14 RF: 0 Continued oxycodone-acetaminophen [Percocet] 5-325 mg tablet 1 tab PO Q6H PRN (Reason: pain) Qty: 20 RF: 0 oxycodone 5 mg tablet 5 mg PO Q6 PRN (Reason: pain) Qty: 30 RF: 0 mirtazapine 45 mg tablet 45 mg PO HS RF: 0 vitamin B complex Tablet 1 tab PO QAM RF: 0 polyethylene glycol 3350 [Miralax] 17 gram/dose powder 17 g PO QAM PRN (Reason: Constipation) RF: 0 docusate sodium [Dulcolax Stool Softener (dss)] 100 mg capsule 100 mg PO BID RF: 0 lidocaine HCl 2 % jelly 5 ml EXT Q6H PRN (Reason: Pain) RF: 0 omega-3 fatty acids [Fish Oil Concentrate] 1,000 mg capsule 1,000 mg PO BID RF: 0 aspirin 81 mg Tablet,Delayed Release (Dr/Ec) 81 mg PO HS RF: 0 nitroglycerin [Nitrostat] 0.4 mg tablet, sublingual 0.4 mg sublingual UD PRN (Reason: Chest Pain) Qty: 1 RF: 0 carvedilol [Coreg] 6.25 mg tablet 3.125 mg PO DAILY RF: 0 Narcan 4 mg/actuation spray,non-aerosol 1 spray INTRANASAL UD PRN (Reason: OVER SEDATION) RF: 0 Discontinued famotidine 10 mg tablet 10 mg PO DAILY RF: 0 Discharge Orders: Discharge Order (Routine); Ordered 11/16/20 Ordered By: Toby Royal Admission Data Admit Date/Time: 11/15/20 23:59 Attending Provider: Toby Royal Admit Provider: Jayce Conte Primary Care Provider: Lebron Melendez Other Providers: Jayce Conte ; Tacho Sharif Other Interventions: Discharge Summary Assessment (RN) Last Done: 11/16/20 14:35 Coding Level of Care Code 68243 OBS Care - Discharge Diagnoses Substernal chest pain R07.2 CAD (coronary artery disease) I25.10 Depression as late effect of cerebrovascular accident (CVA) I69.398; F06.31 ESA (generalized anxiety disorder) F41.1 Dyslipidemia E78.5 GERD (gastroesophageal reflux disease) K21.9 Hypertension I10 Post herpetic neuralgia B02.29 Stroke with left hemiparesis Pneumonia J18.9
--- NOTE | 2020-11-16 18:24 | Electrocardiogram Report ---
Test Reason : Blood Pressure : / mmHG Vent. Rate : 095 BPM Atrial Rate : 095 BPM P-R Int : 156 ms QRS Dur : 092 ms QT Int : 346 ms P-R-T Axes : 045 034 047 degrees QTc Int : 434 ms Normal sinus rhythm Normal ECG When compared with ECG of 13-NOV-2020 16:04, No significant change was found Confirmed by Flex Cortes ([id number]) on 11/16/2020 6:24:29 PM Referred By: REFERRED SELF Confirmed By:Madhu Cortes
--- NOTE | 2020-11-16 18:27 | Electrocardiogram Report ---
Test Reason : Blood Pressure : / mmHG Vent. Rate : 068 BPM Atrial Rate : 068 BPM P-R Int : 172 ms QRS Dur : 096 ms QT Int : 374 ms P-R-T Axes : -01 017 066 degrees QTc Int : 397 ms Normal sinus rhythm Nonspecific T wave abnormality Abnormal ECG When compared with ECG of 15-NOV-2020 20:28, (unconfirmed) Nonspecific T wave abnormality now evident in Inferior leads Confirmed by Flex Cortes ([id number]) on 11/16/2020 6:27:00 PM Referred By: REFERRED SELF Confirmed By:Madhu Cortes
[2020-11-16] MEDS ORDERED: ASPIRIN 81 MG ECTAB PO SCH (21:00)
[2020-11-16] MEDS ORDERED: GABAPENTIN 600 MG TAB PO SCH (21:00)
[2020-11-16] MEDS ORDERED: MIRTAZAPINE SOLTAB 15 MG PO SCH (21:00)
== END 2020-11-16 15:15 | disposition home or self-care (01) ==
LOC: 2S 20:17 → ED 20:17 → SUATTDRO 23:59 → 2S 11-16 01:27
DX: Z79.82 Long term (current) use of aspirin; K21.9 Gastro-esophageal reflux disease without esophagitis; Z87.891 Personal history of nicotine dependence; E78.5 Hyperlipidemia, unspecified; I25.10 Atherosclerotic heart disease of native coronary artery without angina pectoris; Z79.891 Long term (current) use of opiate analgesic; I69.354 Hemiplegia and hemiparesis following cerebral infarction affecting left non-dominant side; R07.9 Chest pain, unspecified; I10 Essential (primary) hypertension; Z79.899 Other long term (current) drug therapy; B02.29 Other postherpetic nervous system involvement

== ENCOUNTER 2022-12-17 20:05 | Observation (INO) ==
[2022-12-17] MEDS ORDERED: ACETAMINOPHEN 500 MG TAB PO STA (20:28)
[2022-12-17] MEDS ORDERED: CEFEPIME 2,000 MG/20 ML VIAL IV STA (20:28)
[2022-12-17] MEDS ORDERED: SODIUM CHLORIDE 0.9% 1000ML 1,000 ML IV SCH (20:30)
--- NOTE | 2022-12-17 20:32 | Emergency Department Note ---
Impression & Plan Rigors, Tachycardia, Elevated lactic acid level, Lower back pain, COVID-19 ED Provider Note NAME: KAREN SOLORZANO AGE: 62 SEX: M : 1960 ARRIVES VIA: Walk-In INFORMANT: [Patient][] ED PROVIDER(S): [Aleksandar Epps MD] CHIEF COMPLAINT: Chills, chest pressure HISTORY OF PRESENT ILLNESS: The patient is a 62-year-old male who has been in baseline health. He felt fine all day today. About an hour ago, he was sitting when he suddenly developed chills and rigors and a cold sweat. He felt pressure across his chest. He developed increasing lower back pain. No shortness of breath. He felt washed out. Because of the chest pressure, he presents for evaluation. The patient has not had cough or cold or congestion. No urinary complaints. He has never had a UTI. No abdominal pain, no nausea or vomiting. He has not had any sick contacts. He has not noticed any rash. PMHx/PSHx: See Below SOCIAL HISTORY: See Below. PHYSICAL EXAM: GENERAL: Patient is in no acute distress. HEENT: No acute trauma, normocephalic atraumatic, mucous membranes moist, no nasal congestion. NECK: No stridor, no adenopathy, no meningismus, trachea is midline. LUNGS: Clear to auscultation bilaterally, no wheeze, no rhonchi, breath sounds equal. HEART: Mildly tachycardic, regular rhythm, no murmurs. ABDOMEN: Soft, nontender, bowel sounds positive, no peritonitis. EXTREMITIES: No cyanosis or edema, full range of motion of all the joints without pain or difficulty, no signs for acute trauma. NEUROLOGIC: Oriented x 3, no acute motor or sensory deficits, no focal weakness. SKIN: No rash, no jaundice, no diaphoresis. DIFFERENTIAL DIAGNOSIS: Sepsis or bacteremia, viral illness, pneumonia, UTI, electrolyte imbalance, dysrhythmia, [place], among others. EMERGENCY DEPARTMENT COURSE/PROCEDURES: Prior/Outside records reviewed: Recent cardiology note. ECG per my interpretation: Indication was chest pressure. The ECG shows a sinus tachycardia with a rate of 110. There is no ST elevation, no PVCs. The QTc is 438. Continuous Cardiac Monitoring per my interpretation: An order was placed for continuous cardiac monitoring. The monitor shows a rate of 114 with sinus tachycardia. Observation Note: The patient was placed in observation status at 2020. Observation was initiated to help rule out serious infection as well as cardiac ischemia and dysrhythmia. During the time in observation, the patient was frequently reassessed and received IV saline, pain medication, continuous cardiac monitoring. On Final reassessment the patient the patient was persistently tachycardic and laboratory testing showed a rising lactic acid level--the patient will be admitted at this time. Total observation time of around 3-hours. MEDICAL DECISION MAKING: There is no leukocytosis or concerning anemia. There is a normal platelet count. No coagulopathy. No renal failure or significant electrolyte abnormality. Lactic acid level was elevated at 2.8, this could be consistent with dehydration and potentially infection/sepsis. No concerning liver enzyme elevation. Procalcitonin level was not elevated making serious bacterial infection less likely. ECG showed a sinus tachycardia, no ST elevation or ischemia. Cardiac enzyme testing x2 was not consistent with acute cardiac injury. Urinalysis did not show findings of infection. Respiratory bio fire returned positive for COVID-19. Chest film did not show mediastinal widening, pneumonia or pneumothorax per my review. On exam, the patient seemed washed out and tired. He was tachycardic. Patient received IV saline, 2 L. He was given IV Toradol for pain, oral oxycodone for pain. He received IV cefepime as empiric antibiotic coverage, he was given oral Tylenol. Repeat lactic acid level showed a rise, this was somewhat concerning. Patient was persisting with lower back pain and tachycardia. He was given IV morphine for additional pain control, IV Zofran for nausea. Given the persistent tachycardia, given the rising lactic acid level, given the ongoing back pain and COVID-19 diagnosis, I do think a hospital stay would be warranted. Further monitoring and care is indicated. I spoke with the patient and case management, the on-call hospitalist was consulted. DISPOSITION: Patient presentation and findings warrant a hospital stay. Past Med/Surg History Medical History Atypical chest pain Yanes's palsy CAD (coronary artery disease) "Cardiac cath 2013-50% mid circumflex, 99% ostial OM1 and OM2, 70% RCA" Chest pain Chronic pain Chronic pain of both shoulders Depression as late effect of cerebrovascular accident (CVA) ESA (generalized anxiety disorder) History of coronary artery disease Pneumonia Postherpetic neuralgia Restless leg syndrome Rotator cuff dysfunction Sepsis Spinal stenosis Substernal chest pain Wrist drop Surgical History (Updated 12/11/22 @ 11:16 by Colette Land RN) H/O colonoscopy History of cranioplasty 12/25/2019 History of right-sided carotid endarterectomy (~02/2020) [facility] Status post craniectomy (~10/2019) Family History (Updated 12/11/22 @ 11:15 by Colette Land RN) Father Diabetes Myocardial infarction Hypertension Heart disease Grandfather , paternal GF Diabetes Grandmother , Paternal GM Diabetes Uncle Myocardial infarction Mother Hypertension Hiatal hernia Sister Diabetes Denies family history of Ovarian cancer Prostate cancer Breast cancer Lung cancer Colorectal cancer Stroke Social History Smoking Status: Former smoker Tobacco Type: Cigarettes Age Started Using Tobacco: 18; Age Quit Using Tobacco: 58; Cigarettes Per Day: 1-2/day many years; Second Hand Exposure: No; Do You Dip or Chew Tobacco: No; Hx Alcohol Use: No Hx Substance Use: No Preferred Language: Maldivian Communication Ability: Effective Visual Impairment: Limited Hearing Ability: Use of Hearing Aid 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 Apprentice Required: No Beliefs That Will Affect Care: None marital status: Current Living Situation: Spouse current occupational status: 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 How many Children do You have: 2 other: [place] receiving [facility] Feels Safe at Home: Yes Childhood Exposure to Second-Hand Smoke: No Diet: regular caffeine: Yes (very seldom ) during the past year weight has: increased > 10 lbs Dental Care, Regularly: Yes Physical Activity Frequency: Daily Physical Activity Frequency Comment: walks daily Seatbelt Use: always Sunscreen Use: Yes Assistive Devices: Cane Allergies Allergies Allergy/AdvReac Type Severity Reaction Status Date / Time fentanyl Allergy Severe NEURO Verified 12/11/22 13:26 CHANGES tuberculin, purified protein Allergy Severe SWELLING/HI Verified 12/11/22 13:26 deriva VES rosuvastatin Allergy Intermediate Chest and Verified 12/11/22 13:26 muscle pain sertraline Allergy Intermediate Psych Verified 12/11/22 13:26 complications Leaphov-ENV-IlY Reductase AdvReac Severe BODY ACHES Verified 12/11/22 13:26 Inhibitor [Vhjnucs-Bhq-Gwa Reductase Inhibitor] MRI inhibitors Allergy Unknown Mind Uncoded 12/11/22 13:26 racing, Overwhelming psych complications Home Meds Home Medications Medication Instructions Recorded Confirmed aspirin 81 mg tablet,delayed 81 mg PO HS 10/14/19 12/11/22 release docusate sodium 100 mg capsule 100 mg PO BID 10/07/20 12/11/22 (Dulcolax Stool Softener (docusate)) polyethylene glycol 3350 17 17 g PO QAM PRN Constipation 10/07/20 12/11/22 gram/dose oral powder (Miralax) evolocumab 140 mg/mL subcutaneous 140 mg subcut .Q14D 04/01/21 12/11/22 pen injector (Katelin Neri) fluticasone propionate 50 2 spray intranasal DAILY 04/01/21 12/11/22 mcg/actuation nasal spray,suspension multivitamin 1 tab PO DAILY 04/26/21 12/11/22 mirtazapine 30 mg tablet 45 mg PO HS 08/15/21 12/11/22 carvedilol 12.5 mg tablet (Coreg) 12.5 mg PO BID 03/16/22 12/11/22 psyllium husk 3.4 gram/5.4 gram 1 tbsp PO DAILY 03/16/22 12/11/22 oral powder (Metamucil) omega-3 fatty acids 1,000 mg 1,000 mg PO BID 03/26/22 12/11/22 capsule pregabalin 75 mg capsule (Lyrica) 75 mg PO BID 09/04/22 12/11/22 Previous Rx's Medication Instructions Recorded nitroglycerin 0.4 mg sublingual 0.4 mg sublingual UD PRN Chest 11/16/20 tablet (Nitrostat) Pain #1 btl pantoprazole 40 mg tablet,delayed 40 mg PO QAM #90 tabs 01/14/21 release hydrochlorothiazide 12.5 mg tablet 12.5 mg PO DAILY #30 tabs 02/14/22 baclofen 20 mg tablet 20 mg PO HS #30 tabs 08/18/22 levetiracetam 500 mg tablet 500 mg PO BID 90 days #180 tabs 08/18/22 (Keppra) Results & Data (ED) Vital Signs Vital Signs - 24 hr 12/17/22 20:09 12/17/22 20:44 12/17/22 20:56 Temperature 37.5 C Temperature Source Temporal Artery Scan Pulse Rate 114 H 109 H 112 H Respiratory Rate 18 20 Respiratory Effort / Characteristics Non-Labored Spontaneous Respiratory Depth Normal Respiratory Pattern Regular Blood Pressure 184/102 H 146/82 H Blood Pressure Mean 129 103 Pulse Oximetry 97 95 Oxygen Delivery Method Room Air Room Air Sepsis Recent Fever Within 48 Hours No Sepsis New/Unexplained Change in Mental Status No Sepsis Action Taken by Nursing No Action Required 12/17/22 21:00 12/17/22 22:09 Temperature Temperature Source Pulse Rate 111 H 107 H Respiratory Rate 23 24 Respiratory Effort / Characteristics Respiratory Depth Respiratory Pattern Blood Pressure 144/90 H 139/79 Blood Pressure Mean 108 99 Pulse Oximetry 94 92 Oxygen Delivery Method Room Air Room Air Sepsis Recent Fever Within 48 Hours Sepsis New/Unexplained Change in Mental Status Sepsis Action Taken by [facility] Medications Current Medication List: was personally reviewed by me Laboratory Data Attestation: I reviewed the patient's lab results. 12/17/22 20:22 12/17/22 20:22 Lab Results 12/17/22 12/17/22 12/17/22 Range/Units 20:22 20:22 20:22 WBC 6.21 (4.8-10.8) K/ul RBC 4.88 (4.70-6.10) M/uL Hgb 15.8 (14.0-18.0) g/dl Hct 44.9 (42.0-52.0) % MCV 92.0 (80.0-100.0) fL MCH 32.4 (25.0-34.0) pg MCHC 35.2 (32.0-36.0) g/dL RDW Std Deviation 42.4 (36.4-46.3) fL RDW Coeff of Nessa 12.8 (11.5-14.5) % Plt Count 167 (130-400) K/uL MPV 9.6 (9.4-12.4) fL Immature Gran % (Auto) 0.3 % Neut % (Auto) 67.7 % Lymph % (Auto) 14.5 % Burnet % (Auto) 15.6 % Eos % (Auto) 1.4 % Baso % (Auto) 0.5 % Neut # (Auto) 4.20 (1.40-6.50) K/uL Lymph # (Auto) 0.90 L (1.2-3.4) K/uL Burnet # (Auto) 0.97 H (0.11-0.59) K/uL Eos # (Auto) 0.09 (0-0.50) K/uL Baso # (Auto) 0.03 (0-0.2) K/uL Immature Gran # (Auto) 0.02 (0.01-0.20) K/uL PT 10.1 (9.0-12.0) Seconds INR 0.9 (0.9-1.1) APTT 24.7 (21.0-31.0) Seconds PTT Ratio 0.9 Sodium 136 (136-145) mmol/L Potassium 3.8 (3.5-5.1) mmol/L Chloride 100 (98-107) mmol/L Carbon Dioxide 27 (21-32) mmol/L Anion Gap 9 (3-11) BUN 16 (6-23) mg/dl Creatinine 1.09 (0.6-1.4) mg/dl Est Cr Clr Drug Dosing 64.9 ml/min Est GFR ( Amer) 83.3 ml/min Est GFR (Non-Af Amer) 71.9 ml/min BUN/Creatinine Ratio 14.7 (10-20) Glucose 146 H (70-99(Fasting)) mg/dl Lactate (0.4-2.0) mmol/L Calcium 8.9 (8.6-10.3) mg/dl Magnesium 1.9 (1.7-2.4) mg/dl Total Bilirubin 0.4 (0.2-1.0) mg/dl Direct Bilirubin TNP AST 22 (13-39) U/L ALT 20 (7-52) U/L Alkaline Phosphatase 41 (34-104) U/L Troponin I High Sens 3.2 (0-20) pg/ml Total Protein 7.5 (6.0-8.3) gm/dl Albumin 4.1 (3.4-5.0) gm/dl Procalcitonin (0-0.5) ng/ml Urine Color Urine Appearance (Clear) Urine pH (4.5-7.5) Ur Specific [place] (1.000-1.030) Urine Protein (Negative) Urine Glucose (UA) (Negative) Urine Ketones (Negative) Urine Blood (Negative) Urine Nitrite (Negative) Urine Bilirubin (Negative) Urine Urobilinogen (Negative) Ur Leukocyte Esterase (Negative) Urine WBC (Auto) (0-5) /hpf Urine RBC (Auto) (0-4) /hpf U Hyaline Cast (Auto) (0-5) /lpf U Epithel Cells (Auto) (0-5) /lpf Urine Bacteria (Auto) (Negative) Adenovirus (PCR) (NotDetected) B. pertussis DNA (PCR) (NotDetected) B.parapertussis DNA PCR (NotDetected) Lyme Disease IgG Ab (Negative) Lyme Disease IgM Ab (Negative) C. pneumoniae DNA (PCR) (NotDetected) Coronavirus OC43 (PCR) (NotDetected) Coronavirus HKU1 (PCR) (NotDetected) Coronavirus 229E (PCR) (NotDetected) SARS-CoV-2 (PCR) (NotDetected) Coronavirus NL63 (PCR) (NotDetected) Human Metapneumovir PCR (NotDetected) Influenza Type A (PCR) (NotDetected) Influenza Type B (PCR) (NotDetected) M. pneumoniae (PCR) (NotDetected) Parainfluenza 1 (PCR) (NotDetected) Parainfluenza 2 (PCR) (NotDetected) Parainfluenza 3 (PCR) (NotDetected) Parainfluenza 4 (PCR) (NotDetected) RSV (PCR) (NotDetected) Entero/Rhino (PCR) (NotDetected) 12/17/22 12/17/22 12/17/22 Range/Units 20:22 20:22 20:35 WBC (4.8-10.8) K/ul RBC (4.70-6.10) M/uL Hgb (14.0-18.0) g/dl Hct (42.0-52.0) % MCV (80.0-100.0) fL MCH (25.0-34.0) pg MCHC (32.0-36.0) g/dL RDW Std Deviation (36.4-46.3) fL RDW Coeff of Nessa (11.5-14.5) % Plt Count (130-400) K/uL MPV (9.4-12.4) fL Immature Gran % (Auto) % Neut % (Auto) % Lymph % (Auto) % Burnet % (Auto) % Eos % (Auto) % Baso % (Auto) % Neut # (Auto) (1.40-6.50) K/uL Lymph # (Auto) (1.2-3.4) K/uL Burnet # (Auto) (0.11-0.59) K/uL Eos # (Auto) (0-0.50) K/uL Baso # (Auto) (0-0.2) K/uL Immature Gran # (Auto) (0.01-0.20) K/uL PT (9.0-12.0) Seconds INR (0.9-1.1) APTT (21.0-31.0) Seconds PTT Ratio Sodium (136-145) mmol/L Potassium (3.5-5.1) mmol/L Chloride (98-107) mmol/L Carbon Dioxide (21-32) mmol/L Anion Gap (3-11) BUN (6-23) mg/dl Creatinine (0.6-1.4) mg/dl Est Cr Clr Drug Dosing ml/min Est GFR ( Amer) ml/min Est GFR (Non-Af Amer) ml/min BUN/Creatinine Ratio (10-20) Glucose (70-99(Fasting)) mg/dl Lactate 2.8 H* (0.4-2.0) mmol/L Calcium (8.6-10.3) mg/dl Magnesium (1.7-2.4) mg/dl Total Bilirubin (0.2-1.0) mg/dl Direct Bilirubin AST (13-39) U/L ALT (7-52) U/L Alkaline Phosphatase (34-104) U/L Troponin I High Sens (0-20) pg/ml Total Protein (6.0-8.3) gm/dl Albumin (3.4-5.0) gm/dl Procalcitonin < 0.05 (0-0.5) ng/ml Urine Color Urine Appearance (Clear) Urine pH (4.5-7.5) Ur Specific [place] (1.000-1.030) Urine Protein (Negative) Urine Glucose (UA) (Negative) Urine Ketones (Negative) Urine Blood (Negative) Urine Nitrite (Negative) Urine Bilirubin (Negative) Urine Urobilinogen (Negative) Ur Leukocyte Esterase (Negative) Urine WBC (Auto) (0-5) /hpf Urine RBC (Auto) (0-4) /hpf U Hyaline Cast (Auto) (0-5) /lpf U Epithel Cells (Auto) (0-5) /lpf Urine Bacteria (Auto) (Negative) Adenovirus (PCR) Not Detected (NotDetected) B. pertussis DNA (PCR) Not Detected (NotDetected) B.parapertussis DNA PCR Not Detected (NotDetected) Lyme Disease IgG Ab Negative (Negative) Lyme Disease IgM Ab Negative (Negative) C. pneumoniae DNA (PCR) Not Detected (NotDetected) Coronavirus OC43 (PCR) Not Detected (NotDetected) Coronavirus HKU1 (PCR) Not Detected (NotDetected) Coronavirus 229E (PCR) Not Detected (NotDetected) SARS-CoV-2 (PCR) DETECTED A* (NotDetected) Coronavirus NL63 (PCR) Not Detected (NotDetected) Human Metapneumovir PCR Not Detected (NotDetected) Influenza Type A (PCR) Not Detected (NotDetected) Influenza Type B (PCR) Not Detected (NotDetected) M. pneumoniae (PCR) Not Detected (NotDetected) Parainfluenza 1 (PCR) Not Detected (NotDetected) Parainfluenza 2 (PCR) Not Detected (NotDetected) Parainfluenza 3 (PCR) Not Detected (NotDetected) Parainfluenza 4 (PCR) Not Detected (NotDetected) RSV (PCR) Not Detected (NotDetected) Entero/Rhino (PCR) Not Detected (NotDetected) 12/17/22 12/17/22 12/17/22 Range/Units 21:51 22:32 22:32 WBC (4.8-10.8) K/ul RBC (4.70-6.10) M/uL Hgb (14.0-18.0) g/dl Hct (42.0-52.0) % MCV (80.0-100.0) fL MCH (25.0-34.0) pg MCHC (32.0-36.0) g/dL RDW Std Deviation (36.4-46.3) fL RDW Coeff of Nessa (11.5-14.5) % Plt Count (130-400) K/uL MPV (9.4-12.4) fL Immature Gran % (Auto) % Neut % (Auto) % Lymph % (Auto) % [place]et % (Auto) % Eos % (Auto) % Baso % (Auto) % Neut # (Auto) (1.40-6.50) K/uL Lymph # (Auto) (1.2-3.4) K/uL [place]et # (Auto) (0.11-0.59) K/uL Eos # (Auto) (0-0.50) K/uL Baso # (Auto) (0-0.2) K/uL Immature Gran # (Auto) (0.01-0.20) K/uL PT (9.0-12.0) Seconds INR (0.9-1.1) APTT (21.0-31.0) Seconds PTT Ratio Sodium (136-145) mmol/L Potassium (3.5-5.1) mmol/L Chloride (98-107) mmol/L Carbon Dioxide (21-32) mmol/L Anion Gap (3-11) BUN (6-23) mg/dl Creatinine (0.6-1.4) mg/dl Est Cr Clr Drug Dosing ml/min Est GFR ( Amer) ml/min Est GFR (Non-Af Amer) ml/min BUN/Creatinine Ratio (10-20) Glucose (70-99(Fasting)) mg/dl Lactate 3.3 H* (0.4-2.0) mmol/L Calcium (8.6-10.3) mg/dl Magnesium (1.7-2.4) mg/dl Total Bilirubin (0.2-1.0) mg/dl Direct Bilirubin AST (13-39) U/L ALT (7-52) U/L Alkaline Phosphatase (34-104) U/L Troponin I High Sens 3.7 (0-20) pg/ml Total Protein (6.0-8.3) gm/dl Albumin (3.4-5.0) gm/dl Procalcitonin (0-0.5) ng/ml Urine Color Yellow Urine Appearance Cloudy A (Clear) Urine pH 8.5 H (4.5-7.5) Ur Specific [place] 1.021 (1.000-1.030) Urine Protein Negative (Negative) Urine Glucose (UA) Negative (Negative) Urine Ketones Negative (Negative) Urine Blood Negative (Negative) Urine Nitrite Negative (Negative) Urine Bilirubin Negative (Negative) Urine Urobilinogen Negative (Negative) Ur Leukocyte Esterase Negative (Negative) Urine WBC (Auto) 1-5 (0-5) /hpf Urine RBC (Auto) 5-10 H (0-4) /hpf U Hyaline Cast (Auto) 1-5 (0-5) /lpf U Epithel Cells (Auto) 5-10 H (0-5) /lpf Urine Bacteria (Auto) Negative (Negative) Adenovirus (PCR) (NotDetected) B. pertussis DNA (PCR) (NotDetected) B.parapertussis DNA PCR (NotDetected) Lyme Disease IgG Ab (Negative) Lyme Disease IgM Ab (Negative) C. pneumoniae DNA (PCR) (NotDetected) Coronavirus OC43 (PCR) (NotDetected) Coronavirus HKU1 (PCR) (NotDetected) Coronavirus 229E (PCR) (NotDetected) SARS-CoV-2 (PCR) (NotDetected) Coronavirus NL63 (PCR) (NotDetected) Human Metapneumovir PCR (NotDetected) Influenza Type A (PCR) (NotDetected) Influenza Type B (PCR) (NotDetected) M. pneumoniae (PCR) (NotDetected) Parainfluenza 1 (PCR) (NotDetected) Parainfluenza 2 (PCR) (NotDetected) Parainfluenza 3 (PCR) (NotDetected) Parainfluenza 4 (PCR) (NotDetected) RSV (PCR) (NotDetected) Entero/Rhino (PCR) (NotDetected) Administered Medications Discontinued Medications Acetaminophen (Acetaminophen 500 Mg Tab) 1,000 mg PO NOW STA Stop: 12/17/22 20:29 Last Admin: 12/17/22 20:34 Dose: 1,000 mg Documented By: KAF Sodium Chloride (Nss 1000ml) 1,000 mls @ 999 mls/hr IV .Q1H1M HERLINDA Stop: 12/17/22 21:30 Last Infusion: 12/17/22 22:09 Dose: 0 mls/hr Documented By: Admin: 12/17/22 20:34 Dose: 999 mls/hr Documented By: HOA Cefepime HCl (Maxipime) 2,000 mg in 20 mls @ 5 mls/min IV NOW STA; Protocol Stop: 12/17/22 20:31 Last Admin: 12/17/22 20:54 Dose: 5 mls/min Documented By: HOA Sodium Chloride (Nss 1000ml) 1,000 mls @ 999 mls/hr IV .Q1H1M ONE Stop: 12/17/22 22:35 Last Infusion: 12/17/22 23:06 Dose: 0 mls/hr Documented By: Admin: 12/17/22 22:05 Dose: 999 mls/hr Documented By: HOA Ketorolac Tromethamine (Ketorolac Tromethamine 15 Mg/Ml Vial) 15 mg IV NOW STA Stop: 12/17/22 21:59 Last Admin: 12/17/22 22:04 Dose: 15 mg Documented By: HOA Morphine Sulfate (Morphine Sulfate 4 Mg/Ml 1 Ml Carp\\Vial) 4 mg IV NOW STA Stop: 12/17/22 23:25 Last Admin: 12/17/22 23:32 Dose: 4 mg Documented By: HOA Ondansetron HCl (Ondansetron Inj 2 Mg/Ml 2 Ml Vial) 4 mg IV NOW STA Stop: 12/17/22 23:25 Last Admin: 12/17/22 23:32 Dose: 4 mg Documented By: HOA Oxycodone HCl (Oxycodone Hcl Ir 5 Mg Tab (Immediate Release)) 5 mg PO NOW STA Stop: 12/17/22 21:59 Last Admin: 12/17/22 22:04 Dose: 5 mg Documented By: HOA Imaging Data My Impression: Chest x-ray per my review: There is no mediastinal widening, pneumonia or p neumothorax. Discharge Plan Visit Data Chief Complaint: Chest Pain Stated Complaint: SHAKEY,CHEST HURT,COLD SWEAT ED Provider: Aleksandar Epps Discharge Problem: Rigors, Tachycardia, Elevated lactic acid level, Lower back pain, COVID-19 Patient Disposition: Admitted As Inpatient Condition: Fair Forms Stand Alone Forms: My [facility] Prescriptions Prescriptions: No Action pantoprazole 40 mg tablet,delayed release (DR/EC) 40 mg PO QAM Qty: 90 3RF pregabalin [Lyrica] 75 mg capsule 75 mg PO BID Rx Instructions: Given by pt's pain doctor polyethylene glycol 3350 [Miralax] 17 gram/dose powder 17 g PO QAM PRN (Reason: Constipation) baclofen 20 mg tablet 20 mg PO HS Qty: 30 3RF levetiracetam [Keppra] 500 mg tablet 500 mg PO BID 90 Days Qty: 180 1RF docusate sodium [Dulcolax Stool Softener (dss)] 100 mg capsule 100 mg PO BID multivitamin Tablet 1 tab PO DAILY hydrochlorothiazide 12.5 mg tablet 12.5 mg PO DAILY Qty: 30 2RF Metamucil 3.4 gram/5.4 gram powder 1 tbsp PO DAILY Rx Instructions: mix into at least 8 oz of water or juice before administering carvedilol [Coreg] 12.5 mg tablet 12.5 mg PO BID Rx Instructions: must administer with a meal/food aspirin 81 mg Tablet,Delayed Release (Dr/Ec) 81 mg PO HS nitroglycerin [Nitrostat] 0.4 mg tablet, sublingual 0.4 mg sublingual UD PRN (Reason: Chest Pain) Qty: 1 0RF Rx Instructions: 1 tab q5min prn chest pain; max 3 in 15 minutes. fluticasone propionate 50 mcg/actuation spray,suspension 2 spray INTRANASAL DAILY Repatha SureClick 140 mg/mL pen injector 140 mg SUBCUT .Q14D Rx Instructions: Every other Sunday mirtazapine 30 mg tablet 45 mg PO HS omega-3 fatty acids 1,000 mg Capsule 1,000 mg PO BID Referrals Referrals: Dago Garcia DO [Primary Care Provider] -
[2022-12-17 20:54] LABS: Basophils # (auto) 0.03 K/uL (0-0.2); Basophils % (auto) 0.5 %; Eosinophils # (auto) 0.09 K/uL (0-0.50); Eosinophils % (auto) 1.4 %; Hematocrit (blood only) 44.9 % (42.0-52.0); Hemoglobin 15.8 g/dl (14.0-18.0); Immature Granulocytes # (auto) 0.02 K/uL (0.01-0.20); Immature Granulocytes % (auto) 0.3 %; Lymphocytes % (auto) 14.5 %; Mean Corpuscular Hemoglobin 32.4 pg (25.0-34.0); Mean Corpuscular Hgb Conc 35.2 g/dL (32.0-36.0); Mean Platelet Volume 9.6 fL (9.4-12.4); Monocytes # (auto) 0.97 K/uL (0.11-0.59); Monocytes % (auto) 15.6 %; Neutrophils % (auto) 67.7 %; Platelet Count 167 K/uL (130-400); RDW Coefficient of Variation 12.8 % (11.5-14.5); RDW Standard Deviation 42.4 fL (36.4-46.3); Red Blood Count 4.88 M/uL (4.70-6.10); White Blood Count 6.21 K/ul (4.8-10.8)
[2022-12-17 21:15] LABS: Alanine Aminotransferase 20 U/L (7-52); Albumin Level 4.1 gm/dl (3.4-5.0); Alkaline Phosphatase 41 U/L (34-104); Anion Gap 9 (3-11); Aspartate Aminotransferase 22 U/L (13-39); BUN Creatinine Ratio 14.7 (10-20); Bilirubin,Total 0.4 mg/dl (0.2-1.0); Blood Urea Nitrogen 16 mg/dl (6-23); Calcium 8.9 mg/dl (8.6-10.3); Carbon Dioxide 27 mmol/L (21-32); Chloride 100 mmol/L (98-107); Creatinine Clr Calc Pharmacy 64.9 ml/min; Est GFR (African American) 83.3 ml/min; Est GFR (Non-African American) 71.9 ml/min; Glucose 146 mg/dl (70-99(Fasting)); Magnesium 1.9 mg/dl (1.7-2.4); Potassium 3.8 mmol/L (3.5-5.1); Sodium 136 mmol/L (136-145); Total Protein 7.5 gm/dl (6.0-8.3)
[2022-12-17 21:20] LABS: INR 0.9 (0.9-1.1); Partial Thromboplastin Ratio 0.9; Partial Thromboplastin Time 24.7 Seconds (21.0-31.0); Prothrombin Time 10.1 Seconds (9.0-12.0)
[2022-12-17 21:28] LABS: Troponin I High Sensitivity 3.2 pg/ml (0-20)
[2022-12-17 21:31] LABS: Procalcitonin < 0.05 ng/ml (0-0.5)
[2022-12-17 21:35] LABS: Adenovirus PCR Not Detected (NotDetected); Bordetella parapertussis PCR Not Detected (NotDetected); Bordetella pertussis PCR Not Detected (NotDetected); Chlamydia pneumoniae PCR Not Detected (NotDetected); Coronavirus 229E PCR Not Detected (NotDetected); Coronavirus HKU1 PCR Not Detected (NotDetected); Coronavirus NL63 PCR Not Detected (NotDetected); Coronavirus OC43PCR Not Detected (NotDetected); Human Metapneumovirus PCR Not Detected (NotDetected); Influenza A PCR Not Detected (NotDetected); Influenza B PCR Not Detected (NotDetected); Mycoplasma pneumoniae PCR Not Detected (NotDetected); Parainfluenza Virus 1 PCR Not Detected (NotDetected); Parainfluenza Virus 2 PCR Not Detected (NotDetected); Parainfluenza Virus 3 PCR Not Detected (NotDetected); Parainfluenza Virus 4 PCR Not Detected (NotDetected); Respiratory Syncytial VirusPCR Not Detected (NotDetected); Rhinovirus/Enterovirus PCR Not Detected (NotDetected)
[2022-12-17] MEDS ORDERED: SODIUM CHLORIDE 0.9% 1000ML 1,000 ML IV ONE (21:35)
[2022-12-17 21:36] LABS: Lyme Ab IgG w/WB Rflx Negative (Negative); Lyme Ab IgM w/WB Rflx Negative (Negative)
[2022-12-17 21:41] LABS: Coronavirus CoV-2 (COVID19)PCR DETECTED (NotDetected)
[2022-12-17] MEDS ORDERED: KETOROLAC TROMETHAMINE 15 MG/ML VIAL IV STA (21:58)
[2022-12-17] MEDS ORDERED: oxyCODONE HCL IR 5 MG TAB (IMMEDIATE RELEASE) PO STA (21:58)
[2022-12-17 22:21] LABS: Appearance Urine Cloudy (Clear); Bacteria Urine Automated Negative (Negative); Bilirubin Urine Negative (Negative); Blood Urine Negative (Negative); Color Urine Yellow; Glucose Urine UA Negative (Negative); Ketones Urine Negative (Negative); Leukocyte Esterase Urine Negative (Negative); Nitrite Urine Negative (Negative); Protein Urine Negative (Negative); Specific Gravity Urine 1.021 (1.000-1.030); Urobilinogen Urine Negative (Negative); pH Urine 8.5 (4.5-7.5)
[2022-12-17] MEDS ORDERED: MoRPHine SULFATE 4 MG/ML 1 ML CARP\\VIAL IV STA (23:24)
[2022-12-17] MEDS ORDERED: ONDANSETRON INJ 2 MG/ML 2 ML VIAL IV STA (23:24)
[2022-12-18] MEDS ORDERED: levETIRAcetam 500 MG TAB PO STA (00:10)
[2022-12-18] MEDS ORDERED: MIRTAZAPINE TAB 15 MG TAB PO ONE (00:10)
[2022-12-18] MEDS ORDERED: BACLOFEN 20 MG TAB PO STA (00:10)
[2022-12-18] MEDS ORDERED: ASPIRIN 81 MG ECTAB PO STA (00:10)
[2022-12-18] MEDS ORDERED: PREGABALIN 100 MG CAP PO STA (00:10)
--- NOTE | 2022-12-18 00:10 | History & Physical Report ---
Date of Service December 18, 2022 Assessment & Plan (1) COVID-19: Plan: Patient with sudden onset of chills, rigors and weakness. Found to be POSITIVE for Covid-19 -Admit to medical with telemetry -Check BNP -Maintain supplemental O2 as needed to maintain saturation 94% -Dexamethasone 6mg IV daily -Lovenox 40mg (2) Elevated lactic acid level: Plan: Lactate 2.8 --> 3.3 after 2L of IVF. Patient remains HD stable. Oxygen saturation is adequate. Abdomen is benign -Continue IVF - LR at 125mL/hr x 2L -Repeat Lactate in AM (3) Lower back pain: Plan: Acute on chronic low back pain. No fall or trauma -Continue home medications - Baclofen, Lyrica -Tylenol 1gm po TID -Morphine PRN (4) Hypertension: Plan: Blood pressure stable -Continue HCTZ -Continue Carvedilol -Monitor (5) CAD (coronary artery disease): Plan: -Carvedilol 12.5mg po BID -ASA -Statin intolerant (6) GERD (gastroesophageal reflux disease): Plan: Chronic. Stable -Protonix F/E/N - LR at 125mL/hr x 2L, monitor electrolytes, Heart Healthy diet as tolerated Ppx - Lovenox Code - Full Dispo -Admit to medical with telemetry History of Present Illness Chief Complaint: chills, rigors Primary Care Provider: Dago Garcia DO Eli Elias is a pleasant 62yo male with history of HTN, HLP, prior CVA with LUE deficit and CAD presenting with Covid-19 infection. Patient was in his usual state of health until this evening when he developed abrupt onset of chills, rigors and diaphoresis. He had generalized weakness and fatigue and bandlike chest pain. He also had severe back pain. Saturations in the ER slightly low at 92% on room air. No underlying lung disease or CHF. No use of home O2. Patient did receive 1 Covid vaccine. Does not believe he has had Covid before Allergies Allergy/AdvReac Type Severity Reaction Status Date / Time fentanyl Allergy Severe NEURO Verified 12/17/22 23:49 CHANGES tuberculin, purified protein Allergy Severe SWELLING/HI Verified 12/17/22 23:49 deriva VES rosuvastatin Allergy Intermediate Chest and Verified 12/17/22 23:49 muscle pain sertraline Allergy Intermediate Psych Verified 12/17/22 23:49 complications Crbzabz-MKY-ZuB Reductase AdvReac Severe BODY ACHES Verified 12/17/22 23:49 Inhibitor [Nliavaz-Ezz-Avo Reductase Inhibitor] MRI inhibitors Allergy Unknown Mind Uncoded 12/17/22 23:49 racing, Overwhelming psych complications Home Medications Medication Instructions Recorded Confirmed Type aspirin 81 mg tablet,delayed 81 mg PO HS 10/14/19 12/17/22 History release docusate sodium 100 mg capsule 100 mg PO BID 10/07/20 12/17/22 History (Dulcolax Stool Softener (docusate)) polyethylene glycol 3350 17 17 g PO QAM PRN Constipation 10/07/20 12/17/22 History gram/dose oral powder (Miralax) nitroglycerin 0.4 mg sublingual 0.4 mg sublingual UD PRN Chest 11/16/20 12/17/22 Rx tablet (Nitrostat) Pain #1 btl pantoprazole 40 mg tablet,delayed 40 mg PO QAM #90 tabs 01/14/21 12/17/22 Rx release evolocumab 140 mg/mL subcutaneous 140 mg subcut .Q14D 04/01/21 12/17/22 History pen injector (Repatha SureClick) fluticasone propionate 50 2 spray intranasal DAILY 04/01/21 12/17/22 History mcg/actuation nasal spray,suspension multivitamin 1 tab PO DAILY 04/26/21 12/17/22 History hydrochlorothiazide 12.5 mg tablet 12.5 mg PO DAILY #30 tabs 02/14/22 12/17/22 Rx carvedilol 12.5 mg tablet (Coreg) 12.5 mg PO BID 03/16/22 12/17/22 History psyllium husk 3.4 gram/5.4 gram 1 tbsp PO DAILY 03/16/22 12/17/22 History oral powder (Metamucil) omega-3 fatty acids 1,000 mg 1,000 mg PO BID 03/26/22 12/17/22 History capsule baclofen 20 mg tablet 20 mg PO HS #30 tabs 08/18/22 12/17/22 Rx levetiracetam 500 mg tablet 500 mg PO BID 90 days #180 tabs 08/18/22 12/17/22 Rx (Keppra) carboxymethylcellulose sodium 0.5 2 drp OPB TID PRN Dry Eyes 12/17/22 12/17/22 History % eye drops (Refresh Tears) hydrocodone 5 mg-acetaminophen 325 1 tab PO TID PRN Pain 12/17/22 12/17/22 History mg tablet mirtazapine 45 mg tablet 22.5 mg PO HS 12/17/22 12/17/22 History pregabalin 100 mg capsule (Lyrica) 100 mg PO BID 12/17/22 12/17/22 History Past Med/Surg History Medical History Atypical chest pain Yanes's palsy CAD (coronary artery disease) "Cardiac cath 2013-50% mid circumflex, 99% ostial OM1 and OM2, 70% RCA" Chest pain Chronic pain Chronic pain of both shoulders Depression as late effect of cerebrovascular accident (CVA) ESA (generalized anxiety disorder) History of coronary artery disease Pneumonia Postherpetic neuralgia Restless leg syndrome Rotator cuff dysfunction Sepsis Spinal stenosis Substernal chest pain Wrist drop Surgical History H/O colonoscopy History of cranioplasty 12/25/2019 History of right-sided carotid endarterectomy (~02/2020[place] [facility] [place] cr[place]ctomy (~10/2019) Family History Father Diabetes Myocardial infarction Hypertension Heart disease Grandfather , paternal GF Diabetes Grandmother , Paternal GM Diabetes Uncle Myocardial infarction Mother Hypertension Hiatal hernia Sister Diabetes Denies family history of Ovarian cancer Prostate cancer Breast cancer Lung cancer Colorectal cancer Stroke Social History Smoking Status: Former smoker Tobacco Type: Cigarettes Age Started Using Tobacco: 18; Age Quit Using Tobacco: 58; Cigarettes Per Day: 1-2/day many years; Second Hand Exposure: No; Do You Dip or Chew Tobacco: No; Hx Alcohol Use: No Hx Substance Use: No Preferred Language: Wallisian Communication Ability: Effective Visual Impairment: Limited Hearing Ability: Use of Hearing Aid Health Services Administrator Required: No Beliefs That Will Affect Care: None marital status: Current Living Situation: Spouse current occupational status: retired 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 How many Children do You have: 2 other: receiving [facility] Feels Safe at Home: Yes Childhood Exposure to Second-Hand Smoke: No Diet: regular caffeine: Yes (very seldom ) during the past year weight has: increased > 10 lbs Dental Care, Regularly: Yes Physical Activity Frequency: Daily Physical Activity Frequency Comment: walks daily Seatbelt Use: always Sunscreen Use: Yes Assistive Devices: Cane Review of Systems Review of Systems: All systems reviewed & are unremarkable except as noted in HPI & below Physical Exam Physical Exam: General: patient resting comfortably, NAD, non-toxic in appearance, AA&O x 4 Skin: warm, dry, intact, no rashes or lesions HEENT: NC/AT, PERRL, EOMI, anicteric sclera, conjunctiva without injection, external ear normal to inspection and nontender, nares patent, moist mucus membranes, dentition intact, no oropharyngeal lesions, neck supple, trachea midline, no LAD, no thyromegaly, no JVD, left facial droop chronic Heart: +S1/S2, regular, no m/r/g Lungs: equal air entry bilaterally, no rales/rhonchi/wheezes, supplemental O2 in place Abd: +BS, soft, NT/ND, no masses/organomegaly/ascites Ext: warm, 2+ pulses in UE/LE bilaterally, no clubbing/cyanosis or edema Neuro: LUE weakness at baseline, Left facial droop at baseline Results & Data Results & Data Vital Signs (Past 12 Hours) Vital Signs Temp Pulse Resp BP Pulse Ox O2 Del Method 12/17/22 22:09 107 H 24 139/79 92 Room Air 12/17/22 21:00 111 H 23 144/90 H 94 Room Air 12/17/22 20:56 112 H 20 146/82 H 95 Room Air 12/17/22 20:44 109 H 12/17/22 20:09 37.5 C 114 H 18 184/102 H 97 Room Air Laboratory Results Laboratory Results WBC 6.21 K/ul (4.8-10.8) 12/17/22 20:22 RBC 4.88 M/uL (4.70-6.10) 12/17/22 20:22 Hgb 15.8 g/dl (14.0-18.0) 12/17/22 20: Hct 44.9 % (42.0-52.0) 12/17/22: MCV 92.0 fL (80.0-100.0) 12/17/22 20: MCH 32.4 pg (25.0-34.0) 12/17/22: MCHC 35.2 g/dL (32.0-36.0) 12/17/22 RDW Std Deviation 42.4 fL (36.4-46.3) 12/17/22: RDW Coeff of Nessa 12.8 % (11.5-14.5) 12/17/22: Plt Count 167 K/uL (130-400) 12/17/22: MPV 9.6 fL (9.4-12.4) 12/17/22: Immature Gran % (Auto) 0.3 % 12/17/22: Neut % (Auto) 67.7 % 12/17/22: Lymph % (Auto) 14.5 % 12/17/22: [place] % (Auto) 15.6 % 12/17/22: Eos % (Auto) 1.4 % 12/17/22: Baso % (Auto) 0.5 % 12/17/22: Neut # (Auto) 4.20 K/uL (1.40-6.50) 12/17/22: Lymph # (Auto) 0.90 K/uL (1.2-3.4) L 12/17/22: [place] # (Auto) 0.97 K/uL (0.11-0.59) H 12/17/22: Eos # (Auto) 0.09 K/uL (0-0.50) 12/17/22: Baso # (Auto) 0.03 K/uL (0-0.2) 12/17/22: Immature Gran # (Auto) 0.02 K/uL (0.01-0.20) 12/17/22 20: PT 10.1 Seconds (9.0-12.0) 12/17/22: INR 0.9 (0.9-1.1) 12/17/22 20:22 APTT 24.7 Seconds (21.0-31.0) 12/17/22 20:22 PTT Ratio 0.9 12/17/22 20:22 Sodium 136 mmol/L (136-145) 12/17/22 20:22 Potassium 3.8 mmol/L (3.5-5.1) 12/17/22 20:22 Chloride 100 mmol/L (98-107) 12/17/22 20:22 Carbon Dioxide 27 mmol/L (21-32) 12/17/22 20:22 Anion Gap 9 (3-11) 12/17/22 20:22 BUN 16 mg/dl (6-23) 12/17/22 20:22 Creatinine 1.09 mg/dl (0.6-1.4) 12/17/22 20:22 Est Cr Clr Drug Dosing 64.9 ml/min 12/17/22 20:22 Est GFR ( Amer) 83.3 ml/min 12/17/22 20:22 Est GFR (Non-Af Amer) 71.9 ml/min 12/17/22 20:22 BUN/Creatinine Ratio 14.7 (10-20) 12/17/22 20:22 Glucose 146 mg/dl (70-99(Fasting)) H 12/17/22 20:22 Lactate 3.3 mmol/L (0.4-2.0) H* 12/17/22 22:32 Calcium 8.9 mg/dl (8.6-10.3) 12/17/22 20:22 Magnesium 1.9 mg/dl (1.7-2.4) 12/17/22 20:22 Total Bilirubin 0.4 mg/dl (0.2-1.0) 12/17/22 20:22 Direct Bilirubin TNP 12/17/22 20:22 AST 22 U/L (13-39) 12/17/22 20:22 ALT 20 U/L (7-52) 12/17/22 20:22 Alkaline Phosphatase 41 U/L (34-104) 12/17/22 20:22 Troponin I High Sens 3.7 pg/ml (0-20) 12/17/22 22:32 Total Protein 7.5 gm/dl (6.0-8.3) 12/17/22 20:22 Albumin 4.1 gm/dl (3.4-5.0) 12/17/22 20:22 Procalcitonin < 0.05 ng/ml (0-0.5) 12/17/22 20:22 Urine Color Yellow 12/17/22 21:51 Urine Appearance Cloudy (Clear) A 12/17/22 21:51 Urine pH 8.5 (4.5-7.5) H 12/17/22 21:51 Ur Specific [place] 1.021 (1.000-1.030) 12/17/22 21:51 Urine Protein Negative (Negative) 12/17/22 21:51 Urine Glucose (UA) Negative (Negative) 12/17/22 21:51 Urine Ketones Negative (Negative) 12/17/22 21:51 Urine Blood Negative (Negative) 12/17/22 21:51 Urine Nitrite Negative (Negative) 12/17/22 21:51 Urine Bilirubin Negative (Negative) 12/17/22 21:51 Urine Urobilinogen Negative (Negative) 12/17/22 21:51 Ur Leukocyte Esterase Negative (Negative) 12/17/22 21:51 Urine WBC (Auto) 1-5 /hpf (0-5) 12/17/22 21:51 Urine RBC (Auto) 5-10 /hpf (0-4) H 12/17/22 21:51 U Hyaline Cast (Auto) 1-5 /lpf (0-5) 12/17/22 21:51 U Epithel Cells (Auto) 5-10 /lpf (0-5) H 12/17/22 21:51 Urine Bacteria (Auto) Negative (Negative) 12/17/22 21:51 Adenovirus (PCR) Not Detected (NotDetected) 12/17/22 20:35 B. pertussis DNA (PCR) Not Detected (NotDetected) 12/17/22 20:35 B.parapertussis DNA PCR Not Detected (NotDetected) 12/17/22 20:35 Lyme Disease IgG Ab Negative (Negative) 12/17/22 20:22 Lyme Disease IgM Ab Negative (Negative) 12/17/22 20:22 C. pneumoniae DNA (PCR) Not Detected (NotDetected) 12/17/22 20:35 Coronavirus OC43 (PCR) Not Detected (NotDetected) 12/17/22 20:35 Coronavirus HKU1 (PCR) Not Detected (NotDetected) 12/17/22 20:35 Coronavirus 229E (PCR) Not Detected (NotDetected) 12/17/22 20:35 SARS-CoV-2 (PCR) DETECTED (NotDetected) A* 12/17/22 20:35 Coronavirus NL63 (PCR) Not Detected (NotDetected) 12/17/22 20:35 Human Metapneumovir PCR Not Detected (NotDetected) 12/17/22 20:35 Influenza Type A (PCR) Not Detected (NotDetected) 12/17/22 20:35 Influenza Type B (PCR) Not Detected (NotDetected) 12/17/22 20:35 M. pneumoniae (PCR) Not Detected (NotDetected) 12/17/22 20:35 Parainfluenza 1 (PCR) Not Detected (NotDetected) 12/17/22 20:35 Parainfluenza 2 (PCR) Not Detected (NotDetected) 12/17/22 20:35 Parainfluenza 3 (PCR) Not Detected (NotDetected) 12/17/22 20:35 Parainfluenza 4 (PCR) Not Detected (NotDetected) 12/17/22 20:35 RSV (PCR) Not Detected (NotDetected) 12/17/22 20:35 Entero/Rhino (PCR) Not Detected (NotDetected) 12/17/22 20:35 Diagnostic Findings CXR - no obvious infiltrate, edema or pneumothorax Code Status & VTE Plan VTE Prophylaxis Plan VTE Prophylaxis will be ordered: Yes PG Care Time/CCT Total # of Minutes Spent Total Time Spent with Patient: Total time spent is greater than 50% in coordination of care (as documented) at patient's floor/unit and/or counseling patient: Coding Level of Care Code 92183 INT INP/OBS CARE 3/75MIN Diagnoses COVID-19 U07.1 Elevated lactic acid level R79.89 Lower back pain M54.50 Back pain laterality: midline Chronicity: unspecified Sciatica presence: without sciatica Hypertension I10 CAD (coronary artery disease) I25.10 GERD (gastroesophageal reflux disease) K21.9 (3) Lower back pain Back pain laterality: midline Chronicity: unspecified Sciatica presence: without sciatica Qualified Code(s): M54.50 - Low back pain, unspecified
[2022-12-18] MEDS ORDERED: POLYETHYLENE (MIRALAX) 17 GM PACK PO PRN (00:47)
[2022-12-18] MEDS ORDERED: DEXAMETHASONE SOD INJ 4 MG/ML VIAL IV STA (00:47)
[2022-12-18] MEDS ORDERED: ONDANSETRON INJ 2 MG/ML 2 ML VIAL IV PRN (00:47)
[2022-12-18] MEDS: LACTATED RINGER'S 1,000 ML IV SCH ×2 (01:40→09:28)
[2022-12-18] MEDS: MoRPHine SULFATE 2 MG/ML CARP IV PRN (01:48)
[2022-12-18] MEDS: MoRPHine SULFATE 4 MG/ML 1 ML CARP\\VIAL IV PRN ×6 (04:36→21:54)
[2022-12-18] MEDS ORDERED: COUGH DROP (SUGAR FREE) LOZ 24 LOZ/1 BOX BUCCAL STA (04:41)
[2022-12-18] MEDS ORDERED: COUGH DROP (SUGAR FREE) LOZ 24 LOZ/1 BOX BUCCAL ONE (04:47)
[2022-12-18] MEDS: ACETAMINOPHEN 500 MG TAB PO SCH ×3 (06:11→21:58)
--- NOTE | 2022-12-18 07:48 | XRay Report ---
XR chest 1V portable CLINICAL HISTORY: Sepsis TECHNIQUE: Single frontal radiograph of the chest was obtained. Comparison: Comparison is made to chest radiograph 03/26/2022 FINDINGS: No lines and tubes are seen. The cardiomediastinal silhouette is normal. Lungs are underinflated but clear. No evidence of pleural effusion or pneumothorax. IMPRESSION: No acute abnormalities and in particular no radiographic evidence of pneumonia. ACT 112: Negative or not required by law. Electronically signed by: Elian Plasencia M.D. 12/18/2022 7:46 AM
--- NOTE | 2022-12-18 08:01 | Communication Note ---
Date of Service: December 18, 2022 Please see H+P for full assessment and plan except as otherwise stated: Lactate trend 2.8 -> 3.3 -> 1.8 with IV fluids Troponin initial and 2 hour not elevated, no ST/T wave changes on EKG Patient currently on 2LNC to maintain adequate oxygen levels, no pulmonary history on chart, former smoker of 40 years so may have undiagnosed COPD Continue dexamethasone given hypoxia, continue to monitor and symptom support, may need two step on discharge Regarding his back pain, he notes that he has had worsening of back pain for the last 2 weeks, [facility], no concerning findings noted by his provider at that time, will try to obtain records. He denies radiation of pain into legs, denies weakness or numbness in the legs, no bowel or bladder issues. Has had chronic back pain for decades from a injury, at home takes baclofen, hydrocodone-acetaminophen, Lyrica. Given no worsening findings suspect this is perhaps muscular flare of chronic back pain issues, can continue with follow up outpatient. Here in hospital can continue morphine for today, then return to home medications for tomorrow/discharge.
[2022-12-18] MEDS ORDERED: DEXAMETHASONE SOD INJ 4 MG/ML VIAL IV SCH (09:00)
[2022-12-18] MEDS: carvediloL 12.5 MG TAB PO SCH ×2 (09:25→21:59)
[2022-12-18] MEDS: hydroCHLOROthiazide 25 MG TAB PO SCH (09:25)
[2022-12-18] MEDS: PANTOprazole 40 MG TAB PO SCH (09:25)
[2022-12-18] MEDS: DOCUSATE SODIUM 100 MG CAP PO SCH ×2 (09:25→22:00)
[2022-12-18] MEDS: dexAMETHasone 6 MG in SYRINGE 0 ML IV SCH (10:07)
[2022-12-18] MEDS: levETIRAcetam 500 MG TAB PO SCH ×2 (10:08→21:55)
[2022-12-18] MEDS: FLUTICASONE PROPIONATE NA SPR 16 GM BTL SCH (10:09)
[2022-12-18] MEDS: ENOXAPARIN INJ 40 MG/0.4 ML SYR SQ SCH (10:09)
[2022-12-18] MEDS: PREGABALIN 100 MG CAP PO SCH ×2 (10:38→21:58)
--- NOTE | 2022-12-18 14:09 | Electrocardiogram Report ---
Test Reason : Blood Pressure : / mmHG Vent. Rate : 110 BPM Atrial Rate : 110 BPM P-R Int : 180 ms QRS Dur : 088 ms QT Int : 324 ms P-R-T Axes : 018 016 023 degrees QTc Int : 438 ms Sinus tachycardia Otherwise normal ECG When compared with ECG of 26-MAR-2022 01:08, No significant change was found Confirmed by Raghav Jacobs ([id number]) on 12/18/2022 2:09:32 PM Referred By: REFERRED SELF Confirmed By:Raghav Jacobs
[2022-12-18] MEDS ORDERED: BACLOFEN 20 MG TAB PO SCH (21:00)
[2022-12-18] MEDS ORDERED: MIRTAZAPINE SOLTAB 15 MG PO SCH (21:00)
[2022-12-18] MEDS: ASPIRIN 81 MG ECTAB PO SCH ×2 (21:54→22:00)
[2022-12-19] MEDS: MoRPHine SULFATE 4 MG/ML 1 ML CARP\\VIAL IV PRN ×2 (01:03→04:26)
[2022-12-19] MEDS: ACETAMINOPHEN 500 MG TAB PO SCH (06:56)
[2022-12-19] MEDS: MoRPHine SULFATE 2 MG/ML CARP IV PRN ×2 (07:21→07:59)
[2022-12-19] MEDS ORDERED: HYDROCODONE/ACETAMOPHEN 5/325MG TAB PO PRN (07:56)
[2022-12-19] MEDS ORDERED: ACETAMINOPHEN 500 MG TAB PO SCH (08:00)
[2022-12-19 08:03] LABS: Hematocrit (blood only) 40.2 % (42.0-52.0); Hemoglobin 13.7 g/dl (14.0-18.0); Mean Corpuscular Hemoglobin 31.9 pg (25.0-34.0); Mean Corpuscular Hgb Conc 34.1 g/dL (32.0-36.0); Mean Corpuscular Volume 93.7 fL (80.0-100.0); Mean Platelet Volume 9.8 fL (9.4-12.4); Platelet Count 137 K/uL (130-400); RDW Coefficient of Variation 12.9 % (11.5-14.5); RDW Standard Deviation 43.9 fL (36.4-46.3); Red Blood Count 4.29 M/uL (4.70-6.10); White Blood Count 6.25 K/ul (4.8-10.8)
[2022-12-19 08:21] LABS: BUN Creatinine Ratio 14.2 (10-20); Calcium 8.9 mg/dl (8.6-10.3); Creatinine Clr Calc Pharmacy 66.7 ml/min; Est GFR (African American) 86.1 ml/min; Est GFR (Non-African American) 74.3 ml/min
[2022-12-19] MEDS ORDERED: LIDOCAINE 5% 1 PATCH TD SCH (09:00)
--- NOTE | 2022-12-19 09:04 | Discharge Summary ---
Discharge Summary Date of Service December 19, 2022 Admission HPI Per Admitting Provider Eli Elias is a pleasant 62yo male with history of HTN, HLP, prior CVA with LUE deficit and CAD presenting with Covid-19 infection. Patient was in his usual state of health until this evening when he developed abrupt onset of chills, rigors and diaphoresis. He had generalized weakness and fatigue and bandlike chest pain. He also had severe back pain. Saturations in the ER slightly low at 92% on room air. No underlying lung disease or CHF. No use of home O2. Patient did receive 1 Covid vaccine. Does not believe he has had Covid before Admission Exam Per Admitting Provider General: patient resting comfortably, NAD, non-toxic in appearance, AA&O x 4 Skin: warm, dry, intact, no rashes or lesions HEENT: NC/AT, PERRL, EOMI, anicteric sclera, conjunctiva without injection, external ear normal to inspection and nontender, nares patent, moist mucus membranes, dentition intact, no oropharyngeal lesions, neck supple, trachea midline, no LAD, no thyromegaly, no JVD, left facial droop chronic Heart: +S1/S2, regular, no m/r/g Lungs: equal air entry bilaterally, no rales/rhonchi/wheezes, supplemental O2 in place Abd: +BS, soft, NT/ND, no masses/organomegaly/ascites Ext: warm, 2+ pulses in UE/LE bilaterally, no clubbing/cyanosis or edema Neuro: LUE weakness at baseline, Left facial droop at baseline Principal Dx & Hospital Course #1 = Principal Diagnosis (1) COVID-19: was on 2lnc, not on supplemental O2 on discharge was on dexamethasone briefly, no steroids on discharge given paxlovid at patient request in hopes that he will test negative for his upcoming ketamine infusion (2) Elevated lactic acid level: resolved with IVF (3) Lower back pain: chronic, he notes that he has had worsening of back pain for the last 2 weeks, [facility], no concerning findings noted by his provider at that time. He denies radiation of pain into legs, denies weakness or numbness in the legs, no bowel or bladder issues. Has had chronic back pain for decades from a injury, at home takes baclofen, hydrocodone-acetaminophen, Lyrica. Given no worsening findings suspect this is perhaps muscular flare of chronic back pain issues, can continue with follow up outpatient. (4) Hypertension: BP normotensive, continue home meds (5) CAD (coronary artery disease): Continue Coreg and aspirin (6) GERD (gastroesophageal reflux disease): Continue PPI Discharge Exam Constitutional WD/WN, vitals as above Respiratory lungs CTA Psychiatric A+Ox3, euthymic affect Updated Medication List Medication Instructions Recorded Confirmed Type aspirin 81 mg tablet,delayed 81 mg PO HS 10/14/19 12/17/22 History release docusate sodium 100 mg capsule 100 mg PO BID 10/07/20 12/17/22 History (Dulcolax Stool Softener (docusate)) polyethylene glycol 3350 17 17 g PO QAM PRN Constipation 10/07/20 12/17/22 History gram/dose oral powder (Miralax) nitroglycerin 0.4 mg sublingual 0.4 mg sublingual UD PRN Chest 11/16/20 12/17/22 Rx tablet (Nitrostat) Pain #1 btl pantoprazole 40 mg tablet,delayed 40 mg PO QAM #90 tabs 01/14/21 12/17/22 Rx release evolocumab 140 mg/mL subcutaneous 140 mg subcut .Q14D 04/01/21 12/17/22 History pen injector (Katelin Neri) fluticasone propionate 50 2 spray intranasal DAILY 04/01/21 12/17/22 History mcg/actuation nasal spray,suspension multivitamin 1 tab PO DAILY 04/26/21 12/17/22 History hydrochlorothiazide 12.5 mg tablet 12.5 mg PO DAILY #30 tabs 02/14/22 12/17/22 Rx carvedilol 12.5 mg tablet (Coreg) 12.5 mg PO BID 03/16/22 12/17/22 History psyllium husk 3.4 gram/5.4 gram 1 tbsp PO DAILY 03/16/22 12/17/22 History oral powder (Metamucil) omega-3 fatty acids 1,000 mg 1,000 mg PO BID 03/26/22 12/17/22 History capsule baclofen 20 mg tablet 20 mg PO HS #30 tabs 08/18/22 12/17/22 Rx levetiracetam 500 mg tablet 500 mg PO BID 90 days #180 tabs 08/18/22 12/17/22 Rx (Keppra) carboxymethylcellulose sodium 0.5 2 drp OPB TID PRN Dry Eyes 12/17/22 12/17/22 History % eye drops (Refresh Tears) hydrocodone 5 mg-acetaminophen 325 1 tab PO TID PRN Pain 12/17/22 12/17/22 History mg tablet mirtazapine 45 mg tablet 22.5 mg PO HS 12/17/22 12/17/22 History pregabalin 100 mg capsule (Lyrica) 100 mg PO BID 12/17/22 12/17/22 History lidocaine 5 % topical patch 1 patch transdermal QAM #0 ea 12/19/22 Rx Hospital Stay Data Consultations 12/17/22 23:25 ED Decision to Admit Stat Discharge Instructions Given to Patient (Per Discharging Provider) You were admitted for weakness and pain and found to be positive for COVID-19. Your back pain and breathing symptoms improved with steroids and time. You can trial lidocaine patches daily to your back if they help with your pain; this is on top of your typical home medications. You were felt to be safe for discharge home. You will be completely done with quarantine ten days after start of symptoms and positive test (12/17/2022-12/27/2022). I tried calling your ketamine clinic, but I could only leave a voicemail. Another number for their clinic that I found online was [phone]; you can try calling that number for their office to clarify your quarantine requirements and, if needed, reschedule your appointment. I have ordered a COVID test for 12/21/2022, which you can send to the ketamine clinic doctor or your [facility]. If you have worsening of symptoms or other clinical concerns, please seek urgent medical attention. Total Time Total Time Spent Total Time Spent (In Minutes): 30 min Coding Level of Care Code 21009 IN/OBS DISCH 30 MIN/LESS Diagnoses COVID-19 U07.1 Elevated lactic acid level R79.89 Lower back pain M54.50 Back pain laterality: midline Chronicity: unspecified Sciatica presence: without sciatica Hypertension I10 CAD (coronary artery disease) I25.10 GERD (gastroesophageal reflux disease) K21.9
[2022-12-19] MEDS: FLUTICASONE PROPIONATE NA SPR 16 GM BTL SCH (09:41)
[2022-12-19] MEDS: hydroCHLOROthiazide 25 MG TAB PO SCH (09:41)
[2022-12-19] MEDS: DOCUSATE SODIUM 100 MG CAP PO SCH (09:41)
[2022-12-19] MEDS: PANTOprazole 40 MG TAB PO SCH (09:41)
[2022-12-19] MEDS: levETIRAcetam 500 MG TAB PO SCH (09:42)
[2022-12-19] MEDS: carvediloL 12.5 MG TAB PO SCH (09:42)
[2022-12-19] MEDS: PREGABALIN 100 MG CAP PO SCH (09:46)
[2022-12-19] MEDS: dexAMETHasone 6 MG in SYRINGE 0 ML IV SCH (09:47)
[2022-12-19] MEDS: ENOXAPARIN INJ 40 MG/0.4 ML SYR SQ SCH (09:50)
== END 2022-12-19 14:35 | disposition home or self-care (01) ==
LOC: EDINP 20:05 → ED 20:05 → SUATTDRO 12-18 00:08 → 2W 12-19 00:48

== ENCOUNTER 2023-04-13 13:10 | Inpatient (IN) ==
--- NOTE | 2023-04-13 13:31 | ED Triage Note ---
Date of Service April 13, 2023 Provider in Triage Author: Nilda Wilkes History of Present Illness This patient was briefly evaluated while in triage. An abbreviated physical exam was performed. This patient is a 62-year-old Male who presents to the ED for evaluation of dizziness and confusion x 30 minutes ago. Reports history of stroke in October 2019 stroke with residual left arm hemiplegia and facial droop. Denies associated new or worsening deficits. Denies associated chest pain, SOB, abdominal. Denies headache, fever/chills, recent illness. Physical Exam Constitutional: alert and oriented x3. no acute distress. HEENT: normocephalic, atraumatic. normal conjunctiva.PERRLA. EOM's grossly intact. Respiratory: lungs are clear to auscultation without wheezes, rhonchi, or rales bilaterally. equal chest rise. normal respiratory effort, no accessory muscle use. Cardiovascular: normal heart sounds without murmur. regular rate and rhythm. GI: abdomen is soft, nontender. No palpable masses. No rebound tenderness or guarding. MSK: moves all 4 extremities spontaneously Neuro: residual left facial droop and left arm hemiplegia. No new deficits. slow to answer questions, no slurred speech. Tongue midline Psych:appropriate mood and affect. Stroke alert called, initial orders for labs and / or imaging were placed and patient was taken immediately to CT. Please see further documentation for the full ED course. MDM / Impression Impression Impression: Stroke-like symptoms, Acute confusion, Dizziness
[2023-04-13] MEDS ORDERED: OPTIRAY 320 125ml IV ONE (13:37)
--- NOTE | 2023-04-13 13:42 | Emergency Department Note ---
Impression & Plan Stroke-like symptoms, Acute confusion, Dizziness ED Provider Note HISTORY OF PRESENT ILLNESS: Patient is a 62-year-old male presenting with strokelike symptoms. Patient presented to the ER after developing sudden onset of dizziness, confusion and gait instability. At 12:30 PM on 04/13/2023 the patient states he had sudden onset of confusion and had difficulties finding his words. He states that he felt very imbalanced and dizzy like the room was spinning. He has a previous history of stroke with left-sided deficits. He is flaccid in his left upper extremity and has left-sided facial droop secondary to his previous stroke. He is on aspirin daily. No other anticoagulant or antiplatelet therapy. Denies any chest pain or shortness of breath. Denies any changes in vision. Denies any double vision ROS: as above PHYSICAL EXAM: Constitutional: Patient appears in no acute distress. HENT: Head: Normocephalic and atraumatic. Eyes: EOMI, PERRL Mouth/Throat: Mucous membranes moist. Neck: Trachea midline. Neck supple. Cardiovascular: RRR, No murmurs, rubs or gallops. Intact distal pulses. Pulmonary/Chest: No respiratory distress. Breath sounds clear and equal bilaterally. No wheezes or rales. Abdominal: Abdomen soft, no tenderness, rebound or guarding. Musculoskeletal: No edema, tenderness or deformity noted. Skin: Warm and dry. No rash, erythema, pallor or cyanosis Psychiatric: Appropriate mood and affect for situation. Neurological: Alert and keenly responsive. Left lower facial droop. Patient has flaccidity in the left upper extremity. 5 out of 5 strength in bilateral lower extremities and right upper extremity. No significant dysmetria with the right upper extremity. Speaking in full and complete sentences without any slurred speech. MDM: - Vitals signs stable. - Patient was alerted as a stroke alert from triage - History obtained via patient. Patient presents with confusion, dizziness and gait instability. Patient states that at 12:30 PM on 04/13/2023 he developed acute onset of dizziness and difficulties with finding his words. He states he was very unbalanced and dizzy like the room was spinning. He has a previous history of stroke with left-sided deficits. He is on aspirin daily. He has flaccid on his left upper extremity and has left-sided facial droop secondary to his previous stroke. He denies any chest pain or shortness of breath. Denies any recent fevers. Denies any double vision. - Chronic conditions affecting care: HTN; HLD; Yanes's palsy; CAD; TIA - Differential diagnoses include, but are not limited to: dysrhythmia; UTI; pneumonia; CVA; intracranial hemorrhage; electrolyte abnormality - Order placed for continuous cardiac monitoring. At this time, monitor showed rate of 94 bpm with normal sinus rhythm, per my interpretation. - Patient was initially evaluated at CT scan. He has no focal new neurological deficits with only the left-sided weakness from his previous stroke. CT head without contrast was negative for acute intracranial bleed, per my interpretation called and spoke with teleneurologist at [facility], Dr. Ponce at 13:54. Discussed the patient's case with him and he plans to evaluate the patient on the telestroke cart - Dr. Ponce called me back at 1448 and states that the patient is back to baseline now. No indication for thrombolytics at this time. He states the patient told him that his speech was bad for multiple days. Neurology recommends admission for MRI and further infectious workup to rule out potential UTI or infectious etiology for the patient's confusion and symptoms. He states that the patient will need some sedation for his MRI, as he has significant anxiety and claustrophobia. - External medical records reviewed. Primary care visit note dated 01/18/2023 was reviewed. Patient was seen in their clinic for acute chest pain and shortness of breath. - EKG reviewed by myself showed normal sinus rhythm. Rate 84 bpm. QTc 430. No acute ischemic changes - Laboratory workup interpreted by myself showed normal WBC; stable electrolytes other than hypocalcemia; normal glucose - CXR negative for pneumonia, per my interpretation - CTA head/neck showed no acute pathology. Noted to have severe multifocal stenosis of the intracranial arteries and also mild focal stenosis of the takeoff of the right vertebral artery. - UA ordered - Patient given 1g IV tylenol for headache in ER. - Discussion was had with team primary care physician about patient's case and need for admission - Hospitalist consulted for admission - [facility] for further evaluation and management. ASSESSMENT AND PLAN: Diagnosis: stroke like symptoms; confusion; dizziness Plan: admit Past Med/Surg History Medical History History of recent hospitalization Transient ischemic attack (TIA) History of COVID-19 History of esophageal dilatation Esophageal stenosis Restless leg syndrome Seizure disorder ESA (generalized anxiety disorder) MDD (major depressive disorder) Benign prostatic hyperplasia (BPH) with post-void dribbling Chronic pain History of coronary artery disease GERD (gastroesophageal reflux disease) Pneumonia Stroke with left hemiparesis Spinal stenosis Yanes's palsy CAD (coronary artery disease) Dyslipidemia Hypertension Surgical History H/O excision of mass (01/30/23) S/P epidural steroid injection History of esophagogastroduodenoscopy (EGD) History of cardiac cath H/O colonoscopy History of cranioplasty History of right-sided carotid endarterectomy (~02/2020) Status post craniectomy Family History Father Diabetes Heart disease Myocardial infarction Hypertension Grandfather Diabetes Grandmother Diabetes Uncle Myocardial infarction Mother Hypertension Hiatal hernia Sister Diabetes Other No family history of adverse response to anesthesia Denies family history of Ovarian cancer Prostate cancer Breast cancer Lung cancer Colorectal cancer Stroke Social History Smoking Status: Former smoker Tobacco Type: Cigarettes Age Started Using Tobacco: 18; Age Quit Using Tobacco: 58; Cigarettes Per Day: 1-2/day many years; Second Hand Exposure: No; Do You Dip or Chew Tobacco: No; Hx Alcohol Use: No Hx Substance Use: No Preferred Language: Yakut Communication Ability: Effective Visual Impairment: Limited Hearing Ability: Use of Hearing Aid Look Out Tower Fire Watcher Required: No Beliefs That Will Affect Care: None marital status: Current Living Situation: Spouse current occupational status: retired 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 How many Children do You have: 2 other: receiving [facility] care Feels Safe at Home: Yes Childhood Exposure to Second-Hand Smoke: No Diet: regular caffeine: Yes (very seldom ) during the past year weight has: increased > 10 lbs Dental Care, Regularly: Yes Physical Activity Frequency: Daily Physical Activity Frequency Comment: walks daily Seatbelt Use: always Sunscreen Use: Yes Assistive Devices: Cane and Hearing Aid - Bilateral Allergies Allergies Allergy/AdvReac Type Severity Reaction Status Date / Time fentanyl Allergy Severe NEURO Verified 03/09/23 14:56 CHANGES/Altered mental status tuberculin, purified protein Allergy Severe SWELLING/HI Verified 03/09/23 14:56 deriva VES rosuvastatin Allergy Intermediate muscle and Verified 03/09/23 14:56 joint pain sertraline Allergy Intermediate Psych Verified 03/09/23 14:56 complications [id number] Reductase AdvReac Severe BODY ACHES Verified 03/09/23 14:56 Inhibitor [[id number]-Dsm-Vcj Reductase Inhibitor] MRI inhibitors Allergy Unknown Mind Uncoded 03/09/23 14:56 racing, Overwhelming psych complications Home Meds Home Medications Medication Instructions Recorded Confirmed aspirin 81 mg tablet,delayed 81 mg PO HS 10/14/19 03/09/23 release docusate sodium 100 mg capsule 100 mg PO BID 10/07/20 03/09/23 (Dulcolax Stool Softener (docusate)) polyethylene glycol 3350 17 17 g PO BID 10/07/20 03/09/23 gram/dose oral powder (Miralax) evolocumab 140 mg/mL subcutaneous 140 mg subcut .Q14D 04/01/21 03/09/23 pen injector (Katelin Neri) fluticasone propionate 50 2 spray intranasal DAILY PRN Nasal 04/01/21 03/09/23 mcg/actuation nasal Congestion spray,suspension multivitamin 1 tab PO QAM 04/26/21 03/09/23 carvedilol 12.5 mg tablet (Coreg) 12.5 mg PO BID 03/16/22 03/09/23 psyllium husk 3.4 gram/5.4 gram 1 tbsp PO QAM 03/16/22 03/09/23 oral powder (Metamucil) omega-3 fatty acids 1,000 mg 1,000 mg PO BID 03/26/22 03/09/23 capsule carboxymethylcellulose sodium 0.5 2 drp OPB TID PRN Dry Eyes 12/17/22 03/09/23 % eye drops (Refresh Tears) hydrocodone 5 mg-acetaminophen 325 1 tab PO TID PRN Pain 12/17/22 03/09/23 mg tablet mirtazapine 45 mg tablet 22.5 mg PO HS 12/17/22 03/09/23 pregabalin 100 mg capsule (Lyrica) 100 mg PO BID 12/17/22 03/09/23 nitroglycerin 0.4 mg sublingual 0.4 mg sublingual DIRECTED PRN 01/17/23 03/09/23 tablet (Nitrostat) Chest Pain baclofen 20 mg tablet 20 mg PO QAM 01/23/23 03/09/23 bismuth subsalicylate 262 mg 2 tab PO QID PRN Acid Reflux 01/23/23 03/09/23 chewable tablet (Pepto-Bismol) hydrochlorothiazide 12.5 mg tablet 12.5 mg PO QAM 01/23/23 03/09/23 Previous Rx's Medication Instructions Recorded pantoprazole 40 mg tablet,delayed 40 mg PO QAM #90 tabs 01/14/21 release levetiracetam 500 mg tablet 500 mg PO BID 90 days #180 tabs 02/05/23 (Keppra) lamotrigine 25 mg tablet 75 mg (3 x 25 mg) PO BID #180 tabs 04/09/23 Results & Data (ED) Vital Signs Vital Signs - 24 hr 04/13/23 13:26 04/13/23 14:14 Temperature 36.6 C Temperature Source Temporal Artery Scan Pulse Rate 94 H Pulse Rhythm Regular Pulse Strength Normal Respiratory Rate 18 Respiratory Effort / Characteristics Non-Labored Spontaneous Respiratory Depth Normal Respiratory Pattern Regular Blood Pressure 117/81 Blood Pressure Mean 93 Blood Pressure Position Sitting Pulse Oximetry 93 94 Oxygen Delivery Method Room Air Room Air Sepsis Recent Fever Within 48 Hours No Sepsis New/Unexplained Change in Mental Status No Sepsis Action Taken by Nursing No Action Required Laboratory Data 04/13/23 13:51 04/13/23 13:51 Lab Results 04/13/23 04/13/23 Range/Units 13:51 14:03 WBC 8.62 (4.8-10.8) K/ul RBC 4.40 L (4.70-6.10) M/uL Hgb 14.6 (14.0-18.0) g/dl POC Hgb 13.6 L (14.0-18.0) g/dl Hct 41.4 L (42.0-52.0) % POC Hct 40 L (42-52) % MCV 94.1 (80.0-100.0) fL MCH 33.2 (25.0-34.0) pg MCHC 35.3 (32.0-36.0) g/dL RDW Std Deviation 44.5 (36.4-46.3) fL RDW Coeff of Nessa 13.0 (11.5-14.5) % Plt Count 152 (130-400) K/uL MPV 9.7 (9.4-12.4) fL PT 10.9 (9.0-12.0) Seconds INR 1.0 (0.9-1.1) APTT 27 (21-31) Seconds PTT Ratio 1.0 POC Sodium 135 (135-144) mmol/L Sodium 134 L (136-145) mmol/L POC Potassium 3.9 (3.3-5.0) mmol/L Potassium 3.9 (3.5-5.1) mmol/L POC Chloride 97 L (101-112) mmol/L Chloride 99 (98-107) mmol/L Carbon Dioxide 29 (21-32) mmol/L POC Total CO2 27 (24-31) mmol/L Anion Gap 6 (3-11) POC Anion Gap 16.0 (16-25) mmol/L POC BUN 14 (7-18) mg/dl BUN 14 (6-23) mg/dl Creatinine 1.07 (0.6-1.4) mg/dl POC Creatinine 1.2 (0.6-1.3) mg/dl Est Cr Clr Drug Dosing 66.1 ml/min Est GFR ( Amer) 85.2 ml/min Est GFR (Non-Af Amer) 73.5 ml/min BUN/Creatinine Ratio 13.1 (10-20) Glucose 128 H (70-99(Fasting)) mg/dl POC Glucose (other) 122 H (70-99) mg/dl Calcium 8.5 L (8.6-10.3) mg/dl POC Ioniz Calcium Dean 1.08 L (1.12-1.32) mmol/l Magnesium 2.0 (1.7-2.4) mg/dl Total Bilirubin 0.6 (0.2-1.0) mg/dl AST 16 (13-39) U/L ALT 16 (7-52) U/L Alkaline Phosphatase 35 (34-104) U/L Total Protein 6.6 (6.0-8.3) gm/dl Albumin 3.7 (3.4-5.0) gm/dl Globulin 2.9 (2.5-4.0) gm/dl Albumin/Globulin Ratio 1.3 (0.9-2) Administered Medications Discontinued Medications Acetaminophen (Ofirmev) 1,000 mg in 100 mls @ 400 mls/hr IV NOW STA Stop: 04/13/23 14:52 Last Admin: 04/13/23 14:42 Dose: 400 mls/hr Documented By: BANDAR Ioversol (Optiray 320 125ml) 115 ml IV ONCE ONE Stop: 04/13/23 13:38 Last Admin: 04/13/23 13:37 Dose: 115 ml Documented By: LACY Imaging Data Radiologist's Impression: Head CT 04/13/23 13:32 CT OF THE HEAD WITHOUT CONTRAST CLINICAL HISTORY: Neuro deficit, acute, stroke suspected. Weakness. COMPARISON STUDY: Head CT and CTA of the head March 26, 2022. TECHNIQUE: Helical axial images of the head were obtained without IV contrast. Automated exposure control was utilized for the study. A dose lowering technique was utilized adhering to the principles of ALARA. FINDINGS: No acute intracranial hemorrhage, midline shift or mass effect is present. The ventricular system is stable. Basal cisterns are patent. Right MCA territory encephalomalacia remains unchanged. This suggests an old infarct. The appearance of the brain is unchanged. A right sided craniotomy is unchanged in appearance. IMPRESSION: 1. No acute intracranial findings. 2. No change in appearance of the brain. Old right MCA territory infarct. ACT 112: Negative or not required by law. Electronically signed by: Luis Fernando Aguila M.D. 04/13/2023 1:50 PM Head CTA 04/13/23 13:33 CT angio head w con CLINICAL HISTORY: 62 years-old Male with stroke. Acute stroke like symptoms COMPARISON STUDY: Head CT of same day and also 03/26/2022, October 24, 2019. TECHNIQUE: Following the IV administration of 115 cc of Optiray, CT angiogram of the brain was performed from the skull base to the vertex. Images are reviewed in the axial, sagittal, and coronal planes. 3-D MIPS images are created and assessed. IV contrast was administered without complication. All measurements were obtained according to NASCET criteria. A dose lowering technique was utilized adhering to the principles of ALARA. CT DOSE: 1165.49 mGy.cm FINDINGS: CT ANGIOGRAM OF THE BRAIN: Severe stenosis of the petrous portion of the left internal artery is unchanged since CTA of October 24, 2019. Moderate to severe stenoses of the intracranial portions of the bilateral vertebral arteries are unchanged. Severe stenosis of the right P2 segment is unchanged. The left A1 segment is not again well visualized, likely developmentally diminutive. The left M1 and M2 segments are patent. There is moderate stenosis at the origin of the right A1 segment. No acute proximal branch occlusion identified. There is extensive calcified plaque within the right cavernous carotid with moderate stenosis which is also unchanged. Chronic right MCA infarct. Stable postoperative changes of the right calvarium. IMPRESSION: 1. No acute abnormality identified. 2. Chronic right MCA infarct. 3. Severe multifocal stenoses of the intracranial arteries as detailed above which appears similar to the prior study. ACT 112: Negative or not required by law. The above report was generated using voice recognition software. It may contain grammatical, syntax or spelling errors. Electronically signed by: Darvin Ernst M.D. 04/13/2023 1:59 PM Neck CTA 04/13/23 13:33 NECK CTA HISTORY: Weakness. stroke TECHNIQUE: Multiaxial CT images of the neck were performed following the intravenous administration of contrast to evaluate the major cervical vessels. 3D/MIP images were also obtained. Sagittal and coronal reformats were reviewed. All measurements were calculated based on NASCET criteria. A dose lowering technique was utilized adhering to the principles of ALARA. COMPARISON STUDY: CTA neck 03/26/2022. FINDINGS: The aortic arch and proximal great vessels are widely patent. There is no significant stenosis, occlusion, or dissection identified within the bilateral common carotid, internal carotid, or left vertebral arteries. Mild focal narrowing at the takeoff of the right vertebral artery, unchanged. The remaining cervical portion of the right vertebral artery are patent. No change in the hypoplastic left internal carotid artery in comparison to the right which is diffusely small in caliber. IMPRESSION: 1. No significant stenosis, occlusion, or dissection identified within the carotid or left vertebral arteries. 2. Mild focal stenosis at the takeoff of the right vertebral artery, unchanged. 3. Asymmetric decreased caliber throughout the left cervical internal carotid artery, unchanged. This is likely developmental. ACT 112: Negative or not required by law. Electronically signed by: Pop Mora M.D. 04/13/2023 2:03 PM Discharge Plan Visit Data Chief Complaint: Stroke Alert Stated Complaint: DIZZINESS, SHAKINESS, TACHYCARDIA ED Provider: Courtney Paredes Discharge Problem: Stroke-like symptoms, Acute confusion, Dizziness Forms Stand Alone Forms: [facility] Prescriptions Prescriptions: No Action pantoprazole 40 mg tablet,delayed release (DR/EC) 40 mg PO QAM Qty: 90 3RF levetiracetam [Keppra] 500 mg tablet 500 mg PO BID 90 Days Qty: 180 1RF polyethylene glycol 3350 [Miralax] 17 gram/dose powder 17 g PO BID docusate sodium [Dulcolax Stool Softener (dss)] 100 mg capsule 100 mg PO BID multivitamin Tablet 1 tab PO QAM Metamucil 3.4 gram/5.4 gram powder 1 tbsp PO QAM Rx Instructions: mix into at least 8 oz of water or juice before administering carvedilol [Coreg] 12.5 mg tablet 12.5 mg PO BID Rx Instructions: must administer with a meal/food lamotrigine 25 mg tablet 75 mg PO BID Qty: 180 1RF Rx Instructions: take 50mg BID x 1 week then 25mg BID x1 week then stop aspirin 81 mg Tablet,Delayed Release (Dr/Ec) 81 mg PO HS fluticasone propionate 50 mcg/actuation spray,suspension 2 spray INTRANASAL DAILY PRN (Reason: Nasal Congestion) Repatha SureClick 140 mg/mL pen injector 140 mg SUBCUT .Q14D Rx Instructions: Every other Sunday bismuth subsalicylate [Pepto-Bismol] 262 mg Tablet,Chewable 2 tab PO QID PRN (Reason: Acid Reflux) baclofen 20 mg tablet 20 mg PO QAM hydrochlorothiazide 12.5 mg tablet 12.5 mg PO QAM nitroglycerin [Nitrostat] 0.4 mg tablet, sublingual 0.4 mg sublingual DIRECTED PRN (Reason: Chest Pain) Rx Instructions: 1 tab q5min prn chest pain; max 3 in 15 minutes. omega-3 fatty acids 1,000 mg Capsule 1,000 mg PO BID pregabalin [Lyrica] 100 mg Capsule 100 mg PO BID hydrocodone-acetaminophen 5-325 mg tablet 1 tab PO TID PRN (Reason: Pain) Rx Instructions: PER PT "TAKE TID, EVERYDAY". PER [facility], FILLED 01/04/23 FOR 14 DAYS/42 TABS, FOR A WINDOW PICK, UNSURE IF PICKED UP. carboxymethylcellulose sodium [Refresh Tears] 0.5 % drops 2 drp OPB TID PRN (Reason: Dry Eyes) mirtazapine 45 mg Tablet 22.5 mg PO HS Referrals Referrals: Dago Garcia DO [Primary Care Provider] -
--- NOTE | 2023-04-13 13:51 | CT Scan Report ---
CT OF THE HEAD WITHOUT CONTRAST CLINICAL HISTORY: Neuro deficit, acute, stroke suspected. Weakness. COMPARISON STUDY: Head CT and CTA of the head March 26, 2022. TECHNIQUE: Helical axial images of the head were obtained without IV contrast. Automated exposure con trol was utilized for the study. A dose lowering technique was utilized adhering to the principles o f ALARA. FINDINGS: No acute intracranial hemorrhage, midline shift or mass effect is present. The ventricular system is stable. Basal cisterns are patent. Right MCA territory encephalomalacia remains unchanged. This suggests an old infarct. The appearance of the brain is unchanged. A right sided craniotomy is u nchanged in appearance. IMPRESSION: 1. No acute intracranial findings. 2. No change in appearance of the brain. Old right MCA territory infarct. ACT 112: Negative or not required by law. Electronically signed by: Luis Fernando Aguila M.D. 04/13/2023 1:50 PM
--- NOTE | 2023-04-13 14:01 | CT Scan Report ---
CT angio head w con CLINICAL HISTORY: 62 years-old Male with stroke. Acute stroke like symptoms COMPARISON STUDY: Head CT of same day and also 03/26/2022, October 24, 2019. TECHNIQUE: Following the IV administration of 115 cc of Optiray, CT angiogram of the brain was perfor med from the skull base to the vertex. Images are reviewed in the axial, sagittal, and coronal planes . 3-D MIPS images are created and assessed. IV contrast was administered without complication. All me asurements were obtained according to NASCET criteria. A dose lowering technique was utilized adherin g to the principles of ALARA. CT DOSE: 1165.49 mGy.cm FINDINGS: CT ANGIOGRAM OF THE BRAIN: Severe stenosis of the petrous portion of the left internal artery is unchanged since CTA of October 24, 2019. Moderate to severe stenoses of the intracranial portions of the bilateral vertebral arteries a re unchanged. Severe stenosis of the right P2 segment is unchanged. The left A1 segment is not again well visualized, likely developmentally diminutive. The left M1 and M2 segments are patent. There is moderate stenosis at the origin of the right A1 segment. No acute proximal branch occlusion identifie d. There is extensive calcified plaque within the right cavernous carotid with moderate stenosis whic h is also unchanged. Chronic right MCA infarct. Stable postoperative changes of the right calvarium. IMPRESSION: 1. No acute abnormality identified. 2. Chronic right MCA infarct. 3. Severe multifocal stenoses of the intracranial arteries as detailed above which appears similar to the prior study. ACT 112: Negative or not required by law. The above report was generated using voice recognition software. It may contain grammatical, syntax o r spelling errors. Electronically signed by: Darvin Ernst M.D. 04/13/2023 1:59 PM
[2023-04-13 14:02] LABS: Hematocrit (blood only) 41.4 % (42.0-52.0); Hemoglobin 14.6 g/dl (14.0-18.0); Mean Corpuscular Hemoglobin 33.2 pg (25.0-34.0); Mean Corpuscular Hgb Conc 35.3 g/dL (32.0-36.0); Mean Corpuscular Volume 94.1 fL (80.0-100.0); Mean Platelet Volume 9.7 fL (9.4-12.4); Platelet Count 152 K/uL (130-400); RDW Standard Deviation 44.5 fL (36.4-46.3); White Blood Count 8.62 K/ul (4.8-10.8)
--- NOTE | 2023-04-13 14:04 | CT Scan Report ---
NECK CTA HISTORY: Weakness. stroke TECHNIQUE: Multiaxial CT images of the neck were performed following the intravenous administration o f contrast to evaluate the major cervical vessels. 3D/MIP images were also obtained. Sagittal and cor onal reformats were reviewed. All measurements were calculated based on NASCET criteria. A dose low ering technique was utilized adhering to the principles of ALARA. COMPARISON STUDY: CTA neck 03/26/2022. FINDINGS: The aortic arch and proximal great vessels are widely patent. There is no significant sten osis, occlusion, or dissection identified within the bilateral common carotid, internal carotid, or l eft vertebral arteries. Mild focal narrowing at the takeoff of the right vertebral artery, unchanged. The remaining cervical portion of the right vertebral artery are patent. No change in the hypoplasti c left internal carotid artery in comparison to the right which is diffusely small in caliber. IMPRESSION: 1. No significant stenosis, occlusion, or dissection identified within the carotid or left vertebral arteries. 2. Mild focal stenosis at the takeoff of the right vertebral artery, unchanged. 3. Asymmetric decreased caliber throughout the left cervical internal carotid artery, unchanged. This is likely developmental. ACT 112: Negative or not required by law. Electronically signed by: Pop Mora M.D. 04/13/2023 2:03 PM
[2023-04-13 14:15] LABS: Partial Thromboplastin Time 27 Seconds (21-31); Prothrombin Time 10.9 Seconds (9.0-12.0)
[2023-04-13 14:16] LABS: iSTAT Creatinine 1.2 mg/dl (0.6-1.3); iSTAT Hemoglobin 13.6 g/dl (14.0-18.0); iSTAT Ionized Calcium 1.08 mmol/l (1.12-1.32); iSTAT Potassium 3.9 mmol/L (3.3-5.0)
[2023-04-13 14:24] LABS: Albumin Globulin Ratio 1.3 (0.9-2); Albumin Level 3.7 gm/dl (3.4-5.0); BUN Creatinine Ratio 13.1 (10-20); Bilirubin,Total 0.6 mg/dl (0.2-1.0); Calcium 8.5 mg/dl (8.6-10.3); Creatinine Clr Calc Pharmacy 66.1 ml/min; Est GFR (African American) 85.2 ml/min; Est GFR (Non-African American) 73.5 ml/min; Globulin 2.9 gm/dl (2.5-4.0); Potassium 3.9 mmol/L (3.5-5.1); Total Protein 6.6 gm/dl (6.0-8.3)
[2023-04-13] MEDS ORDERED: ACETAMINOPHEN 1,000 MG/100 ML VIAL IV STA (14:38)
--- NOTE | 2023-04-13 15:02 | History & Physical Report ---
Date of Service April 13, 2023 Assessment & Plan (1) Stroke-like symptoms: Plan: Strokelike symptoms, history of right MCA stroke s/p carotid endarterectomy, craniectomy, cranioplasty With residual flaccid left hemiparesis more pronounced in the arm and leg, and mild residual left-sided facial droop Presents with acute onset of word finding difficulty, dizziness, gait instability at 12:30 PM. Completely Resolved at time of admission. neck CTA: No significant carotid or vertebral occlusion. Mild focal stenosis of the right vertebral artery stable from prior. Asymmetrical decreased caliber of the left cervical internal carotid unchanged from prior and likely developmental CTAhead: Chronic right MCA infarct severe multifocal stenosis of intracranial arteries similar to prior, no acute change CThead: No acute change Patient was switched from Plavix to aspirin after prior TIA symptoms No signs of infectious or metabolic encephalopathy - Back to baseline on assessment - MRI-Brain pending - Per Dr. Ponce. Hold antiplatelet until MRI resulted. If new stroke discuss with inpatient neuro for anticoag vs antiplatelet, otherwise continue aspirin. Neuro consulted. Patient's symptoms were very sudden onset and he is relatively clear that this was not vertiginous in nature, he was not presyncopal, and had a feeling of gait instability and suddenly difficulty walking concerning for TIA. Neurology consulted as above for antiplatelet recs; even if MRI is negative highly suspicious that this could represent a TIA for which DAPT may be beneficial No ischemic change or A-fib noted on EKG Statin intolerant. Despite multiple statins/trials and on Repatha as outpatient. Lipid panel pending, continue Repatha (2) Hypertension: Plan: Hypertension Hydrochlorothiazide and carvedilol held pending MRI results. If no stroke is seen then resume these. Labetalol PRN q6h. If stroke is seen then will allow for permissive hypertension, given history of hemorrhagic conversion reasonable to tolerate a MAP of 115 rather than SBP 220. (3) Stroke with left hemiparesis: Plan: as noted (4) CAD (coronary artery disease): Plan: CAD Follows with [facility] cardiology Last [facility] cardiology note reviewed. Patient has a history of 50% mid circumflex disease, 99% ostial OM1/OM 2 stenosis, and 70% RCA stenosis. He has dyslipidemia with intolerance to all statins and was placed on Repatha instead. Nuclear stress test 2020 with EF hyperdynamic 70% on augmentation, no evidence of infarct or reversible ischemia was noted. Blood pressure was adequately controlled at that time is recommended to continue on current medical therapy. No chest pain, chest pressure, no A-fib preceding his admission. He does feel his heart was racing slightly but notes that was mostly because he was very anxious about his symptoms and it resolved after few Reportedly with prior echo without evidence of septal defect, will attempt and obtain records [facility] and repeat echo to (5) Esophageal stenosis: Plan: esophageal stenosis S/p EGD with dilation - Helped but did not fix his swallowing. Does tolerate a regular diet and does not need minced and moist diet, does ok with drinking and small bites. - Swallow study per stroke protocol pending - Denies aspiration GERD Continue PPI (6) MDD (major depressive disorder): Plan: Continue home antidepressants Patient does follow for ketamine protocol treatment of depression, last treatment was several weeks ago and does not have his next one scheduled. [facility] he finds he gets transient benefit from this, but does not last for many weeks (7) Seizure disorder: Plan: Seizure disorder Continue Keppra, lamotrigine No loss of consciousness or evidence of generalized seizure, history inconsistent with focal seizures Plan DVT PPx: SCDs, May add lovenox if no large territory infact seen on MRI CODE; Full Dispo: PCU Diet: History of Present Illness Primary Care Provider: Dago Garcia DO Eli Elias is a 62-year-old male with a past medical history of TIA switched from Plavix to aspirin at his prior TIA, ESA, MDD, GERD, multivessel nonocclusive CAD with cath many years ago showing some up to 50% blockages but for which catheterization or bypass was not recommended, hypertension, Yanes's palsy, 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 Patient had word finding difficulty and acute vertigo. [place] like I drank a whole bunch at once or was disaccociated Difficulty finding words, but understood what was being said to him and could find the words he wanted to say, was just confused. Residual: L leg 'almost normal.' L arm has sensation, but 'almos tno strength at all.' L weakness to smile Dry eyes, no vision changes No cp or cp. no afib Did feel heart was racing for a few minutes during the episode due to 'thoughts in myb rain racing.' Took morning meds. Carvedilol. Pt had been on Ketamine protocol for depression treatment. [facility] in [place] [facility] [place] Dr. Raffi Alas in [place] manages currently, last one was a few weeks ago and next one is not yet scheduled. He does find it helps his depression, but the response is not durable and 'needs it more consistently, and is also not affordable so I quit doing it and probably wont keep doing it unless the [facility] can cover it.' Medical History: Reviewed Medications: Reviewed Surgical History: Reviewed Family history: Reviewed Allergies: Reviewed Social History: No tobaccoo. Rare social etoh Code Status: Full Code Allergies Allergy/AdvReac Type Severity Reaction Status Date / Time fentanyl Allergy Severe NEURO Verified 03/09/23 14:56 CHANGES/Altered mental status tuberculin, purified protein Allergy Severe SWELLING/HI Verified 03/09/23 14:56 deriva VES rosuvastatin Allergy Intermediate muscle and Verified 03/09/23 14:56 joint pain sertraline Allergy Intermediate Psych Verified 03/09/23 14:56 complications Pbfmnmy-OXF-BwD Reductase AdvReac Severe BODY ACHES Verified 03/09/23 14:56 Inhibitor [Unruznp-Fkc-Btx Reductase Inhibitor] MRI inhibitors Allergy Unknown Mind Uncoded 03/09/23 14:56 racing, Overwhelming psych complications Home Medications Medication Instructions Recorded Confirmed Type aspirin 81 mg tablet,delayed 81 mg PO HS 10/14/19 03/09/23 History release docusate sodium 100 mg capsule 100 mg PO BID 10/07/20 03/09/23 History (Dulcolax Stool Softener (docusate)) polyethylene glycol 3350 17 17 g PO BID 10/07/20 03/09/23 History gram/dose oral powder (Miralax) pantoprazole 40 mg tablet,delayed 40 mg PO QAM #90 tabs 01/14/21 03/09/23 Rx release evolocumab 140 mg/mL subcutaneous 140 mg subcut .Q14D 04/01/21 03/09/23 History pen injector (Katelin Neri) fluticasone propionate 50 2 spray intranasal DAILY PRN Nasal 04/01/21 03/09/23 History mcg/actuation nasal Congestion spray,suspension multivitamin 1 tab PO QAM 04/26/21 03/09/23 History carvedilol 12.5 mg tablet (Coreg) 12.5 mg PO BID 03/16/22 03/09/23 History psyllium husk 3.4 gram/5.4 gram 1 tbsp PO QAM 03/16/22 03/09/23 History oral powder (Metamucil) omega-3 fatty acids 1,000 mg 1,000 mg PO BID 03/26/22 03/09/23 History capsule carboxymethylcellulose sodium 0.5 2 drp OPB TID PRN Dry Eyes 12/17/22 03/09/23 History % eye drops (Refresh Tears) hydrocodone 5 mg-acetaminophen 325 1 tab PO TID PRN Pain 12/17/22 03/09/23 History mg tablet mirtazapine 45 mg tablet 22.5 mg PO HS 12/17/22 03/09/23 History pregabalin 100 mg capsule (Lyrica) 100 mg PO BID 12/17/22 03/09/23 History nitroglycerin 0.4 mg sublingual 0.4 mg sublingual DIRECTED PRN 01/17/23 03/09/23 History tablet (Nitrostat) Chest Pain baclofen 20 mg tablet 20 mg PO QAM 01/23/23 03/09/23 History bismuth subsalicylate 262 mg 2 tab PO QID PRN Acid Reflux 01/23/23 03/09/23 History chewable tablet (Pepto-Bismol) hydrochlorothiazide 12.5 mg tablet 12.5 mg PO QAM 01/23/23 03/09/23 History levetiracetam 500 mg tablet 500 mg PO BID 90 days #180 tabs 02/05/23 03/09/23 Rx (Keppra) lamotrigine 25 mg tablet 75 mg (3 x 25 mg) PO BID #180 tabs 04/09/23 04/09/23 Rx Past Med/Surg History Medical History History of recent hospitalization Transient ischemic attack (TIA) History of COVID-19 History of esophageal dilatation Esophageal stenosis Restless leg syndrome Seizure disorder ESA (generalized anxiety disorder) MDD (major depressive disorder) Benign prostatic hyperplasia (BPH) with post-void dribbling Chronic pain History of coronary artery disease GERD (gastroesophageal reflux disease) Pneumonia Stroke with left hemiparesis Spinal stenosis Yanes's palsy CAD (coronary artery disease) Dyslipidemia Hypertension Surgical History H/O excision of mass (01/30/23) S/P epidural steroid injection History of esophagogastroduodenoscopy (EGD) History of cardiac cath H/O colonoscopy History of cranioplasty History of right-sided carotid endarterectomy (~02/2020) Status post craniectomy Family History Father Diabetes Heart disease Myocardial infarction Hypertension Grandfather Diabetes Grandmother Diabetes Uncle Myocardial infarction Mother Hypertension Hiatal hernia Sister Diabetes Other No family history of adverse response to anesthesia Denies family history of Ovarian cancer Prostate cancer Breast cancer Lung cancer Colorectal cancer Stroke Social History Smoking Status: Former smoker Tobacco Type: Cigarettes Age Started Using Tobacco: 18; Age Quit Using Tobacco: 58; Cigarettes Per Day: 1-2/day many years; Second Hand Exposure: No; Do You Dip or Chew Tobacco: No; Hx Alcohol Use: No Hx Substance Use: No Preferred Language: Hebrew Communication Ability: Effective Visual Impairment: Limited Hearing Ability: Use of Hearing Aid Police Officer Booking Required: No Beliefs That Will Affect Care: None marital status: Current Living Situation: Spouse current occupational status: retired 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 NAD. Cooperative. Pulm: CTAB A&P. -wheezes, -rales, -rhonchi. Symmetrical chest rise. No increased work of breathing. No respiratory distress. Cardiac: RRR, -mrg. Radial pulses intact and symmetrical. Abdominal: Nontender, nondistended, soft. BS present. CRANIAL NERVES: II: Pupils equal and reactive, no relative afferent pupillary defect, no VF cuts III, IV, : EOM intact, no gaze preference or deviation, no nystagmus. V: normal sensation in V1, V2, and V3 segments bilaterally VII: L sided baseline facial asymmetry most pronounced on smile. No change per pt. VIII: normal hearing to speech IX, X: normal palatal elevation, no uvular deviation XI:5/5 shoulder shrug bilaterally XII: midline tongue protrusion LUE: Left hand with 2/5 fashion illustrator strength, otherwise hemiparetic through the shoulder. Sensation to soft touch is intact without deficit Right upper extremity: 5/5 fashion illustrator strength, elbow flexion/extension, shoulder RLE: 5/5 to hip flexion, ankle dorsiflexion/p lantarflexion. Sensation to soft touch intact without deficit LLE: 4+/5 to hip flexion, ankle dorsiflexion/ plantarflexion. Sensation soft touch intact without deficit Results & Data Results & Data Vital Signs (Past 12 Hours) Vital Signs Temp Pulse Resp BP Pulse Ox O2 Del Method 04/13/23 14:14 94 Room Air 04/13/23 13:26 36.6 C 94 H 18 117/81 93 Room Air PG Care Time/CCT Total # of Minutes Spent Total Time Spent with Patient: Total time spent is greater than 50% in coordination of care (as documented) at patient's floor/unit and/or counseling patient: Coding Level of Care Code 18071 INT INP/OBS CARE 3/75MIN Diagnoses Stroke-like symptoms R29.90 Hypertension I10 Stroke with left hemiparesis CAD (coronary artery disease) I25.10 Esophageal stenosis K22.2 MDD (major depressive disorder) F32.9 Seizure disorder G40.909
[2023-04-13] MEDS ORDERED: LORazepam 1 MG/1 ML SYR ED Inj Use IV STA (15:07)
--- NOTE | 2023-04-13 15:18 | XRay Report ---
XR chest 1V portable HISTORY: 62 years-old Male stroke alert acute strokelike symptoms COMPARISON: Chest radiograph 01/17/2023 TECHNIQUE: AP view of the chest FINDINGS: Cardiomediastinal and hilar silhouettes are within normal limits. Right hemidiaphragmatic elevation. Patchy ill-defined subsegmental right lung opacities. No pneumothorax, pleural effusion or pulmonary edema. Bones appear grossly intact. Healed chronic left clavicular fracture deformity. IMPRESSION: Subtle ill-defined patchy right lung opacities may be artifactual or represent a mild pne umonitis. ACT 112: Negative or not required by law. The above report was generated using voice recognition software. It may contain grammatical, syntax o r spelling errors. Electronically signed by: Darvin Ernst M.D. 04/13/2023 3:16 PM
--- NOTE | 2023-04-13 15:54 | Electrocardiogram Report ---
Test Reason : Blood Pressure : / mmHG Vent. Rate : 084 BPM Atrial Rate : 084 BPM P-R Int : 200 ms QRS Dur : 090 ms QT Int : 364 ms P-R-T Axes : 007 004 025 degrees QTc Int : 430 ms Normal sinus rhythm Normal ECG When compared with ECG of 17-JAN-2023 18:12, Left posterior fascicular block is no longer Present Criteria for Inferior infarct are no longer Present T wave inversion no longer evident in Inferior leads Confirmed by Raghav Jacobs ([id number]) on 04/13/2023 3:53:55 PM Referred By: Confirmed By:Raghav Jacobs
[2023-04-13 16:07] LABS: Appearance Urine Clear (Clear); Bilirubin Urine Negative (Negative); Blood Urine Negative (Negative); Color Urine Yellow; Glucose Urine UA Negative (Negative); Ketones Urine Negative (Negative); Leukocyte Esterase Urine Negative (Negative); Nitrite Urine Negative (Negative); Protein Urine Negative (Negative); Specific Gravity Urine > 1.045 (1.000-1.030); Urobilinogen Urine Negative (Negative); pH Urine 7.5 (4.5-7.5)
[2023-04-13] MEDS ORDERED: LORazepam 1 MG/1 ML SYR ED Inj Use IV SCH (17:00)
[2023-04-13] MEDS ORDERED: LABETALOL HCL IV 5 MG/ML 20ML IV PRN (18:24)
[2023-04-13] MEDS ORDERED: PHARMACIST DISCHARGE MED REC CONSULT PRN (18:24)
[2023-04-13 18:36] LABS: Influenza A virus by PCR Negative (Neg); Influenza B virus by PCR Negative (Neg); RSV by PCR Negative (Neg); SARS CoV2 RNA(COVID-19) Ceph NEGATIVE (Negative)
[2023-04-13] MEDS ORDERED: HYDROcodone/ACETAMINOPHEN 10/325 TAB PO STA (22:28)
[2023-04-14 06:27] LABS: Basophils # (auto) 0.02 K/uL (0.00-0.20); Basophils % (auto) 0.3 %; Eosinophils # (auto) 0.05 K/uL (0.00-0.50); Eosinophils % (auto) 0.8 %; Hematocrit (blood only) 45.3 % (42.0-52.0); Hemoglobin 15.5 g/dl (14.0-18.0); Immature Granulocytes # (auto) 0.01 K/uL (0.01-0.20); Immature Granulocytes % (auto) 0.2 %; Lymphocytes # (auto) 0.46 K/uL (1.20-3.40); Lymphocytes % (auto) 7.4 %; Mean Corpuscular Hemoglobin 32.8 pg (25.0-34.0); Mean Corpuscular Hgb Conc 34.2 g/dL (32.0-36.0); Mean Platelet Volume 9.7 fL (9.4-12.4); Monocytes # (auto) 0.59 K/uL (0.11-0.59); Monocytes % (auto) 9.5 %; Neutrophils # (auto) 5.08 K/uL (1.40-6.50); Neutrophils % (auto) 81.8 %; Platelet Count 147 K/uL (130-400); RDW Coefficient of Variation 12.9 % (11.5-14.5); RDW Standard Deviation 45.6 fL (36.4-46.3); Red Blood Count 4.72 M/uL (4.70-6.10); White Blood Count 6.21 K/ul (4.8-10.8)
[2023-04-14 06:47] LABS: BUN Creatinine Ratio 12.7 (10-20); Calcium 9.3 mg/dl (8.6-10.3); Chol HDL Ratio 4.3 (0-5); Creatinine Clr Calc Pharmacy 59.9 ml/min; Est GFR (African American) 75.7 ml/min; Est GFR (Non-African American) 65.3 ml/min
[2023-04-14 07:14] LABS: Estimated Average Glucose 128 mg/dl; Hemoglobin A1C 6.1 % (4.5-5.6)
--- NOTE | 2023-04-14 09:28 | Neurology Consultation ---
Date of Consultation April 14, 2023 Assessment & Plan (1) Stroke-like symptoms: (2) Stroke with left hemiparesis: (3) Seizure disorder: Plan 62-year-old male with a history of right MCA territory hemorrhagic stroke occurring in October 2019 in the context of right carotid occlusion, status post endarterectomy and craniotomy. Patient has a chronic residual flaccid left hemiparesis, face and arm greater than leg and stable seizure disorder. He presented to the emergency department yesterday afternoon with somewhat nonspecific strokelike symptoms including dizziness, confusion, and gait instability. He had reported some difficulty with word finding although he did not have evidence of aphasia during his ED assessment, his symptoms had apparently resolved. Patient's initial CT of the head and CTA of the head and neck did not reveal any significant change compared with prior studies. He does have severe multifocal intracranial stenoses that are stable and unchanged. No significant vascular lesion in the cervical arterial circulation identified. Patient's aspirin was placed on hold pending completion of a brain MRI. If patient's pending brain MRI does not reveal any evidence of acute or subacute stroke or hemorrhage, would recommend restarting aspirin 81 mg/day. If there is evidence of a new acute ischemic infarct, that does not appear cardioembolic, would recommend dual antiplatelet therapy, aspirin 81 mg/day, and clopidogrel 75 mg/day for 3 weeks, with likely transition to a single antiplatelet agent thereafter. (Could also consider Aggrenox long-term as he may have had a TIA while on Plavix in the past.) If the MRI reveals evidence of a multifocal, embolic appearing infarct, would recommend completion of a transthoracic echocardiogram with bubble study. Would then need to consider starting an anticoagulant in addition to an antiplatelet medication. Would also recommend 30-day mobile cardiac outpatient telemetry in that context. Patient's seizures have been well-controlled. I would recommend that he continue with levetiracetam 500 mg twice daily and lamotrigine 75 mg twice daily. Additional adjustments to his antiseizure medication regimen will be made in the outpatient setting as we are in the process of uptitrating lamotrigi ne, with intention to eventually taper off his levetiracetam given his history of persistent depression. I do not believe his current presentation is related to a recent seizure or an adverse reaction to his antiseizure medication regimen. I had discussed patient's management with Dr. Roman yesterday. History of Present Illness Reason for Consultation: stroke like episode Requesting Physician: Abel Attending Physician: Toby Royal MD History of Present Illness The patient is a 62-year-old male who is known to me, he was last seen in neurology clinic March 09, 2023, he has a history of hemorrhagic right MCA stroke occurring in October 2019, in the context of a right carotid occlusion, status post endarterectomy and craniotomy. He has a residual flaccid left hemiparesis (face and arm greater than leg) and seizure disorder that has been controlled with levetiracetam and lamotrigine. History also notable for persistent depression for which he follows with psychiatry. I had added lamotrigine to his regimen at his last appointment as it is more favorable for mood, with the intention of cross tapering from levetiracetam to lamotrigine going forward. His dosage of lamotrigine has been gradually increased, currently taking 75 mg twice daily, he has continued with levetiracetam 500 mg twice daily. He had presented to the emergency department yesterday afternoon with dizziness, confusion, and difficulty with gait. He does not have any residual aphasia as a result of his previous stroke although there was some report of possible difficulty with word finding that was apparently new, in the context of his acute presentation. He did inform me that his left leg seemed weaker than usual yesterday. He did not have any evidence of aphasia on his neurological assessment in the emergency department. This morning, he is a little slow to answer questions, was slightly perseverative, otherwise, his speech was nondysarthric and fluent with intact comprehension. He has a chronic residual left hemiparesis, face and arm greater than leg, that seems unchanged from his previous assessments with me. I do note that he had an assessment with the [facility] specialist during his ED assessment yesterday. A CT of the head was negative for acute findings, there is a chronic right MCA infarct with associated encephalomalacia. There is evidence of a prior right craniotomy. CTA of the neck revealed no significant stenosis, occlusion, or dissection within the carotid or left vertebral arteries, there was a mild focal stenosis at the takeoff of the right vertebral artery, unchanged. There is chronic decreased caliber of the left cervical internal carotid artery, felt to be developmental, and unchanged. A CTA of the head revealed moderate to severe stenoses of the intracranial portions of the bilateral vertebral arteries, unchanged. Severe stenosis of the right P2 segment unchanged. The left A1 segment is developmentally diminutive. The left M1 and M2 segments are patent. There is moderate stenosis at the origin of the right A1 segment. No proximal branch occlusion identified. There is extensive calcified plaque within the right cavernous carotid with moderate stenosis which is unchanged. I independently reviewed these images. The patient has been taking aspirin 81 mg/day and Repatha as an outpatient. He is also prescribed carvedilol and hydrochlorothiazide, his blood pressure has been normal. He follows with [facility] cardiology regarding history of coronary artery disease. No known history of atrial fibrillation. Patient's aspirin has been placed on hold, pending completion of MRI. As above, there is no evidence of hemorrhage or acute process on his recent CT of the head. Patient had been on clopidogrel previously although was switched to aspirin in the context of a TIA. Additional guidance regarding antiplatelet or anticoagulant recommendations going forward are requested at this time. Allergies Allergy/AdvReac Type Severity Reaction Status Date / Time fentanyl Allergy Severe NEURO Verified 04/13/23 16:09 CHANGES/Altered mental status tuberculin, purified protein Allergy Severe SWELLING/HI Verified 04/13/23 16:09 deriva VES rosuvastatin Allergy Intermediate muscle and Verified 04/13/23 16:09 joint pain sertraline Allergy Intermediate Psych Verified 04/13/23 16:09 complications [id number] Reductase AdvReac Severe BODY ACHES Verified 04/13/23 16:09 Inhibitor [Vumukac-Ocj-Xbn Reductase Inhibitor] MRI inhibitors Allergy Unknown Mind Uncoded 03/09/23 14:56 racing, Overwhelming psych complications Home Medications Medication Instructions Recorded Confirmed Type aspirin 81 mg tablet,delayed 81 mg PO HS 10/14/19 04/13/23 History release docusate sodium 100 mg capsule 100 mg PO BID 10/07/20 04/13/23 History (Dulcolax Stool Softener (docusate)) polyethylene glycol 3350 17 17 g PO BID 10/07/20 04/13/23 History gram/dose oral powder (Miralax) evolocumab 140 mg/mL subcutaneous 140 mg subcut .Q14D 04/01/21 04/13/23 History pen injector (Repatha SureClick) fluticasone propionate 50 2 spray intranasal DAILY PRN Nasal 04/01/21 04/13/23 History mcg/actuation nasal Congestion spray,suspension multivitamin 1 tab PO QAM 04/26/21 04/13/23 History carvedilol 12.5 mg tablet (Coreg) 12.5 mg PO BID 03/16/22 04/13/23 History psyllium husk 3.4 gram/5.4 gram 1 tbsp PO QAM 03/16/22 04/13/23 History oral powder (Metamucil) omega-3 fatty acids 1,000 mg 1,000 mg PO BID 03/26/22 04/13/23 History capsule carboxymethylcellulose sodium 0.5 2 drp OPB TID PRN Dry Eyes 12/17/22 04/13/23 History % eye drops (Refresh Tears) hydrocodone 5 mg-acetaminophen 325 1 tab PO TID Pain 12/17/22 04/13/23 History mg tablet mirtazapine 45 mg tablet 22.5 mg PO HS 12/17/22 04/13/23 History pregabalin 100 mg capsule (Lyrica) 100 mg PO BID 12/17/22 04/13/23 History nitroglycerin 0.4 mg sublingual 0.4 mg sublingual DIRECTED PRN 01/17/23 04/13/23 History tablet (Nitrostat) Chest Pain baclofen 20 mg tablet 20 mg PO QAM 01/23/23 04/13/23 History bismuth subsalicylate 262 mg 2 tab PO QPM Acid Reflux 01/23/23 04/13/23 History chewable tablet (Pepto-Bismol) hydrochlorothiazide 12.5 mg tablet 12.5 mg PO QAM 01/23/23 04/13/23 History levetiracetam 500 mg tablet 500 mg PO BID 90 days #180 tabs 02/05/23 04/13/23 Rx (Keppra) lamotrigine 25 mg tablet 75 mg (3 x 25 mg) PO BID #180 tabs 04/09/23 04/13/23 Rx buprenorphine 20 mcg/hour weekly 1 patch topical .QWED 04/13/23 04/13/23 History transdermal patch pantoprazole 40 mg tablet,delayed 40 mg PO BID 04/13/23 04/13/23 History release Patient History Medical History History of recent hospitalization 12/2022 and 01/2023 at [facility] emergency room --- 12/2022 for covid+ symptoms. 01/17/23 for chest pain --> states cardiac was negative. treated for severe GERD, placed on carafate and famotidine with his pantoprazole -- is not currently taking the carafate and famotidine. scheduled for EGD with Dr Hartman in 02/2023. Transient ischemic attack (TIA) ~2019 prior to CVA in 2019. reports he was to have a carotid endarterectomy but did not have the procedure done. History of COVID-19 tested positive initially 12/17/22 at [facility] while in ER. flu like symptoms in December 2022. no current symptoms. symptoms resolved ~01/18/23. History of esophageal dilatation Esophageal stenosis Restless leg syndrome Seizure disorder x1 2020 and x1 in 2021. no problems since starting Keppra daily. follows with [facility] Neurology Dr Deras. ESA (generalized anxiety disorder) MDD (major depressive disorder) Benign prostatic hyperplasia (BPH) with post-void dribbling Chronic pain History of coronary artery disease GERD (gastroesophageal reflux disease) Pneumonia pt denies Stroke with left hemiparesis 2019. reason for asa 81mg daily. 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 CAD (coronary artery disease) "Cardiac cath 2013-50% mid circumflex, 99% ostial OM1 and OM2, 70% RCA" Dyslipidemia Hypertension Surgical History H/O excision of mass (01/30/23) Posterior Neck Soft Tissue Mass Excision - Dario Suggs DO, FACS S/P epidural steroid injection lumbar History of esophagogastroduodenoscopy (EGD) History of cardiac cath ~03/2014 at [facility]. no stents. follows with [facility] Zehra Rubio. H/O colonoscopy History of cranioplasty 12/25/2019 (the day following patient's stroke) treated at [facility]. History of right-sided carotid endarterectomy (~02/2020) [facility] Status post craniectomy titantium placed replaced several months later at [facility]. Family History Father Diabetes Heart disease Myocardial infarction Hypertension Grandfather , paternal GF Diabetes Grandmother , Paternal GM Diabetes Uncle Myocardial infarction Mother Hypertension Hiatal hernia Sister Diabetes Other No family history of adverse response to anesthesia Denies family history of Ovarian cancer Prostate cancer Breast cancer Lung cancer Colorectal cancer Stroke Social History Smoking Status: Never smoker Tobacco Type: Cigarettes Age Started Using Tobacco: 18; Age Quit Using Tobacco: 58; Cigarettes Per Day: 1-2/day many years; Second Hand Exposure: No; Do You Dip or Chew Tobacco: No; Hx Alcohol Use: Yes Alcohol type: beer Alcohol Intake Frequency: Monthly or Less Hx Substance Use: No Preferred Language: Maltese Communication Ability: Effective Visual Impairment: Limited Hearing Ability: Use of Hearing Aid Explosives Engineer Required: No Beliefs That Will Affect Care: None marital status: Current Living Situation: Spouse Current Living Situation Comment: Lives at home with current occupational status: 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 How many Children do You have: 2 Other Information That Helps Us Care for You: No other: receiving [facility] care Feels Safe at Home: Yes Safety Concerns: Feels Safe At This Time Childhood Exposure to Second-Hand Smoke: No Diet: regular caffeine: Yes (very seldom ) during the past year weight has: increased > 10 lbs Dental Care, Regularly: Yes Physical Activity Frequency: Daily Physical Activity Frequency Comment: walks daily Seatbelt Use: always Sunscreen Use: Yes Assistive Devices: Cane, Glasses and Hearing Aid - Bilateral Assistive Devices Comment: Glasses and cane Review of Systems Constitutional: no fever and no chills Eyes: no blind spots and no diplopia Ear, Nose, Mouth, Throat: no hearing loss Respiratory: no cough and no dyspnea Cardiovascular: no chest pain and no palpitations Gastrointestinal: no nausea and no vomiting Genitourinary: no urinary incontinence Musculoskeletal: no neck pain and no myalgia Integumentary: no rash and no lesions Neurologic: as per Subjective / HPI Psychiatric: + depression Hematologic / Lymphatic: no easy bleeding and no easy bruising Exam (Neuro) Constitutional: well developed and well nourished; no acute distress Eyes: normal visual pride by confrontation, PERRL and EOM intact bilaterally; no nystagmus Neurologic: Oriented to:: Person, Place and Time Memory: Short Term Intact and Remote Intact Attention: Span Intact and Concentration Intact Language: Naming Objects and Repeating Phrases Speech Fluency: Slowed; negative Dysarthria or Dysfluency Speech Aphasia: negative Aphasia Fund of Knowledge: Current Events, Past History and Vocabulary Cranial Nerves: Normal II, III, IV, , V, VIII, IX, X, XI and XII; Abnorm VII (Left lower facial droop noted) Motor Strength: Normal Lower Extremities; negative Normal Upper Extremities (Flaccid weakness for the left upper extremity noted, proximally and distally, 0 out of 5) Muscle Bulk/Involuntary Movements: No Involuntary Movements; negative Muscle Atrophy Sensation: Light Touch Intact, Pain/Temperature Intact and Proprioception Intact Coordination: Finger-Nose Abnormal Laterality: Left; negative Dysdiadochokinesia or Heel-Boudreaux Abnormal Deep Tendon Reflexes: Rt Triceps: 2+, Lt Triceps: 3+, Rt Biceps: 2+, Lt Biceps: 3+, Rt Brachioradialis: 2+, Lt Brachioradialis: 3+, Rt Patellar: 2+, Lt P atellar: 3+, Rt Ankle: 1+ and Lt Ankle: 1+ Special Tests: negative Babinski Present Results & Data Vital Signs (Past 12 Hours) Vital Signs Temp Pulse Pulse Pulse Resp BP Pulse Ox 04/14/23 08:04 103 H 04/14/23 08:00 38.7 C H 106 H 20 138/91 90 04/14/23 04:20 36.7 C 96 H 18 127/81 91 04/13/23 23:54 36.7 C 71 17 89/57 L 94 04/13/23 22:00 36.4 C L 76 18 118/78 95 04/13/23 21:59 73 04/13/23 21:39 36.4 C L 76 20 118/78 95 04/13/23 21:08 70 16 104/84 95 O2 Del Method 04/14/23 08:04 04/14/23 08:00 Room Air 04/14/23 04:20 Room Air 04/13/23 23:54 Room Air 04/13/23 22:00 Room Air 04/13/23 21:59 04/13/23 21:39 Room Air 04/13/23 21:08 Room Air Laboratory Results WBC 6.21, hemoglobin 15.5, hematocrit 45.3, platelet count 147, sodium 137, potassium 4.0, BUN 15, creatinine 1.18, glucose 128, hemoglobin A1c 6.1, calcium 9.3, magnesium 2.0, AST 16, ALT 16, triglycerides 194, cholesterol 200, LDL 115, HDL 46, SARS-CoV-2 PCR negative, influenza AMB PCR is negative, RSV PCR negative Diagnostic Findings CT of the head and CTA of the head and neck are as described in the HPI, I independently reviewed these images. Electrocardiogram reveals a normal sinus rhythm, 84 bpm. A previous echocardiogram completed October 25, 2020 revealed normal left ventricular systolic function, no regional wall motion abnormalities, borderline concentric LVH, EF 60 to 65%, no significant valvular pathology, no significant change compared with the prior study completed in 2018. Coding Level of Care Code 36451 INT INP/OBS CARE MIN Diagnoses Stroke-like symptoms R29.90 Stroke with left hemiparesis Seizure disorder G40.909 Time Spent (min) 80
[2023-04-14] MEDS: ACETAMINOPHEN 325 MG TAB PO PRN ×3 (10:53→21:23)
--- NOTE | 2023-04-14 11:14 | XRay Report ---
XR chest 1V portable HISTORY: Follow-up right lung abnormality. RLL pneumonia? COMPARISON: Chest 04/13/2023. FINDINGS: No pneumothorax. No pleural effusions. There are low lung volumes. Mild interstitial thicke rip persists. The heart is normal in size. No evidence for pulmonary edema. Old, healed left-sided r ib fracture. Small patchy density within the right upper lobe has improved. The right lower lung zone airspace opacity has resolved. IMPRESSION: Small right lung airspace opacities have improved. This favors a resolving pneumonia. One-month chest . Follow-up can be performed to ensure complete resolution ACT 112: Negative or not required by law. Electronically signed by: Pop Mora M.D. 04/14/2023 11:13 AM
[2023-04-14] MEDS ORDERED: LORazepam 0.5 MG TAB PO STA (11:53)
[2023-04-14 13:38] LABS: Adenovirus PCR Not Detected (NotDetected); Bordetella parapertussis PCR Not Detected (NotDetected); Bordetella pertussis PCR Not Detected (NotDetected); Chlamydia pneumoniae PCR Not Detected (NotDetected); Coronavirus 229E PCR Not Detected (NotDetected); Coronavirus CoV-2 (COVID19)PCR Not Detected (NotDetected); Coronavirus HKU1 PCR Not Detected (NotDetected); Coronavirus NL63 PCR Not Detected (NotDetected); Coronavirus OC43PCR Not Detected (NotDetected); Human Metapneumovirus PCR Not Detected (NotDetected); Influenza B PCR Not Detected (NotDetected); Mycoplasma pneumoniae PCR Not Detected (NotDetected); Parainfluenza Virus 1 PCR Not Detected (NotDetected); Parainfluenza Virus 2 PCR Not Detected (NotDetected); Parainfluenza Virus 3 PCR Not Detected (NotDetected); Parainfluenza Virus 4 PCR Not Detected (NotDetected); Respiratory Syncytial VirusPCR Not Detected (NotDetected); Rhinovirus/Enterovirus PCR Not Detected (NotDetected)
[2023-04-14 13:40] LABS: Influenza A (H1 2009) PCR DETECTED (NotDetected)
[2023-04-14] MEDS ORDERED: KETOROLAC 30 MG/ML VIAL IV ONE (13:47)
--- NOTE | 2023-04-14 14:09 | Hospitalist Progress Note ---
Date of Service April 14, 2023 Assessment & Plan (1) Influenza A: Plan: yesterday's symptoms at ER presentation - retrospectively - were likely due to brewing influenza A infection he is unvaccinated high risk of complications from flu A due to numerous medical problems start tamiflu 75mg BID x 5 days droplet precautions cxr findings noted - see below made aware of diagnosis - encouraged her to reach out to her PCP about tamiflu prophylaxis (2) Acute metabolic encephalopathy: Plan: likely 2nd to #1 supportive care (3) Abnormal chest x-ray: Plan: ?right sided pneumonia if present due to flu itself? secondary bacterial process? will recheck cxr in am blood cx's dispatched today defer on abx afor now (4) Stroke-like symptoms: Plan: likely 2nd to brewing fluA infection see above & below cont aspirin will obtain MRI brain to be complete appreciate Dr Deras's consult care d/w him by phone (5) Hypertension: Plan: hold BP meds from home BPs thus far are reasonable w/o them he is volume contracted in the face of his fluA infection --> provide gentle fluids (6) Stroke with left hemiparesis: Plan: history of right MCA stroke s/p carotid endarterectomy, craniectomy, cranioplasty residual left-sided hemiparesis current imaging without recurrent stroke suspect presentation was from 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 history of 50% mid circumflex disease, 99% ostial OM1/OM 2 stenosis, and 70% RCA stenosis. He has dyslipidemia with intolerance to all statins and was placed on Repatha instead. Nuclear stress test 2020 with EF hyperdynamic 70% on augmentation, no evidence of infarct or reversible ischemia was noted. No evidence of ACS at this time. Resume aspirin. (8) Esophageal stenosis: Plan: h/o dilatation for such cont PPI twice daily (9) MDD (major depressive disorder): Plan: Continue home antidepressants Patient utilizes ketamine protocol for treatment of depression - last treatment was several weeks ago and does not have his next one scheduled. (10) Seizure disorder: Plan: Resume Keppra, lamotrigine (11) Chronic pain: Plan: Cont buprenorphine patch (12) DVT prophylaxis: Plan: add heparin 5000 BID Plan updated at bedside care d/w Dr Deras will need PT/OT while here Admission and Anticipated Discharge Date Admission Date: April 13, 2023 Subjective this am Mr Elias developed fever he has been confused, sleepy, and "not himself" per his who was at bedside during the visit a [employer] respiratory panel returned + for influenza A infection droplet precautions ordered, started on tamiflu pt and are not vaccinated against influenza pt endorses feeling poorly, headache, myalgias, fatigue, no appetite he states he has had cough but his states she hasn't heard such took PO meds this am w/o difficulty tele overnight - wnl Review of Systems Review of Systems: gen - fevers/chills, anorexia, fatigue, weak cv - no chest pain pulm - no dyspnea GI - no abd pain Physical Exam Physical Exam: gen - looks ill, tired-appearing - but NAD mouth - MM dry neck - no JVD heart - tachy, s1 s2, no murmur lungs - minimal rales right base; otherwise CTA b/l; no respiratory distress abd - soft NT ND BS+ ext - no edema, pulses 2+ b/l neuro - left-sided hemiparesis, left sided facial droop Results & Data Results & Data Vital Signs (Past 12 Hours) Vital Signs Temp Pulse Pulse Pulse Resp BP Pulse Ox 04/14/23 12:02 39.2 C H 122 H 20 143/85 H 91 04/14/23 08:04 103 H 04/14/23 08:00 38.7 C H 106 H 20 138/91 90 04/14/23 04:20 36.7 C 96 H 18 127/81 91 O2 Del Method 04/14/23 12:02 Room Air 04/14/23 08:04 04/14/23 08:00 Room Air 04/14/23 04:20 Room Air Laboratory Results Laboratory Results - last 24 hr 04/14/23 04/14/23 05:55 Unknown WBC 6.21 RBC 4.72 Hgb 15.5 Hct 45.3 MCV 96.0 MCH 32.8 MCHC 34.2 RDW Std Deviation 45.6 RDW Coeff of Nessa 12.9 Plt Count 147 MPV 9.7 Immature Gran % (Auto) 0.2 Neut % (Auto) 81.8 Lymph % (Auto) 7.4 Angelina % (Auto) 9.5 Eos % (Auto) 0.8 Baso % (Auto) 0.3 Neut # (Auto) 5.08 Lymph # (Auto) 0.46 L Angelina # (Auto) 0.59 Eos # (Auto) 0.05 Baso # (Auto) 0.02 Immature Gran # (Auto) 0.01 Sodium 137 Potassium 4.0 Chloride 100 Carbon Dioxide 28 Anion Gap 9 BUN 15 Creatinine 1.18 Est Cr Clr Drug Dosing 59.9 Est GFR ( Amer) 75.7 Est GFR (Non-Af Amer) 65.3 BUN/Creatinine Ratio 12.7 Glucose 128 H Estimat Average Glucose 128 Hemoglobin A1c 6.1 H Calcium 9.3 Triglycerides 194 H Cholesterol 200 LDL Cholesterol, Calc 115 VLDL Cholesterol, Calc 39 H HDL Cholesterol 46 Cholesterol/HDL Ratio 4.3 Nasal Influ A H1 2008 PCR DETECTED A* Adenovirus (PCR) Not Detected B. pertussis DNA (PCR) Not Detected B.parapertussis DNA PCR Not Detected C. pneumoniae DNA (PCR) Not Detected Coronavirus OC43 (PCR) Not Detected Coronavirus HKU1 (PCR) Not Detected Coronavirus 229E (PCR) Not Detected SARS-CoV-2 (PCR) Not Detected Coronavirus NL63 (PCR) Not Detected Hepatitis C Ab (EIA) Pending Human Metapneumovir PCR Not Detected Influenza Type B (PCR) Not Detected M. pneumoniae (PCR) Not Detected Parainfluenza 1 (PCR) Not Detected Parainfluenza 2 (PCR) Not Detected Parainfluenza 3 (PCR) Not Detected Parainfluenza 4 (PCR) Not Detected RSV (PCR) Not Detected Entero/Rhino (PCR) Not Detected Diagnostic Findings Chest X-Ray 04/14/23 10:18 XR chest 1V portable HISTORY: Follow-up right lung abnormality. RLL pneumonia? COMPARISON: Chest 04/13/2023. FINDINGS: No pneumothorax. No pleural effusions. There are low lung volumes. Mild interstitial thickening persists. The heart is normal in size. No evidence for pulmonary edema. Old, healed left-sided rib fracture. Small patchy density within the right upper lobe has improved. The right lower lung zone airspace opacity has resolved. IMPRESSION: Small right lung airspace opacities have improved. This favors a resolving pneumonia. One-month chest. Follow-up can be performed to ensure complete resolution ACT 112: Negative or not required by law. Electronically signed by: Pop Mora M.D. 04/14/2023 11:13 AM PG Care Time/CCT Total # of Minutes Spent Total Time Spent with Patient: Total time spent is greater than 50% in coordination of care (as documented) at patient's floor/unit and/or counseling patient: Coding Level of Care Code 26087 SUB INP/OBS CARE 3/50MIN Diagnoses Influenza A J10.1 Acute metabolic encephalopathy G93.41 Abnormal chest x-ray R93.89 Stroke-like symptoms R29.90 Hypertension I10 Stroke with left hemiparesis CAD (coronary artery disease) I25.10 Esophageal stenosis K22.2 MDD (major depressive disorder) F32.9 Seizure disorder G40.909 Chronic pain G89.29 Chronic pain type: other chronic pain DVT prophylaxis Z29.9 (11) Chronic pain Chronic pain type: other chronic pain Qualified Code(s): G89.29 - Other chronic pain
[2023-04-14] MEDS: SODIUM CHLORIDE 0.9% 1,000 ML IV SCH (14:19)
[2023-04-14] MEDS: OSELTAMIVIR PHOSPHATE 75 MG CAP PO SCH ×2 (14:19→21:23)
[2023-04-14] MEDS ORDERED: LORazepam 0.5 MG in SYRINGE 0.25 ML IV ONE (20:15)
[2023-04-15] MEDS: SODIUM CHLORIDE 0.9% 1,000 ML IV SCH ×2 (03:49→18:04)
[2023-04-15] MEDS: ACETAMINOPHEN 325 MG TAB PO PRN (04:38)
[2023-04-15] MEDS ORDERED: FLUTICASONE PROPIONATE NA SPR 16 GM BTL PRN (05:57)
[2023-04-15] MEDS ORDERED: KETOROLAC 30 MG/ML VIAL IV PRN (05:58)
[2023-04-15] MEDS ORDERED: ARTIFICIAL TEARS OP PRN (06:16)
[2023-04-15 07:20] LABS: Basophils # (auto) 0.02 K/uL (0.00-0.20); Basophils % (auto) 0.5 %; Hematocrit (blood only) 38.1 % (42.0-52.0); Hemoglobin 13.5 g/dl (14.0-18.0); Immature Granulocytes # (auto) 0.01 K/uL (0.01-0.20); Immature Granulocytes % (auto) 0.2 %; Lymphocytes % (auto) 14.5 %; Mean Corpuscular Hemoglobin 32.8 pg (25.0-34.0); Mean Corpuscular Hgb Conc 35.4 g/dL (32.0-36.0); Mean Corpuscular Volume 92.7 fL (80.0-100.0); Mean Platelet Volume 10.2 fL (9.4-12.4); Monocytes % (auto) 21.8 %; Platelet Count 134 K/uL (130-400); RDW Standard Deviation 44.6 fL (36.4-46.3); Red Blood Count 4.11 M/uL (4.70-6.10); White Blood Count 4.13 K/ul (4.8-10.8)
--- NOTE | 2023-04-15 07:26 | XRay Report ---
XR chest 1V portable HISTORY: 62 years-old Male ?R sided pneumonia acute shortness of breath COMPARISON: 04/14/2023 TECHNIQUE: AP view of the chest FINDINGS: Cardiac silhouette is enlarged. Mild right hemidiaphragmatic elevation. No pneumothorax, pleural effu ludmila or lobar airspace consolidation. Subtle ill-defined right midlung opacity. Bones appear grossly intact. IMPRESSION: Subtle right midlung opacity again noted which may represent a resolving pneumonia. Follo w-up recommended. ACT 112: Negative or not required by law. The above report was generated using voice recognition software. It may contain grammatical, syntax o r spelling errors. Electronically signed by: Darvin Ernst M.D. 04/15/2023 7:25 AM
[2023-04-15 07:35] LABS: Calcium 8.4 mg/dl (8.6-10.3); Creatinine Clr Calc Pharmacy 70.7 ml/min; Est GFR (African American) 92.4 ml/min; Est GFR (Non-African American) 79.7 ml/min; Potassium 3.7 mmol/L (3.5-5.1)
--- NOTE | 2023-04-15 09:42 | Pharmacy Report ---
- Date of Service April 15, 2023 - Pharmacy CVA/TIA Medication Review Unclear if had stroke/TIA this admission, but either way, did have hx hemorrhagic stroke in 2020. Medications to Prevent Stroke handout has been added to the patients discharge packet given history of such and possible additional event this admission. Antiplatelet(s) * Aspirin Cholesterol * High intensity statin deferred due to history of hemorrhagic stroke plus statin intolerance DVT Prophylaxis * SCD knee Therapeutic Anticoagulation * No history of Afib/Aflutter noted Type 2 Diabetes * Patient does not have T2DM
[2023-04-15] MEDS: HYDROCODONE/ACETAMOPHEN 5/325MG TAB PO SCH ×3 (10:17→22:17)
[2023-04-15] MEDS: PREGABALIN 100 MG CAP PO SCH ×2 (10:17→22:17)
[2023-04-15] MEDS: OSELTAMIVIR PHOSPHATE 75 MG CAP PO SCH ×2 (10:18→22:18)
[2023-04-15] MEDS: DOCUSATE SODIUM 100 MG CAP PO SCH ×2 (10:18→22:19)
[2023-04-15] MEDS: MULTIVITAMIN TAB PO SCH (10:18)
[2023-04-15] MEDS: PANTOprazole 40 MG TAB PO SCH ×2 (10:18→22:20)
[2023-04-15] MEDS: POLYETHYLENE (MIRALAX) 17 GM PACK PO SCH ×2 (10:18→22:11)
[2023-04-15] MEDS: lamoTRIgine 25 MG TAB PO SCH ×2 (10:19→22:19)
[2023-04-15] MEDS: levETIRAcetam 500 MG TAB PO SCH ×2 (10:19→22:19)
[2023-04-15] MEDS: PSYLLIUM or GUAR GUM FIBER POWDER PACKET PO SCH (10:20)
[2023-04-15] MEDS ORDERED: LORazepam 0.25 MG in SYRINGE 0.125 ML IV STA (10:38)
--- NOTE | 2023-04-15 11:35 | Magnetic Resonance Report ---
MR brain wo con HISTORY: 62 years-old Male confusion; dizziness acute confusion with dizziness COMPARISON: Head CT 04/13/2023, brain MRI 12/07/2017 TECHNIQUE: Multiplanar multisequence MRI of the brain was obtained without the use of IV contrast. FINDINGS: Large chronic right MCA infarct with encephalomalacia and gliosis. There is no restricted diffusion t o suggest acute or subacute infarct. Chronic lacunar infarct of the left caudate nucleus. Ex vacuo ri ght lateral ventriculomegaly. Midline structures are unremarkable. There is no acute intracranial hem orrhage, midline shift, abnormal extra-axial collection, hydrocephalus or intra-axial mass. Hemosider in within the right basal ganglia. Involutional changes with mild T2/FLAIR hyperintense foci througho ut the white matter suggestive of probable chronic microvascular ischemic disease. Cerebral venous sinuses and major arterial flow voids are unchanged. Unremarkable orbits and soft tis sues. IMPRESSION: 1. No acute intracranial abnormality. No acute or subacute infarct. 2. Large chronic right MCA infarct. ACT 112: Negative or not required by law. The above report was generated using voice recognition software. It may contain grammatical, syntax o r spelling errors. Electronically signed by: Darvin Ernst M.D. 04/15/2023 11:32 AM
[2023-04-15] MEDS: BACLOFEN 20 MG TAB PO SCH (14:58)
--- NOTE | 2023-04-15 17:58 | Hospitalist Progress Note ---
Date of Service April 15, 2023 Assessment & Plan (1) Influenza A: Plan: presenting symptoms at time of admission - retrospectively - were likely due to brewing influenza A infection he is unvaccinated high risk of complications from flu A due to numerous medical problems started tamiflu 75mg BID x 5 days on 04/14, thus day #2 of such cont droplet precautions cxr findings noted - persistent right sided infiltrates - could be due to flu itself, could be bacterial superinfection O2 sats are low or low-normal will Rx for bacterial superinfection - start rocephin 2gm daily; start doxy 100mg BID (2) Acute metabolic encephalopathy: Plan: likely 2nd to #1 -- improving cont supportive care (3) Abnormal chest x-ray: Plan: ?right sided pneumonia if present due to flu itself? secondary bacterial process? see #1 above blood cx's remain negative to date (4) Stroke-like symptoms: Plan: likely 2nd to brewing fluA infection MRI Brain NEGATIVE for acute or subacute CVA cont aspirin prophylaxis PATIENT IS STATIN INTOLERANT appreciate Dr Deras's consult (5) Hypertension: Plan: hold BP meds from home BPs cont to remain controlled w/o them stop IV fluids (6) Stroke with left hemiparesis: Plan: history of right MCA stroke s/p carotid endarterectomy, craniectomy, cranioplasty residual left-sided hemiparesis current imaging without recurrent stroke including MRI brain suspect presentation was from fluA infection rather than primary [employer] event appreciate neuro consultation (7) CAD (coronary artery disease): Plan: Follows with [facility] cardiology. history of 50% mid circumflex disease, 99% ostial OM1/OM 2 stenosis, and 70% RCA stenosis. He has dyslipidemia with intolerance to all statins and was placed on Repatha instead. Nuclear stress test 2020 with EF hyperdynamic 70% on augmentation, no evidence of infarct or reversible ischemia was noted. No evidence of ACS at this time. Resumed aspirin 81mg daily. (8) Esophageal stenosis: Plan: h/o dilatation for such cont PPI twice daily (9) MDD (major depressive disorder): Plan: Continue home antidepressants Patient utilizes ketamine protocol for treatment of depression - last treatment was several weeks ago and does not have his next one scheduled. (10) Seizure disorder: Plan: Cont Keppra, lamotrigine (11) Chronic pain: Plan: Cont buprenorphine patch (12) DVT prophylaxis: Plan: add heparin 5000 BID Plan updated by phone this evening stop IV fluids cont PT/OT -- rehab post-discharge ?? Admission and Anticipated Discharge Date Admission Date: April 13, 2023 Subjective patient did not sleep well overnight due to fevers and frequent urination bladder scan was done and was wnl he has not had fever today appetite is poor still with headache states "I need an ativan" - "I'm really anxious" still with aches minimal cough no dyspnea no pleuritic chest pain Review of Systems Review of Systems: gen - very tired/fatigued cv - no orthopnea, no chest pain pulm - no sputum GI - no vomiting Physical Exam Physical Exam: gen - looks ill but not as bad as yesterday; NAD; lying comfortably in bed mouth - MMM today neck - no JVD heart - RRR, s1 s2, no murmur lungs - minimal rales right base once again; otherwise CTA b/l; no respiratory distress abd - soft NT ND BS+ ext - no edema, pulses 2+ b/l neuro - left-sided hemiparesis, left sided facial droop - no change Results & Data Results & Data Vital Signs (Past 12 Hours) Vital Signs Temp Pulse Pulse Resp BP Pulse Ox O2 Del Method 04/15/23 17:36 82 04/15/23 16:46 37.2 C 81 20 114/73 92 Room Air 04/15/23 11:47 37.4 C 87 20 130/78 95 Room Air 04/15/23 08:00 82 04/15/23 08:00 Room Air 04/15/23 07:47 36.9 C 86 18 113/73 91 Room Air 04/15/23 06:00 37.1 C Laboratory Results Laboratory Results 04/14/23 04/14/23 04/15/23 05:55 Unknown 05:22 WBC 4.13 L RBC 4.11 L Hgb 13.5 L Hct 38.1 L MCV 92.7 MCH 32.8 MCHC 35.4 RDW Std Deviation 44.6 RDW Coeff of Nessa 13.0 Plt Count 134 MPV 10.2 Immature Gran % (Auto) 0.2 Neut % (Auto) 63.0 Lymph % (Auto) 14.5 [place] % (Auto) 21.8 Eos % (Auto) 0.0 Baso % (Auto) 0.5 Neut # (Auto) 2.60 Lymph # (Auto) 0.60 L [place] # (Auto) 0.90 H Eos # (Auto) 0.00 Baso # (Auto) 0.02 Immature Gran # (Auto) 0.01 Sodium 136 Potassium 3.7 Chloride 104 Carbon Dioxide 24 Anion Gap 8 BUN 20 Creatinine 1.00 Est Cr Clr Drug Dosing 70.7 Est GFR ( Amer) 92.4 Est GFR (Non-Af Amer) 79.7 BUN/Creatinine Ratio 20.0 Glucose 151 H Calcium 8.4 L Nasal Influ A H1 2008 PCR DETECTED A* Adenovirus (PCR) Not Detected B. pertussis DNA (PCR) Not Detected B.parapertussis DNA PCR Not Detected C. pneumoniae DNA (PCR) Not Detected Coronavirus OC43 (PCR) Not Detected Coronavirus HKU1 (PCR) Not Detected Coronavirus 229E (PCR) Not Detected SARS-CoV-2 (PCR) Not Detected Coronavirus NL63 (PCR) Not Detected Hepatitis C Ab (EIA) NON-REACTIVE Human Metapneumovir PCR Not Detected Influenza Type B (PCR) Not Detected M. pneumoniae (PCR) Not Detected Parainfluenza 1 (PCR) Not Detected Parainfluenza 2 (PCR) Not Detected Parainfluenza 3 (PCR) Not Detected Parainfluenza 4 (PCR) Not Detected RSV (PCR) Not Detected Entero/Rhino (PCR) Not Detected Diagnostic Findings blood cx's neg to date PG Care Time/CCT Total # of Minutes Spent Total Time Spent with Patient: Total time spent is greater than 50% in coordination of care (as documented) at patient's floor/unit and/or counseling patient: Coding Level of Care Code 80704 SUB INP/OBS CARE 2/35MIN Diagnoses Influenza A J10.1 Acute metabolic encephalopathy G93.41 Abnormal chest x-ray R93.89 Stroke-like symptoms R29.90 Hypertension I10 Stroke with left hemiparesis CAD (coronary artery disease) I25.10 Esophageal stenosis K22.2 MDD (major depressive disorder) F32.9 Seizure disorder G40.909 Chronic pain G89.29 Chronic pain type: other chronic pain DVT prophylaxis Z29.9 (11) Chronic pain Chronic pain type: other chronic pain Qualified Code(s): G89.29 - Other chronic pain
[2023-04-15] MEDS ORDERED: MIRTAZAPINE SOLTAB 15 MG PO SCH (21:00)
[2023-04-15] MEDS ORDERED: LORazepam 0.5 MG TAB PO STA (21:13)
[2023-04-15] MEDS: MIRTAZAPINE SOLTAB 15 MG PO SCH (22:17)
[2023-04-15] MEDS: MELATONIN 3 MG TAB PO SCH (22:18)
[2023-04-15] MEDS: cefTRIAXone SODIUM 2,000 MG in DEXTROSE 5 % MINI-B 50 ML IV SCH (22:18)
[2023-04-15] MEDS: DOXYCYCLINE HYCLATE 100 MG in DEXTROSE 5% MINI-B 100 ML IV SCH (22:18)
[2023-04-15] MEDS: ASPIRIN 81 MG ECTAB PO SCH (22:19)
[2023-04-16 06:54] LABS: Basophils # (auto) 0.03 K/uL (0.00-0.20); Basophils % (auto) 0.9 %; Eosinophils # (auto) 0.01 K/uL (0.00-0.50); Eosinophils % (auto) 0.3 %; Hematocrit (blood only) 41.4 % (42.0-52.0); Hemoglobin 13.8 g/dl (14.0-18.0); Immature Granulocytes # (auto) 0.01 K/uL (0.01-0.20); Immature Granulocytes % (auto) 0.3 %; Lymphocytes # (auto) 1.41 K/uL (1.20-3.40); Lymphocytes % (auto) 42.9 %; Mean Corpuscular Hemoglobin 32.7 pg (25.0-34.0); Mean Corpuscular Hgb Conc 33.3 g/dL (32.0-36.0); Mean Corpuscular Volume 98.1 fL (80.0-100.0); Mean Platelet Volume 10.1 fL (9.4-12.4); Monocytes # (auto) 0.61 K/uL (0.11-0.59); Monocytes % (auto) 18.5 %; Neutrophils # (auto) 1.22 K/uL (1.40-6.50); Neutrophils % (auto) 37.1 %; Platelet Count 123 K/uL (130-400); RDW Coefficient of Variation 13.3 % (11.5-14.5); Red Blood Count 4.22 M/uL (4.70-6.10); White Blood Count 3.29 K/ul (4.8-10.8)
[2023-04-16 07:09] LABS: BUN Creatinine Ratio 15.4 (10-20); Calcium 8.3 mg/dl (8.6-10.3); Est GFR (African American) 88.1 ml/min; Est GFR (Non-African American) 76.1 ml/min; Potassium 3.6 mmol/L (3.5-5.1)
[2023-04-16] MEDS: BACLOFEN 20 MG TAB PO SCH (08:32)
[2023-04-16] MEDS: OSELTAMIVIR PHOSPHATE 75 MG CAP PO SCH ×2 (08:32→21:29)
[2023-04-16] MEDS: lamoTRIgine 25 MG TAB PO SCH ×2 (08:32→21:28)
[2023-04-16] MEDS: PANTOprazole 40 MG TAB PO SCH ×2 (08:32→21:29)
[2023-04-16] MEDS: POLYETHYLENE (MIRALAX) 17 GM PACK PO SCH ×2 (08:32→21:32)
[2023-04-16] MEDS: DOCUSATE SODIUM 100 MG CAP PO SCH ×2 (08:32→21:30)
[2023-04-16] MEDS: MULTIVITAMIN TAB PO SCH (08:32)
[2023-04-16] MEDS: levETIRAcetam 500 MG TAB PO SCH ×2 (08:32→21:29)
[2023-04-16] MEDS: HEPARIN SOD 5,000 UNIT/0.5 ML VIAL SQ SCH ×2 (08:33→21:30)
[2023-04-16] MEDS: PSYLLIUM or GUAR GUM FIBER POWDER PACKET PO SCH (08:33)
[2023-04-16] MEDS: HYDROCODONE/ACETAMOPHEN 5/325MG TAB PO SCH ×3 (08:35→21:34)
[2023-04-16] MEDS: PREGABALIN 100 MG CAP PO SCH ×2 (08:35→21:34)
[2023-04-16] MEDS: DOXYCYCLINE HYCLATE 100 MG in DEXTROSE 5% MINI-B 100 ML IV SCH ×2 (10:41→21:31)
--- NOTE | 2023-04-16 19:01 | Hospitalist Progress Note ---
Date of Service April 16, 2023 Assessment & Plan (1) Influenza A: Plan: IMPROVING presenting symptoms at time of admission - retrospectively - were likely due to brewing influenza A infection he is unvaccinated high risk of complications from flu A due to numerous medical problems started tamiflu 75mg BID x 5 days on 04/14, thus day #3 of such cont droplet precautions cxr findings noted - persistent right sided infiltrates - could be due to flu itself, could be bacterial superinfection O2 sats are low or low-normal at times Rx for bacterial superinfection - day #2 rocephin 2gm daily; day #2 doxy 100mg BID at d/c could change to PO levaquin or cefdinir/doxy (2) Acute metabolic encephalopathy: Plan: likely 2nd to #1 -- resolved back to baseline (3) Abnormal chest x-ray: Plan: ?right sided pneumonia if present due to flu itself? secondary bacterial process? see #1 above blood cx's remain negative to date (4) Stroke-like symptoms: Plan: likely was 2nd to brewing fluA infection rather than TIA, new CVA, etc MRI Brain NEGATIVE for acute or subacute CVA cont aspirin prophylaxis PATIENT IS STATIN INTOLERANT appreciate Dr Deras's consult (5) Hypertension: Plan: hold BP meds from home (coreg, HCTZ) BPs cont to remain well controlled w/o them at d/c would keep off HCTZ and perhaps resume coreg albeit at lower dose (6) Stroke with left hemiparesis: Plan: history of right MCA stroke s/p carotid endarterectomy, craniectomy, cranioplasty residual left-sided hemiparesis current imaging without recurrent stroke including MRI brain suspect presentation was from fluA infection rather than primary [employer] event appreciate neuro consultation cont asa for secondary prevention (7) CAD (coronary artery disease): Plan: Follows with [facility] cardiology. history of 50% mid circumflex disease, 99% ostial OM1/OM 2 stenosis, and 70% RCA stenosis. He has dyslipidemia with intolerance to all statins and was placed on Repatha instead. Nuclear stress test 2020 with EF hyperdynamic 70% on augmentation, no evidence of infarct or reversible ischemia was noted. No evidence of ACS at this time. Cont aspirin 81mg daily. Resume coreg at discharge - probably lower dose (was on 12.5mg BID; consider 6.25mg BID) resume Repatha at discharge for lipids Has had no ischemic symptoms while here (8) Esophageal stenosis: Plan: h/o dilatation for such cont PPI twice daily (9) MDD (major depressive disorder): Plan: Continue home antidepressants Patient utilizes ketamine protocol for treatment of depression - last treatment was several weeks ago and does not have his next one scheduled. (10) Seizure disorder: Plan: Cont Keppra, lamotrigine (11) Chronic pain: Plan: Cont buprenorphine patch (12) DVT prophylaxis: Plan: heparin 5000 BID (13) Leukopenia: Plan: 2nd to fluA infection cbc in am for stability minimal neutropenia at 1220 today (14) Thrombocytopenia: Plan: 2nd fluA infection minimal drop cbc in am for stability Plan updated at bedside today cont PT/OT -- rehab post-discharge advised by therapy I did mention this to pt and pt's but pt wants home if he is strong enough with re-evaluations by therapy can return home d/c on 04/17 if he passes his re-evals? Admission and Anticipated Discharge Date Admission Date: April 13, 2023 Subjective tele overnight wnl patient reports he is overall feeling better appetite modestly improved not as achy or fatigued still with cough but not severe no dyspnea at rest or HERNANDEZ no chest pain or pleuritic pain he asks when he can go home he is walking to bathroom I encouraged him to sit in chair today in prep for ultimately going home Review of Systems Review of Systems: gen - no fevers or chills cv - no orthopnea pulm - no wheezing GI - no abd pain/nausea/emesis Physical Exam Physical Exam: gen - looks much better today; NAD; lying comfortably in bed mouth - MMM neck - no JVD heart - RRR, s1 s2, no murmur lungs - minimal rales right base once again; otherwise CTA b/l; no respiratory distress; no wheezing abd - soft NT ND BS+ ext - no edema, pulses 2+ b/l neuro - left-sided hemiparesis, left sided facial droop - no change Results & Data Results & Data Vital Signs (Past 12 Hours) Vital Signs Temp Pulse Pulse Resp BP Pulse Ox O2 Del Method 04/16/23 17:00 70 04/16/23 16:34 36.9 C 64 18 109/69 92 Room Air 04/16/23 12:12 36.7 C 80 18 105/61 93 Room Air 04/16/23 08:05 36.7 C 82 18 113/69 95 Room Air 04/16/23 07:34 65 Laboratory Results Laboratory Results - last 24 hr 04/14/23 04/16/23 05:55 05:26 WBC 3.29 L RBC 4.22 L Hgb 13.8 L Hct 41.4 L MCV 98.1 D MCH 32.7 MCHC 33.3 RDW Std Deviation 48.0 H RDW Coeff of Nessa 13.3 Plt Count 123 L MPV 10.1 Immature Gran % (Auto) 0.3 Neut % (Auto) 37.1 Lymph % (Auto) 42.9 [place] % (Auto) 18.5 Eos % (Auto) 0.3 Baso % (Auto) 0.9 Neut # (Auto) 1.22 L Lymph # (Auto) 1.41 [place] # (Auto) 0.61 H Eos # (Auto) 0.01 Baso # (Auto) 0.03 Immature Gran # (Auto) 0.01 Sodium 139 Potassium 3.6 Chloride 105 Carbon Dioxide 25 Anion Gap 9 BUN 16 Creatinine 1.04 Est Cr Clr Drug Dosing 68.0 Est GFR ( Amer) 88.1 Est GFR (Non-Af Amer) 76.1 BUN/Creatinine Ratio 15.4 Glucose 98 Calcium 8.3 L Total Creatine Kinase 171 Hepatitis C Ab (EIA) NON-REACTIVE PG Care Time/CCT Total # of Minutes Spent Total Time Spent with Patient: Total time spent is greater than 50% in coordination of care (as documented) at patient's floor/unit and/or counseling patient: Coding Level of Care Code 64514 SUB INP/OBS CARE 2/35MIN Diagnoses Influenza A J10.1 Acute metabolic encephalopathy G93.41 Abnormal chest x-ray R93.89 Stroke-like symptoms R29.90 Hypertension I10 Stroke with left hemiparesis CAD (coronary artery disease) I25.10 Esophageal stenosis K22.2 MDD (major depressive disorder) F32.9 Seizure disorder G40.909 Chronic pain G89.29 Chronic pain type: other chronic pain DVT prophylaxis Z29.9 Leukopenia D72.819 Thrombocytopenia D69.6 (11) Chronic pain Chronic pain type: other chronic pain Qualified Code(s): G89.29 - Other chronic pain
[2023-04-16] MEDS: MIRTAZAPINE SOLTAB 15 MG PO SCH (21:28)
[2023-04-16] MEDS: ASPIRIN 81 MG ECTAB PO SCH (21:29)
[2023-04-16] MEDS: cefTRIAXone SODIUM 2,000 MG in DEXTROSE 5 % MINI-B 50 ML IV SCH (21:30)
[2023-04-16] MEDS: MELATONIN 3 MG TAB PO SCH (21:30)
[2023-04-17 07:31] LABS: Hematocrit (blood only) 38.2 % (42.0-52.0); Mean Corpuscular Hemoglobin 32.3 pg (25.0-34.0); Mean Platelet Volume 9.5 fL (9.4-12.4); Platelet Count 114 K/uL (130-400); RDW Coefficient of Variation 13.1 % (11.5-14.5); RDW Standard Deviation 45.6 fL (36.4-46.3); Red Blood Count 4.02 M/uL (4.70-6.10)
[2023-04-17 07:53] LABS: Calcium 8.3 mg/dl (8.6-10.3); Creatinine Clr Calc Pharmacy 70.7 ml/min; Est GFR (African American) 92.4 ml/min; Est GFR (Non-African American) 79.7 ml/min; Potassium 3.6 mmol/L (3.5-5.1)
[2023-04-17 09:12] LABS: RBC Morphology Unremarkable
[2023-04-17 09:14] LABS: Basophils # (auto) 0.02 K/uL (0.00-0.20); Basophils % (auto) 0.6 %; Eosinophils # (auto) 0.06 K/uL (0.00-0.50); Eosinophils % (auto) 1.9 %; Immature Granulocytes # (auto) 0.01 K/uL (0.01-0.20); Immature Granulocytes % (auto) 0.3 %; Lymphocytes # (auto) 1.77 K/uL (1.20-3.40); Lymphocytes % (auto) 57.1 %; Monocytes # (auto) 0.45 K/uL (0.11-0.59); Monocytes % (auto) 14.5 %; Neutrophils # (auto) 0.79 K/uL (1.40-6.50); Neutrophils % (auto) 25.6 %
[2023-04-17] MEDS: BACLOFEN 20 MG TAB PO SCH (09:44)
[2023-04-17] MEDS: levETIRAcetam 500 MG TAB PO SCH (09:44)
[2023-04-17] MEDS: PANTOprazole 40 MG TAB PO SCH (09:44)
[2023-04-17] MEDS: MULTIVITAMIN TAB PO SCH (09:44)
[2023-04-17] MEDS: OSELTAMIVIR PHOSPHATE 75 MG CAP PO SCH (09:44)
[2023-04-17] MEDS: lamoTRIgine 25 MG TAB PO SCH (09:44)
[2023-04-17] MEDS: HEPARIN SOD 5,000 UNIT/0.5 ML VIAL SQ SCH (09:45)
[2023-04-17] MEDS: PSYLLIUM or GUAR GUM FIBER POWDER PACKET PO SCH (09:45)
[2023-04-17] MEDS: POLYETHYLENE (MIRALAX) 17 GM PACK PO SCH (09:46)
[2023-04-17] MEDS: HYDROCODONE/ACETAMOPHEN 5/325MG TAB PO SCH (09:51)
[2023-04-17] MEDS: PREGABALIN 100 MG CAP PO SCH (09:51)
[2023-04-17] MEDS: DOXYCYCLINE HYCLATE 100 MG in DEXTROSE 5% MINI-B 100 ML IV SCH (09:52)
--- NOTE | 2023-04-17 10:19 | Hospitalist Progress Note ---
Date of Service April 17, 2023 Assessment & Plan (1) Pancytopenia: Plan: New / acute and related to influenza A Was worse on this AM CBC, repeated CBC with diff and is stable compared to yesterday. Advised him check CBC with diff when he sees his primary care (visit already scheduled) to ensure resolution. If persistent/worsening he has several medications that could suppress bone marrow (notably keppra, and less likely pregabalin) (2) Influenza A: Plan: IMPROVING presenting symptoms at time of admission - retrospectively - were likely due to brewing influenza A infection he is unvaccinated high risk of complications from flu A due to numerous medical problems cxr findings noted - persistent right sided infiltrates - could be due to flu itself, could be bacterial superinfection O2 sats were low or low-normal at times. Imprpved, 94% on RA day of discharge -treat for influenza with 5-day course of oseltamivir -started on rocephin and doxycycline for possible bacterial pneumonia superinfection - complete total 7d course of cefuroxime and doxy on discharge -follow up CXR in about a month is indicated, if right sided opacities persist then chest Ct would be indicated (3) Acute metabolic encephalopathy: Plan: likely 2nd to #1 -- resolved back to baseline (4) Abnormal chest x-ray: Plan: see #1 above blood cx's remain negative to date (5) Stroke-like symptoms: Plan: likely was 2nd to brewing fluA infection rather than TIA, new CVA, etc MRI Brain NEGATIVE for acute or subacute CVA cont aspirin prophylaxis PATIENT IS STATIN INTOLERANT appreciate neurologist Dr Deras's consult (6) Hypertension: Plan: Blood pressure was normal off meds during this admission Thus, reduced dose of carvedilol and instructed him to hold HCTZ until he follows up in office (7) Stroke with left hemiparesis: Plan: history of right MCA stroke s/p carotid endarterectomy, craniectomy, cranioplasty residual left-sided hemiparesis current imaging without recurrent stroke including MRI brain suspect presentation was from fluA infection rather than primary [employer] event appreciate neuro consultation cont asa for secondary prevention (8) CAD (coronary artery disease): Plan: Follows with [facility] cardiology. history of 50% mid circumflex disease, 99% ostial OM1/OM 2 stenosis, and 70% RCA stenosis. He has dyslipidemia with intolerance to all statins and was placed on Repatha instead. Nuclear stress test 2020 with EF hyperdynamic 70% on augmentation, no evidence of infarct or reversible ischemia was noted. No evidence of ACS at this time. Cont aspirin 81mg daily. Resume coreg at discharge - lower dose (6.25mg BID) resume Repatha at discharge for lipids Has had no ischemic symptoms while here (9) Esophageal stenosis: Plan: h/o dilatation for such cont PPI twice daily (10) MDD (major depressive disorder): Plan: Continue home antidepressants Patient utilizes ketamine protocol for treatment of depression - last treatment was several weeks ago and does not have his next one scheduled. (11) Seizure disorder: Plan: Cont Keppra, lamotrigine (12) Chronic pain: Plan: Cont buprenorphine patch Plan Recommended another session of PT/OT however he declined stating he was independent and back at baseline, confirmed with bedside RN that he ambulated well to bathroom today. Admission and Anticipated Discharge Date Admission Date: April 13, 2023 Physical Exam 2 Physical Exam: PHYSICAL EXAMINATION Last 24h vital signs reviewed, see documentation in flowsheet General: comfortable appearing, no distress, awake in bed HEENT: Normocephalic, atraumatic, pupils round and equal, sclerae anicteric, no conjunctival injection, moist mucus membranes Lungs: Normal respiratory effort. Clear to auscultation bilaterally. No RRW Heart: Regular rate and rhythm, no murmurs. No JVD Abdomen: Soft, nontender, nondistended. Bowel sounds present. Extremities: Warm, dry, well-perfused. No extremity edema. Neuro: Alert and oriented x 4, left facial droop and L sided weakness unchanged Psych: Normal affect and behavior Results & Data Results & Data Vital Signs (Past 12 Hours) Vital Signs Temp Pulse Resp BP Pulse Ox O2 Del Method 04/17/23 07:11 37.0 C 66 18 121/81 92 Room Air 04/17/23 03:00 37.2 C 64 19 116/76 93 Room Air 04/16/23 23:00 36.8 C 68 16 118/74 90 Room Air Laboratory Results 04/17/23 Range/Units 06:55 WBC 3.10 L (4.8-10.8) K/ul RBC 4.02 L (4.70-6.10) M/uL Hgb 13.0 L (14.0-18.0) g/dl Hct 38.2 L (42.0-52.0) % MCV 95.0 (80.0-100.0) fL MCH 32.3 (25.0-34.0) pg MCHC 34.0 (32.0-36.0) g/dL RDW Std Deviation 45.6 (36.4-46.3) fL RDW Coeff of Nessa 13.1 (11.5-14.5) % Plt Count 114 L (130-400) K/uL MPV 9.5 (9.4-12.4) fL Immature Gran % (Auto) 0.3 % Neut % (Auto) 25.6 % Lymph % (Auto) 57.1 % [place] % (Auto) 14.5 % Eos % (Auto) 1.9 % Baso % (Auto) 0.6 % Neut # (Auto) 0.79 L* (1.40-6.50) K/uL Lymph # (Auto) 1.77 (1.20-3.40) K/uL [place] # (Auto) 0.45 (0.11-0.59) K/uL Eos # (Auto) 0.06 (0.00-0.50) K/uL Baso # (Auto) 0.02 (0.00-0.20) K/uL Immature Gran # (Auto) 0.01 (0.01-0.20) K/uL RBC Morphology Unremarkable Sodium 139 (136-145) mmol/L Potassium 3.6 (3.5-5.1) mmol/L Chloride 106 (98-107) mmol/L Carbon Dioxide 28 (21-32) mmol/L Anion Gap 5 (3-11) BUN 13 (6-23) mg/dl Creatinine 1.00 (0.6-1.4) mg/dl Est Cr Clr Drug Dosing 70.7 ml/min Est GFR ( Amer) 92.4 ml/min Est GFR (Non-Af Amer) 79.7 ml/min BUN/Creatinine Ratio 13.0 (10-20) Glucose 81 (70-99(Fasting)) mg/dl Calcium 8.3 L (8.6-10.3) mg/dl Diagnostic Findings 04/17/23 10:35 04/17/23 06:55 PG Care Time/CCT Total # of Minutes Spent Total Time Spent with Patient: Total time spent is greater than 50% in coordination of care (as documented) at patient's floor/unit and/or counseling patient: Coding Diagnoses Pancytopenia D61.818 Influenza A J10.1 Acute metabolic encephalopathy G93.41 Abnormal chest x-ray R93.89 Stroke-like symptoms R29.90 Hypertension I10 Stroke with left hemiparesis CAD (coronary artery disease) I25.10 Esophageal stenosis K22.2 MDD (major depressive disorder) F32.9 Seizure disorder G40.909 Chronic pain G89.29 Chronic pain type: other chronic pain (12) Chronic pain Chronic pain type: other chronic pain Qualified Code(s): G89.29 - Other chronic pain
[2023-04-17] MEDS: DOCUSATE SODIUM 100 MG CAP PO SCH (10:57)
[2023-04-17 11:02] LABS: Hemoglobin 13.7 g/dl (14.0-18.0); Mean Corpuscular Hgb Conc 35.1 g/dL (32.0-36.0); Mean Platelet Volume 9.5 fL (9.4-12.4); Platelet Count 122 K/uL (130-400); RDW Coefficient of Variation 13.2 % (11.5-14.5); RDW Standard Deviation 45.1 fL (36.4-46.3); Red Blood Count 4.15 M/uL (4.70-6.10); White Blood Count 3.38 K/ul (4.8-10.8)
[2023-04-17 11:18] LABS: Basophils # (auto) 0.01 K/uL (0.00-0.20); Basophils % (auto) 0.3 %; Eosinophils # (auto) 0.05 K/uL (0.00-0.50); Eosinophils % (auto) 1.5 %; Immature Granulocytes # (auto) 0.01 K/uL (0.01-0.20); Immature Granulocytes % (auto) 0.3 %; Lymphocytes # (auto) 1.78 K/uL (1.20-3.40); Lymphocytes % (auto) 52.7 %; Monocytes # (auto) 0.46 K/uL (0.11-0.59); Monocytes % (auto) 13.6 %; Neutrophils # (auto) 1.07 K/uL (1.40-6.50); Neutrophils % (auto) 31.6 %
--- NOTE | 2023-04-17 19:08 | Discharge Summary ---
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 Patient had word finding difficulty and acute vertigo. [address] like I drank a whole bunch at once or was disaccociated Difficulty finding words, but understood what was being said to him and could find the words he wanted to say, was just confused. Residual: L leg 'almost normal.' L arm has sensation, but 'almos tno strength at all.' L weakness to smile Dry eyes, no vision changes No cp or cp. no afib Did feel heart was racing for a few minutes during the episode due to 'thoughts in myb rain racing.' Took morning meds. Carvedilol. Pt had been on Ketamine protocol for depression treatment. [facility] in [place] [facility] [place] Dr. Raffi Alas in [place] manages currently, last one was a few weeks ago and next one is not yet scheduled. He does find it helps his depression, but the response is not durable and 'needs it more consistently, and is also not affordable so I quit doing it and probably wont keep doing it unless the [facility] can cover it.' Medical History: Reviewed Medications: Reviewed Surgical History: Reviewed Family history: Reviewed Allergies: Reviewed Social History: No tobaccoo. Rare social etoh Code Status: Full Code Principal Diagnosis Influenza A, pancytopenia due to influenza A Discharge Exam PHYSICAL EXAMINATION Last 24h vital signs reviewed, see documentation in flowsheet General: comfortable appearing, no distress HEENT: Normocephalic, atraumatic, pupils round and equal, sclerae anicteric, no conjunctival injection, moist mucus membranes Lungs: Normal respiratory effort. Clear to auscultation bilaterally. No RRW Heart: Regular rate and rhythm, no murmurs. No JVD Abdomen: Soft, nontender, nondistended. Bowel sounds present. Extremities: Warm, dry, well-perfused. No extremity edema. Neuro: Alert and oriented x 4, left facial droop and left-sided weakness present, unchanged from baseline Psych: Normal affect and behavior Discharge Data Allergies Allergy/AdvReac Type Severity Reaction Status Date / Time fentanyl Allergy Severe NEURO Verified 04/13/23 16:09 CHANGES/Altered mental status tuberculin, purified protein Allergy Severe SWELLING/HI Verified 04/13/23 16:09 deriva VES rosuvastatin Allergy Intermediate muscle and Verified 04/13/23 16:09 joint pain sertraline Allergy Intermediate Psych Verified 04/13/23 16:09 complications Jyamtcr-[id number]-KmJ Reductase AdvReac Severe BODY ACHES Verified 04/13/23 16:09 Inhibitor [Couldvh-Oqq-Gwf Reductase Inhibitor] MRI inhibitors Allergy Unknown Mind Uncoded 03/09/23 14:56 racing, Overwhelming psych complications Consultations 04/13/23 15:06 ED Decision to Admit Stat 04/13/23 18:24 Consult Neurology Routine Ordered Studies 04/13/23 13:32 CT head/brain wo con Stat 04/13/23 13:33 CTA head w con [CT angio head w con] Stat CTA neck with con [CT angio neck with con] Stat 04/15/23 10:19 MR brain wo con Stat Chest X-Ray 04/13/23 13:32 XR chest 1V portable HISTORY: 62 years-old Male stroke alert acute strokelike symptoms COMPARISON: Chest radiograph 01/17/2023 TECHNIQUE: AP view of the chest FINDINGS: Cardiomediastinal and hilar silhouettes are within normal limits. Right hemidiaphragmatic elevation. Patchy ill-defined subsegmental right lung opacities. No pneumothorax, pleural effusion or pulmonary edema. Bones appear grossly intact. Healed chronic left clavicular fracture deformity. IMPRESSION: Subtle ill-defined patchy right lung opacities may be artifactual or represent a mild pneumonitis. ACT 112: Negative or not required by law. The above report was generated using voice recognition software. It may contain grammatical, syntax or spelling errors. Electronically signed by: Darvin Ernst M.D. 04/13/2023 3:[address] 04/13/23 13:32 CT OF THE HEAD WITHOUT CONTRAST CLINICAL HISTORY: Neuro deficit, acute, stroke suspected. Weakness. COMPARISON STUDY: Head CT and CTA of the head March 26, 2022. TECHNIQUE: Helical axial images of the head were obtained without IV contrast. Automated exposure control was utilized for the study. A dose lowering technique was utilized adhering to the principles of ALARA. FINDINGS: No acute intracranial hemorrhage, midline shift or mass effect is present. The ventricular system is stable. Basal cisterns are patent. Right MCA territory encephalomalacia remains unchanged. This suggests an old infarct. The appearance of the brain is unchanged. A right sided craniotomy is unchanged in appearance. IMPRESSION: 1. No acute intracranial findings. 2. No change in appearance of the brain. Old right MCA territory infarct. ACT 112: Negative or not required by law. Electronically signed by: Luis Fernando Aguila M.D. 04/13/2023 1:50 PM Head CTA 04/13/23 13:33 CT angio head w con CLINICAL HISTORY: 62 years-old Male with stroke. Acute stroke like symptoms COMPARISON STUDY: Head CT of same day and also 03/26/2022, October 24, 2019. TECHNIQUE: Following the IV administration of 115 cc of Optiray, CT angiogram of the brain was performed from the skull base to the vertex. Images are reviewed in the axial, sagittal, and coronal planes. 3-D MIPS images are created and assessed. IV contrast was administered without complication. All measurements were obtained according to NASCET criteria. A dose lowering technique was utilized adhering to the principles of ALARA. CT DOSE: 1165.49 mGy.cm FINDINGS: CT ANGIOGRAM OF THE BRAIN: Severe stenosis of the petrous portion of the left internal artery is unchanged since CTA of October 24, 2019. Moderate to severe stenoses of the intracranial portions of the bilateral vertebral arteries are unchanged. Severe stenosis of the right P2 segment is unchanged. The left A1 segment is not again well visualized, likely developmentally diminutive. The left M1 and M2 segments are patent. There is moderate stenosis at the origin of the right A1 segment. No acute proximal branch occlusion identified. There is extensive calcified plaque within the right cavernous carotid with moderate stenosis which is also unchanged. Chronic right MCA infarct. Stable postoperative changes of the right calvarium. IMPRESSION: 1. No acute abnormality identified. 2. Chronic right MCA infarct. 3. Severe multifocal stenoses of the intracranial arteries as detailed above which appears similar to the prior study. ACT 112: Negative or not required by law. The above report was generated using voice recognition software. It may contain grammatical, syntax or spelling errors. Electronically signed by: Darvin Ernst M.D. 04/13/2023 1:59 PM Neck CTA 04/13/23 13:33 NECK CTA HISTORY: Weakness. stroke TECHNIQUE: Multiaxial CT images of the neck were performed following the intravenous administration of contrast to evaluate the major cervical vessels. 3D/MIP images were also obtained. Sagittal and coronal reformats were reviewed. All measurements were calculated based on NASCET criteria. A dose lowering technique was utilized adhering to the principles of ALARA. COMPARISON STUDY: CTA neck 03/26/2022. FINDINGS: The aortic arch and proximal great vessels are widely patent. There is no significant stenosis, occlusion, or dissection identified within the bilateral common carotid, internal carotid, or left vertebral arteries. Mild focal narrowing at the takeoff of the right vertebral artery, unchanged. The remaining cervical portion of the right vertebral artery are patent. No change in the hypoplastic left internal carotid artery in comparison to the right which is diffusely small in caliber. IMPRESSION: 1. No significant stenosis, occlusion, or dissection identified within the carotid or left vertebral arteries. 2. Mild focal stenosis at the takeoff of the right vertebral artery, unchanged. 3. Asymmetric decreased caliber throughout the left cervical internal carotid artery, unchanged. This is likely developmental. ACT 112: Negative or not required by law. Electronically signed by: Pop Mora M.D. 04/13/2023 2:03 PM Chest X-Ray 04/14/23 10:18 XR chest 1V portable HISTORY: Follow-up right lung abnormality. RLL pneumonia? COMPARISON: Chest 04/13/2023. FINDINGS: No pneumothorax. No pleural effusions. There are low lung volumes. Mild interstitial thickening persists. The heart is normal in size. No evidence for pulmonary edema. Old, healed left-sided rib fracture. Small patchy density within the right upper lobe has improved. The right lower lung zone airspace opacity has resolved. IMPRESSION: Small right lung airspace opacities have improved. This favors a resolving pneumonia. One-month chest. Follow-up can be performed to ensure complete resolution ACT 112: Negative or not required by law. Electronically signed by: Pop Mora M.D. 04/14/2023 11:13 AM Chest X-Ray 04/15/23 08:00 XR chest 1V portable HISTORY: 62 years-old Male ?R sided pneumonia acute shortness of breath COMPARISON: 04/14/2023 TECHNIQUE: AP view of the chest FINDINGS: Cardiac silhouette is enlarged. Mild right hemidiaphragmatic elevation. No pneumothorax, pleural effusion or lobar airspace consolidation. Subtle ill- defined right midlung opacity. Bones appear grossly intact. IMPRESSION: Subtle right midlung opacity again noted which may represent a resolving pneumonia. Follow-up recommended. ACT 112: Negative or not required by law. The above report was generated using voice recognition software. It may contain grammatical, syntax or spelling errors. Electronically signed by: Darvin Ernst M.D. 04/15/2023 7:25 AM Brain MRI 04/15/23 10:19 MR brain wo con HISTORY: 62 years-old Male confusion; dizziness acute confusion with dizziness COMPARISON: Head CT 04/13/2023, brain MRI 12/07/2017 TECHNIQUE: Multiplanar multisequence MRI of the brain was obtained without the use of IV contrast. FINDINGS: Large chronic right MCA infarct with encephalomalacia and gliosis. There is no restricted diffusion to suggest acute or subacute infarct. Chronic lacunar infarct of the left caudate nucleus. Ex vacuo right lateral ventriculomegaly. Midline structures are unremarkable. There is no acute intracranial hemorrhage, midline shift, abnormal extra-axial collection, hydrocephalus or intra-axial mass. Hemosiderin within the right basal ganglia. Involutional changes with mild T2/FLAIR hyperintense foci throughout the white matter suggestive of probable chronic microvascular ischemic disease. Cerebral venous sinuses and major arterial flow voids are unchanged. Unremarkable orbits and soft tissues. IMPRESSION: 1. No acute intracranial abnormality. No acute or subacute infarct. 2. Large chronic right MCA infarct. ACT 112: Negative or not required by law. The above report was generated using voice recognition software. It may contain grammatical, syntax or spelling errors. Electronically signed by: Darvin Ernst M.D. 04/15/2023 11:32 AM 04/17/23 10:35 04/17/23 06:55 Hospital Course (1) Pancytopenia: acute due to influenza A morning CBC today looked worse, however, repeated test possibly diluted because on repeat it was consistent with yesterday, only mild neutropenia advise repeat CBC with differential upon primary care follow-up which patient reports is already scheduled if nonresolving consider several of his medications which may cause bone marrow suppression including Keppra, and less likely pregabalin (2) Influenza A: treated with oseltamivir, symptoms have essentially resolved he had right-sided pulmonary opacities persistent on chest x-ray therefore he was also treated with antibiotics for possible superimposed bacterial pneumonia treated with ceftriaxone and doxycycline while inpatient, changed to cefuroxime and doxycycline on discharge to complete 7-day course repeat chest x-ray as advised in about a month, if right-sided opacity does not resolve then chest CT would be indicated (3) Acute metabolic encephalopathy: due to influenza A, resolved, now back to baseline (4) Abnormal chest x-ray: follow-up chest x-ray indicated, see above (5) Stroke-like symptoms: at time of admission, likely was 2nd to brewing fluA infection rather than TIA, new CVA, etc MRI Brain NEGATIVE for acute or subacute CVA cont aspirin for stroke prophylaxis PATIENT IS STATIN INTOLERANT appreciate neurologist Dr Deras's consult (6) Hypertension: he was normotensive in the hospital despite holding carvedilol and hydrochlorothiazide the dose of carvedilol was reduced for discharge, and he was instructed to hold his hydrochlorothiazide until follow-up with his primary care physician (7) Stroke with left hemiparesis: history of such with residual left-sided hemiparesis history of right MCA stroke s/p carotid endarterectomy, craniectomy, cranioplasty continue aspirin, statin intolerant (8) CAD (coronary artery disease): continue aspirin and statin, continue carvedilol at reduced dose (9) Esophageal stenosis: continue PPI (10) MDD (major depressive disorder): (11) Seizure disorder: remained stable on his usual antiepileptics (12) Chronic pain: uses buprenorphine patch Total Time Total Time Spent Total Time Spent (In Minutes): I spent 35 minutes on coordinating care for discharge including review of chart notes, vital signs, labs, ordering repeat labs and reviewing them, counseling patient, discussion with bedside RN, writing discharge orders and prescriptions and documentation Discharge Plan Discharge Items Patient Disposition: Home - Self-Care Reason For Visit: CVA EVAL Discharge Diagnosis: Influenza A Condition on Discharge: Fair Activity: Resume your previous activity Non-emergency contact: Primary Care Provider Call non-emergency contact if: you have any medication questions and your symptoms worsen Follow-up/Referrals: Dago Garcia DO [Primary Care Provider] - 04/23/23 12:00 pm Diet: Heart Healthy Addtl Attending Provider Instructions: You were treated for Influenza -take oseltamivir (tamiflu, antiviral) for one more day -we prescribed antibiotics (cefuroxime and doxycycline) in case of superimposed bacterial pneumonia - take these until they run out -you had mildly low WBC and platelet count - influenza causes this - follow up with your doctor for a repeat blood count (CBC with differential) to make sure your blood counts return to normal -get a chest x-ray from your doctor in about a month to make sure your xray goes back to normal. there is mild abnormality in the right lung probably related to influenza or pneumonia, if this does not resolve on repeat x-ray you may need a CT scan of your chest to check up on that area Your blood pressure is running lower than previously. -we reduced the dose of your carvedilol -HOLD your HCTZ for the time being - your doctor will tell you whether to restart it in the future Pending Studies at Discharge: Yes Studies:: blood cultures from the ED on 04/14/23 - negative to date Stand-Alone Forms: My [facility], Smoking Cessation, Medications to Prevent Stroke Medications and DC Order Prescriptions: New oseltamivir [Tamiflu] 75 mg Capsule 75 mg PO BID Qty: 3 0RF carvedilol 6.25 mg tablet 6.25 mg PO BID Qty: 60 0RF Rx Instructions: must administer with a meal/food cefuroxime axetil 500 mg tablet 500 mg PO BID Qty: 9 0RF doxycycline hyclate 100 mg capsule 100 mg PO BID Qty: 9 0RF Continued levetiracetam [Keppra] 500 mg tablet 500 mg PO BID 90 Days Qty: 180 1RF polyethylene glycol 3350 [Miralax] 17 gram/dose powder 17 g PO BID docusate sodium [Dulcolax Stool Softener (dss)] 100 mg capsule 100 mg PO BID multivitamin Tablet 1 tab PO QAM Metamucil 3.4 gram/5.4 gram powder 1 tbsp PO QAM Rx Instructions: mix into at least 8 oz of water or juice before administering lamotrigine 25 mg tablet 75 mg PO BID Qty: 180 1RF aspirin 81 mg Tablet,Delayed Release (Dr/Ec) 81 mg PO HS fluticasone propionate 50 mcg/actuation spray,suspension 2 spray INTRANASAL DAILY PRN (Reason: Nasal Congestion) Repatha SureClick 140 mg/mL pen injector 140 mg SUBCUT .Q14D Rx Instructions: Every other Sunday bismuth subsalicylate [Pepto-Bismol] 262 mg Tablet,Chewable 2 tab PO QPM baclofen 20 mg tablet 20 mg PO QAM nitroglycerin [Nitrostat] 0.4 mg tablet, sublingual 0.4 mg sublingual DIRECTED PRN (Reason: Chest Pain) Rx Instructions: 1 tab q5min prn chest pain; max 3 in 15 minutes. buprenorphine 20 mcg/hour patch weekly 1 patch topical .QWED pantoprazole 40 mg tablet,delayed release (DR/EC) 40 mg PO BID omega-3 fatty acids 1,000 mg Capsule 1,000 mg PO BID pregabalin [Lyrica] 100 mg Capsule 100 mg PO BID hydrocodone-acetaminophen 5-325 mg tablet 1 tab PO TID carboxymethylcellulose sodium [Refresh Tears] 0.5 % drops 2 drp OPB TID PRN (Reason: Dry Eyes) mirtazapine 45 mg Tablet 22.5 mg PO HS Held hydrochlorothiazide 12.5 mg tablet 12.5 mg PO QAM Hold Instructions: Resume on 05/18/23. hold until restarted by your doctor, if your BP is higher in the future Discontinued carvedilol [Coreg] 12.5 mg tablet 12.5 mg PO BID Rx Instructions: must administer with a meal/food Discharge Orders: Discharge Order (Routine); Ordered 04/17/23 Ordered By: Anni Gaspar/Other Patient Handouts: Prediabetes, 5 Steps for Eating Healthier Admission Data Admit Date/Time: 04/13/23 15:37 Attending Provider: Anni Higginbotham Admit Provider: Alex Roman Primary Care Provider: Dago Garcia Other Providers: Alex Roman; Lebron Deras; [facility] Other Interventions: Discharge Summary Assessment (RN) Last Done: 04/17/23 13:24 Coding Level of Care Code 77420 INP/OBS DISCH >30 MIN Diagnoses Pancytopenia D61.818 Influenza A J10.1 Acute metabolic encephalopathy G93.41 Abnormal chest x-ray R93.89 Stroke-like symptoms R29.90 Hypertension I10 Stroke with left hemiparesis CAD (coronary artery disease) I25.10 Esophageal stenosis K22.2 MDD (major depressive disorder) F32.9 Seizure disorder G40.909 Chronic pain G89.29 Chronic pain type: other chronic pain
== END 2023-04-17 13:55 | disposition home or self-care (01) | DRG 193 ==
LOC: ED 13:10 → EDINP 15:37 → SUATTDRO 15:37 → EDINP 18:25 → 4W 21:35

== ENCOUNTER 2023-08-20 05:58 | Inpatient (IN) ==
--- NOTE | 2023-08-03 16:25 | PAT Medication Instructions ---
Medication Instructions Date of Service August 03, 2023 Home Medications Medication Instructions Recorded levetiracetam 500 mg tablet 500 mg PO BID 90 days #180 tabs 02/05/23 (Keppra) carvedilol 6.25 mg tablet 6.25 mg PO BID #60 tabs 04/17/23 divalproex 250 mg tablet,delayed 250 mg PO BID #60 tabs 04/27/23 release (Depakote) divalproex 250 mg tablet,delayed 250 mg PO BID #60 tabs 04/27/23 release (Depakote) baclofen 20 mg tablet 20 mg PO HS 90 days #90 tabs 07/23/23 aspirin 81 mg tablet,delayed release 81 mg PO HS docusate sodium 100 mg capsule (Dulcolax Stool Softener (docusate)) 100 mg PO BID polyethylene glycol 3350 17 gram/dose oral powder (Miralax) 17 g PO BID evolocumab 140 mg/mL subcutaneous pen injector (Repatha SureClick) 140 mg subcut .Q14D fluticasone propionate 50 mcg/actuation nasal spray,suspension 2 spray intranasal DAILY PRN Nasal Congestion multivitamin 1 tab PO QAM psyllium husk 3.4 gram/5.4 gram oral powder (Metamucil) 1 tbsp PO QAM omega-3 fatty acids 1,000 mg capsule 1,000 mg PO BID carboxymethylcellulose sodium 0.5 % eye drops (Refresh Tears) 2 drp OPB TID PRN Dry Eyes mirtazapine 45 mg tablet 22.5 mg PO HS nitroglycerin 0.4 mg sublingual tablet (Nitrostat) 0.4 mg sublingual DIRECTED PRN Chest Pain bismuth subsalicylate 262 mg chewable tablet (Pepto-Bismol) 2 tab PO QPM Acid Reflux levetiracetam 500 mg tablet (Keppra) 500 mg PO BID buprenorphine 20 mcg/hour weekly transdermal patch 1 patch topical .QWED pantoprazole 40 mg tablet,delayed release 40 mg PO BID carvedilol 6.25 mg tablet 6.25 mg PO BID pregabalin 100 mg capsule (Lyrica) 100 mg PO BID divalproex 250 mg tablet,delayed release (Depakote) 250 mg PO BID divalproex 250 mg tablet,delayed release (Depakote) 250 mg PO BID baclofen 20 mg tablet 20 mg PO HS Continue as directed fluticasone propionate 50 mcg/actuation nasal spray,suspension 2 spray intranasal DAILY PRN Nasal Congestion (if needed) nitroglycerin 0.4 mg sublingual tablet (Nitrostat) 0.4 mg sublingual DIRECTED PRN Chest Pain (if needed) buprenorphine 20 mcg/hour weekly transdermal patch 1 patch topical .QWED (do not put on or near surgical site) ASK your prescriber and surgeon evolocumab 140 mg/mL subcutaneous pen injector (Repathquentin Moranick) 140 mg subcut .Q14D STOP taking 2 weeks before surgery omega-3 fatty acids 1,000 mg capsule 1,000 mg PO BID DO NOT take the morning of surgery docusate sodium 100 mg capsule (Dulcolax Stool Softener (docusate)) 100 mg PO BID polyethylene glycol 3350 17 gram/dose oral powder (Miralax) 17 g PO BID multivitamin 1 tab PO QAM psyllium husk 3.4 gram/5.4 gram oral powder (Metamucil) 1 tbsp PO QAM Take morning of surgery With a small sip of water, OTHERWISE NOTHING TO EAT OR DRINK AFTER MIDNIGHT: carboxymethylcellulose sodium 0.5 % eye drops (Refresh Tears) 2 drp OPB TID PRN Dry Eyes (if needed) levetiracetam 500 mg tablet (Keppra) 500 mg PO BID pantoprazole 40 mg tablet,delayed release 40 mg PO BID carvedilol 6.25 mg tablet 6.25 mg PO BID pregabalin 100 mg capsule (Lyrica) 100 mg PO BID divalproex 250 mg tablet,delayed release (Depakote) 250 mg PO BID divalproex 250 mg tablet,delayed release (Depakote) 250 mg PO BID Take evening before surgery aspirin 81 mg tablet,delayed release 81 mg PO HS (unless surgeon directed otherwise) docusate sodium 100 mg capsule (Dulcolax Stool Softener (docusate)) 100 mg PO BID polyethylene glycol 3350 17 gram/dose oral powder (Miralax) 17 g PO BID carboxymethylcellulose sodium 0.5 % eye drops (Refresh Tears) 2 drp OPB TID PRN Dry Eyes (if needed) mirtazapine 45 mg tablet 22.5 mg PO HS bismuth subsalicylate 262 mg chewable tablet (Pepto-Bismol) 2 tab PO QPM Acid Reflux levetiracetam 500 mg tablet (Keppra) 500 mg PO BID pantoprazole 40 mg tablet,delayed release 40 mg PO BID carvedilol 6.25 mg tablet 6.25 mg PO BID pregabalin 100 mg capsule (Lyrica) 100 mg PO BID divalproex 250 mg tablet,delayed release (Depakote) 250 mg PO BID divalproex 250 mg tablet,delayed release (Depakote) 250 mg PO BID baclofen 20 mg tablet 20 mg PO HS Other Notes If you have any questions please call us at [phone] or [phone] or [phone] or [phone]
--- NOTE | 2023-08-08 12:32 | Anesthesiology Consultation ---
Date of Service August 08, 2023 Assessment & Plan (1) Encounter for pre-operative examination: - coags and CBC with diff hemolyzed: awaiting surgeon's office response on repeat labs or if to be done DOS. - difficult IV stick: marked on OR sheet. - medical clearance 07/31/23 [facility]: "...preoperative risk assessment for spinal surgery...no ongoing cardiac complaints...risk for this surgery from a cardiovascular standpoint is 6.6%. No additional cardiac testing will change this risk assessment and the patient is currently optimally medically managed..." - cardiology office visit 12/13/22: "...feeling well from a cardiac standpoint...reports needing repeat EGD for possible esophageal dilatation again and he is having cyst removed off his neck under mild conscious sedation in the near future...CAD by cardiac catheterization in 2013, showing 50% mid circumflex disease, 99% ostial OM1 and OM2 stenosis, and 70% RCA stenosis...stable cardiac symptoms..." Chart Review Chart Review: Pending: Refer to Additional Notes / Consult section and Patient seen in Pre Admission Testing Teaching & Discussion Pre-Anesthesia Teaching/Discussion Notes: Instructed NPO after midnight before surgery, except medications with 15 cc of water. Medication instructions provided according to the PAT guidelines. History Surgery Operation Date: 08/20/23 10:35 Proposed Procedures p L5-S1 Decompression and Fusion Spinal Cord Monitoring - Clay Cordoba, Height/Weight Height: 5 ft 7 in Weight: 80.7 kg Allergies Allergy/AdvReac Type Severity Reaction Status Date / Time fentanyl Allergy Severe NEURO Verified 07/30/23 10:53 CHANGES/Altered mental status tuberculin, purified protein Allergy Severe SWELLING/HI Verified 07/30/23 10:53 deriva VES rosuvastatin Allergy Intermediate muscle and Verified 07/30/23 10:53 joint pain sertraline Allergy Intermediate Psych Verified 07/30/23 10:53 complications Mcrvbak-EGF-VpN Reductase AdvReac Severe BODY ACHES Verified 07/30/23 10:53 Inhibitor [Zadsnai-Yyn-Zie Reductase Inhibitor] MRI inhibitors Allergy Unknown Mind Uncoded 07/30/23 10:53 racing, Overwhelming psych complications Medications Home Medications Medication Instructions Recorded Confirmed Last Taken aspirin 81 mg tablet,delayed 81 mg PO HS 10/14/19 07/30/23 04/13/23 08:00 release docusate sodium 100 mg capsule 100 mg PO BID 10/07/20 07/30/23 04/13/23 08:00 (Dulcolax Stool Softener (docusate)) polyethylene glycol 3350 17 17 g PO BID 10/07/20 07/30/23 02/11/23 gram/dose oral powder (Miralax) evolocumab 140 mg/mL subcutaneous 140 mg subcut .Q14D 04/01/21 07/30/23 04/10/23 pen injector (Katelin Neri) fluticasone propionate 50 2 spray intranasal DAILY PRN Nasal 04/01/21 07/30/23 02/11/23 mcg/actuation nasal Congestion spray,suspension multivitamin 1 tab PO QAM 04/26/21 07/30/23 02/12/23 08:00 psyllium husk 3.4 gram/5.4 gram 1 tbsp PO QAM 03/16/22 07/30/23 02/11/23 oral powder (Metamucil) omega-3 fatty acids 1,000 mg 1,000 mg PO BID 03/26/22 07/30/23 02/12/23 08:00 capsule carboxymethylcellulose sodium 0.5 2 drp OPB TID PRN Dry Eyes 12/17/22 07/30/23 02/11/23 % eye drops (Refresh Tears) mirtazapine 45 mg tablet 22.5 mg PO HS 12/17/22 07/30/23 02/11/23 nitroglycerin 0.4 mg sublingual 0.4 mg sublingual DIRECTED PRN 01/17/23 07/30/23 Unknown tablet (Nitrostat) Chest Pain bismuth subsalicylate 262 mg 2 tab PO QPM Acid Reflux 01/23/23 07/30/23 02/11/23 chewable tablet (Pepto-Bismol) levetiracetam 500 mg tablet 500 mg PO BID 90 days #180 tabs 02/05/23 07/30/23 04/13/23 08:00 (Keppra) buprenorphine 20 mcg/hour weekly 1 patch topical .QWED 04/13/23 07/30/23 04/11/23 transdermal patch pantoprazole 40 mg tablet,delayed 40 mg PO BID 04/13/23 07/30/2323 08:00 release carvedilol 6.25 mg tablet 6.25 mg PO BID #60 tabs 04/17/23 07/30/23 Unknown pregabalin 100 mg capsule (Lyrica) 100 mg PO BID 04/18/23 07/30/23 Unknown divalproex 250 mg tablet,delayed 250 mg PO BID #60 tabs 04/27/23 07/30/23 Unknown release (Depakote) divalproex 250 mg tablet,delayed 250 mg PO BID #60 tabs 04/27/23 07/30/23 Unknown release (Depakote) baclofen 20 mg tablet 20 mg PO HS 90 days #90 tabs 07/23/23 07/30/23 Unknown Past Medical History Medical History (Updated 08/08/23 @ 15:05 by Johana Shaver PA-C) 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 Benign prostatic hyperplasia (BPH) with post-void dribbling CAD (coronary artery disease) "Cardiac cath 2013-50% mid circumflex, 99% ostial OM1 and OM2, 70% RCA" Carotid artery stenosis monitored by [place] neurology-states is next due for imaging next year; s/p left CEA Chronic pain Dyslipidemia ESA (generalized anxiety disorder) GERD (gastroesophageal reflux disease) controlled, stable per pt History of COVID-19 tested positive initially 12/17/22 at [facility] while in ER. flu like symptoms in December 2022. no current symptoms. symptoms resolved ~01/18/23. History of esophageal dilatation 02/2023-mild dysphagia, denies choking Hypertension controlled, stable per pt MDD (major depressive disorder) Restless leg syndrome Seizure disorder x1 2020 and x1 in 2021. no problems since starting Keppra daily. follows with [facility] Neurology Dr Deras. Spinal stenosis Stroke with left hemiparesis 2019. reason for asa 81mg daily. Transient ischemic attack (TIA) ~2019 prior to CVA in 2019. Patient denies h/o heart failure, blood clots/DVTs or blood transfusions. Exercise / Class Metabolic Activity III < 4 Walking/Shop/Light housework (ambulates with cane, denies chest discomfort or shortness of breath with usual activities) Past Family History Family History Father Diabetes Heart disease Myocardial infarction Hypertension Grandfather Diabetes Grandmother Diabetes Uncle Myocardial infarction Mother Hypertension Hiatal hernia Sister Diabetes Other No family history of adverse response to anesthesia Denies family history of Ovarian cancer Prostate cancer Breast cancer Lung cancer Colorectal cancer Stroke Past Surgical History Surgical History H/O colonoscopy H/O excision of mass (01/30/23) Posterior Neck Soft Tissue Mass Excision - Dario Suggs, DO, FACS History of cardiac cath ~03/2014 at [facility]. no stents. follows with [facility] Zehra Rubio. History of cranioplasty 12/25/2019 (the day following patient's stroke) treated at [facility]. History of esophagogastroduodenoscopy (EGD) History of right-sided carotid endarterectomy (~02/2020) [facility] S/P epidural steroid injection lumbar Status post craniectomy titantium placed replaced several months later at [facility]. Past Anesthesia History No Hx of Anesthesia Complications and No Family Hx of Anesthesia Complications History of PONV No Hx of PONV and No Hx of Motion Sickness Social History Smoking Status: Former smoker Smoking cigarettes per day: 1-2/day many years Do You Dip or Chew Tobacco: No Smoking End Date: 2019 Hx Alcohol Use: Yes Alcohol type: beer alcohol intake frequency: a few times a month Hx Substance Use: No substance use type: does not use Review of Systems Patient denies chest pain, shortness of breath, dyspnea on exertion, snoring, witnessed apneas, fever, chills, cough, wheezing, or palpitations. Physical Exam Vital Signs Vitals BP 105/74 P 78 TEMP 98.2 SP02 94% on RA RESP 17 Physical Patient resting comfortably in chair in no acute distress, alert and oriented, responding appropriately throughout visit Full cervical extension range of motion without pain TMD 3.5 finger breadths Mallampati Score 2 Dentition: one crown, denies chipped or loose teeth, caps, implants or bridges Lungs: normal respiratory effort. Good air movement, clear throughout to auscultation, no adventitious breath sounds Cardiac: regular rate and rhythm, no murmurs noted Carotid arteries: negative bruit bilat Lab Results Anesthesia Preop Results Results Anesthesia Widget: Na 139 mmol/L (136-145) 08/08/23 K 4.3 mmol/L (3.5-5.1) 08/08/23 Cl 103 mmol/L (98-107) 08/08/23 CO2 29 mmol/L (21-32) 08/08/23 BUN 17 mg/dl (6-23) 08/08/23 Creat 1.10 mg/dl (0.6-1.4) 08/08/23 Glucose Level 112 mg/dl (70-99(Fasting)) H 08/08/23 Urine Color Dark Yellow 08/08/23 Urine Appearance Clear (Clear) 08/08/23 Urine pH 5.0 (4.5-7.5) 08/08/23 Urine Specific [place] 1.039 (1.000-1.030) H 08/08/23 Urine Protein Trace (Negative) H 08/08/23 Urine Glucose (UA) Negative (Negative) 08/08/23 Urine Ketones Trace (Negative) H 08/08/23 Urine Blood Negative (Negative) 08/08/23 Urine Nitrite Negative (Negative) 08/08/23 Urine Bilirubin Negative (Negative) 08/08/23 Urine Urobilinogen Negative (Negative) 08/08/23 Urine Leukocyte Esterase Negative (Negative) 08/08/23 Urine WBC (Auto) 1-5 /hpf (0-5) 08/08/23 Urine RBC (Auto) 0-4 /hpf (0-4) 08/08/23 Urine Hyaline Casts (Auto) 1-5 /lpf (0-5) 08/08/23 Urine Epithelial Cells (Auto) 10-20 /lpf (0-5) H 08/08/23 Urine Bacteria (Auto) Negative (Negative) 08/08/23 Blood Type A Negative 08/08/23 Antibody Screen NEGATIVE 08/08/23 Testing Electrocardiogram Date: 07/31/23 NSR, rate 83 bpm Chest X-Ray Date: 08/08/23 No acute process. Echocardiogram Date: 10/25/20 EF 60-65% No LV regional wall motion abnormalities Borderline cLVH No significant valvular pathology Mildly dilated LA Stress Test Date: 12/24/20 Pharmacologic MPHR 85% Normal without evidence of infarction or reversible ischemia EF > 70% Other Testing Brain MRI 04/15/23 1. No acute intracranial abnormality. No acute or subacute infarct. 2. Large chronic right MCA infarct. Head and neck TA 04/13/23 No acute abnormality identified. Chronic right MCA infarct. Severe multifocal stenoses of the intracranial arteries as detailed above which appears similar to the prior study. No significant stenosis, occlusion, or dissection identified within the carotid or left vertebral arteries. Mild focal stenosis at the takeoff of the right vertebral artery, unchanged. Asymmetric decreased caliber throughout the left cervical internal carotid artery, unchanged. This is likely developmental. Carotid doppler 03/06/20 1. There is no sonographic evidence of hemodynamically significant stenosis in the right carotid arterial system. 2. Antegrade flow is shown in the right vertebral artery. 3. No hematoma/fluid collection is identified at the incision site.
[2023-08-20] MEDS ORDERED: ATROPINE SULFATE 0.1 MG/ML 10ML SYR IV PRN (06:43)
[2023-08-20] MEDS ORDERED: ONDANSETRON INJ 2 MG/ML 2 ML VIAL IV PRN ×2 (06:43→11:56)
[2023-08-20] MEDS ORDERED: ePHEDrine sulfate 50 MG/ML AMP IV PRN (06:43)
[2023-08-20] MEDS: LR 15ML/HR IV SCH (06:55)
[2023-08-20] MEDS: LR 60ML/HR IV SCH (06:55)
[2023-08-20 06:56] LABS: Basophils # (auto) 0.04 K/uL (0.00-0.20); Basophils % (auto) 0.8 %; Eosinophils # (auto) 0.11 K/uL (0.00-0.50); Eosinophils % (auto) 2.2 %; Hematocrit (blood only) 46.7 % (42.0-52.0); Hemoglobin 15.9 g/dl (14.0-18.0); Immature Granulocytes # (auto) 0.02 K/uL (0.01-0.20); Immature Granulocytes % (auto) 0.4 %; Lymphocytes # (auto) 2.15 K/uL (1.20-3.40); Lymphocytes % (auto) 43.3 %; Mean Corpuscular Hemoglobin 31.9 pg (25.0-34.0); Mean Corpuscular Volume 93.8 fL (80.0-100.0); Mean Platelet Volume 9.6 fL (9.4-12.4); Monocytes # (auto) 0.56 K/uL (0.11-0.59); Monocytes % (auto) 11.3 %; Neutrophils # (auto) 2.08 K/uL (1.40-6.50); Platelet Count 162 K/uL (130-400); RDW Coefficient of Variation 12.9 % (11.5-14.5); RDW Standard Deviation 43.7 fL (36.4-46.3); Red Blood Count 4.98 M/uL (4.70-6.10); White Blood Count 4.96 K/ul (4.8-10.8)
[2023-08-20] MEDS: ACETAMINOPHEN 500 MG TAB PO SCH (06:56)
[2023-08-20] MEDS: GABAPENTIN 600 MG DOSE PO SCH (06:56)
[2023-08-20] MEDS: CeleBREX 200 MG CAP PO SCH (06:56)
[2023-08-20] MEDS ORDERED: ROCURONIUM BROMIDE 10 MG/ML 5 ML VIAL IV ONE ×2 (07:21→08:31)
[2023-08-20] MEDS ORDERED: ONDANSETRON INJ 2 MG/ML 2 ML VIAL ONE (07:21)
[2023-08-20] MEDS ORDERED: fentaNYL citrate PF 100 MCG/2 ML VIAL ONE (07:21)
[2023-08-20] MEDS ORDERED: PROPOFOL IV EMULSION 10 MG/ML 20 ML VIAL IV ONE (07:21)
[2023-08-20] MEDS ORDERED: LIDOCAINE 2% 2 ML VIAL/AMP(20MG/ML) INFIL ONE (07:21)
[2023-08-20 07:34] LABS: INR 0.9 (0.9-1.1); Partial Thromboplastin Ratio 0.9; Partial Thromboplastin Time 26 Seconds (21-31); Prothrombin Time 10.3 Seconds (9.0-12.0)
--- NOTE | 2023-08-20 07:49 | History & Physical Bridge Note ---
Date of Service August 20, 2023 History & Physical Bridge Note I have examined the patient, reviewed the History & Physical and in the interval since the performance of the History & Physical I have noted the following changes of clinical significance: no changes noted
--- NOTE | 2023-08-20 07:50 | History & Physical Report ---
Date of Service August 20, 2023 Assessment & Plan (1) Neurogenic claudication due to lumbar spinal stenosis: Plan: L5-S1 decompression and fusion History of Present Illness Chief Complaint: Back and leg pain Primary Care Provider: Dago Garcia DO This is a 62-year-old male who presents with chronic persistent back and leg pain after failing course of nonoperative care is here for surgical invention. Allergies Allergy/AdvReac Type Severity Reaction Status Date / Time fentanyl Allergy Severe NEURO Verified 08/20/23 06:37 CHANGES/Altered mental status tuberculin, purified protein Allergy Severe SWELLING/HI Verified 08/20/23 06:37 deriva VES rosuvastatin Allergy Intermediate muscle and Verified 08/20/23 06:37 joint pain sertraline Allergy Intermediate Psych Verified 08/20/23 06:37 complications Whvgelw-WVY-SfX Reductase AdvReac Severe BODY ACHES Verified 08/20/23 06:37 Inhibitor [Jglvtcw-Wfv-Tmy Reductase Inhibitor] SSRI Allergy Severe Agitated Uncoded 08/20/23 06:37 Home Medications Medication Instructions Recorded Confirmed Type aspirin 81 mg tablet,delayed 81 mg PO HS 10/14/19 08/20/23 History release docusate sodium 100 mg capsule 100 mg PO BID 10/07/20 08/20/23 History (Dulcolax Stool Softener (docusate)) polyethylene glycol 3350 17 17 g PO BID PRN Constipation 10/07/20 08/20/23 History gram/dose oral powder (Miralax) evolocumab 140 mg/mL subcutaneous 140 mg subcut .Q14D 04/01/21 08/20/23 History pen injector (Katelin Neri) fluticasone propionate 50 2 spray intranasal DAILY PRN Nasal 04/01/21 08/20/23 History mcg/actuation nasal Congestion spray,suspension multivitamin 1 tab PO QAM 04/26/21 08/20/23 History psyllium husk 3.4 gram/5.4 gram 1 tbsp PO QAM PRN Constipation 03/16/22 08/20/23 History oral powder (Metamucil) omega-3 fatty acids 1,000 mg 1,000 mg PO BID 03/26/22 08/20/23 History capsule carboxymethylcellulose sodium 0.5 2 drp OPB TID PRN Dry Eyes 12/17/22 08/20/23 History % eye drops (Refresh Tears) mirtazapine 45 mg tablet 22.5 mg PO HS 12/17/22 08/20/23 History nitroglycerin 0.4 mg sublingual 0.4 mg sublingual DIRECTED PRN 01/17/23 08/20/23 History tablet (Nitrostat) Chest Pain bismuth subsalicylate 262 mg 2 tab PO QPM Acid Reflux 01/23/23 08/20/23 History chewable tablet (Pepto-Bismol) levetiracetam 500 mg tablet 500 mg PO BID 90 days #180 tabs 02/05/23 08/20/23 Rx (Keppra) pantoprazole 40 mg tablet,delayed 40 mg PO BID 04/13/23 08/20/23 History release carvedilol 6.25 mg tablet 6.25 mg PO BID #60 tabs 04/17/23 08/20/23 Rx pregabalin 100 mg capsule (Lyrica) 100 mg PO BID 04/18/23 08/20/23 History baclofen 20 mg tablet 20 mg PO HS 90 days #90 tabs 07/23/23 08/20/23 Rx cholecalciferol (vitamin D3) 50 50 mcg PO DAILY 08/15/23 08/20/23 History mcg (2,000 unit) capsule divalproex 250 mg tablet,delayed 250 mg PO BID 08/15/23 08/20/23 History release (Depakote) hydrocodone 5 mg-acetaminophen 325 1 tab PO TID PRN Pain 08/15/23 08/20/23 History mg tablet naloxone 4 mg/actuation nasal 4 mg intranasal Q2M PRN Other 08/15/23 08/20/23 History spray (Narcan) sennosides 8.6 mg tablet 8.6 mg PO BID Constipation 08/15/23 08/20/23 History sildenafil 100 mg tablet (Viagra) 100 mg PO DAILY PRN Other 08/15/23 08/20/23 History Past Med/Surg History Medical History (Updated 08/20/23 @ 07:50 by Clay Cordoba DO) Carotid artery stenosis monitored by [place] neurology-states is next due for imaging next year; s/p left CEA Transient ischemic attack (TIA) ~2019 prior to CVA in 2019. History of COVID-19 tested positive initially 12/17/22 at [facility] while in ER. flu like symptoms in December 2022. no current symptoms. symptoms resolved ~01/18/23. History of esophageal dilatation 02/2023-mild dysphagia, denies choking Restless leg syndrome Seizure disorder x1 2020 and x1 in 2021. no problems since starting Keppra daily. follows with [facility] Neurology Dr Deras. ESA (generalized anxiety disorder) MDD (major depressive disorder) Benign prostatic hyperplasia (BPH) with post-void dribbling Chronic pain GERD (gastroesophageal reflux disease) controlled, stable per pt Stroke with left hemiparesis 2019. reason for asa 81mg daily. 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 CAD (coronary artery disease) "Cardiac cath 2013-50% mid circumflex, 99% ostial OM1 and OM2, 70% RCA" Dyslipidemia Hypertension controlled, stable per pt Surgical History H/O excision of mass (01/30/23) Posterior Neck Soft Tissue Mass Excision - Dario Suggs DO, FACS S/P epidural steroid injection lumbar History of esophagogastroduodenoscopy (EGD) History of cardiac cath ~03/2014 at [facility]. no stents. follows with [facility]. H/O colonoscopy History of cranioplasty 12/25/2019 (the day following patient's stroke) treated at [facility]. History of right-sided carotid endarterectomy (~02/2020) [facility] Status post craniectomy titantium placed replaced several months later at [facility]. Family History Father Diabetes Heart disease Myocardial infarction Hypertension Grandfather Diabetes Grandmother Diabetes Uncle Myocardial infarction Mother Hypertension Hiatal hernia Sister Diabetes Other No family history of adverse response to anesthesia Denies family history of Ovarian cancer Prostate cancer Breast cancer Lung cancer Colorectal cancer Stroke Social History Smoking Status: Former smoker Tobacco Type: Cigarettes Age Started Using Tobacco: 18; Age Quit Using Tobacco: 58; Cigarettes Per Day: 1-2/day many years; Smoking End Date: 2019; Second Hand Exposure: No; Do You Dip or Chew Tobacco: No; Tobacco Cessation Education Requested by Patient: No Hx Alcohol Use: Yes Alcohol type: beer Alcohol Intake Frequency: Monthly or Less Hx Substance Use: No Preferred Language: Welsh Communication Ability: Effective Visual Impairment: Limited Hearing Ability: Use of Hearing Aid Hotel Maintenance Engineer Required: No Beliefs That Will Affect Care: None marital status: Current Living Situation: Spouse Current Living Situation Comment: Lives at home with current 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 How many Children do You have: 2 other: Hyrum receiving [facility] care Feels Safe at Home: Yes Safety Concerns: Feels Safe At This Time Childhood Exposure to Second-Hand Smoke: No Diet: regular caffeine: Yes (very seldom ) during the past year weight has: increased > 10 lbs Dental Care, Regularly: Yes Physical Activity Frequency: Daily Physical Activity Frequency Comment: walks daily Seatbelt Use: always Sunscreen Use: Yes Assistive Devices: Cane and Hearing Aid - Bilateral Physical Exam Physical Exam: Patient is alert and oriented Heart regular in rhythm lungs clear Results & Data Results & Data Vital Signs (Past 12 Hours) Vital Signs Temp Pulse Resp BP Pulse Ox O2 Del Method 08/20/23 06:23 36.7 C 74 20 129/82 97 Room Air
[2023-08-20] MEDS: ceFAZolin 2000MG 2,000 MG/15 ML SYR IV SCH ×2 (07:57→15:17)
[2023-08-20] MEDS ORDERED: ePHEDrine sulfate 50 MG/ML AMP ONE (08:08)
[2023-08-20] MEDS ORDERED: DEXAMETHASONE SOD INJ 4 MG/ML VIAL ONE (08:31)
[2023-08-20] MEDS: BUPIVACAINE/EPINEPHRINE 0.5% MPF 1:200,000 30 ML VIAL ONE (08:36)
[2023-08-20] MEDS: ceFAZolin 330 MG/ML 1 GM VIAL ONE (08:36)
[2023-08-20] MEDS ORDERED: PHENYLEPHRINE HCL 10 MG/ML VIAL ONE (08:40)
[2023-08-20] MEDS ORDERED: SUGAMMADEX SODIUM 200 MG/2 ML VIAL IV ONE (09:43)
[2023-08-20] MEDS: FLOSEAL HEMOSTATIC MATRIX 10ML TOP ONE (09:48)
--- NOTE | 2023-08-20 09:53 | Operative Report ---
Post Operative Report Pre & Post Diagnosis Operation Date: 08/20/23 07:45 Pre-Op Diagnosis: Lumbar spondylolisthesis L5-S1 Lumbar radiculopathy Lumbar spinal stenosis with neurogenic claudication Post-Op Diagnosis: Same I identified the patient and participated in the time-out.: Yes Procedure Operation Date: 08/20/23 07:45 Actual Procedures #1 lumbar decompression bilaterally facetectomies and foraminotomies L4-L5 L5- S1. #2 posterior spinal fusion L5-S1. #3 placement posterior instrumentation L5-S1. #4 interbody fusion L5-S1. #5 placement Spira 10 x 22 mm x 2 at L5-S1. #6 placement of locally harvested morselized autograft in the posterior lateral gutters. #7 placement of Morpheus bone graft in the interbody space and infuse collagen sponge combined with Koros bone graft in the posterior lateral gutters. Surgeon Clay Cordoba, Director Toxicology Muriel Victor Estimated Blood Loss 200 Findings Consistent with Post-Op Diagnosis Specimens None Indications This is a 62-year-old male who presents above-mentioned diagnosis after failing extensive course of nonoperative care is here for surgical invention. Description of Procedure Patient was met with identified informed consent obtained. Patient was then taken to the operative suite underwent patient placed in a prone position on the Puma table atop the Ajit frame. All bony prominences well-padded eyes inspected to ensure no external pressure placed upon them. This point the lumbar spine was prepped and draped in normal sterile fashion. Sharp dissection with the assistance of Bovie cautery form down to and exposing the lamina transverse processes of L5 and the sacral ala bilaterally. Obvious bilateral pars defect was identified. I then performed a complete laminectomy of L5 including bilateral medial facetectomies and foraminotomies addressing severe neuroforaminal disease. I then performed a partial laminectomy of L4 including bilateral medial facetectomies to address all lateral recess stenosis. Pedicle screws were then placed in L5 and S1 levels bilaterally with assistance of fluoroscopy and appropriate sized jeannette placed. By way of transforaminal approach on the right a discectomy of L5-S1 was performed endplates guided to subcortical bleeding bone and a 10 x 22 mm Spira cage filled with Morpheus bone graft tapped in position. Then proceeded to the left transforaminal region at L5-S1 completed the discectomy endplates guided to subcortical bleeding bone and a second 10 x 22 mm Spira cage filled with Morpheus bone graft tapped in position. The rods were then locked in final position bilaterally. The transverse processes of L5 and the sacral ala burred to subcortical bleeding bone. Infuse collagen sponge, with Koros and local autograft placed in the posterior lateral gutters. 15 round DAMARIS inserted. The incision was then closed with 1 Vicryl the fascia 2-0 Vicryl subcutaneously and 4 Monocryl for final skin closure. Steri- Strips sterile dressing placed. Patient waken taken to PACU in stable condition. Please note spinal cord monitoring visualized at the procedure no changes noted. Lastly Muriel Victor was present at the entire surgeon while the patient positioning complex portion of the surgery and final skin closure. I attest to the content of the Intraoperative Record and any orders documented therein. Any exceptions are noted below.
[2023-08-20] MEDS: HYDROmorphone INJ 1 MG/ML SYRINGE IV PRN ×2 (10:15→16:23)
[2023-08-20] MEDS: HYDROmorphone INJ 2 MG/ML SYR/VIAL IV PRN (10:45)
--- NOTE | 2023-08-20 10:46 | Fluoroscopy Report ---
FL lumbar spine 2-3V CLINICAL HISTORY: L5-S1 DECOMPRESSION AND FUSION COMPARISON STUDY: None. FLUOROSCOPY TIME: 31 seconds FLUOROSCOPY IMAGES: 2 Ka,r: 25.5 mGy FINDINGS: Posterior decompression fusion at L5-S1 with pedicle screws and rods. The hardware appears intact. Disc spacers are in place. IMPRESSION: Fluoroscopic assistance as above. ACT 112: Negative or not required by law. Electronically signed by: Pop Mora M.D. 08/20/2023 10:45 AM
[2023-08-20] MEDS ORDERED: ACETAMINOPHEN 500 MG TAB PO PRN (11:56)
[2023-08-20] MEDS ORDERED: DO NOT ADMINISTER FLU VACCINE PRN (11:56)
[2023-08-20] MEDS ORDERED: ALUMINUM/MAGNESIUM SUSP 30 ML UDC PO PRN (11:56)
[2023-08-20] MEDS ORDERED: diphenhydrAMINE Capsule 25 MG CAP PO PRN (11:56)
[2023-08-20] MEDS ORDERED: METOCLOPRAMIDE HCL INJ 5 MG/ML 2 ML VIAL IV PRN (11:56)
[2023-08-20] MEDS ORDERED: FAMOTIDINE 20 MG TAB PO PRN (11:56)
[2023-08-20] MEDS ORDERED: DO NOT ADMINISTER PNEUMOCOCCAL VACCINE PRN (11:56)
[2023-08-20] MEDS ORDERED: LORazepam 0.5 MG in SYRINGE 0.25 ML IV PRN (11:56)
[2023-08-20] MEDS ORDERED: PROMETHAZINE HCL 12.5 MG in SODIUM CHLORIDE 0.9% 50 ML IV PRN (11:56)
[2023-08-20] MEDS ORDERED: ACETAMINOPHEN 1,000 MG/100 ML VIAL IV PRN (11:56)
[2023-08-20] MEDS ORDERED: NALOXONE HCL 0.4 MG/1 ML VIAL/CARP IV PRN (11:56)
[2023-08-20] MEDS ORDERED: PHARMACY GLYCEMIC MGMT CONSULT PRN (11:56)
[2023-08-20] MEDS ORDERED: bisacodyL 10 MG SUPP PR PRN (11:56)
[2023-08-20] MEDS ORDERED: LORazepam 0.5 MG TAB PO PRN (11:56)
[2023-08-20] MEDS ORDERED: MAGNESIUM HYDROXIDE SUSP 30 ML UDC PO PRN (11:56)
[2023-08-20] MEDS ORDERED: SOD PHOSPHATE/SOD BIPHOSPHATE ENEMA 132 ML BTL PR PRN (11:56)
[2023-08-20] MEDS ORDERED: ONDANSETRON 4 MG OD TAB PO PRN (11:56)
[2023-08-20] MEDS ORDERED: hydrOXYzine HCl 25 MG TAB PO PRN (11:56)
[2023-08-20] MEDS ORDERED: NITROGLYCERIN SL 0.4 MG/TAB TAB SL PRN (11:56)
--- NOTE | 2023-08-20 12:15 | Hospitalist Consultation ---
Date of Consultation August 20, 2023 History of Present Illness Reason for Consultation: Post-op medical management Attending Physician: Clay Cordoba DO History of Present Illness Eli is a 62 year old male with a PMH significant for previous right MCA stroke s/p carotid endarterectomy/craniectomy/cranioplasty with residual left- sided weakness, seizure disorder, HTN, dyslipidemia, CAD, and GERD who presented to the [facility] OR on 08/20/23 for scheduled L5-S1 Decompression and Fusion with Dr. Cordoba. Per the operative report, EBL was listed as "200" cc, there were no reported intraoperative complications, anesthesia type was not listed. Allergies Allergy/AdvReac Type Severity Reaction Status Date / Time fentanyl Allergy Severe NEURO Verified 08/20/23 06:37 CHANGES/Altered mental status tuberculin, purified protein Allergy Severe SWELLING/HI Verified 08/20/23 06:37 deriva VES rosuvastatin Allergy Intermediate muscle and Verified 08/20/23 06:37 joint pain sertraline Allergy Intermediate Psych Verified 08/20/23 06:37 complications Fbhzusc-DVH-BcD Reductase AdvReac Severe BODY ACHES Verified 08/20/23 06:37 Inhibitor [Ambrjua-Ghn-Kwy Reductase Inhibitor] SSRI Allergy Severe Agitated Uncoded 08/20/23 06:37 Home Medications Medication Instructions Recorded Confirmed Type aspirin 81 mg tablet,delayed 81 mg PO HS 10/14/19 08/20/23 History release docusate sodium 100 mg capsule 100 mg PO BID 10/07/20 08/20/23 History (Dulcolax Stool Softener (docusate)) polyethylene glycol 3350 17 17 g PO BID PRN Constipation 10/07/20 08/20/23 History gram/dose oral powder (Miralax) evolocumab 140 mg/mL subcutaneous 140 mg subcut .Q14D 04/01/21 08/20/23 History pen injector (Repatha SureClick) fluticasone propionate 50 2 spray intranasal DAILY PRN Nasal 04/01/21 08/20/23 History mcg/actuation nasal Congestion spray,suspension multivitamin 1 tab PO QAM 04/26/21 08/20/23 History psyllium husk 3.4 gram/5.4 gram 1 tbsp PO QAM PRN Constipation 03/16/22 08/20/23 History oral powder (Metamucil) omega-3 fatty acids 1,000 mg 1,000 mg PO BID 03/26/22 08/20/23 History capsule carboxymethylcellulose sodium 0.5 2 drp OPB TID PRN Dry Eyes 12/17/22 08/20/23 History % eye drops (Refresh Tears) mirtazapine 45 mg tablet 22.5 mg PO HS 12/17/22 08/20/23 History nitroglycerin 0.4 mg sublingual 0.4 mg sublingual DIRECTED PRN 01/17/23 08/20/23 History tablet (Nitrostat) Chest Pain bismuth subsalicylate 262 mg 2 tab PO QPM Acid Reflux 01/23/23 08/20/23 History chewable tablet (Pepto-Bismol) levetiracetam 500 mg tablet 500 mg PO BID 90 days #180 tabs 02/05/23 08/20/23 Rx (Keppra) pantoprazole 40 mg tablet,delayed 40 mg PO BID 04/13/23 08/20/23 History release carvedilol 6.25 mg tablet 6.25 mg PO BID #60 tabs 04/17/23 08/20/23 Rx pregabalin 100 mg capsule (Lyrica) 100 mg PO BID 04/18/23 08/20/23 History baclofen 20 mg tablet 20 mg PO HS 90 days #90 tabs 07/23/23 08/20/23 Rx cholecalciferol (vitamin D3) 50 50 mcg PO DAILY 08/15/23 08/20/23 History mcg (2,000 unit) capsule divalproex 250 mg tablet,delayed 250 mg PO BID 08/15/23 08/20/23 History release (Depakote) hydrocodone 5 mg-acetaminophen 325 1 tab PO TID PRN Pain 08/15/23 08/20/23 History mg tablet naloxone 4 mg/actuation nasal 4 mg intranasal Q2M PRN Other 08/15/23 08/20/23 History spray (Narcan) sennosides 8.6 mg tablet 8.6 mg PO BID Constipation 08/15/23 08/20/23 History sildenafil 100 mg tablet (Viagra) 100 mg PO DAILY PRN Other 08/15/23 08/20/23 History Patient History Medical History (Updated 08/20/23 @ 07:50 by Clay Cordoba DO) Carotid artery stenosis monitored by [place] [facility]-states is next due for imaging next year; s/p left CEA Transient ischemic attack (TIA) ~2019 prior to CVA in 2019. History of COVID-19 tested positive initially 12/17/22 at [facility] while in ER. flu like symptoms in December 2022. no current symptoms. symptoms resolved ~01/18/23. History of esophageal dilatation 02/2023-mild dysphagia, denies choking Restless leg syndrome Seizure disorder x1 2020 and x1 in 2021. no problems since starting Keppra daily. follows with [facility] Neurology Dr Deras. ESA (generalized anxiety disorder) MDD (major depressive disorder) Benign prostatic hyperplasia (BPH) with post-void dribbling Chronic pain GERD (gastroesophageal reflux disease) controlled, stable per pt Stroke with left hemiparesis 2019. reason for asa 81mg daily. 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 CAD (coronary artery disease) "Cardiac cath 2013-50% mid circumflex, 99% ostial OM1 and OM2, 70% RCA" Dyslipidemia Hypertension controlled, stable per pt Surgical History H/O excision of mass (01/30/23) Posterior Neck Soft Tissue Mass Excision - Dario Suggs DO, FACS S/P epidural steroid injection lumbar History of esophagogastroduodenoscopy (EGD) History of cardiac cath ~03/2014 at [facility]. no stents. follows with S Zehra Rubio. H/O colonoscopy History of cranioplasty 12/25/2019 (the day following patient's stroke) treated at [facility]. History of right-sided carotid endarterectomy (~02/2020) [facility] Status post craniectomy titantium placed replaced several months later at [facility]. Family History Father Diabetes Heart disease Myocardial infarction Hypertension Grandfather Diabetes Grandmother Diabetes Uncle Myocardial infarction Mother Hypertension Hiatal hernia Sister Diabetes Other No family history of adverse response to anesthesia Denies family history of Ovarian cancer Prostate cancer Breast cancer Lung cancer Colorectal cancer Stroke Social History Smoking Status: Former smoker Tobacco Type: Cigarettes Age Started Using Tobacco: 18; Age Quit Using Tobacco: 58; Cigarettes Per Day: 1-2/day many years; Smoking End Date: 2019; Second Hand Exposure: No; Do You Dip or Chew Tobacco: No; Tobacco Cessation Education Requested by Patient: No Hx Alcohol Use: Yes Alcohol type: beer Alcohol Intake Frequency: Monthly or Less Hx Substance Use: No Preferred Language: Swiss Communication Ability: Effective Visual Impairment: Limited Hearing Ability: Use of Hearing Aid Security Control Room Officer Required: No Beliefs That Will Affect Care: None marital status: Current Living Situation: Spouse Current Living Situation Comment: Lives at home with current occupational 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 How many Children do You have: 2 other: [place] receiving [facility] Feels Safe at Home: Yes Safety Concerns: Feels Safe At This Time Childhood Exposure to Second-Hand Smoke: No Diet: regular caffeine: Yes (very seldom ) during the past year weight has: increased > 10 lbs Dental Care, Regularly: Yes Physical Activity Frequency: Daily Physical Activity Frequency Comment: walks daily Seatbelt Use: always Sunscreen Use: Yes Assistive Devices: Cane and Hearing Aid - Bilateral Results & Data Results & Data Vital Signs (Past 12 Hours) Vital Signs Temp Pulse Pulse Resp BP Pulse Ox O2 Del Method 08/20/23 11:46 64 14 97/60 L 93 Room Air 08/20/23 11:05 74 12 104/68 95 Nasal Cannula 08/20/23 10:55 65 11 L 110/57 L 96 Nasal Cannula 08/20/23 10:45 62 11 L 109/68 94 Nasal Cannula 08/20/23 10:35 62 10 L 100/63 93 Nasal Cannula 08/20/23 10:25 60 11 L 113/74 94 Nasal Cannula 08/20/23 10:15 60 12 110/71 98 Nasal Cannula 08/20/23 10:06 36.1 C L 58 L 10 L 116/69 98 Nasal Cannula 08/20/23 06:23 36.7 C 74 20 129/82 97 Room Air O2 Flow Rate 08/20/23 11:46 2 08/20/23 11:05 2 08/20/23 10:55 2 08/20/23 10:45 2 08/20/23 10:35 2 08/20/23 10:25 2 08/20/23 10:15 2 08/20/23 10:06 2 08/20/23 06:23 PG Care Time/CCT Total # of Minutes Spent Total Time Spent with Patient: Total time spent is greater than 50% in coordination of care (as documented) at patient's floor/unit and/or counseling patient: Coding
[2023-08-20] MEDS ORDERED: ARTIFICIAL TEARS OPB PRN (12:38)
--- NOTE | 2023-08-20 13:14 | Pharmacy Report ---
Pharmacy Glycemic Short Note 2 - Date of Service August 20, 2023 - Glycemic Short OUTPATIENT ANTIDIABETIC REGIMEN: * N/a ASSESSMENT: * 62 year old now s/p surgery, POD 0 - pharmacy consulted for glycemic management. Last A1c 6.1% 04/2023 - indicated pre-diabetes. No home medications for diabetes listed on medication list. Will start novolog with CF only for now. Likely could d/c insulin coverage in next 24 hours if BSGs are stable. PLAN FOR INPATIENT GLYCEMIC CONTROL: * Hold outpatient oral diabetes medications * Basal insulin * Lantus - hold * Bolus insulin * NovoLog per scale ACHS or Q6hrs while NPO * Goal Range: Low 110 mg/dL - High 140 mg/dL * Correction Factor: 30 mg/dL/unit * Nutritional / Prandial insulin per carb ratio of 1 unit per -- grams CHO consumed
[2023-08-20] MEDS ORDERED: GLUCOSE 10 TAB/TUBE PO PRN (13:15)
[2023-08-20] MEDS ORDERED: GLUCAGON FOR INJ 1 MG VIAL IM PRN (13:15)
[2023-08-20] MEDS ORDERED: CARBOHYDRATES FOR HYPOGLYCEMIA PO PRN (13:15)
[2023-08-20] MEDS ORDERED: DEXTROSE 50% 50 ML SYRINGE IV PRN (13:15)
[2023-08-20] MEDS ORDERED: GLUCOSE 40% GEL 15 GM TUBE PO PRN (13:15)
[2023-08-20] MEDS: oxyCODONE HCL IR 5 MG TAB (IMMEDIATE RELEASE) PO PRN (13:42)
[2023-08-20] MEDS: BACLOFEN 10 MG TAB PO SCH (13:50)
[2023-08-20] MEDS: SODIUM CHLORIDE 0.9% 1,000 ML IV SCH (13:51)
[2023-08-20] MEDS: HYDROmorphone INJ 2 MG/ML SYR/VIAL ONE (14:08)
--- NOTE | 2023-08-20 14:42 | Anesthesiology Progress Note ---
Date of Service August 20, 2023 Anesthesia Post Procedure Vital Signs Vital Signs: Temp Pulse Pulse Resp BP Pulse Ox O2 Del Method 08/20/23 13:45 36.6 C 81 16 112/68 94 Nasal Cannula 08/20/23 13:27 75 12 100/59 L 95 Room Air 08/20/23 12:45 Room Air 08/20/23 12:36 36.4 C L 74 12 110/70 95 Nasal Cannula 08/20/23 11:46 64 14 97/60 L 93 Room Air 08/20/23 11:05 74 12 104/68 95 Nasal Cannula 08/20/23 10:55 65 11 L 110/57 L 96 Nasal Cannula 08/20/23 10:45 62 11 L 109/68 94 Nasal Cannula 08/20/23 10:35 62 10 L 100/63 93 Nasal Cannula 08/20/23 10:25 60 11 L 113/74 94 Nasal Cannula 08/20/23 10:15 60 12 110/71 98 Nasal Cannula 08/20/23 10:06 36.1 C L 58 L 10 L 116/69 98 Nasal Cannula 08/20/23 06:23 36.7 C 74 20 129/82 97 Room Air O2 Flow Rate 08/20/23 13:45 2 08/20/23 13:27 08/20/23 12:45 2 08/20/23 12:36 2 08/20/23 11:46 2 08/20/23 11:05 2 08/20/23 10:55 2 08/20/23 10:45 2 08/20/23 10:35 2 08/20/23 10:25 2 08/20/23 10:15 2 08/20/23 10:06 2 08/20/23 06:23 Pain Intensity Back: Pain Intensity: 8 Transfer of Care Handoff Completed per policy Notes Mental Status: alert / awake / arousable and participated in evaluation Patient Amnestic to Procedure: Yes Nausea / Vomiting: adequately controlled Pain: adequately controlled Airway Patency, RR, SpO2: stable & adequate BP & HR: stable & adequate Hydration State: stable & adequate Anesthetic Complications: no major complications apparent and Pt Satisfied with anesthetic care
[2023-08-20] MEDS: INSULIN ASPART PER UNIT CHARGE SC SCH (17:32)
[2023-08-20] MEDS: BISMUTH SUBSALICYLATE 262 MG CHEW PO SCH (21:37)
[2023-08-20] MEDS: ASPIRIN 81 MG ECTAB PO SCH (21:38)
[2023-08-20] MEDS: levETIRAcetam 500 MG TAB PO SCH (21:39)
[2023-08-20] MEDS: DOCUSATE SODIUM/SENNA 50/8.6MG TAB PO SCH (21:39)
[2023-08-20] MEDS: PANTOprazole 40 MG TAB PO SCH (21:39)
[2023-08-20] MEDS: DIVALPROEX DELAY RELEASE 250 MG TABEC PO SCH (21:40)
[2023-08-20] MEDS: carvediloL 6.25 MG TAB PO SCH (21:40)
[2023-08-20] MEDS: PREGABALIN 100 MG CAP PO SCH (21:54)
[2023-08-20] MEDS: MIRTAZAPINE SOLTAB 15 MG PO SCH (21:54)
[2023-08-21] MEDS: POLYETHYLENE (MIRALAX) 17 GM PACK PO SCH (05:19)
--- NOTE | 2023-08-21 07:55 | Hospitalist Progress Note ---
Date of Service August 21, 2023 Assessment & Plan (1) Neurogenic claudication due to lumbar spinal stenosis: Plan: Patient underwent L5-S1 decompression and fusion on 08/20/[address] Cordoba Postoperative acute blood loss anemia not needed transfusion with hemoglobin 11.9 (2) Stroke with left hemiparesis: Plan: Previous MCA stroke status post right carotid endarterectomy craniotomy and cranioplasty with residual persistent left hemiparesis Remains on aspirin 81 a day, hypertension control with carvedilol, dyslipidemiic control with Repatha (3) Seizure disorder: Plan: Chronic and stable seizure disorder on Keppra 500 twice daily continues (4) CAD (coronary artery disease): Plan: With stable anginal symptoms. Secondary risk factor modification for stroke is similar with medications of aspirin and carvedilol and dyslipidemic treatment (5) MDD (major depressive disorder): Plan: Patient remains on mirtazapine Plan Ordered occupational therapy at the request of case management to assist in placement Admission and Anticipated Discharge Date Admission Date: August 20, 2023 Subjective Patient seen postoperatively he is concerned he is having difficulty standing he does have good strength and sensation on confrontational testing in the room. He has no loss of bowel or bladder function. Physical Exam Physical Exam: Patient awake and alert his heart is regular lungs are clear His extremities have gross sensation intact distally to the feet Patellar reflexes are present on the left is more brisk than right (previous history of neurological defect affecting his left side) Quadricep muscles are strong of 4.5/5 Hamstring muscles are strong with 4.5/5 these are equal bilaterally Dorsiflexion and plantarflexion of his feet are also equal to 5/5 Results & Data Results & Data Vital Signs (Past 12 Hours) Vital Signs Temp Pulse Resp BP Pulse Ox O2 Del Method 08/21/23 07:45 98.8 F 88 18 116/83 91 Room Air 08/21/23 04:31 98.2 F 88 18 102/70 95 Room Air 08/20/23 23:16 98.1 F 100 H 20 109/73 92 Room Air Laboratory Results Reviewed CBC reviewed chemistry PG Care Time/CCT Total # of Minutes Spent Total Time Spent with Patient: Total time spent is greater than 50% in coordination of care (as documented) at patient's floor/unit and/or counseling patient: Coding Level of Care Code 64849 SUB INP/OBS CARE MIN Diagnoses Neurogenic claudication due to lumbar spinal stenosis M48.062 Stroke with left hemiparesis Seizure disorder G40.909 CAD (coronary artery disease) I25.10 MDD (major depressive disorder) F32.9
[2023-08-21 08:07] LABS: BUN Creatinine Ratio 14.5 (10-20); Creatinine Clr Calc Pharmacy 69.8 ml/min; Est GFR (African American) 82.4 ml/min; Est GFR (Non-African American) 71.1 ml/min; Potassium 4.2 mmol/L (3.5-5.1)
[2023-08-21 08:46] LABS: Hematocrit (blood only) 34.4 % (42.0-52.0); Hemoglobin 11.9 g/dl (14.0-18.0); Mean Corpuscular Hgb Conc 34.6 g/dL (32.0-36.0); Mean Corpuscular Volume 92.5 fL (80.0-100.0); Mean Platelet Volume 9.7 fL (9.4-12.4); Platelet Count 140 K/uL (130-400); RDW Coefficient of Variation 13.1 % (11.5-14.5); RDW Standard Deviation 43.3 fL (36.4-46.3); Red Blood Count 3.72 M/uL (4.70-6.10); White Blood Count 8.27 K/ul (4.8-10.8)
[2023-08-21] MEDS: CHOLECALCIFEROL 25 MCG (1000 UNITS) TAB PO SCH (08:51)
[2023-08-21] MEDS: dexAMETHasone 6 MG in SYRINGE 0 ML IV SCH (08:51)
[2023-08-21 09:00] LABS: Basophils # (auto) 0.02 K/uL (0.00-0.20); Basophils % (auto) 0.2 %; Eosinophils # (auto) 0.03 K/uL (0.00-0.50); Eosinophils % (auto) 0.4 %; Immature Granulocytes # (auto) 0.02 K/uL (0.01-0.20); Immature Granulocytes % (auto) 0.2 %; Lymphocytes # (auto) 2.21 K/uL (1.20-3.40); Lymphocytes % (auto) 26.7 %; Monocytes % (auto) 10.9 %; Neutrophils # (auto) 5.09 K/uL (1.40-6.50); Neutrophils % (auto) 61.6 %
--- NOTE | 2023-08-21 11:47 | Orthopedic Progress Note ---
Date of Service August 21, 2023 Assessment & Plan (1) Neurogenic claudication due to lumbar spinal stenosis: Plan: At this time we will initiate physical therapy monitor his DAMARIS output hopefully discharge home in the next few days. Admission and Anticipated Discharge Date Admission Date: August 20, 2023 Subjective Back pain is controlled denies any numbness or tingling of the legs. Physical Exam Physical Exam: Patient is currently in bed. He has good strength testing lower extremities. Results & Data Vital Signs (Past 12 Hours) Vital Signs Temp Pulse Resp BP Pulse Ox O2 Del Method 08/21/23 11:27 36.8 C 92 H 16 139/89 91 Room Air 08/21/23 07:45 37.1 C 88 18 116/83 91 Room Air 08/21/23 04:31 36.8 C 88 18 102/70 95 Room Air
--- NOTE | 2023-08-21 12:36 | Pharmacy Report ---
Pharmacy Glycemic Short Note 2 - Date of Service August 21, 2023 - Glycemic Short BSG Results (Last 24 hours): 08/20/23 08/20/23 08/21/23 16:55 21:08 07:14 Glucose 129 H POC Glucose 183 H 147 H 08/21/23 08/21/23 07:34 12:00 Glucose POC Glucose 122 H 160 H OUTPATIENT ANTIDIABETIC REGIMEN: * N/a ASSESSMENT: 08/20 * Continues with dexamethasone 6 mg IV daily. Carb ratio was added for BSG >180 mg/dL * Lunch BSG 160 mg/dL. Will monitor for today 08/19 * 62 year old now s/p surgery, POD 0 - pharmacy consulted for glycemic management. Last A1c 6.1% 04/2023 - indicated pre-diabetes. No home medications for diabetes listed on medication list. Will start novolog with CF only for now. Likely could d/c insulin coverage in next 24 hours if BSGs are stable. PLAN FOR INPATIENT GLYCEMIC CONTROL: * Hold outpatient oral diabetes medications * Basal insulin * Lantus - hold * Bolus insulin * NovoLog per scale ACHS or Q6hrs while NPO * Goal Range: Low 110 mg/dL - High 140 mg/dL * Correction Factor: 30 mg/dL/unit * Nutritional / Prandial insulin per carb ratio of 1 unit per 10 grams CHO consumed
--- NOTE | 2023-08-22 08:32 | Orthopedic Progress Note ---
Date of Service August 22, 2023 Assessment & Plan (1) Neurogenic claudication due to lumbar spinal stenosis: Plan: Zunilda is postoperative day 2 status post TLIF L5-S1. Will continue with physical therapy. I have ordered Occupational Therapy to evaluate patient as well. I feel he is a candidate for rehab for short stay before going home. Continue with pain control. Continue with aggressive bowel regimen. DVT prophylaxis is in the form of teds and SCDs. Maintain DAMARIS drain and dressing. Admission and Anticipated Discharge Date Admission Date: August 20, 2023 [place] is postoperative day 2 status post L5-S1 decompression and fusion. We have a difficult time with some back pain and soreness in changing of positions. He does have established left sided hemiparesis secondary to CVA. DAMARIS drain output last shift is 50 cc. Yesterday in physical therapy ambulating 10 feet. He is passing flatus but no bowel movement. Review of Systems Review of Systems: All systems reviewed & are unremarkable except as noted in HPI & below Physical Exam Physical Exam: He is laying in bed in no acute distress Alert and oriented x 3 Lumbar dressing is clean dry and intact with functioning DAMARIS drain Strength unchanged bilateral lower extremities Again noted left sided hemiparesis unchanged Results & Data Vital Signs (Past 12 Hours) Vital Signs Temp Pulse Resp BP Pulse Ox O2 Del Method 08/22/23 07:31 37.2 C 88 18 144/80 H 96 Room Air 08/21/23 20:44 36.9 C 89 16 119/78 95 Room Air
[2023-08-22] MEDS: HYDROmorphone INJ 0.5 MG/0.5 ML SYR IV PRN (14:51)
--- NOTE | 2023-08-22 17:10 | Hospitalist Progress Note ---
Date of Service August 22, 2023 Assessment & Plan (1) Neurogenic claudication due to lumbar spinal stenosis: Plan: Patient underwent L5-S1 decompression and fusion on 08/20/[address] Cordoba Postoperative acute blood loss anemia not needed transfusion with hemoglobin 11.9 (2) Stroke with left hemiparesis: Plan: Previous MCA stroke status post right carotid endarterectomy craniotomy and cranioplasty with residual persistent left hemiparesis Remains on aspirin 81 a day, hypertension control with carvedilol, dyslipidemiic control with Repatha (3) Seizure disorder: Plan: Chronic and stable seizure disorder on Keppra 500 twice daily continues (4) CAD (coronary artery disease): Plan: With stable anginal symptoms. Secondary risk factor modification for stroke is similar with medications of aspirin and carvedilol and dyslipidemic treatment (5) MDD (major depressive disorder): Plan: Patient remains on mirtazapine Plan Patient likely would benefit from rehabilitation placement. Admission and Anticipated Discharge Date Admission Date: August 20, 2023 Subjective Patient has complaints of not feeling his physical performance meets his expectations. He does have baseline left Miky plegia he does have improving DAMARIS drain. I concur with the orthopedic team that he would benefit from rehab prior to returning home. At this time his medical problems are stable Physical Exam Physical Exam: Patient awake and alert his heart is regular lungs are clear His extremities have gross sensation intact distally to the feet He remains with similar gross muscular testing to 1 day prior as noted. Card exam is regular lungs are clear Results & Data Results & Data Vital Signs (Past 12 Hours) Vital Signs Temp Pulse Resp BP BP Pulse Ox O2 Del Method 08/22/23 17:00 93 H 97 Room Air 08/22/23 15:48 98.6 F 91 H 18 118/73 93 Room Air 08/22/23 09:10 97 H 122/69 08/22/23 07:31 99.0 F 88 18 144/80 H 96 Room Air PG Care Time/CCT Total # of Minutes Spent Total Time Spent with Patient: Total time spent is greater than 50% in coordination of care (as documented) at patient's floor/unit and/or counseling patient: Coding Level of Care Code 03612 SUB INP/OBS CARE 2/35MIN Diagnoses Neurogenic claudication due to lumbar spinal stenosis M48.062 Stroke with left hemiparesis Seizure disorder G40.909 CAD (coronary artery disease) I25.10 MDD (major depressive disorder) F32.9
[2023-08-22] MEDS: FLUTICASONE PROPIONATE NA SPR 16 GM BTL PRN (17:13)
--- NOTE | 2023-08-23 08:16 | Orthopedic Progress Note ---
Date of Service August 23, 2023 Assessment & Plan (1) Neurogenic claudication due to lumbar spinal stenosis: Plan: At this time we will continue physical therapy as tolerated. Discontinue his drain. We will wait for rehab placement. Admission and Anticipated Discharge Date Admission Date: August 20, 2023 Subjective Patient continues to complain of back pain and difficulty with walking. He has no radicular complaints. He denies any numbness or tingling in lower extremities. Physical Exam Physical Exam: On exam he is good strength testing. He is currently in bed. Appears comfortable. Results & Data Vital Signs (Past 12 Hours) Vital Signs Temp Pulse Resp BP Pulse Ox O2 Del Method 08/23/23 07:20 36.7 C 76 16 129/78 93 Room Air
== END 2023-08-23 17:52 | DRG 454 ==
LOC: ASU 05:58 → 3N 09:57

== ENCOUNTER 2024-09-16 16:20 | Inpatient (IN) ==
--- NOTE | 2024-09-16 16:36 | Emergency Department Note ---
Impression & Plan Acute hypoxic respiratory failure, Abdominal pain, LLQ, Transaminitis, Sepsis ED Provider Note NAME: KAREN SOLORZANO AGE: 64 SEX: M : 1960 ARRIVES VIA: Walk-In INFORMANT: Patient, ED PROVIDER(S): Nelson Lala MD CHIEF COMPLAINT: Abdominal pain MEDICAL DECISION MAKING: Patient presents due to concern for abdominal pain. IV was established and blood work was obtained along with [id number] creat. CT abdomen pelvis ordered and the patient was ordered IV morphine. Deplete this is likely hemolyzed. Will await formal lab result. Patient was having some worsening pain and the patient's IV site blew over in CT patient was ordered to fentanyl IV morphine fluids as well as a dose of IV Zosyn. Initial [id number] showed hyperkalemia of 6.4 although the patient has normal kidney function The patient did receive IV morphine. The patient's blood work with a white count of 11 with a normal H&H and platelet count. The patient's lab potassium was normal. Kidney function unremarkable. Patient does have mild transaminitis with a normal bilirubin. The patient's AST and ALT have been elevated in the past. Urinalysis does not show evidence of obvious blood or infection. Mild proteinuria noted. Patient CT abdomen pelvis did not show any acute findings. I did discuss with still treat for presumptive diverticulitis which may be developing a light of the patient's symptoms and prior history. Around the time of discharge the patient was noted to be shaking concerning for rigors. Temperature checked which was unremarkable. The patient was also having borderline saturations in the mid to high 80s. Given these changes I did speak with the on-call hospitalist Dr. Jay. The patient states that he does have shortness of breath but that this is chronic. No reported cough. A chest x-ray was obtained. I did order additional IV fluids 1 L as the patient already received 1 and half liters. Blood cultures procalcitonin and lactate were also ordered. Upon reassessment the patient was feeling improved. Initial lactate of 4.9. Patient's Pro-Holland was not elevated. He had already received IV Zosyn. Critical Care: I have personally spent 41 minutes of critical care time in direct management of this patient. This includes bedside care, interpretation of diagnostic studies, and testing, discussion with consultants, patient, and family members, and other require inpatient management activities. This 41 minutes is in excess of all separately billable procedures. Discussion w/ other healthcare providers: Dr. Jay inpatient medicine service Prior /Outside records reviewed: I reviewed some of the patient's prior notes from his hospitalization in July in [place] which showed the patient did have transaminitis and elevated bilirubin although no lab values are noted. Patient reportedly did have a HIDA scan showing chronic cholecystitis for which she was treated with IV antibiotics but no cholecystectomy. I reviewed a PCP visit from Dr. Garcia from September 08. No prior history of left-sided hemiparesis and associated stroke. Since since April 2023. Patient also with lumbar spinal stenosis dyslipidemia hypertension CAD. Last nuclear stress in December 27 was negative. History of seizures on Keppra. Differential diagnosis: Appendicitis, testicular torsion, UTI, diverticulitis, obstruction, renal colic, mesenteric adenitis, enteririts, PUD, pancreatitis, biliary pathology, hernia, volvulus, constipation, as well as other pathologies were considered. Diagnostics, as interpreted by me: ECG: None Cardiac monitoring: An order was placed for continuous cardiac monitoring. The monitor shows a rate of 95 with sinus rhythm. Patient was placed on pulse oximetry Medical decision rules: None Imaging studies: I informally interpreted the patient's chest x-ray does not show evidence of obvious pneumonia, elevation of right hemidiaphragm noted with formal report to follow. HPI: Patient presents due to concern for abdominal pain. The patient states that this began around 3 PM today. The patient states that his pain has been constant but that his pain waxes and wanes. Patient does take oxycodone throughout the day for chronic pain but the patient did take some Tylenol prior to arrival and states that it has taken the edge off some. The patient does complain of diffuse discomfort. He reports that in [place] back in July she did have some sort of gallbladder infection was treated with antibiotics at that time. Patient denies any chest pains or shortness of breath. No nausea or vomiting. He has had some chills but no fever. Patient has had some increasing urinary frequency but no dysuria. Prior history of stroke and does have left- sided deficits. Patient denies any prior history of kidney stones no blood in the urine or stool. Does have a history of diverticulitis and this may feel somewhat similar. Patient states that his pain seems to be most prominent in the left lower quadrant. PAST MEDICAL HISTORY: See Below PAST SURGICAL HISTORY: See Below SOCIAL HISTORY: See Below HOME MEDICATIONS: See Below ALLERGIES: See Below VITALS: See Below PHYSICAL EXAMINATION: GENERAL: NAD, non-toxic. EYE EXAM: Normal conjunctiva. PERRL, no anisocoria and EOM's grossly intact w/o pain. OROPHARYNX: Moist mucus membranes, grossly normal dentition. NECK: Trachea midline, no stridor. LUNGS: Clear to auscultation. Normal chest wall mechanics. HEART: Tachycardic and regular, no MRG. ABDOMEN: Abdomen soft, non-tender, negative El's, diffuse abdominal pain without significant epigastric discomfort most prominent in the left lower quadrant, no masses, no rebound or guarding. BACK: No CVA TTP. SKIN: No rashes and no bruising. UPPER EXTREMITIES: Upper extremities are grossly normal. LOWER EXTREMITIES: Grossly normal, no edema. NEURO EXAM: Awake and alert, follows commands, left-sided facial droop, normal speech does not move left arm or left leg well. Past Med/Surg History Problem List (Updated 09/16/24 @ 23:18 by Nelson Lala MD) Acute hypoxic respiratory failure (Acute) Sepsis (Acute) Transaminitis (Acute) Abdominal pain, LLQ (Acute) Diabetic peripheral neuropathy Hemiparesis affecting left side as late effect of stroke 2019. reason for asa 81mg daily. Lumbosacral radiculopathy Idiopathic polyneuropathy Numbness Neurogenic claudication due to lumbar spinal stenosis Leukopenia Abnormal chest x-ray Influenza A Dysphagia Hoarse voice quality Meralgia paresthetica of right side Lower back pain (Acute) Epidermal cyst of neck Sleep disorder Chronic pain of both shoulders Tendinitis of right rotator cuff Fatigue Dyspnea Shoulder pain, left Postherpetic neuralgia Urinary incontinence Rotator cuff dysfunction Wrist drop H/O excision of mass (01/30/23) Posterior Neck Soft Tissue Mass Excision - Dario Suggs, DO, FACS Hypertension controlled, stable per pt Dyslipidemia GERD (gastroesophageal reflux disease) controlled, stable per pt Benign prostatic hyperplasia (BPH) with post-void dribbling MDD (major depressive disorder) ESA (generalized anxiety disorder) Seizure disorder x1 2020 and x1 in 2021. no problems since starting Keppra daily. follows with [facility] Neurology Dr Deras. Esophageal stenosis CAD (coronary artery disease) "Cardiac cath 2013-50% mid circumflex, 99% ostial OM1 and OM2, 70% RCA" Spinal stenosis (Chronic) Chronic pain Restless leg syndrome Medical History Pancytopenia Thrombocytopenia Encounter for pre-operative examination Abdominal pain Carotid artery stenosis [facility]states is next due for imaging next year; s/p left CEA Transient ischemic attack (TIA) ~2019 prior to CVA in 2019. History of COVID-19 tested positive initially 12/17/22 at [facility] while in ER. flu like symptoms in December 2022. no current symptoms. symptoms resolved ~01/18/23. 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 Surgical History S/P epidural steroid injection lumbar History of esophagogastroduodenoscopy (EGD) History of cardiac cath ~03/[address] [facility]. no stents. follows with [facility] Zehra Rubio. H/O colonoscopy History of cranioplasty 12/25/2019 (the day following patient's stroke) treated at [facility]. History of right-sided carotid endarterectomy (~02/2020) [facility] Status post craniectomy titantium placed replaced several months later at [facility]. Family History Father Diabetes Heart disease Myocardial infarction Hypertension Grandfather , paternal GF Diabetes Grandmother , Paternal GM Diabetes Uncle Myocardial infarction Mother Hypertension Hiatal hernia Sister Diabetes Other No family history of adverse response to anesthesia Denies family history of Ovarian cancer Prostate cancer Breast cancer Lung cancer Colorectal cancer Stroke Social History Smoking Status: Never smoker Tobacco Type: Cigarettes Age Started Using Tobacco: 18; Age Quit Using Tobacco: 58; packs per day: 0.025; Cigarettes Per Day: 1-2/day many years; Second Hand Exposure: No; Do You Dip or Chew Tobacco: No; Hx Alcohol Use: Yes Alcohol type: beer Alcohol Intake Frequency: Monthly or Less Hx Substance Use: No Preferred Language: Montenegrin Communication Ability: Effective Visual Impairment: No Limitations Hearing Ability: Use of Hearing Aid Direct Care Provider Required: No Beliefs That Will Affect Care: None marital status: Current Living Situation: Spouse Current Living Situation Comment: Lives at home with current occupational status: 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 How many Children do You have: 2 other: [place] [facility] Feels Safe at Home: Yes Childhood Exposure to Second-Hand Smoke: No Diet: regular caffeine: Yes (very seldom ) during the past year weight has: increased > 10 lbs Dental Care, Regularly: Yes Physical Activity Frequency: Daily Physical Activity Frequency Comment: walks daily Seatbelt Use: always Sunscreen Use: Yes Assistive Devices: Cane Allergies Allergies Allergy/AdvReac Type Severity Reaction Status Date / Time tuberculin, purified protein Allergy Severe SWELLING/HI Verified 09/08/24 15:49 deriva VES fentanyl AdvReac Severe NEURO Verified 09/16/24 22:47 CHANGES/Altered mental status [id number] Reductase AdvReac Severe BODY ACHES Verified 09/08/24 15:49 Inhibitor [Casohlo-Ced-Aow Reductase Inhibitor] rosuvastatin AdvReac Intermediate muscle and Verified 09/16/24 22:47 joint pain sertraline AdvReac Intermediate Psych Verified 09/16/24 22:47 complications Home Meds Home Medications Medication Instructions Recorded Confirmed aspirin 81 mg tablet,delayed 81 mg PO HS 10/14/19 09/16/24 release docusate sodium 100 mg capsule 100 mg PO BID 10/07/20 09/16/24 (Dulcolax Stool Softener (docusate)) polyethylene glycol 3350 17 17 g PO BID PRN Constipation 10/07/20 09/16/24 gram/dose oral powder (Miralax) evolocumab 140 mg/mL subcutaneous 140 mg subcut .Q14D 04/01/21 09/16/24 pen injector (Repatha SureClick) fluticasone propionate 50 2 spray intranasal HS PRN Nasal 04/01/21 09/16/24 mcg/actuation nasal Congestion spray,suspension multivitamin 1 tab PO QAM 04/26/21 09/16/24 psyllium husk 3.4 gram/5.4 gram 1 tbsp PO QAM PRN Constipation 03/16/22 09/16/24 oral powder (Metamucil) omega-3 fatty acids 1,000 mg 1,000 mg PO BID 03/26/22 09/16/24 capsule carboxymethylcellulose sodium 0.5 2 drp OPB TID PRN Dry Eyes 12/17/22 09/16/24 % eye drops (Refresh Tears) mirtazapine 45 mg tablet 22.5 mg PO HS 12/17/22 09/16/24 nitroglycerin 0.4 mg sublingual 0.4 mg sublingual DIRECTED PRN 01/17/23 09/16/24 tablet (Nitrostat) Chest Pain bismuth subsalicylate 262 mg 2 tab PO QPM Acid Reflux 01/23/23 09/16/24 chewable tablet (Pepto-Bismol) pantoprazole 40 mg tablet,delayed 40 mg PO BID 04/13/23 09/16/24 release cholecalciferol (vitamin D3) 50 50 mcg PO DAILY 08/15/23 09/16/24 mcg (2,000 unit) capsule hydrocodone 5 mg-acetaminophen 325 1 tab PO TID PRN Pain 08/15/23 09/16/24 mg tablet naloxone 4 mg/actuation nasal 4 mg intranasal Q2M PRN Other 08/15/23 09/16/24 spray (Narcan) sennosides 8.6 mg tablet 8.6 mg PO BID Constipation 08/15/23 09/16/24 sildenafil 100 mg tablet (Viagra) 100 mg PO DAILY PRN Other 08/15/23 09/16/24 pregabalin 100 mg capsule (Lyrica) 150 mg PO UD 02/26/24 09/16/24 ketamine 800 mg PO .Q OTHER DAY 09/16/24 09/16/24 Previous Rx's Medication Instructions Recorded levetiracetam 500 mg tablet 500 mg PO BID 90 days #180 tabs 02/05/23 (Keppra) carvedilol 6.25 mg tablet 6.25 mg PO BID #60 tabs 04/17/23 baclofen 20 mg tablet 20 mg PO HS 90 days #90 tabs 01/23/24 amoxicillin 875 mg-potassium 1 tab PO TID 10 days #30 tabs 09/16/24 clavulanate 125 mg tablet Results & Data (ED) Vital Signs Vital Signs - 24 hr 09/16/24 16:26 09/16/24 17:00 09/16/24 17:10 Temperature 35.9 C L Temperature Source Temporal Artery Scan Pulse Rate 121 H 95 H Pulse Rate [Apical] 98 H Respiratory Rate 13 18 17 Respiratory Effort / Characteristics Non-Labored Spontaneous Non-Labored Spontaneous Respiratory Depth Normal Normal Respiratory Pattern Blood Pressure 133/86 Blood Pressure [Right Arm] 107/75 Blood Pressure Mean 101 Blood Pressure Mean [Right Arm] 85 Blood Pressure Position [Right Arm] Semi-fowlers Pulse Oximetry 96 90 90 Oxygen Delivery Method Room Air Room Air Room Air Oxygen Flow Rate Sepsis Recent Fever Within 48 Hours No Sepsis New/Unexplained Change in Mental Status No Sepsis Action Taken by Nursing No Action Required 09/16/24 18:43 09/16/24 18:52 09/16/24 19:09 Temperature Temperature Source Pulse Rate 87 Pulse Rate [Apical] 88 Respiratory Rate 14 Respiratory Effort / Characteristics Non-Labored Spontaneous Respiratory Depth Normal Respiratory Pattern Regular Blood Pressure Blood Pressure [Right Arm] 144/85 H Blood Pressure Mean Blood Pressure Mean [Right Arm] 104 Blood Pressure Position [Right Arm] Pulse Oximetry 93 96 Oxygen Delivery Method Nasal Cannula Room Air Oxygen Flow Rate 2 Sepsis Recent Fever Within 48 Hours Sepsis New/Unexplained Change in Mental Status Sepsis Action Taken by Nursing 09/16/24 20:58 09/16/24 22:00 09/16/24 22:44 Temperature 37 C Temperature Source Oral Pulse Rate 104 H Pulse Rate [Apical] 106 H 106 H Respiratory Rate 20 16 Respiratory Effort / Characteristics Respiratory Depth Respiratory Pattern Blood Pressure Blood Pressure [Right Arm] 149/90 H 153/97 H Blood Pressure Mean Blood Pressure Mean [Right Arm] 109 115 Blood Pressure Position [Right Arm] Pulse Oximetry 88 L 96 Oxygen Delivery Method Room Air Room Air Oxygen Flow Rate Sepsis Recent Fever Within 48 Hours Sepsis New/Unexplained Change in Mental Status Sepsis Action Taken by Nursing 09/16/24 23:07 Temperature Temperature Source Pulse Rate 103 H Pulse Rate [Apical] Respiratory Rate 25 H Respiratory Effort / Characteristics Respiratory Depth Respiratory Pattern Blood Pressure 155/92 H Blood Pressure [Right Arm] Blood Pressure Mean Blood Pressure Mean [Right Arm] Blood Pressure Position [Right Arm] Pulse Oximetry 95 Oxygen Delivery Method Nasal Cannula Oxygen Flow Rate 2 Sepsis Recent Fever Within 48 Hours Sepsis New/Unexplained Change in Mental Status Sepsis Action Taken by Usp Medications Current Medication List: was personally reviewed by me Laboratory Data Attestation: I reviewed the patient's lab results. 09/16/24 16:47 09/16/24 17:29 Lab Results 09/16/24 09/16/24 09/16/24 Range/Units 16:47 16:49 17:29 WBC 11.32 H (4.8-10.8) K/ul RBC 4.98 (4.70-6.10) M/uL Hgb 16.0 (14.0-18.0) g/dl POC Hgb 16.0 (14.0-18.0) g/dl Hct 45.9 (42.0-52.0) % POC Hct 47 (42-52) % MCV 92.2 (80.0-100.0) fL MCH 32.1 (25.0-34.0) pg MCHC 34.9 (32.0-36.0) g/dL RDW Std Deviation 42.3 (36.4-46.3) fL RDW Coeff of Nessa 12.7 (11.5-14.5) % Plt Count 183 (130-400) K/uL MPV 10.4 (9.4-12.4) fL Immature Gran % (Auto) 0.4 % Neut % (Auto) 74.9 % Lymph % (Auto) 15.1 % Coffey % (Auto) 8.8 % Eos % (Auto) 0.4 % Baso % (Auto) 0.4 % Neut # (Auto) 8.48 H (1.40-6.50) K/uL Lymph # (Auto) 1.71 (1.20-3.40) K/uL Coffey # (Auto) 1.00 H (0.11-0.59) K/uL Eos # (Auto) 0.05 (0.00-0.50) K/uL Baso # (Auto) 0.04 (0.00-0.20) K/uL Immature Gran # (Auto) 0.04 (0.01-0.20) K/uL POC Sodium 137 (135-144) mmol/L Sodium Cancelled 140 POC Potassium 6.4 H* (3.3-5.0) mmol/L Potassium Cancelled 3.9 POC Chloride 101 (101-112) mmol/L Chloride Cancelled 103 Carbon Dioxide Cancelled 30 POC Total CO2 29 (24-31) mmol/L Anion Gap Cancelled 7 POC Anion Gap 15.0 L (16-25) mmol/L POC BUN 21 H (7-18) mg/dl BUN Cancelled 15 Creatinine Cancelled 1.01 POC Creatinine 1.2 (0.6-1.3) mg/dl Est Cr Clr Drug Dosing Cancelled 68.2 eGFR Cancelled 82.53 BUN/Creatinine Ratio Cancelled 14.9 Glucose Cancelled 157 H POC Glucose (other) 171 H (70-99) mg/dl Lactate (0.4-2.0) mmol/L Calcium Cancelled 8.6 POC Ioniz Calcium Dean 0.99 L (1.12-1.32) mmol/l Total Bilirubin Cancelled 0.6 AST Cancelled 68 H ALT Cancelled 55 H Alkaline Phosphatase Cancelled 61 Total Protein Cancelled 7.3 Albumin Cancelled 3.9 Globulin Cancelled 3.4 Albumin/Globulin Ratio Cancelled 1.1 Lipase Cancelled 27 Procalcitonin (0-0.5) ng/ml Urine Color Yellow Urine Appearance Cloudy A (Clear) Urine pH >= 9.0 H (4.5-7.5) Ur Specific Capron 1.021 (1.000-1.030) Urine Protein 1+ H (Negative) Urine Glucose (UA) Negative (Negative) Urine Ketones Negative (Negative) Urine Blood Negative (Negative) Urine Nitrite Negative (Negative) Urine Bilirubin Negative (Negative) Urine Urobilinogen Negative (Negative) Ur Leukocyte Esterase Negative (Negative) Urine WBC (Auto) 0-5 (0-5) /hpf Urine RBC (Auto) 0-2 (0-2) /hpf U Hyaline Cast (Auto) 0-2 (0-2) /lpf U Epithel Cells (Auto) 0-2 (0-2) /hpf Urine Bacteria (Auto) None Seen (None Seen) SARS-CoV-2 (PCR) (Negative) Influenza Type A (PCR) (Neg) Influenza Type B (PCR) (Neg) RSV (RT-PCR) (Neg) 09/16/24 09/16/24 09/16/24 Range/Units 17:30 21:10 21:55 WBC (4.8-10.8) K/ul RBC (4.70-6.10) M/uL Hgb (14.0-18.0) g/dl POC Hgb (14.0-18.0) g/dl Hct (42.0-52.0) % POC Hct (42-52) % MCV (80.0-100.0) fL MCH (25.0-34.0) pg MCHC (32.0-36.0) g/dL RDW Std Deviation (36.4-46.3) fL RDW Coeff of Nessa (11.5-14.5) % Plt Count (130-400) K/uL MPV (9.4-12.4) fL Immature Gran % (Auto) % Neut % (Auto) % Lymph % (Auto) % Coffey % (Auto) % Eos % (Auto) % Baso % (Auto) % Neut # (Auto) (1.40-6.50) K/uL Lymph # (Auto) (1.20-3.40) K/uL Coffey # (Auto) (0.11-0.59) K/uL Eos # (Auto) (0.00-0.50) K/uL Baso # (Auto) (0.00-0.20) K/uL Immature Gran # (Auto) (0.01-0.20) K/uL POC Sodium (135-144) mmol/L Sodium POC Potassium (3.3-5.0) mmol/L Potassium POC Chloride (101-112) mmol/L Chloride Carbon Dioxide POC Total CO2 (24-31) mmol/L Anion Gap POC Anion Gap (16-25) mmol/L POC BUN (7-18) mg/dl BUN Creatinine POC Creatinine (0.6-1.3) mg/dl Est Cr Clr Drug Dosing eGFR BUN/Creatinine Ratio Glucose POC Glucose (other) (70-99) mg/dl Lactate 4.9 H* (0.4-2.0) mmol/L Calcium POC Ioniz Calcium Dean (1.12-1.32) mmol/l Total Bilirubin AST ALT Alkaline Phosphatase Total Protein Albumin Globulin Albumin/Globulin Ratio Lipase Procalcitonin 0.15 (0-0.5) ng/ml Urine Color Urine Appearance (Clear) Urine pH (4.5-7.5) Ur Specific Capron (1.000-1.030) Urine Protein (Negative) Urine Glucose (UA) (Negative) Urine Ketones (Negative) Urine Blood (Negative) Urine Nitrite (Negative) Urine Bilirubin (Negative) Urine Urobilinogen (Negative) Ur Leukocyte Esterase (Negative) Urine WBC (Auto) (0-5) /hpf Urine RBC (Auto) (0-2) /hpf U Hyaline Cast (Auto) (0-2) /lpf U Epithel Cells (Auto) (0-2) /hpf Urine Bacteria (Auto) (None Seen) SARS-CoV-2 (PCR) NEGATIVE (Negative) Influenza Type A (PCR) Negative (Neg) Influenza Type B (PCR) Negative (Neg) RSV (RT-PCR) Negative (Neg) Administered Medications Lactated Ringer's (Lr) 1,000 mls @ 999 mls/hr IV .Q1H1M STA Stop: 09/16/24 23:47 Last Admin: 09/16/24 22:53 Dose: 999 mls/hr Documented By: MED Discontinued Medications Amoxicillin/Clavulanate Potassium (Amoxicillin/Clavulanate 875mg Home Pack) 1 each PO ONE ONE Stop: 09/16/24 20:32 Last Admin: 09/16/24 22:18 Dose: Not Given Documented By: MED Sodium Chloride (Nss) 1,000 mls @ 999 mls/hr IV .Q1H1M STA Stop: 09/16/24 17:48 Last Admin: 09/16/24 16:58 Dose: Not Given Documented By: SYDNEE Sodium Chloride (Nss) 1,000 mls @ 999 mls/hr IV .Q1H1M ONE Stop: 09/16/24 17:48 Last Infusion: 09/16/24 19:34 Dose: Infused Documented By: boat detailer: 09/16/24 16:59 Dose: 999 mls/hr Documented By: LKLillie Sodium Chloride (Nss) 500 mls @ 999 mls/hr IV .Q31M ONE Stop: 09/16/24 18:27 Last Admin: 09/16/24 21:13 Dose: Not Given Documented By: MED Piperacillin Sod/Tazobactam Sod (Zosyn) 4.5 gm in 100 mls @ 200 mls/hr IV NOW ONE; Protocol Stop: 09/16/24 18:26 Last Infusion: 09/16/24 19:34 Dose: Infused Documented By: boat detailer: 09/16/24 18:47 Dose: 200 mls/hr Documented By: AMS Sodium Chloride (Nss) 1,000 mls @ 999 mls/hr IV .Q1H1M ONE Stop: 09/16/24 22:08 Last Admin: 09/16/24 21:13 Dose: 999 mls/hr Documented By: AMELIE Ioversol (Optiray 320 100ml) 93 ml IV ONCE ONE Stop: 09/16/24 17:41 Last Admin: 09/16/24 17:40 Dose: 93 ml Documented By: RIOS Morphine Sulfate (Morphine Sulfate 4 Mg/Ml 1 Ml Carp\\Vial) 4 mg IV NOW STA Stop: 09/16/24 16:49 Last Admin: 09/16/24 16:58 Dose: 4 mg Documented By: ONEALD Morphine Sulfate (Morphine Sulfate 4 Mg/Ml 1 Ml Carp\\Vial) 4 mg IV NOW STA Stop: 09/16/24 17:58 Last Admin: 09/16/24 18:16 Dose: 4 mg Documented By: LAMONT Imaging Data Radiologist's Impression: Abdomen/Pelvis CT 09/16/24 16:48 EXAMINATION: CT of the abdomen and pelvis performed after the administration of IV contrast TECHNIQUE: Helical CT images from the lung bases through the symphysis pubis were obtained with contrast. Coronal and sagittal reformatted images were generated at a workstation for further assessment. Dose reduction techniques were achieved by using automatic exposure control and/or adjustment of mA and/or kV according to patient size and/or use of iterative reconstruction technique. COMPARISON: 01/17/2023 HISTORY: Abdominal pain FINDINGS: Lower chest: No consolidation. No pleural effusion or pneumothorax. Liver: No suspicious liver lesions. Portal veins appear patent. Gallbladder: There are a few scattered small gallstones. No evidence of acute cholecystitis. Spleen: Normal size. Pancreas: No suspicious pancreatic lesions. The pancreatic duct is not dilated. Adrenal glands: No adrenal nodules. Kidneys: No hydronephrosis or obstructing renal stones. Bladder / Pelvic organs: Unremarkable. Bowel: No bowel obstruction. No abnormal bowel wall thickening. The appendix is unremarkable. Mild to moderate colonic stool. Lymph nodes: No retroperitoneal, mesenteric, or pelvic lymphadenopathy. Peritoneum / Retroperitoneum: No free fluid or air within the abdomen. Vessels: No infrarenal aortic aneurysm. Moderate aortoiliac calcification. Bones and soft tissues: No suspicious lesion in the bones. Fixation and laminectomy changes is seen of the lumbar spine. L5-S1 disc spacer device. Grade 1/2 L5 anterolisthesis. IMPRESSION: No acute process Electronically signed by SotoCholoazeemshannon 09-16-2024 7:23 PM Discharge Plan Visit Data Chief Complaint: Abdominal Pain Stated Complaint: AVDOMINAL PAIN ED Provider: Nelson Lala Discharge Problem: Acute hypoxic respiratory failure, Abdominal pain, LLQ, Transaminitis, Sepsis Patient Disposition: Home - Self-Care Condition: Fair Discharge Instructions Activity Restrictions/Additional Instructions: Please return to the emergency department if you have worsening or recurrent symptoms not amenable to at-home treatment. Please call for a follow-up appointment with her primary care physician. Please take your medications as prescribed. If you have other concerns and/or complaints please feel free to also call your primary care physician's office or return the ED for further evaluation, management, and treatment. Take your medications as prescribed. You were noted to have a slight transaminitis elevation in AST and ALT which are liver function test. You did have this before. He did have slight protein in the urine. You have had this in the past. If taking an antibiotic consider taking a probiotic and/or eating yogurt, but at the least, please take with food as it can cause upset stomach. You have been examined and treated today on an emergency basis only. This is not a substitute for, or an effort to provide, complete comprehensive medical care. It is impossible to recognize and treat all injuries or illnesses in a single emergency department visit. It is therefore important that you follow up closely with [facility], your PCP, and/or your specialist(s). Call as soon as possible for an appointment. Interventions: ED Discharge Assessment Last Done: 09/16/24 23:07 Forms Stand Alone Forms: My [facility], Important Visit Information Prescriptions Prescriptions: New amoxicillin-pot clavulanate 875-125 mg tablet 1 tab PO TID 10 Days Qty: 30 0RF No Action levetiracetam [Keppra] 500 mg tablet 500 mg PO BID 90 Days Qty: 180 1RF hydrocodone-acetaminophen 5-325 mg tablet 1 tab PO TID PRN (Reason: Pain) Patient Comments: cholecalciferol (vitamin D3) 50 mcg (2,000 unit) capsule 50 mcg PO DAILY sennosides 8.6 mg tablet 8.6 mg PO BID sildenafil [Viagra] 100 mg tablet 100 mg PO DAILY PRN (Reason: Other) Rx Instructions: administer 30 minutes to 4 hours before activity naloxone [Narcan] 4 mg/actuation spray,non-aerosol 4 mg intranasal Q2M PRN (Reason: Other) Rx Instructions: spray 1 dose into ONE nostril; alternate nostrils w each dose until help arrives baclofen 20 mg tablet 20 mg PO HS 90 Days Qty: 90 1RF polyethylene glycol 3350 [Miralax] 17 gram/dose powder 17 g PO BID PRN (Reason: Constipation) docusate sodium [Dulcolax Stool Softener (dss)] 100 mg capsule 100 mg PO BID multivitamin Tablet 1 tab PO QAM Metamucil 3.4 gram/5.4 gram powder 1 tbsp PO QAM PRN (Reason: Constipation) Rx Instructions: mix into at least 8 oz of water or juice before administering pregabalin [Lyrica] 100 mg capsule 150 mg PO UD Rx Instructions: 225mg in morning and 300mg hs aspirin 81 mg Tablet,Delayed Release (Dr/Ec) 81 mg PO HS fluticasone propionate 50 mcg/actuation spray,suspension 2 spray INTRANASAL HS PRN (Reason: Nasal Congestion) Repatha SureClick 140 mg/mL pen injector 140 mg SUBCUT .Q14D Rx Instructions: Every other Sunday bismuth subsalicylate [Pepto-Bismol] 262 mg Tablet,Chewable 2 tab PO QPM nitroglycerin [Nitrostat] 0.4 mg tablet, sublingual 0.4 mg sublingual DIRECTED PRN (Reason: Chest Pain) Rx Instructions: 1 tab q5min prn chest pain; max 3 in 15 minutes. pantoprazole 40 mg tablet,delayed release (DR/EC) 40 mg PO BID carvedilol 6.25 mg tablet 6.25 mg PO BID Qty: 60 0RF Rx Instructions: must administer with a meal/food omega-3 fatty acids 1,000 mg Capsule 1,000 mg PO BID carboxymethylcellulose sodium [Refresh Tears] 0.5 % drops 2 drp OPB TID PRN (Reason: Dry Eyes) mirtazapine 45 mg Tablet 22.5 mg PO HS ketamine 800 mg PO .Q OTHER DAY Referrals Referrals: Dago Garcia DO [Primary Care Provider] - Discharge Problem: Sepsis Qualifiers: Sepsis type: sepsis due to unspecified organism Sepsis acute organ dysfunction status: with acute organ dysfunction Severe sepsis acute organ dysfunction type: acute respiratory failure Acute respiratory failure type: with hypoxia Severe sepsis shock status: without septic shock Qualified Code(s): A41.9 - Sepsis, unspecified organism; R65.20 - Severe sepsis without septic shock; J96.01 - Acute respiratory failure with hypoxia
[2024-09-16] MEDS: SODIUM CHLORIDE 0.9% 1,000 ML IV STA (16:58)
[2024-09-16] MEDS: MoRPHine SULFATE 4 MG/ML 1 ML CARP\\VIAL IV STA ×2 (16:58→18:16)
[2024-09-16] MEDS: SODIUM CHLORIDE 0.9% 1,000 ML IV ONE ×2 (16:59→21:13)
[2024-09-16 17:02] LABS: Basophils # (auto) 0.04 K/uL (0.00-0.20); Basophils % (auto) 0.4 %; Eosinophils # (auto) 0.05 K/uL (0.00-0.50); Eosinophils % (auto) 0.4 %; Hematocrit (blood only) 45.9 % (42.0-52.0); Immature Granulocytes # (auto) 0.04 K/uL (0.01-0.20); Immature Granulocytes % (auto) 0.4 %; Lymphocytes # (auto) 1.71 K/uL (1.20-3.40); Lymphocytes % (auto) 15.1 %; Mean Corpuscular Hemoglobin 32.1 pg (25.0-34.0); Mean Corpuscular Hgb Conc 34.9 g/dL (32.0-36.0); Mean Corpuscular Volume 92.2 fL (80.0-100.0); Mean Platelet Volume 10.4 fL (9.4-12.4); Monocytes % (auto) 8.8 %; Neutrophils # (auto) 8.48 K/uL (1.40-6.50); Neutrophils % (auto) 74.9 %; Platelet Count 183 K/uL (130-400); RDW Coefficient of Variation 12.7 % (11.5-14.5); RDW Standard Deviation 42.3 fL (36.4-46.3); Red Blood Count 4.98 M/uL (4.70-6.10); White Blood Count 11.32 K/ul (4.8-10.8)
[2024-09-16 17:06] LABS: iSTAT Creatinine 1.2 mg/dl (0.6-1.3); iSTAT Ionized Calcium 0.99 mmol/l (1.12-1.32); iSTAT Potassium 6.4 mmol/L (3.3-5.0)
[2024-09-16 17:14] LABS: Appearance Urine Cloudy (Clear); Bacteria Urine Automated None Seen (None Seen); Bilirubin Urine Negative (Negative); Blood Urine Negative (Negative); Cast Urine Automated 0-2 /lpf (0-2); Color Urine Yellow; Epithelial Cell Urine Auto 0-2 /hpf (0-2); Glucose Urine UA Negative (Negative); Ketones Urine Negative (Negative); Leukocyte Esterase Urine Negative (Negative); Nitrite Urine Negative (Negative); Protein Urine 1+ (Negative); RBC Urine Automated 0-2 /hpf (0-2); Specific Gravity Urine 1.021 (1.000-1.030); Urobilinogen Urine Negative (Negative); WBC Urine Automated 0-5 /hpf (0-5); pH Urine >= 9.0 (4.5-7.5)
[2024-09-16] MEDS: OPTIRAY 320 100ml IV ONE (17:40)
[2024-09-16 18:00] LABS: Albumin Globulin Ratio 1.1 (0.9-2); Albumin Level 3.9 gm/dl (3.4-5.0); BUN Creatinine Ratio 14.9 (10-20); Bilirubin,Total 0.6 mg/dl (0.2-1.0); Calcium 8.6 mg/dl (8.6-10.3); Creatinine Clr Calc Pharmacy 68.2 ml/min; Globulin 3.4 gm/dl (2.5-4.0); Potassium 3.9 mmol/L (3.5-5.1); Total Protein 7.3 gm/dl (6.0-8.3)
[2024-09-16] MEDS: PIPERACILLIN/TAZOBACTAM 4.5 GM/100 ML BAG IV ONE (18:47)
--- NOTE | 2024-09-16 19:24 | CT Scan Report ---
EXAMINATION: CT of the abdomen and pelvis performed after the administration of IV contrast TECHNIQUE: Helical CT images from the lung bases through the symphysis pubis were obtained with contrast. Coronal and sagittal reformatted images were generated at a workstation for further assessment. Dose reduction techniques were achieved by using automatic exposure control and/or adjustment of mA and/or kV according to patient size and/or use of iterative reconstruction technique. COMPARISON: 01/17/2023 HISTORY: Abdominal pain FINDINGS: Lower chest: No consolidation. No pleural effusion or pneumothorax. Liver: No suspicious liver lesions. Portal veins appear patent. Gallbladder: There are a few scattered small gallstones. No evidence of acute cholecystitis. Spleen: Normal size. Pancreas: No suspicious pancreatic lesions. The pancreatic duct is not dilated. Adrenal glands: No adrenal nodules. Kidneys: No hydronephrosis or obstructing renal stones. Bladder / Pelvic organs: Unremarkable. Bowel: No bowel obstruction. No abnormal bowel wall thickening. The appendix is unremarkable. Mild to moderate colonic stool. Lymph nodes: No retroperitoneal, mesenteric, or pelvic lymphadenopathy. Peritoneum / Retroperitoneum: No free fluid or air within the abdomen. Vessels: No infrarenal aortic aneurysm. Moderate aortoiliac calcification. Bones and soft tissues: No suspicious lesion in the bones. Fixation and laminectomy changes is seen of the lumbar spine. L5-S1 disc spacer device. Grade 1/2 L5 anterolisthesis. IMPRESSION: No acute process Electronically signed by Flex Soto 09-16-2024 7:23 PM
[2024-09-16] MEDS: SODIUM CHLORIDE 0.9% 500 ML IV ONE (21:13)
--- NOTE | 2024-09-16 21:33 | History & Physical Report ---
Date of Service September 16, 2024 Assessment & Plan (1) Sepsis: (2) Abdominal pain: (3) Acute hypoxic respiratory failure: Plan 64-year-old male PMHx HTN, dyslipidemia, CAD, GERD, seizure disorder, dysphagia, ESA, MDD, history of CVA with left-sided deficits, spinal stenosis, and dyspnea presenting for worsening abdominal pain starting at 1500 hrs the day of arrival. ED evaluation reveals leukocytosis 11.32; CMP grossly WNL with exception of glucose 157, AST 68, ALT 55; Pro-Holland pending; COVID/Flu/RSV negative; UA negative for infection; CTAP without acute findings; CXR pending; EKG NSR at 98 bpm.; Provided with 2L NSS, morphine sulfate 4 mg IV x 2, and Zosyn 4.5 g IV in ED. #Sepsis Presenting with abdominal pain. Unclear source; prior history of diverticulitis, presence of gallstones, and bacteremia ~ 2 months ago in [place]. SIRS criteria met for T (35.9C) and HR (121). Abdominal pain, rigors, mild cough. BP stable, not hypotensive. Likely source ? intraabdominal, bacteremia; will treat as diverticulitis unless addition source identified. - CBC 11.32; CMP without gross electrolyte abnormalities but LFTs AST/ALT 68/55; Procal 0.15; Lactate 4.9 - CBC, BMP am - Pending blood cultures - MRSA nares pending - COVID/Flu/RSV negative - UA without acute findings - EKG NSR at 98 bpm - Full liquid diet for now - CXR appears to have elevated R diaphragm, pending official read - CTAP without acute findings - Guideline 30mL/kg IVF given for lactate > 4 (4.9 at admission) -- Goal 2,018 mL -- received total 3L IVF in ED --> Repeat lactate pending following completion IVF - Morphine IV prn pain - Zofran IV prn N/V - Continue Zosyn IV -- adjust abx as appropriate #Acute hypoxic resp failure Presenting w/ abdominal pain, but did become hypoxic throughout ED evaluation, with O2 sats dropping to 90% on room air, requiring 2L O2 via NC to achieve 95% currently on RA. No O2 at baseline. - CBC with mild leukocytosis 11.32 - COVID/Flu/RSV negative - CXR pending official read - No O2 at baseline; O2 prn; Wean as patient tolerates - DuoNebs prn #History of CVA- 04/2020; RMCA s/p carotid endarterectomy, craniectomy, cranioplasty and has left-sided deficits; ASA - continue #HTN- Carvedilol - continue given stable BP at admission #CAD/Dyslipidemia- Follows with [facility] cardiology, most recent visit being July 2023; Statin intolerance- Repatha q2wk #Seizure disorder- Stable; Keppra - continue #Anxiety/MDD- Follows with psychiatry; Mirtazapine - continue #Spinal stenosis/MSK- Baclofen, hydro-acet. (HELD at admission, giving morphine), pregabalin - continue baclofen + pregabalin #GERD- Pepto-Bismol, pantoprazole - continue #Constipation- Docusate, MiraLAX, psyllium husk, sennosides - continue Dispo: Admit, PCU VTE Prophylaxis: SCDs This document was dictated utilizing [employer]. Please excuse any grammatical errors that may be secondary to use of this software. Admission and Anticipated Discharge Date Admission Date: 09/16/2024 History of Present Illness Chief Complaint: Abdominal pain Primary Care Provider: Dago Garcia, 64-year-old male PMHx HTN, dyslipidemia, CAD, GERD, seizure disorder, dysphagia, ESA, MDD, history of CVA with left-sided deficits, spinal stenosis, and dyspnea presenting for worsening abdominal pain starting at 1500 hrs the day of arrival. Patient states for the past 3 weeks he has had worsening abdominal pain. Approximately 2 weeks ago he was in a [place] hospital and was treated for gallstones which caused him significant pain and also had bacteremia at that time which required IV antibiotics. States that this pain is slightly different whereas it is more diffuse and a dull pain with occasional sharp pain that comes and goes mainly at the middle of his abdomen. States that the pain increase in severity at 1500 on the day of arrival which prompted his arrival to the ED. Rates the pain at its maximum a 9 out of 10 on the pain scale and the current pain is in his central abdomen also at a 9 out of 10 on the pain scale. States that he has been shaking nonstop since the morning of arrival. Did have some SOB today and has an occasional cough with clear sputum production, but otherwise no infectious symptoms. No fevers. History of stroke in 2019 also with history of Yanes's palsy and does have L sided deficits from prior CVA. is in room at time of visit and states that the patient appears to be slightly delirious. He had some weakness the morning of arrival and felt as though his legs were going to give out on him but he did not pass out. He has n o other complaints to include chest pain, palpitations, nausea/vomiting/diarrhea/constipation, numbness/tingling, LUTS, URI symptoms, or syncope. Patient has had rigors with prior diverticulitis, stating this feels similar to prior diverticulitis. ED evaluation reveals leukocytosis 11.32; CMP grossly WNL with exception of glucose 157, AST 68, ALT 55; Pro-Holland 0.15; lactate 4.9; MRSA nares pending; COVID/Flu/RSV negative; UA negative for infection; CTAP without acute findings; CXR pending; EKG NSR at 98 bpm.; Provided with 2.5L NSS, morphine sulfate 4 mg IV x 2, and Zosyn 4.5 g IV in ED. Please see Dr. Jay's attestation for adjustments/additions to treatment plan. Allergies Allergy/AdvReac Type Severity Reaction Status Date / Time tuberculin, purified protein Allergy Severe SWELLING/HI Verified 09/08/24 15:49 deriva VES fentanyl AdvReac Severe NEURO Verified 09/16/24 22:47 CHANGES/Altered mental status Ohkwfcc-NWD-TfR Reductase AdvReac Severe BODY ACHES Verified 09/08/24 15:49 Inhibitor [Jpzbztc-Cxe-Ptw Reductase Inhibitor] rosuvastatin AdvReac Intermediate muscle and Verified 09/16/24 22:47 joint pain sertraline AdvReac Intermediate Psych Verified 09/16/24 22:47 complications Home Medications Medication Instructions Recorded Confirmed Type aspirin 81 mg tablet,delayed 81 mg PO HS 10/14/19 09/16/24 History release docusate sodium 100 mg capsule 100 mg PO BID 10/07/20 09/16/24 History (Dulcolax Stool Softener (docusate)) polyethylene glycol 3350 17 17 g PO BID PRN Constipation 10/07/20 09/16/24 History gram/dose oral powder (Miralax) evolocumab 140 mg/mL subcutaneous 140 mg subcut .Q14D 04/01/21 09/16/24 History pen injector (Katelin Neri) fluticasone propionate 50 2 spray intranasal HS PRN Nasal 04/01/21 09/16/24 Hi story mcg/actuation nasal Congestion spray,suspension multivitamin 1 tab PO QAM 04/26/21 09/16/24 History psyllium husk 3.4 gram/5.4 gram 1 tbsp PO QAM PRN Constipation 03/16/22 09/16/24 History oral powder (Metamucil) omega-3 fatty acids 1,000 mg 1,000 mg PO BID 03/26/22 09/16/24 History capsule carboxymethylcellulose sodium 0.5 2 drp OPB TID PRN Dry Eyes 12/17/22 09/16/24 History % eye drops (Refresh Tears) mirtazapine 45 mg tablet 22.5 mg PO HS 12/17/22 09/16/24 History nitroglycerin 0.4 mg sublingual 0.4 mg sublingual DIRECTED PRN 01/17/23 09/16/24 History tablet (Nitrostat) Chest Pain bismuth subsalicylate 262 mg 2 tab PO QPM Acid Reflux 01/23/23 09/16/24 History chewable tablet (Pepto-Bismol) levetiracetam 500 mg tablet 500 mg PO BID 90 days #180 tabs 02/05/23 09/16/24 Rx (Keppra) pantoprazole 40 mg tablet,delayed 40 mg PO BID 04/13/23 09/16/24 History release carvedilol 6.25 mg tablet 6.25 mg PO BID #60 tabs 04/17/23 09/16/24 Rx cholecalciferol (vitamin D3) 50 50 mcg PO DAILY 08/15/23 09/16/24 History mcg (2,000 unit) capsule hydrocodone 5 mg-acetaminophen 325 1 tab PO TID PRN Pain 08/15/23 09/16/24 H istory mg tablet naloxone 4 mg/actuation nasal 4 mg intranasal Q2M PRN Other 08/15/23 09/16/24 History spray (Narcan) sennosides 8.6 mg tablet 8.6 mg PO BID Constipation 08/15/23 09/16/24 History sildenafil 100 mg tablet (Viagra) 100 mg PO DAILY PRN Other 08/15/23 09/16/24 History baclofen 20 mg tablet 20 mg PO HS 90 days #90 tabs 01/23/24 09/16/24 Rx pregabalin 100 mg capsule (Lyrica) 150 mg PO UD 02/26/24 09/16/24 History amoxicillin 875 mg-potassium 1 tab PO TID 10 days #30 tabs 09/16/24 Rx clavulanate 125 mg tablet ketamine 800 mg PO .Q OTHER DAY 09/16/24 09/16/24 History Past Med/Surg History Problem List (Updated 09/16/24 @ 23:18 by Nelson Lala MD) Acute hypoxic respiratory failure (Acute) Sepsis (Acute) Transaminitis (Acute) Abdominal pain, LLQ (Acute) Diabetic peripheral neuropathy Hemiparesis affecting left side as late effect of stroke 2019. reason for asa 81mg daily. Lumbosacral radiculopathy Idiopathic polyneuropathy Numbness Neurogenic claudication due to lumbar spinal stenosis Leukopenia Abnormal chest x-ray Influenza A Dysphagia Hoarse voice quality Meralgia paresthetica of right side Lower back pain (Acute) Epidermal cyst of neck Sleep disorder Chronic pain of both shoulders Tendinitis of right rotator cuff Fatigue Dyspnea Shoulder pain, left Postherpetic neuralgia Urinary incontinence Rotator cuff dysfunction Wrist drop H/O excision of mass (01/30/23) Posterior Neck Soft Tissue Mass Excision - Dario Suggs, DO, FACS Hypertension controlled, stable per pt Dyslipidemia GERD (gastroesophageal reflux disease) controlled, stable per pt Benign prostatic hyperplasia (BPH) with post-void dribbling MDD (major depressive disorder) ESA (generalized anxiety disorder) Seizure disorder x1 2020 and x1 in 2021. no problems since starting Keppra daily. follows with [facility] Neurology Dr Deras. Esophageal stenosis CAD (coronary artery disease) "Cardiac cath 2013-50% mid circumflex, 99% ostial OM1 and OM2, 70% RCA" Spinal stenosis (Chronic) Chronic pain Restless leg syndrome Medical History Pancytopenia Thrombocytopenia Encounter for pre-operative examination Abdominal pain Carotid artery stenosis monitored by [facility]-states is next due for imaging next year; s/p left CEA Transient ischemic attack (TIA) ~2019 prior to CVA in 2019. History of COVID-19 tested positive initially 12/17/22 at [facility] while in ER. flu like symptoms in December 2022. no current symptoms. symptoms resolved ~01/18/23. 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 Surgical History S/P epidural steroid injection lumbar History of esophagogastroduodenoscopy (EGD) History of cardiac cath ~03/2014 at [facility]. no stents. follows with [facility] Zehra Rubio. H/O colonoscopy History of cranioplasty 12/25/2019 (the day following patient's stroke) treated at [facility] [place]. History of right-sided carotid endarterectomy (~02/2020) [facility] [place] Status post craniectomy titantium placed replaced several months later at [facility] [place]. Family History Father Diabetes Heart disease Myocardial infarction Hypertension Grandfather , paternal GF Diabetes Grandmother , Paternal GM Diabetes Uncle Myocardial infarction Mother Hypertension Hiatal hernia Sister Diabetes Other No family history of adverse response to anesthesia Denies family history of Ovarian cancer Prostate cancer Breast cancer Lung cancer Colorectal cancer Stroke Social History Smoking Status: Never smoker Tobacco Type: Cigarettes Age Started Using Tobacco: 18; Age Quit Using Tobacco: 58; packs per day: 0.025; Cigarettes Per Day: 1-2/day many years; Second Hand Exposure: No; Do You Dip or Chew Tobacco: No; Hx Alcohol Use: Yes Alcohol type: beer Alcohol Intake Frequency: Monthly or Less Hx Substance Use: No Preferred Language: Swedish Communication Ability: Effective Visual Impairment: No Limitations Hearing Ability: Use of Hearing Aid Community Youth Secretary Required: No Beliefs That Will Affect Care: None marital status: Current Living Situation: Spouse Current Living Situation Comment: Lives at home with current occupational status: 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 How many Children do You have: 2 other: [place] [facility] Feels Safe at Home: Yes Childhood Exposure to Second-Hand Smoke: No Diet: regular caffeine: Yes (very seldom ) during the past year weight has: increased > 10 lbs Dental Care, Regularly: Yes Physical Activity Frequency: Daily Physical Activity Frequency Comment: walks daily Seatbelt Use: always Sunscreen Use: Yes Assistive Devices: Cane Review of Systems Review of Systems: All systems reviewed & are unremarkable except as noted in Subjective Physical Exam Physical Exam: General: Appears uncomfortable, rigors Skin: Warm and dry Head: Normocephalic, atraumatic Eyes: PERRL, conjunctivae clear, sclera non-icteric ENT: External ear and ear canal without swelling; nose atraumatic; fair dentition, tongue normal appearance, pharynx normal Neck: Supple, no LAD Cardio: RRR, no M/G/R, S1 and S2 normal Resp: No respiratory distress, Lungs CTA in all lobes bilaterally, no wheezes, rales, or rhonchi Abdomen: Soft, symmetric, tender to palpation throughout; no peritoneal signs; no masses or hepatosplenomegaly; Bowel sounds normoactive MSK: L sided facial droop as a result of prior CVA; no new neuro deficits; pulses palpable and equal; no edema. Neuro: Awake, alert; Sensation intact bilaterally; CN grossly intact Psych: Alert to place and person, states date is December 1998 but able to tell me that he is at the [facility] hospital. is present in room at time of visit. Results & Data Results & Data Vital Signs (Past 12 Hours) Vital Signs Temp Pulse Pulse Resp BP BP Pulse Ox 09/16/24 20:58 37 C 106 H 20 149/90 H 95 09/16/24 19:09 88 14 144/85 H 96 09/16/24 18:52 87 09/16/24 18:43 93 09/16/24 17:10 95 H 17 90 09/16/24 17:00 98 H 18 107/75 90 09/16/24 16:26 35.9 C L 121 H 13 133/86 96 O2 Del Method O2 Flow Rate 09/16/24 20:58 Room Air 09/16/24 19:09 Room Air 09/16/24 18:52 09/16/24 18:43 Nasal Cannula 2 09/16/24 17:10 Room Air 09/16/24 17:00 Room Air 09/16/24 16:26 Room Air Laboratory Results 09/16/24 09/16/24 09/16/24 17:29 16:49 16:47 WBC 11.32 H RBC 4.98 Hgb 16.0 POC Hgb 16.0 Hct 45.9 POC Hct 47 MCV 92.2 MCH 32.1 MCHC 34.9 RDW Std Deviation 42.3 RDW Coeff of Nessa 12.7 Plt Count 183 MPV 10.4 Immature Gran % (Auto) 0.4 Neut % (Auto) 74.9 Lymph % (Auto) 15.1 [place] % (Auto) 8.8 Eos % (Auto) 0.4 Baso % (Auto) 0.4 Neut # (Auto) 8.48 H Lymph # (Auto) 1.71 [place] # (Auto) 1.00 H Eos # (Auto) 0.05 Baso # (Auto) 0.04 Immature Gran # (Auto) 0.04 POC Sodium 137 Sodium 140 Cancelled POC Potassium 6.4 H* Potassium 3.9 Cancelled POC Chloride 101 Chloride 103 Cancelled Carbon Dioxide 30 Cancelled POC Total CO2 29 Anion Gap 7 Cancelled POC Anion Gap 15.0 L POC BUN 21 H BUN 15 Cancelled Creatinine 1.01 Cancelled POC Creatinine 1.2 Est Cr Clr Drug Dosing 68.2 Cancelled eGFR 82.53 Cancelled BUN/Creatinine Ratio 14.9 Cancelled Glucose 157 H Cancelled POC Glucose (other) 171 H Calcium 8.6 Cancelled POC Ioniz Calcium Dean 0.99 L Total Bilirubin 0.6 Cancelled AST 68 H Cancelled ALT 55 H Cancelled Alkaline Phosphatase 61 Cancelled Total Protein 7.3 Cancelled Albumin 3.9 Cancelled Globulin 3.4 Cancelled Albumin/Globulin Ratio 1.1 Cancelled Lipase 27 Cancelled Urine Color Yellow Urine Appearance Cloudy A Urine pH >= 9.0 H Ur Specific Sinclair 1.021 Urine Protein 1+ H Urine Glucose (UA) Negative Urine Ketones Negative Urine Blood Negative Urine Nitrite Negative Urine Bilirubin Negative Urine Urobilinogen Negative Ur Leukocyte Esterase Negative Urine WBC (Auto) 0-5 Urine RBC (Auto) 0-2 U Hyaline Cast (Auto) 0-2 U Epithel Cells (Auto) 0-2 Urine Bacteria (Auto) None Seen Diagnostic Findings Abdomen/Pelvis CT 09/16/24 16:48 EXAMINATION: CT of the abdomen and pelvis performed after the administration of IV contrast TECHNIQUE: Helical CT images from the lung bases through the symphysis pubis were obtained with contrast. Coronal and sagittal reformatted images were generated at a workstation for further assessment. Dose reduction techniques were achieved by using automatic exposure control and/or adjustment of mA and/or kV according to patient size and/or use of iterative reconstruction technique. COMPARISON: 01/17/2023 HISTORY: Abdominal pain FINDINGS: Lower chest: No consolidation. No pleural effusion or pneumothorax. Liver: No suspicious liver lesions. Portal veins appear patent. Gallbladder: There are a few scattered small gallstones. No evidence of acute cholecystitis. Spleen: Normal size. Pancreas: No suspicious pancreatic lesions. The pancreatic duct is not dilated. Adrenal glands: No adrenal nodules. Kidneys: No hydronephrosis or obstructing renal stones. Bladder / Pelvic organs: Unremarkable. Bowel: No bowel obstruction. No abnormal bowel wall thickening. The appendix is unremarkable. Mild to moderate colonic stool. Lymph nodes: No retroperitoneal, mesenteric, or pelvic lymphadenopathy. Peritoneum / Retroperitoneum: No free fluid or air within the abdomen. Vessels: No infrarenal aortic aneurysm. Moderate aortoiliac calcification. Bones and soft tissues: No suspicious lesion in the bones. Fixation and laminectomy changes is seen of the lumbar spine. L5-S1 disc spacer device. Grade 1/2 L5 anterolisthesis. IMPRESSION: No acute process Electronically signed by Flex Soto 09-16-2024 7:23 PM Medications Administered 2L NSS Morphine 4 mg IV x 2 Zosyn 4.5 g IV ECG Additional Comments: NSR 98 bpm, CT 180, QRS 88, QT/QTc 344/439, PRT 22/-29/24 Code Status & VTE Plan Code Status Full Supervising Physician Co-Signing Physician Notes patient seen examined, chart reviewed, case discussed with GILLIAN Garcia and I agree with the assessment and plan as document above. In brief, patient is a 64-year-old male with history of hypertension, hyperlipidemia, coronary artery disease, GERD, seizure disorder, prior stroke with left-sided deficit presenting with sepsis. Patient complaining of diffuse generalized abdominal pain. On physical exam he is resting comfortably, answering questions appropriately Skinsome blisters and bruising noted of left hand and left forearm HEENTmoist mucous membranes, neck supple Heart+ S1, S2, regular, no murmur/rub/gallop LungsCTA anteriorly Abdomenpositive bowel sounds, soft, diffusely tender with no rebound/guarding/peritonitis extremitieswarm, well-perfused Neuroleft-sided deficit present at baseline Labs and images reviewed. WBC = 11.32 with neutrophil predominance AST = 68, ALT = 55 COVID/flu/RSV negative Chest x-ray by my interpretation appears to have elevation of right hem idiaphragm otherwise no obvious infiltrates CT findings as above Assessment/plan 64-year-old male presenting with sepsis, source unclear at this time but likely secondary to intra-abdominal process. Of note, patient reports history of similar presentation last year when he was in [place], [place]. He was found to be bacteremic at that time and was managed with antibiotics. He was told that he may have passed a gallstone versus diverticulitis as a abdominal source. He reports he did not have surgery and was not managed in the ICU at that time Follow cultures Continue Zosyn Continue IV fluids Obtain records -Will hold Carvedilol for now and monitor VS Remainder as above Assessment/plan PG Care Time/CCT Total # of Minutes Spent Total Time Spent with Patient: Total time spent is greater than 50% in coordination of care (as documented) at patient's floor/unit and/or counseling patient: Coding Level of Care Code 78355 INT INP/OBS CARE 3/75MIN Diagnoses Sepsis A41.9 Abdominal pain R10.9 Acute hypoxic respiratory failure J96.01
[2024-09-16] MEDS: AMOXICILLIN/CLAVULANATE 875MG HOME PACK PO ONE (22:18)
[2024-09-16 22:47] LABS: Influenza A virus by PCR Negative (Neg); Influenza B virus by PCR Negative (Neg); RSV by PCR Negative (Neg); SARS CoV2 RNA(COVID-19) Ceph NEGATIVE (Negative)
[2024-09-16] MEDS: LACTATED RINGER'S 1,000 ML IV STA (22:53)
[2024-09-16] MEDS ORDERED: MELATONIN 3 MG TAB PO PRN (23:48)
[2024-09-16] MEDS ORDERED: ALBUT/IPRATROP 3MG/0.5MG NEB 3 ML VIAL NEB PRN (23:48)
[2024-09-16] MEDS ORDERED: ONDANSETRON INJ 2 MG/ML 2 ML VIAL IV PRN (23:48)
[2024-09-16] MEDS ORDERED: MoRPHine SULFATE 4 MG/ML 1 ML CARP\\VIAL IV PRN (23:48)
[2024-09-16] MEDS ORDERED: NITROGLYCERIN SL 0.4 MG/TAB TAB SL PRN (23:48)
[2024-09-16] MEDS ORDERED: POLYETHYLENE (MIRALAX) 17 GM PACK PO PRN ×2 (23:48)
[2024-09-16] MEDS ORDERED: PSYLLIUM HUSK 4GM PACKET PO PRN (23:54)
[2024-09-17] MEDS: PIPERACILLIN/TAZOBACTAM 4.5 GM/100 ML BAG IV SCH (00:10)
[2024-09-17] MEDS: ACETAMINOPHEN 325 MG TAB PO PRN (00:10)
--- NOTE | 2024-09-17 00:46 | XRay Report ---
Exam(s): XR CXR 1 VIEW EXAM: XR Chest, 1 View CLINICAL HISTORY: Reason for exam: eval for hypoxia. TECHNIQUE: Frontal view of the chest. COMPARISON: Prior chest x-ray from March 07, 2024.. FINDINGS: Lungs: Mild to moderate peribronchial thickening of the central bronchi. Atelectasis of the right lung base. No consolidation. Pleural space: There is eventration of the right hemidiaphragm. No pneumothorax. Heart: Unremarkable. No cardiomegaly. Mediastinum: Unremarkable. Normal mediastinal contour. Bones/joints: Remote left clavicular fracture deformity. No acute fracture. IMPRESSION: Bronchitis, which may be of infectious or inflammatory etiologies. No consolidation or pleural effusion. Electronically signed by: Ebony Persaud MD 09/17/24 00:45 AM
[2024-09-17 01:20] LABS: BUN Creatinine Ratio 13.6 (10-20); Calcium 8.3 mg/dl (8.6-10.3); Creatinine Clr Calc Pharmacy 78.2 ml/min; Potassium 3.9 mmol/L (3.5-5.1)
[2024-09-17 06:11] LABS: Hematocrit (blood only) 42.5 % (42.0-52.0); Hemoglobin 14.8 g/dl (14.0-18.0); Mean Corpuscular Hemoglobin 32.5 pg (25.0-34.0); Mean Corpuscular Hgb Conc 34.8 g/dL (32.0-36.0); Mean Corpuscular Volume 93.4 fL (80.0-100.0); Platelet Count 121 K/uL (130-400); RDW Coefficient of Variation 12.5 % (11.5-14.5); RDW Standard Deviation 42.7 fL (36.4-46.3); Red Blood Count 4.55 M/uL (4.70-6.10); White Blood Count 9.45 K/ul (4.8-10.8)
[2024-09-17] MEDS: MoRPHine SULFATE 2 MG/ML CARP IV PRN (06:27)
[2024-09-17 06:30] LABS: BUN Creatinine Ratio 11.6 (10-20); Calcium 8.4 mg/dl (8.6-10.3); Creatinine Clr Calc Pharmacy 72.5 ml/min
--- NOTE | 2024-09-17 07:47 | Hospitalist Progress Note ---
Date of Service September 17, 2024 Assessment & Plan (1) Sepsis: (2) Abdominal pain: (3) Acute hypoxic respiratory failure: Plan 64-year-old male PMHx HTN, dyslipidemia, CAD, GERD, seizure disorder, dysphagia, ESA, MDD, history of CVA with left-sided deficits, spinal stenosis, and dyspnea presenting for worsening abdominal pain starting at 1500 hrs the day of arrival. ED evaluation reveals leukocytosis 11.32; COVID/Flu/RSV negative; UA negative for infection; CTAP without acute findings; CXR ? Bronchitis; volume resuscitated , and Zosyn 4.5 g IV in ED. #Sepsis Presenting with abdominal pain. Unclear source; prior history of diverticulitis, presence of gallstones, and bacteremia ~ 2 months ago in [place]. SIRS criteria met for T (35.9C) and HR (121). Abdominal pain, rigors, mild cough. BP stable, not hypotensive. Likely source ? intraabdominal, bacteremia; treat as diverticulitis unless addition source identified. - Pending blood cultures - MRSA nares negative - COVID/Flu/RSV negative - UA without acute findings - CTAP without acute findings - Continue Zosyn IV -- adjust abx as appropriate #Acute hypoxic resp failure Presenting w/ abdominal pain, but did become hypoxic throughout ED evaluation, with O2 sats dropping to 90% on room air, requiring 2L O2 via NC to achieve 95% currently on RA. No O2 at baseline. - DuoNebs prn #History of CVA- 04/2020; RMCA s/p carotid endarterectomy, craniectomy, cranioplasty and has left-sided deficits; ASA - continue #HTN- Carvedilol - continue given stable BP at admission #CAD/Dyslipidemia- Follows with [facility] cardiology, most recent visit being July 2023; Statin intolerance- Repatha q2wk #Seizure disorder- Stable; Keppra - continue #Anxiety/MDD- Follows with psychiatry; Mirtazapine - continue #Spinal stenosis/MSK- Baclofen, hydro-acet. (HELD at admission, giving morphine), pregabalin - continue baclofen + pregabalin #GERD- Pepto-Bismol, pantoprazole - continue #Constipation- Docusate, MiraLAX, psyllium husk, sennosides - continue Admission and Anticipated Discharge Date Admission Date: September 16, 2024 Results & Data Results & Data Vital Signs (Past 12 Hours) Vital Signs Temp Pulse Pulse Resp BP BP Pulse Ox 09/17/24 03:36 99.3 F 97 H 18 117/71 92 09/16/24 23:42 117 H 09/16/24 23:40 100.8 F H 117 H 22 137/92 93 09/16/24 23:07 103 H 25 H 155/92 H 95 09/16/24 22:44 104 H 09/16/24 22:00 106 H 16 153/97 H 96 09/16/24 20:58 98.6 F 106 H 20 149/90 H 88 L O2 Del Method O2 Flow Rate 09/17/24 03:36 Room Air 09/16/24 23:42 09/16/24 23:40 Room Air 09/16/24 23:07 Nasal Cannula 2 09/16/24 22:44 09/16/24 22:00 Room Air 09/16/24 20:58 Room Air PG Care Time/CCT Total # of Minutes Spent Total Time Spent with Patient: Total time spent is greater than 50% in coordination of care (as documented) at patient's floor/unit and/or counseling patient: Coding Diagnoses Sepsis A41.9; R65.20; J96.01 Acute respiratory failure type: with hypoxia Sepsis acute organ dysfunction status: with acute organ dysfunction Sepsis type: sepsis due to unspecified organism Severe sepsis acute organ dysfunction type: acute respiratory failure Severe sepsis shock status: without septic shock Abdominal pain R10.9 Acute hypoxic respiratory failure J96.01 (1) Sepsis Acute respiratory failure type: with hypoxia Sepsis acute organ dysfunction status: with acute organ dysfunction Sepsis type: sepsis due to unspecified organism Severe sepsis acute organ dysfunction type: acute respiratory failure Severe sepsis shock status: without septic shock Qualified Code(s): A41.9 - S epsis, unspecified organism; R65.20 - Severe sepsis without septic shock; J96.01 - Acute respiratory failure with hypoxia
[2024-09-17] MEDS: levETIRAcetam 500 MG TAB PO SCH (08:54)
[2024-09-17] MEDS: PANTOprazole 40 MG TAB PO SCH (08:54)
[2024-09-17] MEDS: PREGABALIN 75 MG CAP PO SCH (08:55)
[2024-09-17] MEDS: DOCUSATE SODIUM 100 MG CAP PO SCH (08:55)
[2024-09-17] MEDS: SENNA 8.6 MG TAB PO SCH (08:55)
[2024-09-17] MEDS ORDERED: carvediloL 6.25 MG TAB PO SCH (09:00)
[2024-09-17 11:05] VITALS: BP 116/75; PULSE 87; RESP 22; TEMP 98.6; O2SAT 92
[2024-09-17] MEDS ORDERED: oxyCODONE HCL IR 5 MG TAB (IMMEDIATE RELEASE) PO PRN (11:33)
--- NOTE | 2024-09-17 13:41 | Electrocardiogram Report ---
Test Reason : Blood Pressure : */* mmHG Vent. Rate : 98 BPM Atrial Rate : 98 BPM P-R Int : 180 ms QRS Dur : 88 ms QT Int : 344 ms P-R-T Axes : 22 -29 24 degrees QTcB Int : 439 ms Normal sinus rhythm Normal ECG When compared with ECG of 07-Mar-2024 12:15, No significant change was found Confirmed by Flex Cortes ([id number]) on 09/17/2024 1:41:36 PM Referred By: REFERRED SELF Confirmed By: Flex Cortes
--- NOTE | 2024-09-17 15:43 | Discharge Summary ---
Discharge Summary Date of Service September 17, 2024 Principal Dx & Hospital Course #1 = Principal Diagnosis (1) Sepsis: (2) Abdominal pain: (3) Acute hypoxic respiratory failure: Plan 64-year-old male PMHx HTN, dyslipidemia, CAD, GERD, seizure disorder, dysphagia, ESA, MDD, history of CVA with left-sided deficits, spinal stenosis, and dyspnea presenting for worsening abdominal pain starting at 1500 hrs the day of arrival. ED evaluation reveals leukocytosis 11.32; COVID/Flu/RSV negative; UA negative for infection; CTAP without acute findings; CXR ? Bronchitis; volume resuscitated , and Zosyn 4.5 g IV in ED. With abdominal pain with an unclear source. Given history of diverticulosis and previous history of gallstones. Imaging of abdomen did not show any clear-cut source of infection however did meet criteria for SIRS with a high heart rate and shaking chills. Because of history of recent bacterial infection and request for discharge, discharged on Augmentin and seek follow-up care with your primary care physician It is to be clear that it is not my intention to discharge by my will, however the patient has expressed an interest to leave the hospital #Sepsis Presenting with abdominal pain. Unclear source; prior history of diverticulitis, presence of gallstones, and bacteremia ~ 2 months ago in [place]. SIRS criteria met for T (35.9C) and HR (121). Abdominal pain, rigors, mild cough. BP stable, not hypotensive. Likely source ? intraabdominal, bacteremia; treat as diverticulitis unless addition source identified. - Pending blood cultures - MRSA nares negative - COVID/Flu/RSV negative - UA without acute findings - CTAP without acute findings - Continue Augmentin 3 times daily at home #Acute hypoxic resp failureresolved #History of CVA- 04/2020; [facility] s/p carotid endarterectomy, craniectomy, cranioplasty and has left-sided deficits; ASA - continue #HTN- Carvedilol - continue given stable BP at admission #CAD/Dyslipidemia- Follows with [facility] cardiology, most recent visit being July 2023; Statin intolerance- Repatha q2wk #Seizure disorder- Stable; Keppra - continue #Anxiety/MDD- Follows with psychiatry; Mirtazapine - continue #Spinal stenosis/MSK- Baclofen, hydro-acet. (HELD at admission, giving morphine), pregabalin - continue baclofen + pregabalin #GERD- Pepto-Bismol, pantoprazole - continue #Constipation- Docusate, MiraLAX, psyllium husk, sennosides - continue Notes For Next Care Provider Post short-term follow-up with none of the exact etiology of his abdominal pain or illness at this point in time Admission HPI Per Admitting Provider 64-year-old male PMHx HTN, dyslipidemia, CAD, GERD, seizure disorder, dysphagia, ESA, MDD, history of CVA with left-sided deficits, spinal stenosis, and dyspnea presenting for worsening abdominal pain starting at 1500 hrs the day of arrival. Patient states for the past 3 weeks he has had worsening abdominal pain. Approximately 2 weeks ago he was in a [place] hospital and was treated for gallstones which caused him significant pain and also had bacteremia at that time which required IV antibiotics. States that this pain is slightly different whereas it is more diffuse and a dull pain with occasional sharp pain that comes and goes mainly at the middle of his abdomen. States that the pain increase in severity at 1500 on the day of arrival which prompted his arrival to the ED. Rates the pain at its maximum a 9 out of 10 on the pain scale and the current pain is in his central abdomen also at a 9 out of 10 on the pain scale. States that he has been shaking nonstop since the morning of arrival. Did have some SOB today and has an occasional cough with clear sputum production, but otherwise no infectious symptoms. No fevers. 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 is in room at time of visit and states that the patient appears to be slightly delirious. He had some weakness the morning of arrival and felt as though his legs were going to give out on him but he did not pass out. He has no other complaints to include chest pain, palpitations, nausea/vomiting/diarrhea/constipation, numbness/tingling, LUTS, URI symptoms, or syncope. Patient has had rigors with prior diverticulitis, stating this feels similar to prior diverticulitis. ED evaluation reveals leukocytosis 11.32; CMP grossly WNL with exception of glucose 157, AST 68, ALT 55; Pro-[place] 0.15; lactate 4.9; MRSA nares pending; COVID/Flu/RSV negative; UA negative for infection; CTAP without acute findings; CXR pending; EKG NSR at 98 bpm.; Provided with 2.5L NSS, morphine sulfate 4 mg IV x 2, and Zosyn 4.5 g IV in ED. Please see Dr. Jay's attestation for adjustments/additions to treatment plan. Discharge Exam Constitutional Patient is pleasant he has some baseline limitations from his previous cerebrovascular disease he ambulated with some assistance to the nurses station which his says is typical for him he has no focal signs of infection and his abdomen exam is benign Discharge Plan Discharge Items Patient Disposition: Home - Self-Care Reason For Visit: SEPSIS,ABDOMINAL PAIN Discharge Diagnosis: abdominal pain of undetermined origin Condition on Discharge: Fair Activity: Resume your previous activity Non-emergency contact: Primary Care Provider Call non-emergency contact if: your symptoms worsen Follow-up/Referrals: Dago Garcia DO [Primary Care Provider] - 09/22/24 9:30 am (Hospital follow up scheduled for September 22, 2024 at 9:30am ) Diet: Heart Healthy Addtl Attending Provider Instructions: You presented to our facility with abdominal pain with an unclear source. Given history of diverticulosis and previous history of gallstones. Imaging of her abdomen did not show any clear-cut source of infection however you did meet criteria for significant infection with a high heart rate and shaking chills. Because of your history of recent bacterial infection we will discharge you on antibiotics that you cover infections in your abdomen however we would implore you to seek follow-up care with your primary care physician and certainly return to our facility if you have any worsening of your health. It is to be clear that it is not my intention to discharge you by my will, however you have expressed an interest to leave the hospital and I will be glad to try to prevent you from becoming more sick by prescribing antibiotics for home. Pending Studies at Discharge: Yes Studies:: Blood cultures Stand-Alone Forms: My [facility], Smoking Cessation Medications and DC Order Prescriptions: New amoxicillin-pot clavulanate 875-125 mg tablet 1 tab PO TID 10 Days Qty: 30 0RF Continued levetiracetam [Keppra] 500 mg tablet 500 mg PO BID 90 Days Qty: 180 1RF hydrocodone-acetaminophen 5-325 mg tablet 1 tab PO TID PRN (Reason: Pain) Patient Comments: cholecalciferol (vitamin D3) 50 mcg (2,000 unit) capsule 50 mcg PO DAILY sennosides 8.6 mg tablet 8.6 mg PO BID sildenafil [Viagra] 100 mg tablet 100 mg PO DAILY PRN (Reason: Other) Rx Instructions: administer 30 minutes to 4 hours before activity naloxone [Narcan] 4 mg/actuation spray,non-aerosol 4 mg intranasal Q2M PRN (Reason: Other) Rx Instructions: spray 1 dose into ONE nostril; alternate nostrils w each dose until help arrives baclofen 20 mg tablet 20 mg PO HS 90 Days Qty: 90 1RF polyethylene glycol 3350 [Miralax] 17 gram/dose powder 17 g PO BID PRN (Reason: Constipation) docusate sodium [Dulcolax Stool Softener (dss)] 100 mg capsule 100 mg PO BID multivitamin Tablet 1 tab PO QAM Metamucil 3.4 gram/5.4 gram powder 1 tbsp PO QAM PRN (Reason: Constipation) Rx Instructions: mix into at least 8 oz of water or juice before administering pregabalin [Lyrica] 100 mg capsule 150 mg PO UD Rx Instructions: 225mg in morning and 300mg hs aspirin 81 mg Tablet,Delayed Release (Dr/Ec) 81 mg PO HS fluticasone propionate 50 mcg/actuation spray,suspension 2 spray INTRANASAL HS PRN (Reason: Nasal Congestion) Repatha SureClick 140 mg/mL pen injector 140 mg SUBCUT .Q14D Rx Instructions: Every other Sunday bismuth subsalicylate [Pepto-Bismol] 262 mg Tablet,Chewable 2 tab PO QPM nitroglycerin [Nitrostat] 0.4 mg tablet, sublingual 0.4 mg sublingual DIRECTED PRN (Reason: Chest Pain) Rx Instructions: 1 tab q5min prn chest pain; max 3 in 15 minutes. pantoprazole 40 mg tablet,delayed release (DR/EC) 40 mg PO BID carvedilol 6.25 mg tablet 6.25 mg PO BID Qty: 60 0RF Rx Instructions: must administer with a meal/food omega-3 fatty acids 1,000 mg Capsule 1,000 mg PO BID carboxymethylcellulose sodium [Refresh Tears] 0.5 % drops 2 drp OPB TID PRN (Reason: Dry Eyes) mirtazapine 45 mg Tablet 22.5 mg PO HS ketamine 800 mg PO .Q OTHER DAY Discharge Orders: Discharge Order (Routine); Ordered 09/17/24 Ordered By: Wilber Conteh Admission Data Admit Date/Time: 09/16/24 22:11 Attending Provider: Wilber Conteh Admit Provider: Myriam Jay Primary Care Provider: Dago Garcia. Other Providers: Myriam Jay; [facility] Other Interventions: Discharge Summary Assessment (RN) Last Done: 09/17/24 14:09 Hospital Stay Data Consultations 09/16/24 21:11 ED Decision to Admit Stat Diagnostic Imagining Performed 09/16/24 16:48 CT abd pelvis IV con only Stat Pending Results Patient Have Any Pending Studies at Discharge: Yes Discharge Instructions Given to Patient (Per Discharging Provider) You presented to our facility with abdominal pain with an unclear source. Given history of diverticulosis and previous history of gallstones. Imaging of her abdomen did not show any clear-cut source of infection however you did meet criteria for significant infection with a high heart rate and shaking chills. Because of your history of recent bacterial infection we will discharge you on antibiotics that you cover infections in your abdomen however we would implore you to seek follow-up care with your primary care physician and certainly return to our facility if you have any worsening of your health. It is to be clear that it is not my intention to discharge you by my will, however you have expressed an interest to leave the hospital and I will be glad to try to prevent you from becoming more sick by prescribing antibiotics for home. Total Time Total Time Spent Total Time Spent (In Minutes): It required greater than 30 minutes to prepare this patient for discharge. Coding Level of Care Code 61688 INP/OBS DISCH >30 MIN Diagnoses Sepsis A41.9; R65.20; J96.01 Acute respiratory failure type: with hypoxia Sepsis acute organ dysfunction status: with acute organ dysfunction Sepsis type: sepsis due to unspecified organism Severe sepsis acute organ dysfunction type: acute respiratory failure Severe sepsis shock status: without septic shock Abdominal pain R10.9 Acute hypoxic respiratory failure J96.01
[2024-09-17] MEDS ORDERED: BISMUTH SUBSALICYLATE 262 MG CHEW PO SCH (21:00)
[2024-09-17] MEDS ORDERED: PREGABALIN 150 MG CAP PO SCH (21:00)
[2024-09-17] MEDS ORDERED: MIRTAZAPINE SOLTAB 15 MG PO SCH (21:00)
[2024-09-17] MEDS ORDERED: ASPIRIN 81 MG ECTAB PO SCH (21:00)
[2024-09-17] MEDS ORDERED: BACLOFEN 20 MG TAB PO SCH (21:00)
== END 2024-09-17 15:24 | disposition home or self-care (01) | DRG 871 ==
LOC: ED 16:20 → SUATTDRO 22:11 → 2S 22:11

== ENCOUNTER 2024-11-14 21:08 | Observation (INO) ==
[2024-11-14] MEDS: SODIUM CHLORIDE 0.9% 1,000 ML IV ONE (21:45)
--- NOTE | 2024-11-14 22:16 | Emergency Department Note ---
History of Present Illness General Chief complaint: Illness Stated complaint: AMS, Weakness, Frequent Urination Time Seen by Provider: 11/14/24 21:26 History of Present Illness Maximum Pain Intensity: 10 This 64-year-old male presents to the ER with for evaluation of increased confusion today. Patient is able to follow commands and knows his name. states he is acting more confused. He did not know where he was at this evening. They did recently increase his pain medicine. Patient complains of urinary frequency. Patient denies chest pain, dyspnea, cough, congestion. Home Medications Medication Instructions Recorded Confirmed Type docusate sodium 100 mg capsule 100 mg PO TID PRN Constipation 10/07/20 11/14/24 History (Dulcolax Stool Softener (docusate)) polyethylene glycol 3350 17 17 g PO DAILY Constipation 10/07/20 11/15/24 History gram/dose oral powder (Miralax) fluticasone propionate 50 2 spray intranasal BID PRN Nasal 04/01/21 11/14/24 History mcg/actuation nasal Congestion spray,suspension multivitamin 1 tab PO QAM 04/26/21 11/15/24 History psyllium husk 3.4 gram/5.4 gram 1 tbsp PO QAM Constipation 03/16/22 11/15/24 History oral powder (Metamucil) mirtazapine 45 mg tablet 22.5 mg PO HS 12/17/22 11/14/24 History nitroglycerin 0.4 mg sublingual 0.4 mg sublingual DIRECTED PRN 01/17/23 11/15/24 History tablet (Nitrostat) Chest Pain levetiracetam 500 mg tablet 500 mg PO BID 90 days #180 tabs 02/05/23 11/15/24 Rx (Keppra) pantoprazole 40 mg tablet,delayed 40 mg PO BID 04/13/23 11/15/24 History release naloxone 4 mg/actuation nasal 4 mg intranasal Q2M PRN Other 08/15/23 11/15/24 History spray (Narcan) sennosides 8.6 mg tablet 8.6 mg PO BID PRN Constipation 08/15/23 11/15/24 History aspirin 81 mg chewable tablet 81 mg PO DAILY 10/19/24 11/14/24 History baclofen 10 mg tablet 20 mg PO DAILY 10/19/24 11/14/24 History carvedilol 25 mg tablet 12.5 mg PO BID 10/19/24 11/14/24 History cholecalciferol (vitamin D3) 25 25 mcg PO DAILY 10/19/24 11/15/24 History mcg (1,000 unit) tablet (Vitamin D3) evolocumab 140 mg/mL subcutaneous 140 mg subcut Q14D 10/19/24 11/14/24 History pen injector fluoride (sodium) 1.1 % dental 1 applic dental DAILY 10/19/24 11/14/24 History paste (PreviDent 5000 Dry Mouth) ketamine 50 mg/mL (1 mL) 0 mg IV DIRECTED 10/19/24 11/14/24 History intravenous syringe pregabalin 300 mg capsule 300 mg PO HS 10/19/24 11/15/24 History urea 20 % topical cream 1 applic topical BID PRN Callusing 10/19/24 11/15/24 History on feet buprenorphine 5 mcg/hour weekly 10 mcg transdermal WK 11/14/24 11/14/24 History transdermal patch ketamine 800 mg sublingual .Q2D 11/14/24 11/14/24 History omega-3 fatty acids 1,000 mg 1,000 mg PO BID 11/15/24 11/15/24 History capsule pregabalin 225 mg capsule 225 mg PO QAM 11/15/24 11/15/24 History Allergies Allergy/AdvReac Type Severity Reaction Status Date / Time tuberculin, purified protein Allergy Severe SWELLING/HI Verified 11/14/24 23:13 deriva VES fentanyl AdvReac Severe NEURO Verified 11/14/24 23:13 CHANGES/Altered mental status Jwnvktl-XRZ-LbD Reductase AdvReac Severe BODY ACHES Verified 11/14/24 23:14 Inhibitor [Xwpjdpm-Ejg-Rfm Reductase Inhibitor] rosuvastatin AdvReac Intermediate muscle and Verified 11/14/24 23:14 joint pain sertraline AdvReac Intermediate Psych Verified 11/14/24 23:14 complications Past Med/Surg History Problem List Back pain (Acute) Weakness (Acute) AMS (altered mental status) (Acute) Elevated lactic acid level (Acute) Polypharmacy (Acute) Acute alteration in mental status (Acute) Anxiety disorder Coronary artery disease Chronic pain Type 2 diabetes mellitus Toxic encephalopathy Acute hypoxic respiratory failure (Acute) Sepsis (Acute) Transaminitis (Acute) Abdominal pain, LLQ (Acute) Diabetic peripheral neuropathy Hemiparesis affecting left side as late effect of stroke 2019. reason for asa 81mg daily. Lumbosacral radiculopathy Idiopathic polyneuropathy Numbness Neurogenic claudication due to lumbar spinal stenosis Leukopenia Abnormal chest x-ray Influenza A Dysphagia Hoarse voice quality Meralgia paresthetica of right side Lower back pain (Acute) Epidermal cyst of neck Sleep disorder Chronic pain of both shoulders Tendinitis of right rotator cuff Fatigue Dyspnea Shoulder pain, left Postherpetic neuralgia Urinary incontinence Rotator cuff dysfunction Wrist drop H/O excision of mass (01/30/23) Posterior Neck Soft Tissue Mass Excision - Dario Suggs DO, FACS Hypertension controlled, stable per pt Dyslipidemia GERD (gastroesophageal reflux disease) controlled, stable per pt Benign prostatic hyperplasia (BPH) with post-void dribbling MDD (major depressive disorder) ESA (generalized anxiety disorder) Seizure disorder x1 2020 and x1 in 2021. no problems since starting Keppra daily. follows with [facility] Neurology Dr Deras. Esophageal stenosis CAD (coronary artery disease) "Cardiac cath 2013-50% mid circumflex, 99% ostial OM1 and OM2, 70% RCA" Spinal stenosis (Chronic) Chronic pain Restless leg syndrome Medical History Pancytopenia Thrombocytopenia Encounter for pre-operative examination Abdominal pain Carotid artery stenosis monitored by [place] neurology-states is next due for imaging next year; s/p left CEA Transient ischemic attack (TIA) ~2019 prior to CVA in 2019. History of COVID-19 tested positive initially 12/17/22 at [facility] while in ER. flu like symptoms in December 2022. no current symptoms. symptoms resolved ~01/18/23. 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 Surgical History S/P epidural steroid injection lumbar History of esophagogastroduodenoscopy (EGD) History of cardiac cath ~03/2014 at [facility]. no stents. follows with [facility]. H/O colonoscopy History of cranioplasty 12/25/2019 (the day following patient's stroke) treated at [facility]. History of right-sided carotid endarterectomy (~02/2020) [facility] Status post craniectomy titantium placed replaced several months later at [facility]. Family History Father Diabetes Heart disease Myocardial infarction Hypertension Grandfather , paternal GF Diabetes Grandmother , Paternal GM Diabetes Uncle Myocardial infarction Mother Hypertension Hiatal hernia Sister Diabetes Other No family history of adverse response to anesthesia Denies family history of Ovarian cancer Prostate cancer Breast cancer Lung cancer Colorectal cancer Stroke Social History Smoking Status: Never smoker Tobacco Type: Cigarettes Age Started Using Tobacco: 18; Age Quit Using Tobacco: 58; packs per day: 0.025; Cigarettes Per Day: 1-2/day many years; Second Hand Exposure: No; Do You Dip or Chew Tobacco: No; Hx Alcohol Use: No Hx Substance Use: No Preferred Language: Kiswahili Communication Ability: Effective Visual Impairment: No Limitations Hearing Ability: Use of Hearing Aid Motorcyles Final Inspector Required: No Beliefs That Will Affect Care: None marital status: Current Living Situation: Spouse Current Living Situation Comment: Lives at home with current occupational status: 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 How many Children do You have: 2 other: receiving [facility] care Feels Safe at Home: Yes Childhood Exposure to Second-Hand Smoke: No Diet: regular caffeine: Yes (very seldom ) during the past year weight has: increased > 10 lbs Dental Care, Regularly: Yes Physical Activity Frequency: Daily Physical Activity Frequency Comment: walks daily Seatbelt Use: always Sunscreen Use: Yes Assistive Devices: Cane and Scooter/Electric Scooter Review of Systems A total of 10 systems reviewed and were otherwise negative Physical Exam Vital Signs Vital Signs - 24 hr 11/14/24 21:14 11/14/24 21:18 11/14/24 21:20 Temperature 36.8 C Temperature Source Oral Pulse Rate 101 H 99 H 95 H Pulse Rate [Apical] Pulse Rate from SpO2 Sensor 99 H Respiratory Rate 21 16 Respiratory Effort / Characteristics Non-Labored Spontaneous Blood Pressure 142/100 H Blood Pressure [Right Arm] Blood Pressure Mean 114 Blood Pressure Mean [Right Arm] Blood Pressure Position [Right Arm] Pulse Oximetry 96 94 Oxygen Delivery Method Room Air Sepsis Recent Fever Within 48 Hours Yes Sepsis New/Unexplained Change in Mental Status Yes Sepsis Action Taken by Nursing No Action Required 11/14/24 21:20 11/14/24 21:21 11/14/24 21:30 Temperature 36.8 C Temperature Source Oral Pulse Rate 101 H Pulse Rate [Apical] 95 H Pulse Rate from SpO2 Sensor 102 H Respiratory Rate 16 20 Respiratory Effort / Characteristics Non-Labored Spontaneous Blood Pressure 142/100 H Blood Pressure [Right Arm] 142/100 H Blood Pressure Mean 110 Blood Pressure Mean [Right Arm] 114 Blood Pressure Position [Right Arm] Pulse Oximetry 94 95 Oxygen Delivery Method Room Air Sepsis Recent Fever Within 48 Hours Sepsis New/Unexplained Change in Mental Status Sepsis Action Taken by Nursing 11/14/24 21:48 11/14/24 21:54 11/14/24 21:58 Temperature Temperature Source Pulse Rate 97 H 93 H 95 H Pulse Rate [Apical] Pulse Rate from SpO2 Sensor 97 H 94 H Respiratory Rate 18 12 Respiratory Effort / Characteristics Blood Pressure Blood Pressure [Right Arm] Blood Pressure Mean Blood Pressure Mean [Right Arm] Blood Pressure Position [Right Arm] Pulse Oximetry 93 94 95 Oxygen Delivery Method Room Air Sepsis Recent Fever Within 48 Hours Sepsis New/Unexplained Change in Mental Status Sepsis Action Taken by Nursing 11/14/24 21:58 11/14/24 22:00 11/14/24 22:00 Temperature Temperature Source Pulse Rate 89 Pulse Rate [Apical] 95 H Pulse Rate from SpO2 Sensor 88 Respiratory Rate 16 18 Respiratory Effort / Characteristics Non-Labored Spontaneous Blood Pressure 152/95 H Blood Pressure [Right Arm] 142/100 H Blood Pressure Mean 115 Blood Pressure Mean [Right Arm] 114 Blood Pressure Position [Right Arm] Lying Pulse Oximetry 95 95 Oxygen Delivery Method Room Air Sepsis Recent Fever Within 48 Hours Sepsis New/Unexplained Change in Mental Status Sepsis Action Taken by Nursing 11/14/24 22:00 11/14/24 22:00 11/14/24 22:03 Temperature Temperature Source Pulse Rate Pulse Rate [Apical] 92 H Pulse Rate from SpO2 Sensor Respiratory Rate 16 Respiratory Effort / Characteristics Blood Pressure 152/95 H 152/95 H Blood Pressure [Right Arm] 152/95 H Blood Pressure Mean 115 115 Blood Pressure Mean [Right Arm] 114 Blood Pressure Position [Right Arm] Pulse Oximetry 95 Oxygen Delivery Method Room Air Sepsis Recent Fever Within 48 Hours Sepsis New/Unexplained Change in Mental Status Sepsis Action Taken by Nursing 11/14/24 22:12 11/14/24 22:15 11/14/24 22:21 Temperature Temperature Source Pulse Rate 90 92 H Pulse Rate [Apical] 91 H Pulse Rate from SpO2 Sensor 91 H 93 H Respiratory Rate 17 16 18 Respiratory Effort / Characteristics Non-Labored Spontaneous Blood Pressure Blood Pressure [Right Arm] 152/95 H Blood Pressure Mean Blood Pressure Mean [Right Arm] 114 Blood Pressure Position [Right Arm] Pulse Oximetry 95 94 95 Oxygen Delivery Method Room Air Sepsis Recent Fever Within 48 Hours Sepsis New/Unexplained Change in Mental Status Sepsis Action Taken by Nursing 11/14/24 22:30 11/14/24 22:42 11/14/24 23:48 Temperature Temperature Source Pulse Rate 91 H 87 Pulse Rate [Apical] Pulse Rate from SpO2 Sensor 92 H 88 Respiratory Rate 22 12 Respiratory Effort / Characteristics Blood Pressure 150/102 H 155/103 H Blood Pressure [Right Arm] Blood Pressure Mean 127 120 Blood Pressure Mean [Right Arm] Blood Pressure Position [Right Arm] Pulse Oximetry 94 96 Oxygen Delivery Method Room Air Sepsis Recent Fever Within 48 Hours Sepsis New/Unexplained Change in Mental Status Sepsis Action Taken by Nursing 11/15/24 00:00 11/15/24 01:03 Temperature Temperature Source Pulse Rate 87 83 Pulse Rate [Apical] Pulse Rate from SpO2 Sensor 88 83 Respiratory Rate 18 16 Respiratory Effort / Characteristics Blood Pressure 151/100 H Blood Pressure [Right Arm] Blood Pressure Mean 113 Blood Pressure Mean [Right Arm] Blood Pressure Position [Right Arm] Pulse Oximetry 93 93 Oxygen Delivery Method Room Air Room Air Sepsis Recent Fever Within 48 Hours Sepsis New/Unexplained Change in Mental Status Sepsis Action Taken by Nursing VITALS: Vitals are noted on the nurse's note and reviewed by myself. Vital signs stable. GENERAL: Pleasant patient following commands, in no acute distress, nondiaphoretic, well-developed well-nourished. SKIN: Capillary reflex less than 2 seconds. HEENT: Normocephalic. PERRLA. EOMI. Nares patent. Mucous membranes moist. Neck is supple without nuchal rigidity. HEART: Regular rate and rhythm LUNGS: Clear to auscultation bilaterally without wheezes, rales or rhonchi. No retractions or accessory muscle use. ABDOMEN: Positive bowel sounds x 4. Normal tympanic percussion. Soft, nontender, without masses or organomegaly. El sign negative. No guarding or rebound tenderness. no CVA tenderness MUSCULOSKELETAL: No gross musculoskeletal defects. NEURO: Patient was alert and oriented to person place and time. Left-sided facial droop which is chronic from prior stroke. Minimal left-sided weakness unchanged per family and patient. No other focal neurological deficits. Course Administered Medications Discontinued Medications Sodium Chloride (Nss) 1,000 mls @ 999 mls/hr IV .Q1H1M ONE Stop: 11/14/24 23:51 Last Infusion: 11/14/24 22:55 Dose: Infused Documented By: Admin: 11/14/24 21:45 Dose: 999 mls/hr Documented By: SARAY Levetiracetam (Levetiracetam 500 Mg Tab) 500 mg PO ONE ONE Stop: 11/14/24 23:46 Last Admin: 11/15/24 00:33 Dose: 500 mg Documented By: LUTHER Pregabalin (Pregabalin 150 Mg Cap) 300 mg PO NOW STA Stop: 11/14/24 23:46 Last Admin: 11/15/24 00:33 Dose: 300 mg Documented By: LUTHER Medical Decision Making Medical Records Attestation: I reviewed the patient's medical records. Home Medications Current Medication List: was personally reviewed by me Laboratory Data Attestation: I reviewed the patient's lab results. 11/14/24 23:25 11/14/24 23:25 Lab Results 11/14/24 11/14/24 Range/Units 23:25 23:40 WBC 6.57 (4.8-10.8) K/ul RBC 5.07 (4.70-6.10) M/uL Hgb 16.2 (14.0-18.0) g/dl Hct 47.4 (42.0-52.0) % MCV 93.5 (80.0-100.0) fL MCH 32.0 (25.0-34.0) pg MCHC 34.2 (32.0-36.0) g/dL RDW Std Deviation 43.8 (36.4-46.3) fL RDW Coeff of Nessa 13.0 (11.5-14.5) % Plt Count 167 (130-400) K/uL MPV 10.4 (9.4-12.4) fL Immature Gran % (Auto) 0.3 % Neut % (Auto) 54.7 % Lymph % (Auto) 34.4 % [place] % (Auto) 9.7 % Eos % (Auto) 0.6 % Baso % (Auto) 0.3 % Neut # (Auto) 3.59 (1.40-6.50) K/uL Lymph # (Auto) 2.26 (1.20-3.40) K/uL [place] # (Auto) 0.64 H (0.11-0.59) K/uL Eos # (Auto) 0.04 (0.00-0.50) K/uL Baso # (Auto) 0.02 (0.00-0.20) K/uL Immature Gran # (Auto) 0.02 (0.01-0.20) K/uL VBG pH 7.42 H (7.36-7.41) VBG pCO2 41 (38-50) mmHg VBG pO2 29 mmHg VBG HCO3 27 mmol/L VBG O2 Saturation < 60.0 % VBG Base Excess 1.9 mEq/L Sodium 138 (136-145) mmol/L Potassium 4.4 (3.5-5.1) mmol/L Chloride 105 (98-107) mmol/L Carbon Dioxide 25 (21-32) mmol/L Anion Gap 8 (3-11) BUN 15 (6-23) mg/dl Creatinine 0.89 (0.6-1.4) mg/dl Est Cr Clr Drug Dosing 85.4 ml/min eGFR 95.10 BUN/Creatinine Ratio 16.9 (10-20) Glucose 157 H (70-99(Fasting)) mg/dl Lactate 1.5 (0.4-2.0) mmol/L Calcium 8.7 (8.6-10.3) mg/dl Magnesium 2.1 (1.7-2.4) mg/dl Total Bilirubin 0.5 (0.2-1.0) mg/dl Direct Bilirubin 0.1 (0-0.2) mg/dl AST 24 (13-39) U/L ALT 28 (7-52) U/L Alkaline Phosphatase 58 (34-104) U/L Troponin I High Sens 3.2 (0-20) pg/ml Total Protein 8.2 (6.0-8.3) gm/dl Albumin 4.0 (3.4-5.0) gm/dl Procalcitonin < 0.02 (0-0.5) ng/ml TSH 1.859 (0.300-4.500) uIu/ml Urine Color Yellow Urine Appearance Clear (Clear) Urine pH 6.5 (4.5-7.5) Ur Specific [place] 1.023 (1.000-1.030) Urine Protein Trace H (Negative) Urine Glucose (UA) Negative (Negative) Urine Ketones 2+ H (Negative) Urine Blood Negative (Negative) Urine Nitrite Negative (Negative) Urine Bilirubin Negative (Negative) Urine Urobilinogen Negative (Negative) Ur Leukocyte Esterase Negative (Negative) Urine WBC (Auto) 0-5 (0-5) /hpf Urine RBC (Auto) 0-2 (0-2) /hpf U Hyaline Cast (Auto) 0-2 (0-2) /lpf U Epithel Cells (Auto) 0-2 (0-2) /hpf Urine Bacteria (Auto) None Seen (None Seen) Urine Comment Urine Opiates Screen Neg (Neg) Ur Methadone, Qual Neg (Neg) Urine Fentanyl Screen Neg (Neg) Urine Barbiturates Neg (Neg) Ur Phencyclidine (PCP) Neg (Neg) U Amphetamin/Meth Scrn Neg (Neg) MDMA (Ecstasy) Screen Neg (Neg) U Benzodiazepines Scrn Neg (Neg) Ur Cocaine Metabolite Neg (Neg) U Marijuana (THC) Screen Neg (Neg) Imaging Data Attestation: I personally reviewed and interpreted this imaging study as follows: Radiologist's Impression: Chest X-Ray 11/14/24 21:48 Exam(s): XR CXR 1 VIEW EXAM: XR Chest, 1 View CLINICAL HISTORY: Reason for exam: Sepsis. TECHNIQUE: Frontal view of the chest. COMPARISON: Prior chest x-ray from October 19, 2024. FINDINGS: Lungs: Mild to moderate peribronchial thickening in the central lower lobe bronchi. Low lung volumes limiting evaluation of the lung bases. No consolidation. Pleural space: Unremarkable. No pneumothorax. Heart: Unremarkable. No cardiomegaly. Mediastinum: Unremarkable. Normal mediastinal contour. Bones/joints: Unremarkable. No acute fracture. IMPRESSION: Bronchitis, which may be an infectious or inflammatory etiologies. No consolidation or pleural effusion. Electronically signed by: Ebony Persaud MD 11/15/24 02:[address] 11/14/24 21:48 EXAM: CT head/brain wo con CLINICAL HISTORY: AMS TECHNIQUE: Multiple axial images are obtained from the skull base to the vertex without contrast. CT scan was performed according to ALARA (as low as reasonable achievable). 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 FINDINGS: There is cerebral atrophy. Focal encephalomalacia/gliosis noted involving right frontoparietotemporal lobe causing ex vacuo dilatation of adjacent right lateral ventricle - suggestive of sequelae of prior insult.-stable. No evidence of space occupying lesion, hemorrhage, edema, mass effect, midline shift, extra axial collection, or hydrocephalus is noted. Basal cisterns are symmetric and normal in size and configuration. There are scattered periventricular hypodensities as can be seen with chronic microvascular ischemic changes. The lovelace-white matter differentiation is preserved. Visualized paranasal sinuses and mastoid air cells are well aerated. Orbital contents are within normal limits. Rest unchanged. IMPRESSION: 1. No evidence of acute intracranial abnormality is demonstrated. 2. Chronic microvascular ischemic changes.-stable. 3. Cerebral atrophy.-stable. 4. Focal encephalomalacia/gliosis noted involving right frontoparietotemporal lobe causing ex vacuo dilatation of adjacent right lateral ventricle - suggestive of sequelae of prior insult.-stable. MRI brain is suggested for better evauation if clinically indicated. Electronically signed by Oren Alfonso 11-15-2024 01:01 AM MDM Narrative Prior records/ancillary studies reviewed and summarized above. Nursing notes reviewed. Additional history obtained from family. The patient's history was concerning for increased confusion. Differential diagnosis: Etiologies such as metabolic, infection, hypo/hyperglycemia, electrolyte abnormalities, cardiac sources, intracerebral event, toxicologic, neurologic, as well as others were entertained. Physical examination: As above. ER treatment provided: IV Lock An order was placed for continuous cardiac monitoring. The monitor shows a rate of 60-100 with a sinus rhythm per my interpretation. IV fluids On reassessment the patient felt better. Diagnostics interpretation by me: ECG: Ordered for weakness EKG: Normal sinus, normal intervals, no acute ST-T wave changes, rate of 101. Impression sinus tachycardia independently interpreted myself The labs Independently Interpreted by myself revealed no worrisome leukocytosis, negative urine. Negative lactic. Mild hyperglycemia that DKA Imaging studies: Imaging was reviewed and read by radiology Consultation: A consultation was placed with the hospitalist. The case was discussed and diagnostics were reviewed. The patient was evaluated in the ER for further treatment. Med rec nurse came to me and states [facility] that he is trying to obtain other narcotic prescriptions and is requesting no narcotics. Exam and history seem consistent with an episode of confusion that has now cleared. Patient was reassessed and is neurovascularly and neurologically intact. I am concerned he might of increased his pain meds on his own. He is requesting pain meds for his back. Stable labs. Stable imaging. Medicine was consulted and case discussed. He will be evaluated for admission. By the evaluation outlined above emergent etiologies such as infection, electrolyte abnormalities, cardiac sources, intracerebral event, toxologic, neurologic, abnormalities blood glucose, metabolic, as well as others were deemed relatively unlikely. The pt informed about the findings as listed above. All questions were answered and pleased with the treatment. The chart was completed utilizing [employer] Speech voice recognition software. Grammatical errors, random word insertions, pronoun errors, and incomplete sentences are an occassional consequence of this system due to software limitations, ambient noise, and hardware issues. Any formal questions or concerns about the content, text, or information contained within the body of this dictation should be directly addressed to the physician life enrichment assistant for clarification. Impression & Plan AMS (altered mental status), Weakness, Back pain Discharge Plan Visit Data Chief Complaint: Illness Stated Complaint: AMS, Weakness, Frequent Urination ED Provider: Nelson Lala ED Midlevel Provider: Nichole Garcia Discharge Problem: AMS (altered mental status), Weakness, Back pain Patient Disposition: Admitted As Inpatient Condition: Fair Discharge Instructions Interventions: ED Discharge Assessment Last Done: 11/15/24 02:17 Discharge Problem: AMS (altered mental status) Qualifiers: Altered mental status type: unspecified Qualified Code(s): R41.82 - Altered mental status, unspecified
[2024-11-14 23:42] LABS: Base Excess VBG 1.9 mEq/L; HCO3 VBG 27 mmol/L; Oxygen Saturation VBG < 60.0 %; PCO2 VBG 41 mmHg (38-50); PO2 VBG 29 mmHg; pH VBG 7.42 (7.36-7.41)
[2024-11-14 23:47] LABS: Hematocrit (blood only) 47.4 % (42.0-52.0); Hemoglobin 16.2 g/dl (14.0-18.0); Immature Granulocytes # (auto) 0.02 K/uL (0.01-0.20); Immature Granulocytes % (auto) 0.3 %; Mean Corpuscular Hemoglobin 32.0 pg (25.0-34.0); Mean Corpuscular Volume 93.5 fL (80.0-100.0); Platelet Count 167 K/uL (130-400); RDW Standard Deviation 43.8 fL (36.4-46.3); Red Blood Count 5.07 M/uL (4.70-6.10); White Blood Count 6.57 K/ul (4.8-10.8)
[2024-11-15 00:05] LABS: Alanine Aminotransferase 28.0 U/L (7-52); Alkaline Phosphatase 58.0 U/L (34-104); Anion Gap 8.0 (3-11); Bilirubin,Total 0.5 mg/dl (0.2-1.0); Blood Urea Nitrogen 15.0 mg/dl (6-23); Calcium 8.7 mg/dl (8.6-10.3); Carbon Dioxide 25.0 mmol/L (21-32); Chloride 105.0 mmol/L (98-107); Creatinine Clr Calc Pharmacy 85.4 ml/min; Glucose 157.0 mg/dl (70-99(Fasting)); Magnesium 2.1 mg/dl (1.7-2.4); Potassium 4.4 mmol/L (3.5-5.1); Sodium 138.0 mmol/L (136-145); Total Protein 8.2 gm/dl (6.0-8.3)
[2024-11-15 00:16] LABS: Appearance Urine Clear (Clear); Bacteria Urine Automated None Seen (None Seen); Cast Urine Automated 0-2 /lpf (0-2); Epithelial Cell Urine Auto 0-2 /hpf (0-2); Glucose Urine UA Negative (Negative); RBC Urine Automated 0-2 /hpf (0-2); WBC Urine Automated 0-5 /hpf (0-5)
[2024-11-15 00:20] LABS: Thyroid Stimulating Hormone 1.859 uIu/ml (0.300-4.500)
[2024-11-15] MEDS: levETIRAcetam 500 MG TAB PO ONE (00:33)
[2024-11-15] MEDS: PREGABALIN 150 MG CAP PO STA (00:33)
--- NOTE | 2024-11-15 00:44 | Emergency Department Note ---
ED Visit Note I was consulted by the Advanced Practice Provider Danuta Garcia PA-C. I performed a substantive portion of the visit including all aspects of medical decision making. .
--- NOTE | 2024-11-15 01:02 | CT Scan Report ---
EXAM: CT head/brain wo con CLINICAL HISTORY: AMS TECHNIQUE: Multiple axial images are obtained from the skull base to the vertex without contrast. CT scan was performed according to ALARA (as low as reasonable achievable). 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 FINDINGS: There is cerebral atrophy. Focal encephalomalacia/gliosis noted involving right frontoparietotemporal lobe causing ex vacuo dilatation of adjacent right lateral ventricle - suggestive of sequelae of prior insult.-stable. No evidence of space occupying lesion, hemorrhage, edema, mass effect, midline shift, extra axial collection, or hydrocephalus is noted. Basal cisterns are symmetric and normal in size and configuration. There are scattered periventricular hypodensities as can be seen with chronic microvascular ischemic changes. The lovelace-white matter differentiation is preserved. Visualized paranasal sinuses and mastoid air cells are well aerated. Orbital contents are within normal limits. Rest unchanged. IMPRESSION: 1. No evidence of acute intracranial abnormality is demonstrated. 2. Chronic microvascular ischemic changes.-stable. 3. Cerebral atrophy.-stable. 4. Focal encephalomalacia/gliosis noted involving right frontoparietotemporal lobe causing ex vacuo dilatation of adjacent right lateral ventricle - suggestive of sequelae of prior insult.-stable. MRI brain is suggested for better evauation if clinically indicated. Electronically signed by Oren Alfonso 11-15-2024 01:01 AM
--- NOTE | 2024-11-15 01:07 | History & Physical Report ---
Date of Service November 15, 2024 Assessment & Plan (1) AMS (altered mental status): (2) Back pain: (3) Coronary artery disease: (4) Type 2 diabetes mellitus: (5) Hypertension: (6) Dyslipidemia: (7) GERD (gastroesophageal reflux disease): (8) Benign prostatic hyperplasia (BPH) with post-void dribbling: Plan 64yo male with history of chronic back pain, HTN, HLP, DM, CAD presenting with his for metabolic encephalopathy - patient not acting himself, irritable and frustrated. #AMS - metabolic encephalopathy. Etiology uncertain at this time. No clear evidence of infection, electrolyte abnormality, renal dysfunction. TSH and Ammonia are WNL. CT head with chronic changes. Possibly some degree of dehydration contributing. Suspect secondary to patient's medications, possibly secondary to recent increase in Buprenorphine patch -Observation to medical -Hydration with LR at 125 ml/hr -Hold Remeron for now -Consider decreasing Buprenorphine in AM if patient has not returned to baseline #Chronic back pain -Continue Buprenorphine 10mcg/week. If patient remains altered in the AM can consider decreasing dosage -Continue Lyrica 300mg po qHS and 225mcg po qAM -Continue Baclofen 20mg po daily -Tylenol PRN -Patient on Ketamin armando at home - will need to bring this medication in. -Please no additional narcotics as requested by the [facility] -Continue bowel regimen with Senna, Colace #Coronary Artery Disease - no report of chest pain -Continue ASA 81mg po daily -Continue Carvedilol 12.5mg po BID #Diabetes - last HgbA1C =8.2 on 07/15/24. Patient does not appear to be on any diabetes medications -ISS #Hypertension- blood pressure mildly elevated -Continue Carvedilol -Monitor #GERD -Continue Protonix 40mg po BID #History of CVA/History of Seizure - no seizure reported -Continue Keppra 500mg po BID -Continue ASA #BPH -Will initiate Flomax 0.4mg po daily in AM History of Present Illness Chief Complaint: encephalopathy Primary Care Provider: Dago Garcia DO Eli Elias is a 64yo male with history of prior CVA s/p craniotomy with left sided deficit, HTN, HLP, DM, CAD, chronic low back pain which is being managed at the [facility]. Patient presently on Buprenorphine patch. He was previously on 5mcg TD weekly which was just increased to 10mcg TD weekly on 11/12/24. Today patient's was out of the house most of the day. When she returned home the patient was still in bed - likely did not get out of bed for the entire day. She reports that he was not acting himself. He tried to get up to use the bathroom about 15 times - states that he kept standing up then fell back down into the bed. He then became slightly irritated with his stating that she was not letting him get up out of the bed. Patient did not eat or drink anything all day and reportedly did not take his morning pills. He also hasn't urinated at all today. Patient additionally reports chronic, longstanding pack pain Urinary hesitancy and difficulty starting his urinary stream as well as incontinence. No fever, chills, chest pain, cough, SOB, abdominal pain, nausea, vomiting, diarrhea. No recent falls or trauma. In the ER patient is afebrile, HD stable ER Course: Fiona [facility] Allergies Allergy/AdvReac Type Severity Reaction Status Date / Time tuberculin, purified protein Allergy Severe SWELLING/HI Verified 11/14/24 23:13 deriva VES fentanyl AdvReac Severe NEURO Verified 11/14/24 23:13 CHANGES/Altered mental status [id number] Reductase AdvReac Severe BODY ACHES Verified 11/14/24 23:14 Inhibitor [Xrgyfxg-Yle-Kjy Reductase Inhibitor] rosuvastatin AdvReac Intermediate muscle and Verified 11/14/24 23:14 joint pain sertraline AdvReac Intermediate Psych Verified 11/14/24 23:14 complications Home Medications Medication Instructions Recorded Confirmed Type docusate sodium 100 mg capsule 100 mg PO TID PRN Constipation 10/07/20 11/14/24 History (Dulcolax Stool Softener (docusate)) polyethylene glycol 3350 17 17 g PO DAILY Constipation 10/07/20 11/15/24 History gram/dose oral powder (Miralax) fluticasone propionate 50 2 spray intranasal BID PRN Nasal 04/01/21 11/14/24 History mcg/actuation nasal Congestion spray,suspension multivitamin 1 tab PO QAM 04/26/21 11/15/24 History psyllium husk 3.4 gram/5.4 gram 1 tbsp PO QAM Constipation 03/16/22 11/15/24 History oral powder (Metamucil) mirtazapine 45 mg tablet 22.5 mg PO HS 12/17/22 11/14/24 History nitroglycerin 0.4 mg sublingual 0.4 mg sublingual DIRECTED PRN 01/17/23 11/15/24 History tablet (Nitrostat) Chest Pain levetiracetam 500 mg tablet 500 mg PO BID 90 days #180 tabs 02/05/23 11/15/24 Rx (Keppra) pantoprazole 40 mg tablet,delayed 40 mg PO BID 04/13/23 11/15/24 History release naloxone 4 mg/actuation nasal 4 mg intranasal Q2M PRN Other 08/15/23 11/15/24 History spray (Narcan) sennosides 8.6 mg tablet 8.6 mg PO BID PRN Constipation 08/15/23 11/15/24 History aspirin 81 mg chewable tablet 81 mg PO DAILY 10/19/24 11/14/24 History baclofen 10 mg tablet 20 mg PO DAILY 10/19/24 11/14/24 History carvedilol 25 mg tablet 12.5 mg PO BID 10/19/24 11/14/24 History cholecalciferol (vitamin D3) 25 25 mcg PO DAILY 10/19/24 11/15/24 History mcg (1,000 unit) tablet (Vitamin D3) evolocumab 140 mg/mL subcutaneous 140 mg subcut Q14D 10/19/24 11/14/24 History pen injector fluoride (sodium) 1.1 % dental 1 applic dental DAILY 10/19/24 11/14/24 History paste (PreviDent 5000 Dry Mouth) ketamine 50 mg/mL (1 mL) 0 mg IV DIRECTED 10/19/24 11/14/24 History intravenous syringe pregabalin 300 mg capsule 300 mg PO HS 10/19/24 11/15/24 History urea 20 % topical cream 1 applic topical BID PRN Callusing 10/19/24 11/15/24 History on feet buprenorphine 5 mcg/hour weekly 10 mcg transdermal WK 11/14/24 11/14/24 History transdermal patch ketamine 800 mg sublingual .Q2D 11/14/24 11/14/24 History omega-3 fatty acids 1,000 mg 1,000 mg PO BID 11/15/24 11/15/24 History capsule pregabalin 225 mg capsule 225 mg PO QAM 11/15/24 11/15/24 History Past Med/Surg History Problem List Back pain (Acute) Weakness (Acute) AMS (altered mental status) (Acute) Elevated lactic acid level (Acute) Polypharmacy (Acute) Acute alteration in mental status (Acute) Anxiety disorder Coronary artery disease Chronic pain Type 2 diabetes mellitus Toxic encephalopathy Acute hypoxic respiratory failure (Acute) Sepsis (Acute) Transaminitis (Acute) Abdominal pain, LLQ (Acute) Diabetic peripheral neuropathy Hemiparesis affecting left side as late effect of stroke 2019. reason for asa 81mg daily. Lumbosacral radiculopathy Idiopathic polyneuropathy Numbness Neurogenic claudication due to lumbar spinal stenosis Leukopenia Abnormal chest x-ray Influenza A Dysphagia Hoarse voice quality Meralgia paresthetica of right side Lower back pain (Acute) Epidermal cyst of neck Sleep disorder Chronic pain of both shoulders Tendinitis of right rotator cuff Fatigue Dyspnea Shoulder pain, left Postherpetic neuralgia Urinary incontinence Rotator cuff dysfunction Wrist drop H/O excision of mass (01/30/23) Posterior Neck Soft Tissue Mass Excision - Dario Suggs DO, FACS Hypertension controlled, stable per pt Dyslipidemia GERD (gastroesophageal reflux disease) controlled, stable per pt Benign prostatic hyperplasia (BPH) with post-void dribbling MDD (major depressive disorder) ESA (generalized anxiety disorder) Seizure disorder x1 2020 and x1 in 2021. no problems since starting Keppra daily. follows with [facility] Neurology Dr Deras. Esophageal stenosis CAD (coronary artery disease) "Cardiac cath 2013-50% mid circumflex, 99% ostial OM1 and OM2, 70% RCA" Spinal stenosis (Chronic) Chronic pain Restless leg syndrome Medical History Pancytopenia Thrombocytopenia Encounter for pre-operative examination Abdominal pain Carotid artery stenosis monitored by [facility] neurology-states is next due for imaging next year; s/p left CEA Transient ischemic attack (TIA) ~2019 prior to CVA in 2019. History of COVID-19 tested positive initially 12/17/22 at [facility] while in ER. flu like symptoms in December 2022. no current symptoms. symptoms resolved ~01/18/23. 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 Surgical History S/P epidural steroid injection lumbar History of esophagogastroduodenoscopy (EGD) History of cardiac cath ~03/2014 at [facility]. no stents. follows with [facility] Zehra Rubio. H/O colonoscopy History of cranioplasty 12/25/2019 (the day following patient's stroke) treated at [facility]. History of right-sided carotid endarterectomy (~02/2020) [facility] Status post craniectomy titantium placed replaced several months later at [facility]. Family History Father Diabetes Heart disease Myocardial infarction Hypertension Grandfather , paternal GF Diabetes Grandmother , Paternal GM Diabetes Uncle Myocardial infarction Mother Hypertension Hiatal hernia Sister Diabetes Other No family history of adverse response to anesthesia Denies family history of Ovarian cancer Prostate cancer Breast cancer Lung cancer Colorectal cancer Stroke Social History Smoking Status: Never smoker Tobacco Type: Cigarettes Age Started Using Tobacco: 18; Age Quit Using Tobacco: 58; packs per day: 0.025; Cigarettes Per Day: 1-2/day many years; Second Hand Exposure: No; Do You Dip or Chew Tobacco: No; Hx Alcohol Use: No Hx Substance Use: No Preferred Language: Italian Communication Ability: Effective Visual Impairment: No Limitations Hearing Ability: Use of Hearing Aid Transplant Coordinator Required: No Beliefs That Will Affect Care: None marital status: Current Living Situation: Spouse Current Living Situation Comment: Lives at home with current occupational status: 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 How many Children do You have: 2 other: receiving [facility] care Feels Safe at Home: Yes Childhood Exposure to Second-Hand Smoke: No Diet: regular caffeine: Yes (very seldom ) during the past year weight has: increased > 10 lbs Dental Care, Regularly: Yes Physical Activity Frequency: Daily Physical Activity Frequency Comment: walks daily Seatbelt Use: always Sunscreen Use: Yes Assistive Devices: Cane and Scooter/Electric Scooter Review of Systems Review of Systems: All systems reviewed & are unremarkable except as noted in HPI & below Physical Exam Physical Exam: General: patient resting comfortably, NAD, non-toxic in appearance, AA&O x 4, slow to answer questions but answers appropriately Skin: warm, dry, intact, no rashes or lesions HEENT: NC/AT, PERRL, EOMI, anicteric sclera, conjunctiva without injection, external ear normal to inspection and nontender, nares patent, moist mucus membranes, dentition intact, no oropharyngeal lesions, neck supple, trachea midline, no LAD, no thyromegaly, no JVD Heart: +S1/S2, regular, no m/r/g Lungs: equal air entry bilaterally, no rales/rhonchi/wheezes Abd: +BS, soft, NT/ND, no masses/organomegaly/ascites Ext: warm, 2+ pulses in UE/LE bilaterally, no clubbing/cyanosis or edema Neuro: left sided hemiparesis from prior CVA Results & Data Results & Data Vital Signs (Past 12 Hours) Vital Signs Temp Pulse Pulse Resp BP BP Pulse Ox 11/15/24 00:00 87 18 151/100 H 93 11/14/24 23:48 87 12 155/103 H 96 11/14/24 22:42 91 H 22 94 11/14/24 22:30 150/102 H 11/14/24 22:21 92 H 18 95 11/14/24 22:15 91 H 16 152/95 H 94 11/14/24 22:12 90 17 95 11/14/24 22:03 92 H 16 152/95 H 95 11/14/24 22:00 152/95 H 11/14/24 22:00 152/95 H 11/14/24 22:00 152/95 H 11/14/24 22:00 89 18 95 11/14/24 21:58 95 H 16 142/100 H 95 11/14/24 21:58 95 H 95 11/14/24 21:54 93 H 12 94 11/14/24 21:48 97 H 18 93 11/14/24 21:30 142/100 H 11/14/24 21:21 101 H 20 95 11/14/24 21:20 36.8 C 95 H 16 142/100 H 94 11/14/24 21:20 36.8 C 95 H 16 142/100 H 94 11/14/24 21:18 99 H 21 96 11/14/24 21:14 101 H O2 Del Method 11/15/24 00:00 Room Air 11/14/24 23:48 Room Air 11/14/24 22:42 11/14/24 22:30 11/14/24 22:21 11/14/24 22:15 Room Air 11/14/24 22:12 11/14/24 22:03 Room Air 11/14/24 22:00 11/14/24 22:00 11/14/24 22:00 11/14/24 22:00 11/14/24 21:58 Room Air 11/14/24 21:58 Room Air 11/14/24 21:54 11/14/24 21:48 11/14/24 21:30 11/14/24 21:21 11/14/24 21:20 Room Air 11/14/24 21:20 Room Air 11/14/24 21:18 11/14/24 21:14 Laboratory Results Laboratory Results WBC 6.57 K/ul (4.8-10.8) 11/14/24 23: RBC 5.07 M/uL (4.70-6.10) 11/14/24 23: Hgb 16.2 g/dl (14.0-18.0) 11/14/24 23: Hct 47.4 % (42.0-52.0) 11/14/24: MCV 93.5 fL (80.0-100.0) 11/14/24: MCH 32.0 pg (25.0-34.0) 11/14/24: MCHC 34.2 g/dL (32.0-36.0) 11/14/24: RDW Std Deviation 43.8 fL (36.4-46.3) 11/14/24: RDW Coeff of Nessa 13.0 % (11.5-14.5) 11/14/24: Plt Count 167 K/uL (130-400) 11/14/24: MPV 10.4 fL (9.4-12.4) 11/14/24: Immature Gran % (Auto) 0.3 % 11/14/24 23:25 Neut % (Auto) 54.7 % 11/14/24 23: Lymph % (Auto) 34.4 % 11/14/24 23: [place] % (Auto) 9.7 % 11/14/24 23: Eos % (Auto) 0.6 % 11/14/24 23:25 Baso % (Auto) 0.3 % 11/14/24 23: Neut # (Auto) 3.59 K/uL (1.40-6.50) 11/14/24 23: Lymph # (Auto) 2.26 K/uL (1.20-3.40) 11/14/24: [place] # (Auto) 0.64 K/uL (0.11-0.59) H 11/14/24 23:25 Eos # (Auto) 0.04 K/uL (0.00-0.50) 11/14/24: Baso # (Auto) 0.02 K/uL (0.00-0.20) 11/14/24 23: Immature Gran # (Auto) 0.02 K/uL (0.01-0.20) 11/14/24 23:25 VBG pH 7.42 (7.36-7.41) H 11/14/24 23: VBG pCO2 41 mmHg (38-50) 11/14/24 23:25 VBG pO2 29 mmHg 11/14/24 23:25 VBG HCO3 27 mmol/L 11/14/24 23:25 VBG O2 Saturation < 60.0 % 11/14/24 23:25 VBG Base Excess 1.9 mEq/L 11/14/24 23:25 Sodium 138 mmol/L (136-145) 11/14/24 23:25 Potassium 4.4 mmol/L (3.5-5.1) 11/14/24: Chloride 105 mmol/L (98-107) 11/14/24 23: Carbon Dioxide 25 mmol/L (21-32) 11/14/24 23:25 Anion Gap 8 (3-11) 11/14/24 23:25 BUN 15 mg/dl (6-23) 11/14/24 23: Creatinine 0.89 mg/dl (0.6-1.4) 11/14/24 23:25 Est Cr Clr Drug Dosing 85.4 ml/min 11/14/24 23:25 eGFR 95.10 11/14/24 23: BUN/Creatinine Ratio 16.9 (10-20) 11/14/24 23:25 Glucose 157 mg/dl (70-99(Fasting)) H 11/14/24 23:25 Lactate 1.5 mmol/L (0.4-2.0) 11/14/24 23: Calcium 8.7 mg/dl (8.6-10.3) 11/14/24 23: Magnesium 2.1 mg/dl (1.7-2.4) 11/14/24: Total Bilirubin 0.5 mg/dl (0.2-1.0) 11/14/24 23: Direct Bilirubin 0.1 mg/dl (0-0.2) 11/14/24 23:25 AST 24 U/L (13-39) 11/14/24 23: ALT 28 U/L (7-52) 11/14/24 23:25 Alkaline Phosphatase 58 U/L (34-104) 11/14/24 23: Ammonia 24.0 umol/L (18-72) 11/15/24 01:07 Troponin I High Sens 3.2 pg/ml (0-20) 11/14/24 23: Total Protein 8.2 gm/dl (6.0-8.3) 11/14/24 23: Albumin 4.0 gm/dl (3.4-5.0) 11/14/24 23:25 Procalcitonin < 0.02 ng/ml (0-0.5) 11/14/24 23: TSH 1.859 uIu/ml (0.300-4.500) 11/14/24 23:25 Urine Color Yellow 11/14/24 23:40 Urine Appearance Clear (Clear) 11/14/24 23:40 Urine pH 6.5 (4.5-7.5) 11/14/24 23:40 Ur Specific [place] 1.023 (1.000-1.030) 11/14/24 23:40 Urine Protein Trace (Negative) H 11/14/24 23:40 Urine Glucose (UA) Negative (Negative) 11/14/24 23:40 Urine Ketones 2+ (Negative) H 11/14/24 23:40 Urine Blood Negative (Negative) 11/14/24 23:40 Urine Nitrite Negative (Negative) 11/14/24 23:40 Urine Bilirubin Negative (Negative) 11/14/24 23:40 Urine Urobilinogen Negative (Negative) 11/14/24 23:40 Ur Leukocyte Esterase Negative (Negative) 11/14/24 23:40 Urine WBC (Auto) 0-5 /hpf (0-5) 11/14/24 23:40 Urine RBC (Auto) 0-2 /hpf (0-2) 11/14/24 23:40 U Hyaline Cast (Auto) 0-2 /lpf (0-2) 11/14/24 23:40 U Epithel Cells (Auto) 0-2 /hpf (0-2) 11/14/24 23:40 Urine Bacteria (Auto) None Seen (None Seen) 11/14/24 23:40 Urine Comment 11/14/24 23:40 Urine Opiates Screen Neg (Neg) 11/14/24 23:40 Ur Methadone, Qual Neg (Neg) 11/14/24 23:40 Urine Fentanyl Screen Neg (Neg) 11/14/24 23:40 Urine Barbiturates Neg (Neg) 11/14/24 23:40 Ur Phencyclidine (PCP) Neg (Neg) 11/14/24 23:40 U Amphetamin/Meth Scrn Neg (Neg) 11/14/24 23:40 MDMA (Ecstasy) Screen Neg (Neg) 11/14/24 23:40 U Benzodiazepines Scrn Neg (Neg) 11/14/24 23:40 Ur Cocaine Metabolite Neg (Neg) 11/14/24 23:40 U Marijuana (THC) Screen Neg (Neg) 11/14/24 23:[address] 11/14/24 21:48 EXAM: CT head/brain wo con CLINICAL HISTORY: AMS TECHNIQUE: Multiple axial images are obtained from the skull base to the vertex without contrast. CT scan was performed according to ALARA (as low as reasonable achievable). 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 FINDINGS: There is cerebral atrophy. Focal encephalomalacia/gliosis noted involving right frontoparietotemporal lobe causing ex vacuo dilatation of adjacent right lateral ventricle - suggestive of sequelae of prior insult.-stable. No evidence of space occupying lesion, hemorrhage, edema, mass effect, midline shift, extra axial collection, or hydrocephalus is noted. Basal cisterns are symmetric and normal in size and configuration. There are scattered periventricular hypodensities as can be seen with chronic microvascular ischemic changes. The lovelace-white matter differentiation is preserved. Visualized paranasal sinuses and mastoid air cells are well aerated. Orbital contents are within normal limits. Rest unchanged. IMPRESSION: 1. No evidence of acute intracranial abnormality is demonstrated. 2. Chronic microvascular ischemic changes.-stable. 3. Cerebral atrophy.-stable. 4. Focal encephalomalacia/gliosis noted involving right frontoparietotemporal lobe causing ex vacuo dilatation of adjacent right lateral ventricle - suggestive of sequelae of prior insult.-stable. MRI brain is suggested for better evauation if clinically indicated. Electronically signed by Oren Alfonso 11-15-2024 01:01 AM PG Care Time/CCT Total # of Minutes Spent Total Time Spent with Patient: Total time spent is greater than 50% in coordination of care (as documented) at patient's floor/unit and/or counseling patient: Coding Level of Care Code 44032 INT INP/OBS CARE 3/75MIN Diagnoses AMS (altered mental status) R41.82 Altered mental status type: unspecified Back pain M54.9 Coronary artery disease I25.10 Type 2 diabetes mellitus E11.9 Hypertension I10 Dyslipidemia E78.5 GERD (gastroesophageal reflux disease) K21.9 Benign prostatic hyperplasia (BPH) with post-void dribbling N40.1; N39.43 (1) AMS (altered mental status) Altered mental status type: unspecified Qualified Code(s): R41.82 - Altered mental status, unspecified
[2024-11-15 01:40] LABS: Amphetamines+Metham, Urine Neg (Neg); MDMA (Ecstacy), Urine Neg (Neg); Marijuana, Urine Neg (Neg)
--- NOTE | 2024-11-15 02:39 | XRay Report ---
Exam(s): XR CXR 1 VIEW EXAM: XR Chest, 1 View CLINICAL HISTORY: Reason for exam: Sepsis. TECHNIQUE: Frontal view of the chest. COMPARISON: Prior chest x-ray from October 19, 2024. FINDINGS: Lungs: Mild to moderate peribronchial thickening in the central lower lobe bronchi. Low lung volumes limiting evaluation of the lung bases. No consolidation. Pleural space: Unremarkable. No pneumothorax. Heart: Unremarkable. No cardiomegaly. Mediastinum: Unremarkable. Normal mediastinal contour. Bones/joints: Unremarkable. No acute fracture. IMPRESSION: Bronchitis, which may be an infectious or inflammatory etiologies. No consolidation or pleural effusion. Electronically signed by: Ebony Persaud MD 11/15/24 02:38 AM
[2024-11-15] MEDS ORDERED: DOCUSATE SODIUM 100 MG CAP PO PRN (03:01)
[2024-11-15] MEDS ORDERED: GLUCOSE 40% GEL 15 GM TUBE PO PRN (03:01)
[2024-11-15] MEDS ORDERED: NALOXONE HCL 0.4 MG/1 ML VIAL/CARP IV PRN (03:01)
[2024-11-15] MEDS ORDERED: GLUCAGON FOR INJ 1 MG VIAL SQ PRN (03:01)
[2024-11-15] MEDS ORDERED: GLUCOSE 10 TAB/TUBE PO PRN (03:01)
[2024-11-15] MEDS ORDERED: CARBOHYDRATES FOR HYPOGLYCEMIA PO PRN (03:01)
[2024-11-15] MEDS ORDERED: ONDANSETRON INJ 2 MG/ML 2 ML VIAL IV PRN (03:01)
[2024-11-15] MEDS ORDERED: SENNA 8.6 MG TAB PO PRN (03:01)
[2024-11-15] MEDS ORDERED: DEXTROSE 50% 50 ML SYRINGE IV PRN (03:01)
[2024-11-15] MEDS: LACTATED RINGER'S 1,000 ML IV SCH (03:20)
[2024-11-15] MEDS: ACETAMINOPHEN 325 MG TAB PO PRN (04:15)
[2024-11-15] MEDS: CHECK BUPRENORPHINE PATCH SCH (04:16)
[2024-11-15 07:05] LABS: Hematocrit (blood only) 41.1 % (42.0-52.0); Hemoglobin 14.0 g/dl (14.0-18.0); Mean Corpuscular Hemoglobin 32.0 pg (25.0-34.0); Mean Corpuscular Volume 93.8 fL (80.0-100.0); Platelet Count 156 K/uL (130-400); RDW Standard Deviation 44.0 fL (36.4-46.3); Red Blood Count 4.38 M/uL (4.70-6.10); White Blood Count 5.50 K/ul (4.8-10.8)
[2024-11-15 07:16] VITALS: BP 98/61; PULSE 60; RESP 16; TEMP 97.5; O2SAT 95
[2024-11-15 07:26] LABS: Anion Gap 8.0 (3-11); Blood Urea Nitrogen 15.0 mg/dl (6-23); Calcium 8.2 mg/dl (8.6-10.3); Carbon Dioxide 26.0 mmol/L (21-32); Chloride 106.0 mmol/L (98-107); Creatinine Clr Calc Pharmacy 101.4 ml/min; Glucose 151.0 mg/dl (70-99(Fasting)); Potassium 3.7 mmol/L (3.5-5.1); Sodium 140.0 mmol/L (136-145)
[2024-11-15] MEDS: ASPIRIN 81 MG ECTAB PO SCH (07:33)
[2024-11-15] MEDS: BACLOFEN 20 MG TAB PO SCH (07:33)
[2024-11-15] MEDS: TAMSULOSIN HCL 0.4 MG CAP PO SCH (07:33)
[2024-11-15] MEDS: levETIRAcetam 500 MG TAB PO SCH (07:34)
[2024-11-15] MEDS: REMOVE & WASTE BUTRANS PATCH 1 EA EA SCH (07:37)
[2024-11-15] MEDS: PREGABALIN 75 MG CAP PO SCH (08:21)
[2024-11-15] MEDS: POLYETHYLENE (MIRALAX) 17 GM PACK PO SCH (08:21)
[2024-11-15] MEDS: INSULIN ASPART PER UNIT CHARGE SC SCH (08:24)
--- NOTE | 2024-11-15 11:07 | Discharge Summary ---
Discharge Summary Date of Service November 15, 2024 Principal Dx & Hospital Course #1 = Principal Diagnosis (1) AMS (altered mental status): (2) Back pain: (3) Coronary artery disease: (4) Type 2 diabetes mellitus: (5) Hypertension: (6) Dyslipidemia: (7) GERD (gastroesophageal reflux disease): (8) Benign prostatic hyperplasia (BPH) with post-void dribbling: Plan 64yo male with history of chronic back pain, HTN, HLP, DM, CAD presenting with his for metabolic encephalopathy - patient not acting himself, irritable and frustrated. #AMS No clear evidence of infection, electrolyte abnormality or renal dysfunction. TSH/ammonia WNL. CT w/ chronic changes Etiology likely related to recent increase in Buprenorphine patch on 11/12 s/p IVF Decrease Buprenorphine back to 5mcg patch & follow up w/ pain management for further recommendations. #Chronic back pain Continue Buprenorphine patch - recently changed to 10mcg patch but decrease back to 5mcg patch due to side effect Continue Lyrica 300mg po qHS and 225mcg po qAM Continue Baclofen 20mg po daily Tylenol PRN Patient on Ketamin armando at home Continue bowel regimen with Senna, Colace #Coronary Artery Disease no report of chest pain Continue ASA 81mg po daily Continue Carvedilol 12.5mg po BID #Diabetes Last HgbA1C =8.2 on 07/15/24. Patient does not appear to be on any diabetes medications Follow up w/ PCP for further recs regarding if diabetetic medications should be started. #Hypertension Continue Carvedilol #GERD Continue Protonix 40mg po BID #History of CVA/History of Seizure no seizure reported Continue Keppra 500mg po BID Continue ASA #BPH Continue Flomax upon discharge Per this is being looked at currently in outpatient setting Updated at bedside 11/15 Discharged home 11/15 Admission HPI Per Admitting Provider Eli Elias is a 64yo male with history of prior CVA s/p craniotomy with left sided deficit, HTN, HLP, DM, CAD, chronic low back pain which is being managed at the [facility]. Patient presently on Buprenorphine patch. He was previously on 5mcg TD weekly which was just increased to 10mcg TD weekly on 11/12/24. Today patient's was out of the house most of the day. When she returned home the patient was still in bed - likely did not get out of bed for the entire day. She reports that he was not acting himself. He tried to get up to use the bathroom about 15 times - states that he kept standing up then fell back down into the bed. He then became slightly irritated with his stating that she was not letting him get up out of the bed. Patient did not eat or drink anything all day and reportedly did not take his morning pills. He also hasn't urinated at all today. Patient additionally reports chronic, longstanding pack pain Urinary hesitancy and difficulty starting his urinary stream as well as incontinence. No fever, chills, chest pain, cough, SOB, abdominal pain, nausea, vomiting, diarrhea. No recent falls or trauma. In the ER patient is afebrile, HD stable ER Course: Fiona Roberson NSS Discharge Exam Constitutional well developed and well nourished Respiratory normal respiratory effort Psychiatric Orientation: oriented x 3 Affect: + irritable affect Discharge Plan Discharge Items Patient Disposition: Home - Self-Care Reason For Visit: ENCEPHALOPATHY Discharge Diagnosis: Encephalopathy Condition on Discharge: Fair Activity: Resume your previous activity Non-emergency contact: Primary Care Provider and Pain Management Call non-emergency contact if: you have any medication questions, your symptoms worsen and your pain is not controlled Follow-up/Referrals: Dago Garica, [Primary Care Provider] - Diet: Carb Consistent or DM2 Addtl Attending Provider Instructions: Mr. Elias You were recently hospitalized for acute changes in your mental status that was observed at home. Your workup was unrevealing for causes related to this. However, your buprenorphine patch recently being increased this past week is most likely the cause of this. Please see recommendations below regarding your discharge. Please decrease your buprenorphine patch to 5mcg. Please call your pain management office on Sunday to make them aware of the side effect & for further recommendations. Please start Flomax 0.4mg once daily for help with urinating & your prostate. The remainder of your medications may be resumed. Please follow up with your PCP within 1-2 weeks of discharge. If you develop any worsening symptoms such as chest pain, shortness of breath, or fever please report back to the ED for further care. Best of luck! Olena Alvarez PA-C Pending Studies at Discharge: Yes Studies:: blood cultures Stand-Alone Forms: My [facility] [place], Smoking Cessation Medications and DC Order Prescriptions: New tamsulosin 0.4 mg Capsule 0.4 mg PO QAM Qty: 30 0RF buprenorphine 5 mcg/hour patch weekly 1 patch transdermal Q7D Qty: 4 0RF Continued levetiracetam [Keppra] 500 mg tablet 500 mg PO BID 90 Days Qty: 180 1RF sennosides 8.6 mg tablet 8.6 mg PO BID PRN (Reason: Constipation) naloxone [Narcan] 4 mg/actuation spray,non-aerosol 4 mg intranasal Q2M PRN (Reason: Other) Rx Instructions: spray 1 dose into ONE nostril; alternate nostrils w each dose until help arrives polyethylene glycol 3350 [Miralax] 17 gram/dose powder 17 g PO DAILY docusate sodium [Dulcolax Stool Softener (dss)] 100 mg capsule 100 mg PO TID PRN (Reason: Constipation) multivitamin Tablet 1 tab PO QAM Metamucil 3.4 gram/5.4 gram powder 1 tbsp PO QAM Rx Instructions: mix into at least 8 oz of water or juice before administering fluticasone propionate 50 mcg/actuation spray,suspension 2 spray INTRANASAL BID PRN (Reason: Nasal Congestion) nitroglycerin [Nitrostat] 0.4 mg tablet, sublingual 0.4 mg sublingual DIRECTED PRN (Reason: Chest Pain) Rx Instructions: 1 tab q5min prn chest pain; max 3 in 15 minutes. pantoprazole 40 mg tablet,delayed release (DR/EC) 40 mg PO BID mirtazapine 45 mg Tablet 22.5 mg PO HS Rx Instructions: TAKES 1/2 TABLET EVERY PM ketamine 800 mg sublingual .Q2D Rx Instructions: 11/14/24 : PLACE TWO 400MG TROUCH UNDER TONGUE QOD. LET DISSOVE. BEGIN 10/30/24. SPOUSE REPORTS PT TAKES THIS MED DAILY. pregabalin 225 mg Capsule 225 mg PO QAM omega-3 fatty acids 1,000 mg Capsule 1,000 mg PO BID carvedilol 25 mg Tablet 12.5 mg PO BID Rx Instructions: must administer with a meal/food urea 20 % Cream 1 applic TOPICAL BID PRN (Reason: Callusing on feet) baclofen 10 mg Tablet 20 mg PO DAILY aspirin 81 mg Tablet,Chewable 81 mg PO DAILY pregabalin 300 mg Capsule 300 mg PO HS fluoride (sodium) [PreviDent 5000 Dry Mouth] 1.1 % Paste 1 applic DENTAL DAILY cholecalciferol (vitamin D3) [Vitamin D3] 25 mcg (1,000 unit) Tablet 25 mcg PO DAILY ketamine 50 mg/mL (1 mL) Syringe 0 mg IV DIRECTED Rx Instructions: 10/19/24 Caregiver unsure of strength at this date/time. Inject Ketamine IV every 2 months. evolocumab 140 mg/mL Pen Injector 140 mg SUBCUT Q14D Discontinued buprenorphine 5 mcg/hour Patch Weekly 10 mcg transdermal WK Rx Instructions: .11/14/24 : PT CURRENTLY WEARING TWO 5MCG PATCHES (APPLIED ONCE WEEKLY), PRESCRIBED BY [facility]. FIRST PATCH APPLIED 11/10/24, SECOND PATCH APPLIED 11/12/24. Discharge Orders: Discharge Order (Routine); Ordered 11/15/24 Ordered By: Olena Alvarez Admission Data Admit Date/Time: 11/15/24 01:06 Attending Provider: Ignacio Mariscal Admit Provider: Myriam Jay Primary Care Provider: Dago Garcia. Other Providers: Myriam Jya Other Interventions: Discharge Summary Assessment (RN) Last Done: 11/15/24 11:22 Hospital Stay Data Consultations 11/15/24 00:44 ED Decision to Admit Stat Diagnostic Imagining Performed 11/14/24 21:48 CT head/brain wo con Stat Pending Results Patient Have Any Pending Studies at Discharge: Yes Discharge Instructions Given to Patient (Per Discharging Provider) Mr. Elias You were recently hospitalized for acute changes in your mental status that was observed at home. Your workup was unrevealing for causes related to this. However, your buprenorphine patch recently being increased this past week is most likely the cause of this. Please see recommendations below regarding your discharge. Please decrease your buprenorphine patch to 5mcg. Please call your pain management office on Sunday to make them aware of the side effect & for further recommendations. Please start Flomax 0.4mg once daily for help with urinating & your prostate. The remainder of your medications may be resumed. Please follow up with your PCP within 1-2 weeks of discharge. If you develop any worsening symptoms such as chest pain, shortness of breath, or fever please report back to the ED for further care. Best of luck! Olena Alvarez PA-C Total Time Total Time Spent Total Time Spent (In Minutes): 40 Total Time Includes: Examination of the Patient, Discharge Planning and Medication Reconciliation Coding Level of Care Code 78861 INP/OBS DISCH >30 MIN Diagnoses AMS (altered mental status) R41.82 Altered mental status type: unspecified Back pain M54.9 Coronary artery disease I25.10 Type 2 diabetes mellitus E11.9 Hypertension I10 Dyslipidemia E78.5 GERD (gastroesophageal reflux disease) K21.9 Benign prostatic hyperplasia (BPH) with post-void dribbling N40.1; N39.43
[2024-11-15] MEDS ORDERED: PREGABALIN 150 MG CAP PO SCH (21:00)
[2024-11-17] MEDS ORDERED: BUPRENORPHINE 10 MCG/HR TDSY TD SCH (09:00)
--- NOTE | 2024-11-17 09:59 | Electrocardiogram Report ---
Test Reason : Blood Pressure : */* mmHG Vent. Rate : 101 BPM Atrial Rate : 101 BPM P-R Int : 178 ms QRS Dur : 94 ms QT Int : 346 ms P-R-T Axes : 25 -17 25 degrees QTcB Int : 448 ms Sinus tachycardia Otherwise normal ECG When compared with ECG of 19-Oct-2024 12:14, No significant change was found Confirmed by Raghav Jacobs ([id number]) on 11/17/2024 9:59:06 AM Referred By: REFERRED SELF Confirmed By: Raghav Jacobs
== END 2024-11-15 11:40 | disposition home or self-care (01) ==
LOC: ED 21:08 → 3N 21:08 → SUATTDRO 11-15 01:06 → 3N 11-15 02:17